=== PATIENT | male | born 1935 | race Caucasian/White ===

== ENCOUNTER → 2018-04-22 07:32 | Outpatient (REF) | payer SELFPAY ==
[2018-04-22 07:59] LABS: INR 2.6 (0.9-1.3); Prothrombin Time 27.7 SECONDS (10.1-12.7)
== END ==
LOC: LAB 07:32
PROVIDERS: PCP Internal Medicine; Visit Provider Internal Medicine
DX: I48.91 Unspecified atrial fibrillation (principal)
CPT/HCPCS: 36415; 85610

== ENCOUNTER 2018-05-15 05:40 | Emergency (ER) | payer MEDICARE, BC, SELFPAY ==
--- NOTE | 2018-05-15 05:44 | DI.CT.S_ITS ---
PROCEDURE: CT HEAD/BRAIN WO CON INDICATIONS: fall with head injury TECHNIQUE: Noncontrast 4.5 mm thick angled axial sections acquired from the foramen magnum to the vertex, with coronal and sagittal reformats. For radiation dose reduction, the following was used: automated exposure control, adjustment of mA and/or kV according to patient size. COMPARISON: [facility], CT, HEAD WITHOUT CONTRAST, 03/04/2017, 10:53. FINDINGS: Image quality: Excellent. CSF spaces: Basal cisterns are patent. No extra-axial fluid collections. The ventricles are symmetric in size and shape. Brain: There is hyperdensity identified within the superior falx measuring 41 mm AP by 15 mm transverse. Subarachnoid hemorrhage is also noted within the interhemispheric fissure. There is no midline shift. There is cerebral volume loss for age, with resultant ventricular and sulcal prominence. There are periventricular and deep white matter chronic small vessel ischemic changes. There is intracranial internal carotid artery atherosclerosis. 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 Skull and face: Calvarium and visualized facial bones appear intact, without suspicious lesions. Sinuses: Visualized sinuses and mastoids are clear. IMPRESSION: 1. Subdural hematoma within the superior falx as well as interhemispheric fissure subarachnoid hemorrhage as above. No midline shift. Dictated by: Merlyn Henderson M.D. on 05/15/2018 at 9:04 Approved by: Merlyn Henderson M.D. on 05/15/2018 at 9:08
--- NOTE | 2018-05-15 05:44 | DI.RAD.S_ITS ---
PROCEDURE: XR CHEST 1V INDICATIONS: trauma TECHNIQUE: One view of the chest was acquired. COMPARISON: [facility], , CHEST 1 VIEW, 03/26/2017, 13:46. FINDINGS: Surgical changes and devices: Pacemaker is general wires and hilar clips are unchanged. Bypass graft is also noted. Lungs and pleura: Chronic interstitial changes as well as mild appearance of increased pulmonary vascularity is present. Mediastinum: Mediastinal contours appear normal. Heart size is enlarged. Bones and chest wall: No suspicious bony lesions. Overlying soft tissues appear unremarkable. IMPRESSION: Cardiomegaly with mild increased vascularity suggestive of edema. Dictated by: Merlyn Henderson M.D. on 05/15/2018 at 9:24 Approved by: Merlyn Henderson M.D. on 05/15/2018 at 9:25
--- NOTE | 2018-05-15 05:44 | DI.RAD.S_ITS ---
PROCEDURE: XR PELVIS 1-2V INDICATIONS: trauma TECHNIQUE: One view(s) of the pelvis acquired. COMPARISON: None. FINDINGS: Bones: There is ill-defined lucency identified within the superior left pubic ramus, with a slight offset appearance. No suspicious bony lesions. Degenerative changes are present within the hip joints bilaterally. Soft tissues: Visualized bowel gas pattern is normal. No suspicious soft tissue calcifications. IMPRESSION: Ill-defined lucency with slight offset appearance of the superior left pubic ramus suspicious for fracture. Followup with CT is recommended for further characterization. The above findings were discussed with Dr. Og Hastings on 05/15/18 at 9:27 AM. Dictated by: Merlyn Henderson M.D. on 05/15/2018 at 9:26 Approved by: Merlyn Henderson M.D. on 05/15/2018 at 9:32
[2018-05-15 05:46] VITALS: BP 138/87; PULSE 102; RESP 24; TEMP 37.4; O2SAT 96
[2018-05-15 06:02] LABS: Add Manual Diff / Slide Review NO; Basophils Percent Auto 0.8 % (0-2); Eosinophils Percent Auto 0.5 % (2-4); Hematocrit 28.1 % (41-53); Hemoglobin 9.3 g/dL (13.5-17.5); Lymphocytes Percent Auto 15.5 % (25-40); Mean Corpuscular HGB Conc 33.3 % (30-36); Mean Corpuscular Hemoglobin 28.2 PG (26-34); Mean Corpuscular Volume 84.8 fL (80-100); Monocytes Percent Auto 7.8 % (3-14); Neutrophils Absolute Auto 9000 /uL (3000-5900); Neutrophils Percent Auto 75.4 % (50-75); Platelet Count 209 X10^3/uL (150-400); Red Blood Cell Count 3.32 X10^6/uL (4.5-5.9); Red Cell Distribution Width 17.1 % (11.6-14.8)
--- NOTE | 2018-05-15 06:25 | ED_ITS ---
HPI - Head Injury General Chief complaint: Trauma Stated complaint: Modified trauma Time Seen by Provider: 05/15/18 05:44 Source: patient and EMS Mode of arrival: EMS Limitations: no limitations History of Present Illness HPI Narrative: 83M by EMS for fall with possible head injury. He is on coumadin for afib. He only has complaint of right posterior arm pain. He is not dizzy nor weak or lightheaded. The fall was from walking with his walker and seen by his . He denies loss of consciousness but does not have full recall of the event. He denies any vomiting. He has no neck or back pain. Patient is a full code. Modified trauma activated given possible head injury while on Coumadin Related Data Home Medications Medication Instructions Recorded Confirmed ASPIRIN (Aspirin Low Dose) 81 mg PO Q DAY #0 04/04/10 allopurinol 100 mg PO DAILY 05/15/18 05/15/18 atorvastatin 80 mg PO DAILY 05/15/18 05/15/18 carvedilol 6.25 mg PO BID 05/15/18 05/15/18 furosemide 40 mg PO DAILY 05/15/18 05/15/18 sertraline 50 mg PO DAILY 05/15/18 05/15/18 tamsulosin 0.4 mg PO DAILY 05/15/18 05/15/18 warfarin 5 mg PO DAILY 05/15/18 05/15/18 Allergies Allergy/AdvReac Type Severity Reaction Status Date / Time Sulfa (Sulfonamide Allergy Unknown Unverified 02/02/18 11:59 Antibiotics) Review of Systems Review of Systems All systems reviewed & are unremarkable except as noted in HPI and below Constitutional Denies chills, Denies fever(s), Denies lethargy and Denies weakness Eyes Denies change in vision, Denies eye discharge, Denies irritation and Denies loss of vision ENT Ears, Nose, Mouth, and Throat: Denies change in voice, Denies neck pain and Denies sore throat Cardiovascular Denies chest pain, Denies irregular heart rhythm, Denies lightheadedness, Denies palpitations, Denies dyspnea, Denies dyspnea on exertion and Denies orthopnea Respiratory Denies cough, Denies dyspnea, Denies dyspnea on exertion and Denies wheezing Gastrointestinal Gastrointestinal: Denies abdominal pain, Denies change in bowel habits, Denies diarrhea, Denies nausea and Denies vomiting Genitourinary Denies hematuria, Denies flank pain, Denies urinary incontinence and Denies urinary urgency Musculoskeletal Denies neck pain Integumentary/Breasts Denies pruritus, Denies erythema, Denies rash and Denies wounds Neurologic Denies confusion, Denies loss of vision and Denies weakness Psychiatric Denies anxiety, Denies confusion, Denies depression, Denies homicidal ideation and Denies suicidal ideation Endocrine Denies palpitations Hematologic/Lymphatic Denies easy bruising Allergic/Immunologic Denies wheezing [facility] Medical History Blind (Acute) Cardiac pacemaker (Acute) Atrial fibrillation (Acute) CAD (coronary artery disease) (Acute) Diabetes (Acute) Exam Narrative Exam Narrative: GENERAL: Pleasant 83-year-old male, alert oriented x3, GCS is 15 HEAD: Atraumatic. Normocephalic. No temporal or scalp tenderness. EYES: Pupils equal round and reactive. Extraocular motions intact. No scleral icterus. No injection or drainage. ENT: Nose without bleeding, purulent drainage or septal hematoma. Throat without erythema, tonsillar hypertrophy or exudate. Uvula midline. Airway patent. NECK: Trachea midline. No JVD or lymphadenopathy. Supple, nontender, no meningeal signs. CARDIOVASCULAR: Regular rate and rhythm without murmurs, gallops, or rubs. RESPIRATORY: Clear to auscultation. Breath sounds equal bilaterally. No wheezes , rales, or rhonchi. GASTROINTESTINAL: Abdomen soft, non-tender, nondistended. No hepato-splenomegaly , or palpable masses. No guarding. EXTREMITIES: Small skin tear the posterior right arm BACK: Nontender without deformity or crepitance. No flank tenderness. NEURO: AOx3. SKIN: No rash or erythema. Initial Vital Signs Initial Vital Signs: Vital Signs Temperature 99.4 F 05/15/18 05:46 Pulse Rate 102 H 05/15/18 05:46 Respiratory Rate 24 05/15/18 05:46 Blood Pressure 138/87 H 05/15/18 05:46 Pulse Oximetry 96 05/15/18 05:46 Course Orders Ordered: ED Orders 05/15/18 EKG-12 Lead Routine 05/15/18 05:44 CT head/brain wo con Stat XR chest 1V Stat XR pelvis 1-2V Stat 05/15/18 05:45 Basic Metabolic Panel Stat 05/15/18 05:49 Basic Metabolic Panel Stat Complete Blood Count AUTO DIFF Stat Prothrombin Time INR Stat Prothrombin Complex Concent ( (Human) / Miscellaneous) 0 mls @ 0 mls/hr IV NOW ONE; Protocol Stop: 05/15/18 06:37 Reevaluation(s) Reevaluation #1: Patient continues to be alert and oriented x3. He gave me contact info for his , Mimi, Time: 06:50 Consultations Consultation #1: call to [facility] and [facility] immediately upon viewing of head CT. Images pushed Dr. Redmond is happy to accept patient, we thank [facility] for their ongoing support Time: 06:52 Vital Signs - 8 hr 05/15/18 05:46 05/15/18 06:35 Temperature 99.4 F 99.4 F Pulse Rate 102 H 102 H Respiratory Rate 24 24 Blood Pressure 138/87 H 138/87 H Pulse Oximetry 96 96 MDM - Head Injury Lab Data Result diagrams: 05/15/18 05:49 05/15/18 05:49 Lab Results 05/15/18 05/15/18 Range/Units 05:49 05:49 WBC 12.0 H (4.5-11.0) X10^3/uL RBC 3.32 L (4.5-5.9) X10^6/uL Hgb 9.3 L (13.5-17.5) g/dL Hct 28.1 L (41-53) % MCV 84.8 (80-100) fL MCH 28.2 (26-34) PG MCHC 33.3 (30-36) % RDW 17.1 H (11.6-14.8) % Plt Count 209 (150-400) X10^3/uL Neut % (Auto) 75.4 H (50-75) % Lymph % (Auto) 15.5 L (25-40) % [place] % (Auto) 7.8 (3-14) % Eos % (Auto) 0.5 L (2-4) % Baso % (Auto) 0.8 (0-2) % Neut # (Auto) 9000 H (8689-5374) /uL PT 29.6 H (10.1-12.7) SECONDS INR 2.7 H (0.9-1.3) Imaging Data CT scan - head: Radiologist's impression: Acute subdural hematoma layering along the falx , greatest transverse portion measuring 10 mm. Also subarachnoid hemorrhage along the interhemispheric fissure no midline shift ECG Data Attestation: I personally reviewed and interpreted this ECG as follows: Prior ECG tracings: not available for review Interpretation: AFib MDM Narrative Medical decision making narrative: 83-year-old fall with possible head injury on Coumadin. CT notes subdural and subarachnoid hemorrhage. [facility] dispatched for potential rapid decline of critically ill patient and extended transport distance. KCentra given: 2000 units ordered for INR of 2.7 in 82 kg man. Vitamin K 5mg SQ also. Discharge Plan Departure Patient Disposition: [facility] Clinical Impression: Subdural abscess, Subarachnoid bleed, Subdural hematoma Prescriptions: No Action ASPIRIN (Aspirin Low Dose) 81 mg PO Q DAY Qty: 0 RF: 0 atorvastatin 80 mg tablet 80 mg PO DAILY RF: 0 allopurinol 100 mg Tablet 100 mg PO DAILY RF: 0 tamsulosin 0.4 mg capsule,extended release 24hr 0.4 mg PO DAILY RF: 0 warfarin 5 mg Tablet 5 mg PO DAILY RF: 0 furosemide 20 mg tablet 40 mg PO DAILY RF: 0 sertraline 50 mg Tablet 50 mg PO DAILY RF: 0 carvedilol 6.25 mg PO BID RF: 0
[2018-05-15 06:31] LABS: INR 2.7 (0.9-1.3); Prothrombin Time 29.6 SECONDS (10.1-12.7)
[2018-05-15 06:35] VITALS: BP 138/87; PULSE 102; RESP 24; TEMP 37.4; O2SAT 96
[2018-05-15] MEDS: PHYTONADIONE (VIT K1) 10 MG/ML AMP 5 MG SUBCUT (06:49)
[2018-05-15 06:56] LABS: BUN Creatinine Ratio 13.3 (6-22); Blood Urea Nitrogen 40 mg/dL (9-20); Calcium 10.1 mg/dL (8.4-10.2); Carbon Dioxide 27 mmol/L (22-32); Chloride 102 mmol/L (98-107); Estimated Glomerular Filt Rate 20.1 mL/min (>60); Glucose 134 mg/dL (80-110); HEMOLYSIS < 15 (0-50); Potassium 4.2 mmol/L (3.4-5.1); Sodium 136 mmol/L (137-145)
[2018-05-15] MEDS: PROTHROMBIN CPLX(PCC)4FACT 2,000 UNIT in ISOOSMOTIC VEHICLE 0 ML 590 ML IV (07:17)
[2018-05-15 07:19] VITALS: BP 137/62; PULSE 97; RESP 34; O2SAT 96
--- NOTE | 2018-05-15 07:25 | PC.NURSE ---
Kcentra infusion initiated. Pt left with [facility] with infusion running.
--- NOTE | 2018-05-15 07:44 | PC.NURSE ---
Pt left medications here in ED. Pt label placed on bin. [facility] will call family to inform them.
--- NOTE | 2018-05-15 10:35 | PC.NURSE ---
Spoke with Scott patient's son to let him know that patients medications were left in ER and he will pick them up at some point
== END 2018-05-15 07:20 | disposition short-term general hospital (02) ==
PROVIDERS: Emergency Provider Emergency Medicine; PCP Internal Medicine
DX: G06.2 Extradural and subdural abscess, unspecified (principal); S06.6X0A Traumatic subarachnoid hemorrhage without loss of consciousness, initial encounter; S06.5X9A Traumatic subdural hemorrhage with loss of consciousness of unspecified duration, initial encounter; W19.XXXA Unspecified fall, initial encounter
CPT/HCPCS: 36415; 70450; 71045; 72170; 80048; 85025; 85610; 93005; 96372; 96374; 99283; 99285; 99291; C9132; G0390; J3430

== ENCOUNTER → 2018-06-09 10:58 | Outpatient (CLI) | payer MEDICARE, BC, SELFPAY ==
--- NOTE | 2018-06-15 08:09 | PM.PFT.1 ---
Pulmonary Function Test Referral & Results Date Patient Seen: 06/09/18 Requesting provider: Greg Bullard Indication: Aortic valve stenosis Results: The spirometry demonstrates an FVC of 2.76 L which is 88% of predicted. The FEV1 was measured at 2.00 L which is 92% of predicted. The FEV1/FVC ratio was 72 which is 102% of predicted. Following the administration of bronchodilator there was a 13% improvement in FEV1 and a 60% improvement in FEF 25-75%. Lung volumes show an SVC of 2.79 L which is 76 percent of predicted. The diffusing capacity was measured at 13.28 which is 51% of predicted. No hemoglobin value was provided, so no correction for potential anemia could be made, if appropriate. The maximum voluntary ventilation was reduced. Interpretation: This study demonstrates reduced lung volumes were otherwise normal spirometry however there was a notable improvement in FEV1 and small airway flow (FEF 25-75%) after bronchodilator administration The diffusing capacity was significantly reduced suggesting significant disease at the capillary alveolar level. Clinical correlation suggested
== END ==
PROVIDERS: PCP Internal Medicine; Visit Provider Internal Medicine Interventional Cardiology
DX: I35.0 Nonrheumatic aortic (valve) stenosis (principal)
CPT/HCPCS: 94010; 94060; 94726; 94729

== ENCOUNTER → 2018-06-09 11:01 | Outpatient (CLI) | payer OTHER, SELFPAY | PROVIDERS: Visit Provider Internal Medicine Interventional Cardiology | DX: I35.0 Nonrheumatic aortic (valve) stenosis (principal); I65.23 Occlusion and stenosis of bilateral carotid arteries | CPT/HCPCS: 93880 ==

== ENCOUNTER → 2018-06-09 11:01 | Outpatient (CLI) | payer SELFPAY ==
--- NOTE | 2018-06-09 | DI.US.S_ITS ---
PROCEDURE: US CAROTID DOPPLER BI INDICATIONS: AORTIC STENOSIS TECHNIQUE: Color and pulse Doppler interrogation was performed of both carotid systems, with image documentation and velocity measurements. COMPARISON: None. FINDINGS: Stenosis calculations are based on SRU (Society of Radiologists in Ultrasound) criteria. Right side: Brachial blood pressure: 149/82 mm Hg. Common carotid artery peak systolic velocity: 45 cm/sec. Internal carotid artery peak systolic velocity: 88 cm/sec. Internal carotid artery end diastolic velocity: 16 cm/sec. External carotid artery peak systolic velocity: 69 cm/sec. ICA/CCA peak systolic ratio: 2.0. Hernandez scale imaging description: Moderate to severe scattered plaque. Percent internal carotid artery stenosis: Less than 50% stenosis. Vertebral artery: Not visualized. Left side: Brachial blood pressure: 147/80 mm Hg. Common carotid artery peak systolic velocity: 66 cm/sec. Internal carotid artery peak systolic velocity: 85 cm/sec. Internal carotid artery end diastolic velocity: 12 cm/sec. External carotid artery peak systolic velocity: 75 cm/sec. ICA/CCA peak systolic ratio: 1.3. Hernandez scale imaging description: Moderate to severe scattered plaque. Percent internal carotid artery stenosis: Less than 50% stenosis. Vertebral artery: Flow direction is antegrade. IMPRESSION: Less than 50% bilateral internal carotid artery stenosis. Dictated by: Wild MCCURDY Interpreted: Merlyn Henderson MD on 06/09/2018 at 13:59 Approved by: Merlyn Henderson M.D. on 06/09/2018 at 16:22
== END ==
PROVIDERS: PCP Internal Medicine; Visit Provider Internal Medicine Interventional Cardiology
DX: I35.0 Nonrheumatic aortic (valve) stenosis (principal); I65.23 Occlusion and stenosis of bilateral carotid arteries
CPT/HCPCS: 93880

== ENCOUNTER 2018-09-19 03:59 | Inpatient (IN) | payer MEDICARE, BC, SELFPAY ==
[2018-09-19] VITALS (7 sets, daily range): BP systolic 98–129; BP diastolic 50–73; PULSE 87–105; RESP 17–38; TEMP 37.3–37.9; O2SAT 91–98; BMI 24.3; BMI 23.8
--- NOTE | 2018-09-19 04:01 | DI.RAD.S_ITS ---
PROCEDURE: XR CHEST 1V INDICATIONS: cough, SOB TECHNIQUE: One view of the chest was acquired. COMPARISON: [facility], CR, XR CHEST 1V, 05/15/2018, 5:44. FINDINGS: Surgical changes and devices: Cardiac defibrillator is unchanged. Patient is status post median sternotomy. There is a right endovascular stent in the region of the brachiocephalic artery. Lungs and pleura: No pleural effusions or pneumothorax. Lungs are clear. Mediastinum: Mediastinal contours appear normal. Heart size is normal. The aorta is tortuous and calcified, as before. Bones and chest wall: No suspicious bony lesions. Overlying soft tissues appear unremarkable. IMPRESSION: No acute cardiopulmonary findings. Dictated by: Cynthia Caldwell M.D. on 09/19/2018 at 8:23 Approved by: Cynthia Caldwell M.D. on 09/19/2018 at 8:24
--- NOTE | 2018-09-19 04:29 | ED.URI ---
HPI - URI/Sore Throat General Chief Complaint: Upper Respiratory Symptoms Stated Complaint: Cough x1 day Time Seen by Provider: 09/19/18 04:00 Source: patient and EMS Mode of arrival: EMS Limitations: no limitations History of Present Illness HPI Narrative: 83-year-old former smoker with cardiac and stroke history presents by EMS with chief complaint of fever, shaking chills and cough productive of yellow sputum over the course of the day. Any exertion makes the patient feel quite weak and short of breath. Denies any chest pain is not dizzy or lightheaded but has begun to feel quite weak. He denies nausea, vomiting or diarrhea. he is a poor historian but states he has not been in the hospital for some time MD Complaint: fever and cough Duration: constant Severity: moderate Relieving factors: rest Exacerbating factors: exertion Description of mucous: yellow Able to tolerate fluids by mouth: Yes Associated symptoms: fever and chills Treatments prior to arrival: none Related Data Home Medications Medication Instructions Recorded Confirmed allopurinol 100 mg PO DAILY 05/15/18 09/19/18 carvedilol 6.25 mg PO BID 05/15/18 09/19/18 furosemide 40 mg PO DAILY 05/15/18 09/19/18 sertraline 50 mg PO DAILY 05/15/18 09/19/18 tamsulosin 0.4 mg PO DAILY 05/15/18 09/19/18 atorvastatin 20 mg PO BEDTIME 09/19/18 09/19/18 cholecalciferol (vitamin D3) 1,000 unit PO DAILY 09/19/18 09/19/18 [Vitamin D3] glipizide 2.5 mg PO DAILY 09/19/18 09/19/18 Allergies Allergy/AdvReac Type Severity Reaction Status Date / Time Sulfa (Sulfonamide Allergy Unknown Verified 09/19/18 05:01 Antibiotics) Review of Systems Review of Systems All systems reviewed & are unremarkable except as noted in HPI and below Constitutional Reports chills, Reports fever(s), Denies lethargy and Reports weakness Eyes Denies change in vision, Denies eye discharge, Denies irritation and Denies loss of vision ENT Ears, Nose, Mouth, and Throat: Denies change in voice, Denies neck pain and Denies sore throat Cardiovascular Denies chest pain, Denies irregular heart rhythm, Denies lightheadedness, Denies palpitations, Reports dyspnea, Denies dyspnea on exertion and Denies orthopnea Respiratory Reports cough, Reports dyspnea, Denies dyspnea on exertion and Denies wheezing Gastrointestinal Gastrointestinal: Denies abdominal pain, Denies change in bowel habits, Denies diarrhea, Denies nausea and Denies vomiting Genitourinary Denies hematuria, Denies flank pain, Denies urinary incontinence and Denies urinary urgency Musculoskeletal Denies neck pain Integumentary/Breasts Denies pruritus, Denies erythema, Denies rash and Denies wounds Neurologic Denies confusion, Denies loss of vision and Reports weakness Psychiatric Denies anxiety, Denies confusion, Denies depression, Denies homicidal ideation and Denies suicidal ideation Endocrine Denies palpitations Hematologic/Lymphatic Denies easy bruising Allergic/Immunologic Denies wheezing [facility] Medical History Atrial fibrillation (Acute) Blind (Acute) CAD (coronary artery disease) (Acute) Cardiac pacemaker (Acute) Diabetes (Acute) Social History household members: spouse Smoking Status: Former smoker alcohol intake: never Exam Narrative Exam Narrative: Chronically ill 83-year-old male appears in acute distress, wet sounding harsh cough and patient dyspneic on conversation Initial Vital Signs Initial Vital Signs: Vital Signs Temperature 100.2 F H 09/19/18 04:10 Pulse Rate 93 H 09/19/18 04:10 Blood Pressure 118/72 09/19/18 04:10 Pulse Oximetry 93 09/19/18 04:10 Const General: cooperative, well developed and acute distress Nutritional Appearance: well nourished Orientation: alert, awake, oriented x3 and not confused [facility] Head: normocephalic and atraumatic Ears: external ears normal and TM's normal bilaterally Nose: external nose normal and No nasal discharge Face and sinus: sinuses nontender, face symmetric, no sinus tenderness and dry mucous membranes Teeth and gingiva: dentition normal Throat: tonsils normal and uvula midline Eyes General: appearance normal, both eyes and all related structures Eyelids: eyelids normal Conjunctivae: conjunctivae normal Sclera: sclerae normal Pupils: PERRL EOM: EOM intact bilaterally Chest Chest: normal inspection of the chest Resp Effort & Inspection: normal respiratory effort, able to speak in complete sentences, no respiratory distress and no use of accessory muscles Auscultation: clear to auscultation bilaterally, rales and no wheezes Cardio Rate: tachycardic Rhythm: abnormal rhythm GI Inspection: non-distended Palpation: soft, no hepatosplenomegaly, No guarding, No pulsatile mass and No tender Auscultation: normal bowel sounds Back/Spine/Pelvis Back: No CVA tenderness Cervical Spine: cervical ROM normal and No pain with cervical ROM Thoracic/Lumbar Spine: thoracic and lumbar spine normal to inspection Skin General: no rashes or lesions noted Neuro General: alert and awake Motor: muscle tone normal throughout Extrem General: full ROM, no clubbing, cyanosis or edema, no pedal edema and no calf tenderness Psych Appearance: well kempt Mental Status: mental status grossly normal Attitude: cooperative Thought Content: normal and suicidality Judgment: judgment good Course Orders Ordered: ED Orders 09/19/18 UA Complete [Urinalysis and Microscopic] Routine EKG-12 Lead Urgent 09/19/18 04:01 Consult to Respiratory Therapy Evaluate & Treat XR chest 1V Stat EKG-12 Lead Stat 09/19/18 04:27 B Type Natriuretic Peptide Stat Basic Metabolic Panel Stat Complete Blood Count AUTO DIFF Stat Influenza A and B by PCR Rapid Stat Lactate (Lactic Acid) Stat Magnesium Stat Procalcitonin Stat Troponin & CK Cardiac Panel Stat 09/19/18 04:55 Blood Culture Stat 09/19/18 07:00 Consult to Dietitian, Adult Routine 09/19/18 08:00 Troponin I Urgent 09/19/18 14:00 Troponin I Routine 09/20/18 Chest [XR chest 2V] Routine Albuterol/Ipratropium (Duoneb) 3 ml INH RTQ6HR PRN PRN Reason: Shortness Of Breath Furosemide (Lasix) 40 mg PO DAILY MY Sodium Chloride (Normal Saline 0.9%) 1,000 mls @ 50 mls/hr IV CONT MY Last Admin: 09/19/18 07:38 Dose: 50 mls/hr Insulin Aspart (Novolog Flexpen) 0 unit SUBCUT ACHS [facility]; Protocol Last Admin: 09/19/18 07:38 Dose: Not Given Oseltamivir Phosphate (Tamiflu) 30 mg PO NOW ONE Stop: 09/20/18 09:01 Sertraline HCl (Zoloft) 50 mg PO DAILY MY Tamsulosin HCl (Flomax) 0.4 mg PO DAILY MY Discontinued Medications Ceftriaxone Sodium/Dextrose (Rocephin) 1 gm in 50 mls @ 100 mls/hr IV NOW ONE Stop: 09/19/18 05:14 Last Infusion: 09/19/18 06:37 Dose: 0 mls/hr Admin: 09/19/18 05:11 Dose: 100 mls/hr Influenza Virus Vaccine (Flu Vaccine) 0.5 ml IM .ONCE ONE Stop: 09/19/18 07:01 Oseltamivir Phosphate (Tamiflu) 75 mg PO NOW ONE Stop: 09/19/18 05:01 Last Admin: 09/19/18 05:38 Dose: Oseltamivir Phosphate (Tamiflu) 30 mg PO NOW ONE Stop: 09/19/18 05:23 Last Admin: 09/19/18 05:40 Dose: 30 mg Consultations Consultation #1: hospitalist is happy to accept Vital Signs - 8 hr 09/19/18 04:10 09/19/18 04:32 09/19/18 06:38 Temperature 100.2 F H Pulse Rate 93 H 98 H 105 H Respiratory Rate 38 H 25 H Blood Pressure 118/72 Blood Pressure [Right Arm] 113/55 L 103/60 Pulse Oximetry 93 91 93 09/19/18 06:44 Temperature 99.8 F H Pulse Rate 94 H Respiratory Rate 28 H Blood Pressure 109/57 L Blood Pressure [Right Arm] Pulse Oximetry 98 MDM - URI/Sore Throat Medical Records Attestation: I reviewed the patient's medical records. Lab Data Result diagrams: 09/19/18 04:27 09/19/18 04:27 Lab Results 09/19/18 09/19/18 09/19/18 Range/Units 04:27 04:27 04:27 WBC 7.3 (4.5-11.0) X10^3/uL RBC 3.66 L (4.5-5.9) X10^6/uL Hgb 9.9 L (13.5-17.5) g/dL Hct 30.3 L (41-53) % MCV 82.7 (80-100) fL MCH 26.9 (26-34) PG MCHC 32.5 (30-36) % RDW 19.6 H (11.6-14.8) % Plt Count 191 (150-400) X10^3/uL Neut % (Auto) 73.3 (50-75) % Lymph % (Auto) 17.3 L (25-40) % [place] % (Auto) 5.6 (3-14) % Eos % (Auto) 2.3 (2-4) % Baso % (Auto) 1.5 (0-2) % Neut # (Auto) 5400 (6547-9993) /uL Sodium 141 (137-145) mmol/L Potassium 4.6 (3.4-5.1) mmol/L Chloride 109 H (98-107) mmol/L Carbon Dioxide 21 L (22-32) mmol/L BUN 35 H (9-20) mg/dL Creatinine 3.00 H (0.66-1.25) mg/dL Estimated GFR 20.1 L (>60) mL/min BUN/Creatinine Ratio 11.7 (6-22) Glucose 110 (80-110) mg/dL Lactate (0.7-2.1) mmol/L Calcium 10.3 H (8.4-10.2) mg/dL Magnesium 1.6 (1.6-2.3) mg/dL Total Creatine Kinase 20 L (55-170) U/L CK-MB (CK-2) TNP CK-MB (CK-2) Rel Index TNP Troponin I 0.047 H (0.01-0.034) ng/mL B-Natriuretic Peptide 442.0 H (<100) Procalcitonin (<0.5) ng/mL Influenza A & B (PCR) Positive, type a A (Negative) 09/19/18 09/19/18 Range/Units 04:27 04:27 WBC (4.5-11.0) X10^3/uL RBC (4.5-5.9) X10^6/uL Hgb (13.5-17.5) g/dL Hct (41-53) % MCV (80-100) fL MCH (26-34) PG MCHC (30-36) % RDW (11.6-14.8) % Plt Count (150-400) X10^3/uL Neut % (Auto) (50-75) % Lymph % (Auto) (25-40) % [place] % (Auto) (3-14) % Eos % (Auto) (2-4) % Baso % (Auto) (0-2) % Neut # (Auto) (6313-4021) /uL Sodium (137-145) mmol/L Potassium (3.4-5.1) mmol/L Chloride (98-107) mmol/L Carbon Dioxide (22-32) mmol/L BUN (9-20) mg/dL Creatinine (0.66-1.25) mg/dL Estimated GFR (>60) mL/min BUN/Creatinine Ratio (6-22) Glucose (80-110) mg/dL Lactate 1.1 (0.7-2.1) mmol/L Calcium (8.4-10.2) mg/dL Magnesium (1.6-2.3) mg/dL Total Creatine Kinase (55-170) U/L CK-MB (CK-2) CK-MB (CK-2) Rel Index Troponin I (0.01-0.034) ng/mL B-Natriuretic Peptide (<100) Procalcitonin 0.07 (<0.5) ng/mL Influenza A & B (PCR) (Negative) Imaging Data Chest x-ray: My impression: possible RLL PNA MDM Narrative Medical decision making narrative: Chronically ill patient presents with respiratory distress, fever and shaking chills, tachypnea. His chronically ill and frail and presents with influenza a. He will require admission to the hospital for stabilization of his condition Discharge Plan Departure Patient Disposition: Admitted As Inpatient Clinical Impression: Influenza A Discharge Date/Time: 09/19/18 06:40 Interventions: ED Discharge Assessment Last Done: 09/19/18 06:37 Admit Date/Time: 09/19/18 05:23 Admit Provider: Jose James
--- NOTE | 2018-09-19 04:37 | ED_ITS ---
HPI - URI/Sore Throat General Chief Complaint: Upper Respiratory Symptoms Stated Complaint: Cough x1 day Time Seen by Provider: 09/19/18 04:00 Source: patient and EMS Mode of arrival: EMS Limitations: no limitations History of Present Illness HPI Narrative: 83-year-old former smoker with cardiac and stroke history presents by EMS with chief complaint of fever, shaking chills and cough productive of yellow sputum over the course of the day. Any exertion makes the patient feel quite weak and short of breath. Denies any chest pain is not dizzy or lightheaded but has begun to feel quite weak. He denies nausea, vomiting or diarrhea. he is a poor historian but states he has not been in the hospital for some time MD Complaint: fever and cough Duration: constant Severity: moderate Relieving factors: rest Exacerbating factors: exertion Description of mucous: yellow Able to tolerate fluids by mouth: Yes Associated symptoms: fever and chills Treatments prior to arrival: none Related Data Home Medications Medication Instructions Recorded Confirmed allopurinol 100 mg PO DAILY 05/15/18 09/19/18 carvedilol 6.25 mg PO BID 05/15/18 09/19/18 furosemide 40 mg PO DAILY 05/15/18 09/19/18 sertraline 50 mg PO DAILY 05/15/18 09/19/18 tamsulosin 0.4 mg PO DAILY 05/15/18 09/19/18 atorvastatin 20 mg PO BEDTIME 09/19/18 09/19/18 cholecalciferol (vitamin D3) 1,000 unit PO DAILY 09/19/18 09/19/18 [Vitamin D3] glipizide 2.5 mg PO DAILY 09/19/18 09/19/18 Allergies Allergy/AdvReac Type Severity Reaction Status Date / Time Sulfa (Sulfonamide Allergy Unknown Verified 09/19/18 05:01 Antibiotics) Review of Systems Review of Systems All systems reviewed & are unremarkable except as noted in HPI and below Constitutional Reports chills, Reports fever(s), Denies lethargy and Reports weakness Eyes Denies change in vision, Denies eye discharge, Denies irritation and Denies loss of vision ENT Ears, Nose, Mouth, and Throat: Denies change in voice, Denies neck pain and Denies sore throat Cardiovascular Denies chest pain, Denies irregular heart rhythm, Denies lightheadedness, Denies palpitations, Reports dyspnea, Denies dyspnea on exertion and Denies orthopnea Respiratory Reports cough, Reports dyspnea, Denies dyspnea on exertion and Denies wheezing Gastrointestinal Gastrointestinal: Denies abdominal pain, Denies change in bowel habits, Denies diarrhea, Denies nausea and Denies vomiting Genitourinary Denies hematuria, Denies flank pain, Denies urinary incontinence and Denies urinary urgency Musculoskeletal Denies neck pain Integumentary/Breasts Denies pruritus, Denies erythema, Denies rash and Denies wounds Neurologic Denies confusion, Denies loss of vision and Reports weakness Psychiatric Denies anxiety, Denies confusion, Denies depression, Denies homicidal ideation and Denies suicidal ideation Endocrine Denies palpitations Hematologic/Lymphatic Denies easy bruising Allergic/Immunologic Denies wheezing [facility] Medical History Atrial fibrillation (Acute) Blind (Acute) CAD (coronary artery disease) (Acute) Cardiac pacemaker (Acute) Diabetes (Acute) Social History household members: spouse Smoking Status: Former smoker alcohol intake: never Exam Narrative Exam Narrative: Chronically ill 83-year-old male appears in acute distress, wet sounding harsh cough and patient dyspneic on conversation Initial Vital Signs Initial Vital Signs: Vital Signs Temperature 100.2 F H 09/19/18 04:10 Pulse Rate 93 H 09/19/18 04:10 Blood Pressure 118/72 09/19/18 04:10 Pulse Oximetry 93 09/19/18 04:10 Const General: cooperative, well developed and acute distress Nutritional Appearance: well nourished Orientation: alert, awake, oriented x3 and not confused [facility] Head: normocephalic and atraumatic Ears: external ears normal and TM's normal bilaterally Nose: external nose normal and No nasal discharge Face and sinus: sinuses nontender, face symmetric, no sinus tenderness and dry mucous membranes Teeth and gingiva: dentition normal Throat: tonsils normal and uvula midline Eyes General: appearance normal, both eyes and all related structures Eyelids: eyelids normal Conjunctivae: conjunctivae normal Sclera: sclerae normal Pupils: PERRL EOM: EOM intact bilaterally Chest Chest: normal inspection of the chest Resp Effort & Inspection: normal respiratory effort, able to speak in complete sentences, no respiratory distress and no use of accessory muscles Auscultation: clear to auscultation bilaterally, rales and no wheezes Cardio Rate: tachycardic Rhythm: abnormal rhythm GI Inspection: non-distended Palpation: soft, no hepatosplenomegaly, No guarding, No pulsatile mass and No tender Auscultation: normal bowel sounds Back/Spine/Pelvis Back: No CVA tenderness Cervical Spine: cervical ROM normal and No pain with cervical ROM Thoracic/Lumbar Spine: thoracic and lumbar spine normal to inspection Skin General: no rashes or lesions noted Neuro General: alert and awake Motor: muscle tone normal throughout Extrem General: full ROM, no clubbing, cyanosis or edema, no pedal edema and no calf tenderness Psych Appearance: well kempt Mental Status: mental status grossly normal Attitude: cooperative Thought Content: normal and suicidality Judgment: judgment good Course Orders Ordered: ED Orders 09/19/18 UA Complete [Urinalysis and Microscopic] Routine EKG-12 Lead Urgent 09/19/18 04:01 Consult to Respiratory Therapy Evaluate & Treat XR chest 1V Stat EKG-12 Lead Stat 09/19/18 04:27 B Type Natriuretic Peptide Stat Basic Metabolic Panel Stat Complete Blood Count AUTO DIFF Stat Influenza A and B by PCR Rapid Stat Lactate (Lactic Acid) Stat Magnesium Stat Procalcitonin Stat Troponin & CK Cardiac Panel Stat 09/19/18 04:55 Blood Culture Stat 09/19/18 07:00 Consult to Dietitian, Adult Routine 09/19/18 08:00 Troponin I Urgent 09/19/18 14:00 Troponin I Routine 09/20/18 Chest [XR chest 2V] Routine Albuterol/Ipratropium (Duoneb) 3 ml INH RTQ6HR PRN PRN Reason: Shortness Of Breath Furosemide (Lasix) 40 mg PO DAILY MY Sodium Chloride (Normal Saline 0.9%) 1,000 mls @ 50 mls/hr IV CONT MY Last Admin: 09/19/18 07:38 Dose: 50 mls/hr Insulin Aspart (Novolog Flexpen) 0 unit SUBCUT ACHS [facility]; Protocol Last Admin: 09/19/18 07:38 Dose: Not Given Oseltamivir Phosphate (Tamiflu) 30 mg PO NOW ONE Stop: 09/20/18 09:01 Sertraline HCl (Zoloft) 50 mg PO DAILY MY Tamsulosin HCl (Flomax) 0.4 mg PO DAILY MY Discontinued Medications Ceftriaxone Sodium/Dextrose (Rocephin) 1 gm in 50 mls @ 100 mls/hr IV NOW ONE Stop: 09/19/18 05:14 Last Infusion: 09/19/18 06:37 Dose: 0 mls/hr Admin: 09/19/18 05:11 Dose: 100 mls/hr Influenza Virus Vaccine (Flu Vaccine) 0.5 ml IM .ONCE ONE Stop: 09/19/18 07:01 Oseltamivir Phosphate (Tamiflu) 75 mg PO NOW ONE Stop: 09/19/18 05:01 Last Admin: 09/19/18 05:38 Dose: Oseltamivir Phosphate (Tamiflu) 30 mg PO NOW ONE Stop: 09/19/18 05:23 Last Admin: 09/19/18 05:40 Dose: 30 mg Consultations Consultation #1: hospitalist is happy to accept Vital Signs - 8 hr 09/19/18 04:10 09/19/18 04:32 09/19/18 06:38 Temperature 100.2 F H Pulse Rate 93 H 98 H 105 H Respiratory Rate 38 H 25 H Blood Pressure 118/72 Blood Pressure [Right Arm] 113/55 L 103/60 Pulse Oximetry 93 91 93 09/19/18 06:44 Temperature 99.8 F H Pulse Rate 94 H Respiratory Rate 28 H Blood Pressure 109/57 L Blood Pressure [Right Arm] Pulse Oximetry 98 MDM - URI/Sore Throat Medical Records Attestation: I reviewed the patient's medical records. Lab Data Result diagrams: 09/19/18 04:27 09/19/18 04:27 Lab Results 09/19/18 09/19/18 09/19/18 Range/Units 04:27 04:27 04:27 WBC 7.3 (4.5-11.0) X10^3/uL RBC 3.66 L (4.5-5.9) X10^6/uL Hgb 9.9 L (13.5-17.5) g/dL Hct 30.3 L (41-53) % MCV 82.7 (80-100) fL MCH 26.9 (26-34) PG MCHC 32.5 (30-36) % RDW 19.6 H (11.6-14.8) % Plt Count 191 (150-400) X10^3/uL Neut % (Auto) 73.3 (50-75) % Lymph % (Auto) 17.3 L (25-40) % [place] % (Auto) 5.6 (3-14) % Eos % (Auto) 2.3 (2-4) % Baso % (Auto) 1.5 (0-2) % Neut # (Auto) 5400 (3984-9120) /uL Sodium 141 (137-145) mmol/L Potassium 4.6 (3.4-5.1) mmol/L Chloride 109 H (98-107) mmol/L Carbon Dioxide 21 L (22-32) mmol/L BUN 35 H (9-20) mg/dL Creatinine 3.00 H (0.66-1.25) mg/dL Estimated GFR 20.1 L (>60) mL/min BUN/Creatinine Ratio 11.7 (6-22) Glucose 110 (80-110) mg/dL Lactate (0.7-2.1) mmol/L Calcium 10.3 H (8.4-10.2) mg/dL Magnesium 1.6 (1.6-2.3) mg/dL Total Creatine Kinase 20 L (55-170) U/L CK-MB (CK-2) TNP CK-MB (CK-2) Rel Index TNP Troponin I 0.047 H (0.01-0.034) ng/mL B-Natriuretic Peptide 442.0 H (<100) Procalcitonin (<0.5) ng/mL Influenza A & B (PCR) Positive, type a A (Negative) 09/19/18 09/19/18 Range/Units 04:27 04:27 WBC (4.5-11.0) X10^3/uL RBC (4.5-5.9) X10^6/uL Hgb (13.5-17.5) g/dL Hct (41-53) % MCV (80-100) fL MCH (26-34) PG MCHC (30-36) % RDW (11.6-14.8) % Plt Count (150-400) X10^3/uL Neut % (Auto) (50-75) % Lymph % (Auto) (25-40) % [place] % (Auto) (3-14) % Eos % (Auto) (2-4) % Baso % (Auto) (0-2) % Neut # (Auto) (0360-5735) /uL Sodium (137-145) mmol/L Potassium (3.4-5.1) mmol/L Chloride (98-107) mmol/L Carbon Dioxide (22-32) mmol/L BUN (9-20) mg/dL Creatinine (0.66-1.25) mg/dL Estimated GFR (>60) mL/min BUN/Creatinine Ratio (6-22) Glucose (80-110) mg/dL Lactate 1.1 (0.7-2.1) mmol/L Calcium (8.4-10.2) mg/dL Magnesium (1.6-2.3) mg/dL Total Creatine Kinase (55-170) U/L CK-MB (CK-2) CK-MB (CK-2) Rel Index Troponin I (0.01-0.034) ng/mL B-Natriuretic Peptide (<100) Procalcitonin 0.07 (<0.5) ng/mL Influenza A & B (PCR) (Negative) Imaging Data Chest x-ray: My impression: possible RLL PNA MDM Narrative Medical decision making narrative: Chronically ill patient presents with respiratory distress, fever and shaking chills, tachypnea. His chronically ill and frail and presents with influenza a. He will require admission to the hospital for stabilization of his condition Discharge Plan Departure Patient Disposition: Admitted As Inpatient Clinical Impression: Influenza A Discharge Date/Time: 09/19/18 06:40 Interventions: ED Discharge Assessment Last Done: 09/19/18 06:37 Admit Date/Time: 09/19/18 05:23 Admit Provider: Jose James
[2018-09-19 04:42] LABS: Add Manual Diff / Slide Review NO; Basophils Percent Auto 1.5 % (0-2); Eosinophils Percent Auto 2.3 % (2-4); Hematocrit 30.3 % (41-53); Hemoglobin 9.9 g/dL (13.5-17.5); Lymphocytes Percent Auto 17.3 % (25-40); Mean Corpuscular HGB Conc 32.5 % (30-36); Mean Corpuscular Hemoglobin 26.9 PG (26-34); Mean Corpuscular Volume 82.7 fL (80-100); Monocytes Percent Auto 5.6 % (3-14); Neutrophils Absolute Auto 5400 /uL (3000-5900); Neutrophils Percent Auto 73.3 % (50-75); Platelet Count 191 X10^3/uL (150-400); Red Blood Cell Count 3.66 X10^6/uL (4.5-5.9); Red Cell Distribution Width 19.6 % (11.6-14.8); White Blood Cell Count 7.3 X10^3/uL (4.5-11.0)
[2018-09-19 04:45] LABS: Lactate (Lactic Acid) 1.1 mmol/L (0.7-2.1)
[2018-09-19 04:48] LABS: BUN Creatinine Ratio 11.7 (6-22); Blood Urea Nitrogen 35 mg/dL (9-20); Calcium 10.3 mg/dL (8.4-10.2); Carbon Dioxide 21 mmol/L (22-32); Chloride 109 mmol/L (98-107); Creatine Kinase 20 U/L (55-170); Estimated Glomerular Filt Rate 20.1 mL/min (>60); Glucose 110 mg/dL (80-110); HEMOLYSIS < 15 (0-50); Magnesium 1.6 mg/dL (1.6-2.3); Potassium 4.6 mmol/L (3.4-5.1); Sodium 141 mmol/L (137-145)
[2018-09-19 05:00] LABS: Troponin I 0.047 ng/mL (0.01-0.034)
[2018-09-19 05:04] LABS: Procalcitonin 0.07 ng/mL (<0.5)
[2018-09-19] MEDS: CEFTRIAXONE 1 GM/50 ML FROZ.PIGGY IV (05:11)
[2018-09-19] MEDS: OSELTAMIVIR SUSP 6 MG/ML BOTTLE 30 MG PO (05:40)
--- NOTE | 2018-09-19 05:45 | PM.HP.1 ---
History of Present Illness Date Patient Seen: 09/19/18 Chief complaint: Cough x1 day Narrative: The patient is an 83-year-old male with PMH significant for CAD, AFIB, PPM, HF, AVS, carotid artery disease, CKD IV, subdural heamatoma, DM2T and BPH. Patient presents out of concern for shortness of breath. Symptom onset within 24 hr prior to ED presentation. Associated symptoms include fever, cough w/ yellow purulence, and generalized weakness. Symptom onset is acute, on a.m. of 09/18/2018. Denies chest pain, palpitations, dizziness, lightheadedness, syncopal events, abdominal pain, gastrointestinal distress, dysuria, or symptoms of blood loss per rectum. Patient is not oxygen dependent. No exacerbating or remitting factors noted. Patient is unable to tell me her make adequate clarification regarding his code status. Will make him full code. Patient unable to note is surrogate decision maker. Patient History Medical History Atrial fibrillation (Acute) Blind (Acute) CAD (coronary artery disease) (Acute) Cardiac pacemaker (Acute) Diabetes (Acute) Family & Social History Family History: Reviewed 09/19/18 by JUSTEN Reed Tobacco & Substance use: Patient is a former smoker. Denies alcohol or recreational drug use. Patient lives at home and attends to his known care needs. Uses walker and cane for ambulation. Patient's son lives in town. [facility] Home Medications Medication Instructions Recorded Confirmed Type allopurinol 100 mg PO DAILY 05/15/18 09/19/18 History carvedilol 6.25 mg PO BID 05/15/18 09/19/18 History furosemide 40 mg PO DAILY 05/15/18 09/19/18 History sertraline 50 mg PO DAILY 05/15/18 09/19/18 History tamsulosin 0.4 mg PO DAILY 05/15/18 09/19/18 History atorvastatin 20 mg PO BEDTIME 09/19/18 09/19/18 History cholecalciferol (vitamin D3) 1,000 unit PO DAILY 09/19/18 09/19/18 History [Vitamin D3] glipizide 2.5 mg PO DAILY 09/19/18 09/19/18 History Allergies Allergy/AdvReac Type Severity Reaction Status Date / Time Sulfa (Sulfonamide Allergy Unknown Verified 09/19/18 05:01 Antibiotics) Review of Systems Review of Systems All systems reviewed & are unremarkable except as noted in HPI and below Exam Vital Signs (past 8 hours): - 09/19/18 04:10 09/19/18 04:32 Temperature 100.2 F H Pulse Rate 93 H 98 H Respiratory Rate 38 H Blood Pressure 118/72 Blood Pressure [Right Arm] 113/55 L Pulse Oximetry 93 91 Oxygen Delivery Method Room Air Narrative Exam Narrative: Constitutional: NAD Neurologic: AOx3, tremor present Head: NC, AT Eyes: Gaze conjugate Ears: external ears normal, no otorrhea Nose: external nose normal, no rhinorrhea or epistaxis Throat: dry MM, oropharynx w/o exudate Neck: no masses, lymphadenopathy, or JVD Chest / Respiratory: rhonchi bilat, mild tachypnea, on O2 Heart / CV: S1S2, + murmur Abdomen / GI: round, NT, ND, + BS, no organomegaly : no suprapubic tenderness, no CVA Peripheral / Vascular: warm to touch, DP and PT pulses palpable, no edema Musc: full ROM of upper and lower extremities, adequate muscle tone and bulk Skin: no ecchymosis or suspicious lesions Objective Labs Result Diagrams: 09/19/18 04:27 09/19/18 04:27 Labs: Laboratory Results - last 24 hr 09/19/18 09/19/18 09/19/18 04:27 04:27 04:27 WBC 7.3 RBC 3.66 L Hgb 9.9 L Hct 30.3 L MCV 82.7 MCH 26.9 MCHC 32.5 RDW 19.6 H Plt Count 191 Neut % (Auto) 73.3 Lymph % (Auto) 17.3 L [place] % (Auto) 5.6 Eos % (Auto) 2.3 Baso % (Auto) 1.5 Neut # (Auto) 5400 Sodium 141 Potassium 4.6 Chloride 109 H Carbon Dioxide 21 L BUN 35 H Creatinine 3.00 H Estimated GFR 20.1 L BUN/Creatinine Ratio 11.7 Glucose 110 Lactate Calcium 10.3 H Magnesium 1.6 Total Creatine Kinase 20 L CK-MB (CK-2) TNP CK-MB (CK-2) Rel Index TNP Troponin I 0.047 H B-Natriuretic Peptide 442.0 H Procalcitonin Influenza A & B (PCR) Positive, type a A 09/19/18 09/19/18 04:27 04:27 WBC RBC Hgb Hct MCV MCH MCHC RDW Plt Count Neut % (Auto) Lymph % (Auto) [place] % (Auto) Eos % (Auto) Baso % (Auto) Neut # (Auto) Sodium Potassium Chloride Carbon Dioxide BUN Creatinine Estimated GFR BUN/Creatinine Ratio Glucose Lactate 1.1 Calcium Magnesium Total Creatine Kinase CK-MB (CK-2) CK-MB (CK-2) Rel Index Troponin I B-Natriuretic Peptide Procalcitonin 0.07 Influenza A & B (PCR) Assessment & Plan Plan: Assessment/Plan Narrative: Influenza A - Isolation precautions - Tamiflu 30 mg every other day, CrCl20 - Gently hydration NS at 50 ml/hr - Supportive care Troponin Elevated, 0.047 No s/s of chest pain. Likely in the setting of demand ischemia. - Trend trop - EKG Cough Flu vs Pneumonia vs bronchospasm. No s/s of sepsis. Lactate WNL. Procal 0.07. No s/s of sepsis - Potential early PNA on CXR, final XR read pending. Received 1 dose of rocephin in ED - repeat chest x-ray on 09/20 - blood cultures pending - UA with urine culture CKD Stage IV, sCr 3.0 / GFR 20 (renal fx at baseline) - avoid nephrotoxin agents, renally dose meds - trend renal fx Essential HTN, BP borderline - hold coreg and lasix today, to be re-evaluated H/O heart failure, no recent echo, does not appear in acute decompensation - resume [employer] B[employer] TANK lasix DM 2T w/ hyperglycemia [employer] T[employer] on glipizide - hold home oral anti glycemic agent - start SSI, AC/HS Hx of subdural hematoma, no anticoagulation AFIB (h/o PPM implant), paced rhythm, resume BB per home dose / regimen CAD (h/o CABG), stable, resume BB and atorvastatin, not on ASA (h/o cerebral bleed) BPH, controlled w/ tamsulosin, resume home dose / regimen
--- NOTE | 2018-09-19 07:32 | PC.ADMIT ---
[id number] Admission Note: The patient,Farhat López,83 y/o, was given written information regarding hospital policies, unit procedures and contact persons. Patient's smoking status: Former smoker. Vital Signs - 8 hr 09/19/18 04:10 09/19/18 04:32 09/19/18 06:38 Temperature 100.2 F H Pulse Rate 93 H 98 H 105 H Respiratory Rate 38 H 25 H Blood Pressure 118/72 Blood Pressure [Right Arm] 113/55 L 103/60 Pulse Oximetry 93 91 93 09/19/18 06:44 Temperature 99.8 F H Pulse Rate 94 H Respiratory Rate 28 H Blood Pressure 109/57 L Blood Pressure [Right Arm] Pulse Oximetry 98 Patient admitted at 0644 to room 226 from ER. Transferred into bed with 2 assist as is very unsteady on feet. Oriented except to day of month/day of week, did not know why he came to the ER stating I was told to come, and knows he is in the hospital but thought the town was [place]. Is [place] and normally wears hearing aids but he does not have them with. States he is able to read newsprint with glasses but glasses did not come with him. Wears dentures, again did not come with them. States he has lost 30 pounds in past 3 months and denies being on a diabetic diet; diet consult ordered. Incontinent of urine and is wearing a pull up. Temp improved but still slightly elevated at 99.8. Denies pain. Fall risk score is high and bed alarm is activated. On droplet precautions because he is positive for influenzae A. Came with meds which were turned over to day RNPatricia, who will attempt to send them home with family. Oriented to room, call light and bed controls.
[2018-09-19] MEDS: SODIUM CHLORIDE 0.9% 1,000 ML 50 ML IV (07:38)
[2018-09-19 09:15] LABS: Troponin I 0.045 ng/mL (0.01-0.034)
[2018-09-19] MEDS: FUROSEMIDE 40 MG TABLET PO (09:34)
[2018-09-19] MEDS: TAMSULOSIN 0.4 MG CAPSULE PO (09:34)
[2018-09-19] MEDS: INFLUENZA VACCINE 0.5 ML SYRINGE IM (09:34)
[2018-09-19] MEDS: SERTRALINE 50 MG TABLET PO (09:34)
--- NOTE | 2018-09-19 10:54 | PC.NURSE ---
Pt is calm and cooperative. Denies pain at this time. Poor appetite. Did not eat breakfast that was presented to him. IV fluids infusing. Pt is [place] and does not have hearing aids. 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 Pt has not voided yet, spouse states he is usually continent of bowel and bladder.
--- NOTE | 2018-09-19 10:58 | PT.IIE ---
Addendum entered and electronically signed by Verenice Up, PT 09/19/18 13:19: I certify I directly supervised and guided this session. R Ricarda Up DPT Original Note: Medical History (Last Reviewed 09/19/18 @ 05:54 by JUSTEN Reed) Atrial fibrillation (Acute) Blind (Acute) CAD (coronary artery disease) (Acute) Cardiac pacemaker (Acute) Diabetes (Acute) Physical Therapy Inpatient Evaluation/Re-Eval M1 PT/OT-IP Prior Functional Status Start: 09/19/18 11:44 Freq: NEEDED Status: Active Protocol: Document 09/19/18 10:58 (Rec: 09/19/18 12:05 [email or web address]) Medical Review Prior Functional Status Medical History Reviewed Yes Communication Pt [place]. No other deficits noted. Mobility and Gait Previously uses manual w/c for most mobility, he states being pushed by another person . Able to stand and take a few steps and transfer to w/c independently using no AD. Uses a 4ww for occasional modified independent ambulation, he states up to 30 mins. Social History Household Members spouse Living Arrangements House Number of Floors (Floors) One Floor Number of Stairs To Enter/Railing? no steps Home Environment High Toilet Walk in Shower Home Equipment Four Wheel Walker Manual Wheelchair Shower Seat with Backrest Hand Held Shower Bed Rails Grab Bars Near Toilet Grab Bars In Shower M2 PT-IP Current Condition Start: 09/19/18 11:44 Freq: NEEDED Status: Active Protocol: Document 09/19/18 10:58 (Rec: 09/19/18 12:05 [email or web address]) Physical Therapy Current Condition Current Condition Evaluation Date 09/19/18 Treatment Diagnosis Influenza; Generalized weakness Onset Date 09/19/2018 M3 PT-IP Subjective Start: 09/19/18 11:44 Freq: NEEDED Status: Active Protocol: Document 09/19/18 10:58 (Rec: 09/19/18 12:05 [email or web address]) Subjective Physical Therapy Visit Type Type Initial Evaluation Visit Start Time 10:58 Visit Stop Time 11:32 Total Visit Minutes 34 Number of MENTAL HEALTH DIRECTOR Visits 0 Physical Therapy Visit Comments Patient Comments Pt agreeable to mobilize with PT. Patient Goals Plans to go home with at d/c M4 PT-IP Mobility and Gait Start: 09/19/18 11:44 Freq: NEEDED Status: Active Protocol: Document 09/19/18 10:58 (Rec: 09/19/18 12:05 [email or web address]) PT-Bed Mobility Assessment Supine to Sit Supine to Sit Moderate Assistance 1 Person Assistance Scooting Scooting to Edge of Bed Standby Assistance PT-Transfer Assessment Sit to and From Stand Sit to and from Stand Contact Guard Assistance Equipment Transfer Assistive Device Gait Belt Front Wheeled Walker Orthotic/Prosthetic Devices or Brace: No Transfers Transfer Destination Chair Transfer Technique Ambulates between surfaces Comments Mobility Comments Supine > sit pt requiring mod A to pull himself upright and using bedrails. Sit <> stand with fww CGA. Gait Assessment Gait Gait Assistance Required: Minimum Assistance Distance (Feet) 15 Able to Maintain Weight Bearing Status Yes During Gait Assistive Devices Assistive Device Gait Belt Front Wheeled Walker Orthotic/Prosthetic Devices or Brace: No Gait Deviations General Gait Pattern Decreased Stride Length Decreased Feet Clearance Factors Limiting Gait Function Factors Limiting Gait Function Decreased Activity Tolerance Decreased Sensation Decreased Strength Poor Balance Poor Safety Awareness Comments Gait Comments 15 ft ambulation with fww CGA is notable for pt decreased foot clearance and short stride length. Pt requiring Juan to assist fww management. No LOB noted with ambulation . PT-Balance Assessment Sitting Balance and Reactions Static Sitting Balance Ability Good Dynamic Sitting Balance Ability Good Standing Balance and Reactions Static Standing Balance Ability Good Dynamic Standing Balance Ability Fair Device Used fww M5 PT-IP Objective Assessments Start: 09/19/18 11:44 Freq: NEEDED Status: Active Protocol: Document 09/19/18 10:58 (Rec: 09/19/18 12:05 [email or web address]) Orientation Orientation/Cognition Level of Alertness Alert Orientation Name Birthday Situation Language Function Ability Hard of Hearing Safety Awareness Decreased Safety Awareness Gross Range of Motion Lower Extremity ROM Assessment Within Functional Limits Strength Lower Extremity Strength Assessment Bilaterally Impaired Comments Strength Comments L LE grossly 4+/5. R LE 4/5. Sensation Assessment Comments Sensation Comments Peripheral neuropathy per RN. sensation not tested. M6 PT-IP Treatment Start: 09/19/18 11:44 Freq: NEEDED Status: Active Protocol: Document 09/19/18 10:58 (Rec: 09/19/18 12:05 [email or web address]) Physical Therapy Treatment Education Education Provided Safety M7 PT-IP Assessment and Plan Start: 11/26/18 11:44 Freq: NEEDED Status: Active Protocol: Document 09/19/18 10:58 (Rec: 09/19/18 12:05 [email or web address]) PT Summary Assessment and Plan Potential Rehabilitation Potential Good Status of Condition at Evaluation Stable Summary Impairments Strength Balance Bed Mobility Transfers Gait Activity Tolerance Assessment Summary Pt with generalized weakness and difficulty walking. He was able to ambulate 15 ft in room with fww and Juan to manage walker, however demonstrates no LOB. He requires modA for bed mobility . Due to pt functional status , and need for assist, recommend d/c to SNF vs. environment that can provide 24/7 assist as well as HH for pt to continue functional strengthening and improve pt mobilities. Goals Bed Mobility Goal Standby Assistance Transfer Goal Standby Assistance Front Wheeled Walker Four Wheeled Walker Gait Goal Standby Assistance Front Wheel Walker Four Wheel Walker Gait Distance 50 Other Goals Ambulation and transfers with least restrictive AD. So far pt has trialed fww, and this appears to be a good choice AD for him, but he already owns a 4ww and states he would prefer to use 4ww. Days to Meet Goals 3 Frequency of Treatment Frequency Of Treatment Once a Day Treatment Plan Physical Therapy Treatment Plan Bed Mobility Training Transfer Training Gait Training Therapeutic Exercise Balance Retraining Discharge Planning Hot or Cold Pack Neuromuscular Re-ed Coordination Retraining Manual Therapy Other Recommendations and Next Treatment Bed mobility, transfers and Focus gait training. Attempt 4ww ambulation if appropriate. Recommendations To Nursing Amount of Assist Needed 1 Person Assist Discharge Recommendations PT Discharge Recommendations Home with 24/7 Assist Home Health SNF Rehab Other Discharge Recommendations SNF vs 24/7 assist with HH Equipment Needed for Home Before possible need for fww pending Discharge pt status at d/c
--- NOTE | 2018-09-19 15:58 | CM.DANOTE ---
Discharge Planning/Care Management DCP: continued: case received, EMR reviewed and met early this morning/814 with pt. Introduced self and role briefly from door (Influenza A precautions). Pt is an 83 year old male who admitted to care of the hospitalist team early this mornin. Payer: Medicare and [facility] PCP: Dr. Luther Morgan. Spoke with DESIRE Gomez who confirmed that pt's Mimi would be in late morning. She also noted pt was very [place] and was apparently almost blind. Mimi was bringing in his glasses. Met then 1130 with Mimi and their foster son Tree Ulloa (who does not live with them but does try to help out with chores and advice. Mimi also notes their are other adult children, some in [place]. But we don't get along and they keep trying to get us to go to an assisted living. Did need to gently try to redirect Mimi during the length conversation as she tended to either talk about her own health issues, the family dynamic issues and many events that had occurred in the long past and that she was still quite angry about. Pt is a [place] . He's not 100% disabled so we don't get that much help. She says the [place] is providing caregivers in the home for her . 28 hours a week and total 30 days of respite. Pt has had recent snf experiences. He had a fall in April, apparently went to [facility], was sent to [facility], left AMA with his son and was then sent to [facility] where he spend 45 days. She said he did well and was sent home with [facility]. She said she would like to see him in a snf again but not that one, it's too far and I can't drive. Called [facility] to check on his current days and spoke with Sheila. Due to limitations of his Medicare and supplement he left there owing $3000. He is currently on their DO NO Admit list. Did clarify that pt left there> 60 days ago and would have a new Medicare stay available. Mimi also has been to many snfs to tour in past and has rejected most of them. Pt wants home and Mimi says I want to support this. At this point did agree to see them again tomorrow at 1100 but anticipate pt will likely go home under with the caregivers in place and [facility]. Encouraged Mimi to begin to think about what options they do have and to perhaps discuss this again with family members. Tree does say that he feels strongly that they both need more help for future. P: will see Mimi again tomorrow and hope to discuss with the hospitalist. CM Discharge Assessment Start: 09/19/18 15:47 Freq: Status: Active Protocol: Document 09/19/18 15:48 ITV (Rec: 09/19/18 15:58 ITV [email or web address]) Discharge Planning Assessment History Provided By Patient Family Member Medical Record Prior Living Arrangements House Household Members spouse Type of transporation used prior to Relies on Others admit Independent with ADL's No Is patient alert and oriented? unclear at time of meeting. Is very [place], poor vision DME Already Rented / Owned Wheelchair FWW / Walker Comment 4ww. primarily w/c bound unless working with Home health, per pt's Comment pt has had tx with various snfs...very limited options at this time due to non- complaince or non payment of final snf bill Mimi hopes for consideration of snf. Says they have resisted family efforts to help them relocate to an long-term setting. HH is current ([facility]) pt wants to go home Additional Comment confirmed with [facility] that pt is current with them/OT/PT. plan to add Rn and WINDER HELPER is pt does go home again with [facility] Pt and his need assistance with correction planning options. is using a 4ww. Whiteboard Updated in Patient Room with No name and ext. # of Log Stacker Operator Comment has contact info for DCplanners. Pt is on droplet precautions/Infuenza and now likely pneumonia so elected not to go into the room. Review Status In Process Next Review Type Continued Stay Review
--- NOTE | 2018-09-19 18:00 | PM.PN.1 ---
Subjective Date Patient Seen: 09/19/18 Time Patient Seen: 18:02 Exam Vital Signs (past 8 hours): - 09/19/18 14:00 09/19/18 15:54 Temperature 99.2 F 100.1 F H Pulse Rate 94 H 87 Respiratory Rate 18 17 Blood Pressure 129/73 107/60 Pulse Oximetry 96 96 Oxygen Delivery Method Room Air Objective Labs Result Diagrams: 09/19/18 04:27 09/19/18 04:27 Labs: Laboratory Results - last 24 hr 09/19/18 09/19/18 09/19/18 04:27 04:27 04:27 WBC 7.3 RBC 3.66 L Hgb 9.9 L Hct 30.3 L MCV 82.7 MCH 26.9 MCHC 32.5 RDW 19.6 H Plt Count 191 Neut % (Auto) 73.3 Lymph % (Auto) 17.3 L [place] % (Auto) 5.6 Eos % (Auto) 2.3 Baso % (Auto) 1.5 Neut # (Auto) 5400 Sodium 141 Potassium 4.6 Chloride 109 H Carbon Dioxide 21 L BUN 35 H Creatinine 3.00 H Estimated GFR 20.1 L BUN/Creatinine Ratio 11.7 Glucose 110 Lactate Calcium 10.3 H Magnesium 1.6 Total Creatine Kinase 20 L CK-MB (CK-2) TNP CK-MB (CK-2) Rel Index TNP Troponin I 0.047 H B-Natriuretic Peptide 442.0 H Procalcitonin Influenza A & B (PCR) Positive, type a A 09/19/18 09/19/18 09/19/18 04:27 04:27 08:23 WBC RBC Hgb Hct MCV MCH MCHC RDW Plt Count Neut % (Auto) Lymph % (Auto) [place] % (Auto) Eos % (Auto) Baso % (Auto) Neut # (Auto) Sodium Potassium Chloride Carbon Dioxide BUN Creatinine Estimated GFR BUN/Creatinine Ratio Glucose Lactate 1.1 Calcium Magnesium Total Creatine Kinase CK-MB (CK-2) CK-MB (CK-2) Rel Index Troponin I 0.045 H B-Natriuretic Peptide Procalcitonin 0.07 Influenza A & B (PCR) 09/19/18 14:20 WBC RBC Hgb Hct MCV MCH MCHC RDW Plt Count Neut % (Auto) Lymph % (Auto) [place] % (Auto) Eos % (Auto) Baso % (Auto) Neut # (Auto) Sodium Potassium Chloride Carbon Dioxide BUN Creatinine Estimated GFR BUN/Creatinine Ratio Glucose Lactate Calcium Magnesium Total Creatine Kinase CK-MB (CK-2) CK-MB (CK-2) Rel Index Troponin I 0.060 H B-Natriuretic Peptide Procalcitonin Influenza A & B (PCR) Quality VTE Deep Vein Thrombosis/Pulmonary Embolism Present on Admission: No
--- NOTE | 2018-09-20 | DI.RAD.S_ITS ---
PROCEDURE: XR CHEST 1V INDICATIONS: dyspnea, cough, congestive heart failure, pneumonia TECHNIQUE: One view of the chest was acquired. COMPARISON: [facility], CR, XR CHEST 1 VIEW, 06/02/2018, 13:27. [facility], CR, XR CHEST 1V, 09/19/2018, 4:39. FINDINGS: Surgical changes and devices: Sternotomy wires, cardiac AICD and surgical clips. Vascular stent again projects in the right medial apex. Lungs and pleura: No pleural effusions since yesterday. Elsewhere, scattered atelectasis and scarring without definite interval change or pneumothorax. Mildly increased retrocardiac patchy consolidation since 09/19. Mediastinum: Mediastinal contours appear normal. Heart size is normal. Bones and chest wall: No suspicious bony lesions. Overlying soft tissues appear unremarkable. IMPRESSION: Mildly increased retrocardiac patchy consolidation suggesting worsening pneumonia and/or aspiration. Please correlate clinically. Dictated by: Elan Doan M.D. on 09/20/2018 at 8:27 Approved by: Elan Doan M.D. on 09/20/2018 at 8:30
[2018-09-20 02:00] VITALS: BP 133/83; PULSE 73; RESP 16; TEMP 37.1; O2SAT 92
[2018-09-20] MEDS: SODIUM CHLORIDE 0.9% 1,000 ML 50 ML IV (03:47)
[2018-09-20 05:27] VITALS: BP 132/73; PULSE 90; RESP 16; TEMP 37; O2SAT 94
[2018-09-20 08:00] VITALS: BP 139/76; PULSE 81; RESP 17; TEMP 36.9; O2SAT 96
[2018-09-20] MEDS: TAMSULOSIN 0.4 MG CAPSULE PO (08:52)
[2018-09-20] MEDS: SERTRALINE 50 MG TABLET PO (08:52)
[2018-09-20] MEDS: FUROSEMIDE 40 MG TABLET PO (08:52)
[2018-09-20] MEDS: OSELTAMIVIR 30 MG CAPSULE PO (08:52)
--- NOTE | 2018-09-20 10:35 | OT.IP.EVAL ---
Current Diagnoses Type 2 diabetes mellitus without complications (09/19/18) Past Medical History (Last Reviewed 09/19/18 @ 05:54 by JUSTEN Reed) Atrial fibrillation (Acute) Blind (Acute) CAD (coronary artery disease) (Acute) Cardiac pacemaker (Acute) Diabetes (Acute) Occupational Therapy Inpatient Evaluation/Re-Eval M1 PT/OT-IP Prior Functional Status Start: 09/19/18 11:44 Freq: NEEDED Status: Active Protocol: Document 09/20/18 10:35 PJM (Rec: 09/20/18 17:27 PJM NR) Medical Review Prior Functional Status Medical History Reviewed Yes Communication Pt [place]. No other deficits noted. Mobility and Gait Previously uses manual w/c for most mobility, he states being pushed by another person. Able to stand and take a few steps from hallway into bathroom with 4WW and transfer to w/c independently using no AD. Activities of Daily Living and IADL's Pt states he was independent with dressing including socks and shoes after clothing laid out for him. He states he was independent with standing grooming,toileting and seated shower. No family here to confirm home situation. Prior Functional Level (Other details) Pt states he has caregiver 6 days/week for 1-2 hours to assist with belt operator and anything he needs. Social History Household Members spouse Living Arrangements House Number of Stairs To Enter/Railing? no stairs to enter Home Environment High Toilet Walk in Shower Home Equipment Four Wheel Walker Manual Wheelchair Shower Seat with Backrest Hand Held Shower Grab Bars Near Toilet Grab Bars In Shower Employment Status Retired M2 OT-IP Current Condition Start: 09/20/18 17:08 Freq: Status: Active Protocol: Document 09/20/18 10:35 PJM (Rec: 09/20/18 17:27 PJM NR) Occupational Therapy Current Condition Current Condition Evaluation Date 09/20/18 Treatment Diagnosis decreased self care,mobility, endurance due to Flu A+, aspiration pneumonitis Diagnosis Onset Date 09/19/18 Post Operative Precautions Other Precautions fall risk M3 OT- IP Subjective and Pain Start: 09/20/18 17:08 Freq: Status: Active Protocol: Document 09/20/18 10:35 PJM (Rec: 09/20/18 17:27 PJM NR) OT- Subjective Occupational Therapy Visit Type Type Initial Evaluation Visit Start Time 10:10 Visit Stop Time 10:35 Occupational Therapy Visit Comments Patient Comments Do I have to get up again? Patient/Caregiver Goals to go home OT Pain Assessment Pain When Pain Assessed After Treatment Pain Present Pain Present Denied Pain M4 OT- IP ADL's Start: 09/20/18 17:08 Freq: Status: Active Protocol: Document 09/20/18 10:35 PJM (Rec: 09/20/18 17:27 PJ [id number]) OT [id number] General Evaluation Self-Feeding Ability Independent Comments OT Self-Feeding Comments pt needs meal tray set up due to low vision OT ADL-Grooming General Evaluation Grooming Ability Standby Assistance Areas Needing Assistance Retrieving/Set-up of Grooming Items Face Washing Comments OT Grooming Comments seated in chair OT ADL-Oral Care Comments Oral Care Comments pt declined this session; states he soaks dentures at night OT ADL-Dressing General Eval Upper Body Dressing Ability Standby Assistance Lower Body Dressing Ability Standby Assistance Areas Needing Assistance Socks Comments OT Dressing Comments pt able to don and doff B socks seated edge of bed; performs slowly, SBA for dynamic sitting balance when reaching towards feet OT ADL-Toileting Comments OT Toileting Comments pt has been incontinent of stool this AM per RN OT ADL-Bathing Comments OT Bathing Comments to be assessed as activity tolerance improves M5 OT- IP IADL's Start: 09/20/18 17:08 Freq: Status: Active Protocol: Document 09/20/18 10:35 PJM (Rec: 09/20/18 17:27 PJ [id number]) OT-Instrumental Activities of Daily Living Deficits IADL Deficits Identified Deficits Home Safety Awareness Awareness of Need for Assistance at Home Good Awareness Medication Management Medication Management Caregiver Provides Supervision Medication Management Comments pt states he sets up his own pillbox; recommend supervise due to pt's low vision Money Management Money Management Caregiver Provides Assistance Money Management Comments has been managing bills due to pt's low vision Meal Preparation Meal Preparation Caregiver Provides Assist Test Engineer Nuclear Equipment Test Engineer Nuclear Equipment Caregiver Provides Assist Driving Driving Caregiver Provides Assist Driving Comments pt no longer drives due to low vision M6 OT- IP Functional Cognition Start: 09/20/18 17:08 Freq: Status: Active Protocol: Document 09/20/18 10:35 PJM (Rec: 09/20/18 17:27 PJ [id number]) Cognitive Factors Limiting Selfcare Function Cognitive Ability Level of Alertness Alert Patient Orientation Name Month Year Place Situation Attention Span Ability Capable of Focused Attention Capable of Sustained Attention Ability to Follow Commands Able to Follow One Step Commands Safety Awareness Underestimates Need for Assistance Problem Solving Ability Needs Assist to Identify Solutions Cognitive Comments Cognitive Assessment Comments [place] interferes with communication at times OT- Vision and Hearing OT- Hearing Assessment OT- Hearing Assessment Use of Hearing Aids OT- Vision Assessment Vision History Low Vision Visual Acuity Glasses All The Time Vision Assessment Comments pt has hx of low vision; denies any recent changes M7 OT- IP Mobility and Balance Start: 09/20/18 17:08 Freq: Status: Active Protocol: Document 09/20/18 10:35 PJMarcellus (Rec: 09/20/18 17:27 PJ NRTM) OT- Bed Mobility Assessment Rolling Type of Rolling Roll to Left Level of Assistance Standby Assistance Bed rails Supine to Sit Supine to Sit Assist Standby Assistance Sit to Supine Sit to Supine Assist Standby Assistance Scooting Scooting to Edge of Bed Standby Assistance OT-Transfer Assessment Comments Mobility Comments Pt able to complete bed mobility with flat bed and bed rail as per home set up. Performs slowly and with effort, but did not require any physical assist this session. OT- Gait Assessment Comments Gait Ability Comments Pt declined due to just back to bed. See P.T. notes. OT- Balance Assessment Sitting Balance and Reactions Static Sitting Balance Ability Good Dynamic Sitting Balance Ability Fair M8 OT- IP Objective Assessments Start: 09/20/18 17:08 Freq: Status: Active Protocol: Document 09/20/18 10:35 PJM (Rec: 09/20/18 17:27 PJ [id number]) OT Gross Range of Motion Upper Extremity Range of Motion Assessment Within Functional Limits OT Strength Upper Extremity Strength Assessment Within Functional Limits Hand Entrepreneurship Program Director Strength Hand Dominance Right OT- Coordination Assessment Comments Coordination Comments BUE WFL but affected by low vision. OT-Muscle Tone Assessment Muscle Tone WNL Yes OT Sensation Assessment Comments Summary Comments Pt denies deficits in BUE's Edema Edema Absent M9 OT- IP Assessment and Plan Start: 09/20/18 17:08 Freq: Status: Active Protocol: Document 09/20/18 10:35 PJM (Rec: 09/20/18 17:27 PJM [email or web address]) OT Summary Assessment and Plan Potential Rehabilitation Potential Good Analytic Complexity at Evaluation Low Summary OT Impairments Strength Balance Functional Mobility Grooming Dressing Toileting Bathing Toilet Transfers Shower Transfers Assessment Summary Low complexity OT assessment completed with emphasis on self care skills after recent Flu A+ diagnosis with possible aspiration pneumonitis. Pt's primary performance deficit is decreased endurance/activity tolerance which decreases independence in standing grooming, short distance ambulation to sink or bathroom , dressing, bathing and toileting. not here to confirm prior level of function, but per case management d/c plan is likely home with services. Pt will benefit from OT services here to address the goals below. Goals Grooming Goal Standby Assistance Dressing Goal Standby Assistance Toileting Goal Standby Assistance Bathing Goal Standby Assistance Toilet Transfer Goal Standby Assistance Shower Transfer Goal Standby Assistance Patient/Caregiver Education Goal Demonstrate Energy Conservation and Pacing Caregiver Independent Assisting Patient OT-Other Goals Grooming to be done standing at the sink. Days to Meet Goals 3 Frequency of Treatment Frequency Of Treatment Once a Day Treatment Plan OT Treatment Plan ADL Training Functional Mobility Patient/Family Education Discharge Planning Other Treatment Recommendations and Next walk to sink for grooming Treatment Focus Discharge Recommendations OT Discharge Recommendations Home with 17/05 Assist
[2018-09-20 11:48] VITALS: BP 124/64; PULSE 86; RESP 18; TEMP 36.7; O2SAT 96
--- NOTE | 2018-09-20 12:28 | CM.DPC ---
DCP: continued: case discussed in morning Team Rounds and hospitalist was alerted to family presence at 1100 today and request for an update from him. He did spend some time with them going over the POC that includes SHIPPING TECHNICIAN lakshmi to look at swallow concerns and likely need for treatment in hospital through the end of week. Met then with pt's Mimi, foster son Tree and long time family friend and caregiver Cherelle: cell [phone]. Cherelle appeared quit organized with questions and notes being kept to help them all stay on track. They confirm that Cherelle is the person who goes with pt to his doctor appts and have encouraged her to be present when HH again comes out. Mimi is updated re the situation at [facility]. Says she recently became aware of the outstanding bill and plans to get it paid. She further notes he is going to come home. Anything else would kill him. Discussed the plan for home with resumption of [facility] and addition of RN,AIRCRAFT ENGINE MECHANIC and SHIPPING TECHNICIAN. All agreed this will be very good. Mimi had many questions re moving furniture in the home and etc. Both Cherelle and this d/c train planner reminded her that these are good questions but more appropriate for the HH team that is already in plan. Cherelle says the HH PT has already assisted with several items to help pt maintain his functional abilities. They are aware that now that pt has been in the hospital HH will again reassess for any new needs. P: home with [facility] as noted. Will need resume HH orders with the addition of above disciplines. Will not need a new Face/Face.
[2018-09-20] MEDS: AZITHROMYCIN 250 MG in DEXTROSE 5% IN WATER 250 ML IV (12:30)
[2018-09-20] MEDS: INSULIN ASPART 100 UNIT/ML INSULN PEN SUBCUT (12:31)
--- NOTE | 2018-09-20 15:01 | ST.IPIE ---
Current Diagnoses Type 2 diabetes mellitus without complications (09/19/18) Past Medical History (Last Reviewed 09/19/18 @ 05:54 by JUSTEN Reed) Atrial fibrillation (Acute Medical) Blind (Acute Medical) CAD (coronary artery disease) (Acute Medical) Cardiac pacemaker (Acute Medical) Diabetes (Acute Medical) ST IP Initial Evaulation Report GARDENING SUPERVISOR Clinical Swallow Evaluation Start: 09/20/18 14:48 Freq: Status: Active Protocol: Document 09/20/18 14:48 TLC (Rec: 09/20/18 15:00 TLC [id number]) Clinical Swallow Evaluation Session Time Visit Start Time 14:20 Visit Stop Time 14:45 Total Visit Minutes 25 Visit Information Visit Number 1 Referral Reason for Referral Possible aspiration Setting Assessment Location Acute Care Visit Type Note Type Initial Evaluation Next Note Type Next Note Type Treatment Note Patient Information Identification Type Name History Patient in for flu and pneumonia. Chest x-ray suggests worsening pneumonia and/or aspiration. Subjective Observations Patient seen sitting up in chair in room. No family members present. Patient hard of hearing and without aids, but able to hear me and responded to questions appropriately. Patient oriented to self and place, but thought it was 10pm. Re- oriented patient to time. He denied any difficulty with swallowing stating he was confused about why he needed a swallow evaluation. He denied coughing or choking during meals, but per MD, his reports he has had increased coughing during meals over the last few months. Evaluation Liquids Trialed Ice Chips Thin Solids Trialed Puree Dysphagia Mechanical Dysphagia Advanced Regular Administration Type Controlled Cup Sip Cup Consecutive Sips Self-Feeding Oral Impairment WFL Oral Strategies Upright at 90 degrees Controlled Bite/Sip Size Alternate Liquids/Solids Oral Phase Comments Oral motor examination revealed functional lingual and labial strength, range of motion and coordination. Dentures present and appear to be well-fitting. Good bolus acceptance and lip seal with no anterior spillage. Adequate mastication. Reports he cuts meat into small pieces. Mild oral residue present with regular textures which cleared with liquid rinse and double swallow. Pharyngeal Phase Comments Patient tolerated all trials without overt coughing, throat clearing or change in vocal quality with the exception of a 2-3 minute delayed cough which occurred as patient was reclined back in the chair following evaluation. No overt s/sx of aspiration osberved at beside; however, cannot rule out silent aspiration without instrumental assessment. Findings Impressions No overt s/sx of aspiration observe during swallow eval. Unable to fully asses pharyngeal function at bedside , therefore, recommend Modified Barium Swallow Study. Continue current diet until MBSS to be scheduled tomorrow. Patient suspected to discharge home later in the week. Diet Recommendations Liquids Order Thin Diet Order Regular Medication Recommendations As Tolerated Aspiration Precautions Recommended Precautions Upright at 90 Degrees Small Bites/Sips Treatment Plan Placement Recommendations after Home Discharge Dysphagia Goals Farhat will participate in a Modifed Barium Swallow Study to further assess pharyngeal function and assist in plan of care development.
--- NOTE | 2018-09-20 15:03 | PC.NURSE ---
1415 Pt seen/evaluated by speech r/t swallow. States Pt did fine, will update the MD. 1430 Pt up in the room w/PT, using walker & gait belt for safety. Pt has a cough, not associated with PO intake. Pt swallows his sputum. Pt inc of stool & urine X 2 this shift. Unable to collect a UA. Family spoke w/MD and ncase mgmnt today. As of now, Plan dc to home w/home health care. Pt is cooperative, confusion noted off and on.
--- NOTE | 2018-09-20 15:08 | PM.PN.1 ---
Subjective Date Patient Seen: 09/20/18 Time Patient Seen: 15:09 Interval history: PATIENT WITH DEMENTIA HOWEVER, DENIED ANY CP/SOB SPOKE TO SPOUSE AND SENIOR NET WEB DEVELOPER AT BEDSIDE NO SIGNIFICANT ISSUES OVERNIGHT Exam Vital Signs (past 8 hours): - 09/20/18 08:00 09/20/18 11:48 Temperature 98.4 F 98.0 F Pulse Rate 81 86 Respiratory Rate 17 18 Blood Pressure 139/76 124/64 Pulse Oximetry 96 96 Oxygen Delivery Method Room Air Narrative Exam Narrative: NO ACUTE DISTRESS. PATIENT IS ALERT ORIENTED X2. VITAL SIGNS STABLE HEAD ATRAUMATIC NORMOCEPHALIC NECK : SUPPLE WITHOUT ADENOPATHY EYE: EOMI, PERRLA, NORMAL CONJUNCTIVA CHEST: REGULAR RATE.. NO RUBS. PMI IS NON DISPLACED. 1/6 SYSTOLIC MURMUR NOTED ON THE 2ND INTRACOSTAL IN THE RIGHT PULMONARY DECREASED BS OVER THE BASES. MILD BIBASILAR CRACKLES NOTED; NO INCREASED DULLNESS TO PERCUSSION EXTREMITIES: 1+ EDEMA. NONPITTING. NO CYANOSIS CLUBBING NOTED. NEURO: CRANIAL NERVES 2-12 GROSSLY INTACT. NO FOCAL NEUROLOGICAL DEFICIT NOTED. MSK: NORMAL RANGE OF MOTION FOR AGE. NO JOINT EFFUSION. SKIN: NORMAL FOR ETHNICITY; NO ECCHYMOSIS. NO LESION. FAIR TURGOR. : NORMAL EXTERNAL GENITALIA. PSYCH : APPROPRIATE MOOD AND AFFECT. ALERT AWAKE ORIENTED X2 Objective Labs Result Diagrams: 09/19/18 04:27 09/19/18 04:27 Assessment & Plan Plan: Assessment/Plan Narrative: IMPRESSION AND PLAN ACUTE FLU A INFECTION; CONT TAMIFLU PER GFR; KEEP ON ISOLATION; MONITOR CLOSELY POSS ASPIRATION PNEUMONITIS; SPOUSE REPORTED COUGHING WITH FEEDING LATELY; WILL ADD AZITHRO TO ABX REGIMEN; CONT ROCEPHIN; ASPIRATION PRECAUTIONS POSS ASPIRATION; SPEECH CONSULTED; CONSIDER VIDEO SPEECH IN AM; ASPIR PRECAUTIONS DEMENTIA; APPEARS AT BASELINE; NURSING TO RE-ORIENT INDUCATED; KEEP LIGHTS ON AT ALL TIMES IF NEEDED AFIB PER HX; RATE IS CONTROLLED; CONT HOMEMEDS CAD PER HX; HOME MEDS; TELE; EKG INDICATED POSS DM; ISS; HOME MEDS ELEVATED TROP; LIKELY DUE TO DEMAND ISCHEMIA; NO ACS SUSPECTED; TELE; EKG NEEDED; CKD 3-4; CR APPEARS AT BASELINE; AVOID NEPHROTOXINS; DOSE MEDS PER GFR; STRICT IO; RENAL DIET Quality VTE Deep Vein Thrombosis/Pulmonary Embolism Present on Admission: No
--- NOTE | 2018-09-20 15:24 | PT.IPTN ---
Current Diagnoses Type 2 diabetes mellitus without complications (09/19/18) Physical Therapy Treatment Note M2 PT-IP Current Condition Start: 09/19/18 11:44 Freq: NEEDED Status: Active Protocol: Document 09/19/18 10:58 (Rec: 09/19/18 12:05 [email or web address]) Physical Therapy Current Condition Current Condition Evaluation Date 09/19/18 Treatment Diagnosis Influenza; Generalized weakness Onset Date 09/19/2018 M3 PT-IP Subjective Start: 09/19/18 11:44 Freq: NEEDED Status: Active Protocol: Document 09/20/18 14:45 CLB (Rec: 09/20/18 15:24 CLB [email or web address]) Subjective Physical Therapy Visit Type Type Treatment Note Visit Start Time 14:45 Visit Stop Time 15:00 Total Visit Minutes 15 Number of INSIDE OUTSIDE SALES REPRESENTATIVE Visits 1 Physical Therapy Visit Comments Patient Comments Pt agreeable to ambulate. M4 PT-IP Mobility and Gait Start: 09/19/18 11:44 Freq: NEEDED Status: Active Protocol: Document 09/20/18 14:45 CLB (Rec: 09/20/18 15:24 CLB [email or web address]) PT-Transfer Assessment Sit to and From Stand Sit to and from Stand Contact Guard Assistance Equipment Transfer Assistive Device Gait Belt Front Wheeled Walker Orthotic/Prosthetic Devices or Brace: No Transfers Transfer Destination Chair Transfer Technique Ambulates between surfaces Gait Assessment Gait Gait Assistance Required: Minimum Assistance Distance (Feet) 30 Able to Maintain Weight Bearing Status Yes During Gait Assistive Devices Assistive Device Gait Belt Front Wheeled Walker Orthotic/Prosthetic Devices or Brace: No Gait Deviations General Gait Pattern Decreased Stride Length Decreased Feet Clearance Factors Limiting Gait Function Factors Limiting Gait Function Decreased Activity Tolerance Decreased Sensation Decreased Strength Poor Balance Poor Safety Awareness Comments Gait Comments Pt required Min A needing cues to stay inside walker and assist with IV pole. M5 PT-IP Objective Assessments Start: 09/19/18 11:44 Freq: NEEDED Status: Active Protocol: Document 09/19/18 10:58 (Rec: 09/19/18 12:05 [email or web address]) Orientation Orientation/Cognition Level of Alertness Alert Orientation Name Birthday Situation Language Function Ability Hard of Hearing Safety Awareness Decreased Safety Awareness Gross Range of Motion Lower Extremity ROM Assessment Within Functional Limits Strength Lower Extremity Strength Assessment Bilaterally Impaired Comments Strength Comments L LE grossly 4+/5. R LE 4/5. Sensation Assessment Comments Sensation Comments Peripheral neuropathy per RN. sensation not tested. M6 PT-IP Treatment Start: 09/19/18 11:44 Freq: NEEDED Status: Active Protocol: Document 09/20/18 14:45 CLB (Rec: 09/20/18 15:24 CLB [email or web address]) Physical Therapy Treatment Education Education Provided Safety Other Treatments Other Treatment Performed scapular protraction (pt needing demonstration and verbal cues for proper movement.) M7 PT-IP Assessment and Plan Start: 09/19/18 11:44 Freq: NEEDED Status: Active Protocol: Document 09/20/18 14:45 CLB (Rec: 09/20/18 15:24 CLB [email or web address]) PT Summary Assessment and Plan Potential Rehabilitation Potential Good Status of Condition at Evaluation Stable Summary Impairments Strength Balance Bed Mobility Transfers Gait Activity Tolerance Assessment Summary Pt increased ambulation to ~ 30ft before fatiguing. Pt requires Min A and cues for walker use for safety. Pt needs CGA for sit<> and cues for chair approach and reaching back with hands for safety before sitting. Goals Bed Mobility Goal Standby Assistance Transfer Goal Standby Assistance Front Wheeled Walker Four Wheeled Walker Gait Goal Standby Assistance Front Wheel Walker Four Wheel Walker Gait Distance 50 Other Goals Ambulation and transfers with least restrictive AD. So far pt has trialed fww, and this appears to be a good choice AD for him, but he already owns a 4ww and states he would prefer to use 4ww. Days to Meet Goals 3 Frequency of Treatment Frequency Of Treatment Once a Day Treatment Plan Physical Therapy Treatment Plan Bed Mobility Training Transfer Training Gait Training Therapeutic Exercise Balance Retraining Discharge Planning Hot or Cold Pack Neuromuscular Re-ed Coordination Retraining Manual Therapy Other Recommendations and Next Treatment Bed mobility, transfers and Focus gait training. Attempt 4ww ambulation if appropriate. Recommendations To Nursing Amount of Assist Needed 1 Person Assist Discharge Recommendations PT Discharge Recommendations Home with / Assist Home Health SNF Rehab Other Discharge Recommendations SNF vs 24/7 assist with HH Equipment Needed for Home Before possible need for fww pending Discharge pt status at d/c
--- NOTE | 2018-09-20 15:29 | SLP.IPNOTE ---
Modified Barium Swallow Study scheduled for 11:30 tomorrow 09/21/18 to rule out silent aspiration. Continue current diet in the meantime.
[2018-09-20 16:00] VITALS: BP 140/78; PULSE 79; RESP 19; TEMP 36.6; O2SAT 97
--- NOTE | 2018-09-20 17:01 | PC.NURSE ---
Student Nurse Kamille Note: Patient was transferred from the recliner back to the bed with a 2 person assist, FWW, and gait belt. Patient tolerated it well and denied any pain. Patient is incontinent and was changed in bed with a two person assist. Had no trouble with breathing with activity. Patient was coarse and auscultated expiratory wheezing posteriorly and diminished lung sounds anteriorly. Patient is comfortable and taking a nap. IV fluid running at 50 mL/hr. IV site in the left forearm is clean, dry, and intact. Bed is in low position, call light is within reach, patient calls appropriately.
[2018-09-20 20:00] VITALS: BP 135/75; PULSE 82; RESP 16; TEMP 36.6; O2SAT 96
--- NOTE | 2018-09-20 23:48 | PC.NURSE ---
rah note- assumed care of pt from outgoing shift at 1500- Pt awake and alert, sitting in chair. POARCH. Pt refused dinner. compliant with nursing staff, did not give dinner insulin as pt refused to eat. Pt back to bed around 5, and pt slept for a while. pt is incontinent. in and woke pt up frequently. turned TV on and pt watching with one eye open. Pt is very sleepy. coarse lung sounds, cough, wet and strong, minimal expectorant. Pt does not use call thomas. Pt compliant and redirectable. bed alarm on. side rails up x3. will continue to monitor.
[2018-09-21] VITALS (7 sets, daily range): BP systolic 123–163; BP diastolic 56–80; PULSE 76–104; RESP 15–136; TEMP 36.5–36.8; O2SAT 94–97
[2018-09-21 05:45] LABS: Add Manual Diff / Slide Review NO; Basophils Percent Auto 0.9 % (0-2); Eosinophils Percent Auto 3.1 % (2-4); Hematocrit 29.9 % (41-53); Hemoglobin 9.7 g/dL (13.5-17.5); Mean Corpuscular HGB Conc 32.4 % (30-36); Mean Corpuscular Hemoglobin 26.9 PG (26-34); Neutrophils Absolute Auto 3300 /uL (3000-5900); Platelet Count 168 X10^3/uL (150-400); Red Cell Distribution Width 19.3 % (11.6-14.8); White Blood Cell Count 6.4 X10^3/uL (4.5-11.0)
[2018-09-21 06:13] LABS: Alanine Aminotransferase 20 IU/L (21-72); Alkaline Phosphatase 74 U/L (38-126); Aspartate Aminotransferase 20 IU/L (17-59); Bilirubin Total 0.3 mg/dL (0.2-1.3); Blood Urea Nitrogen 35 mg/dL (9-20); Calcium 10.1 mg/dL (8.4-10.2); Carbon Dioxide 20 mmol/L (22-32); Chloride 108 mmol/L (98-107); Estimated Glomerular Filt Rate 22.7 mL/min (>60); Glucose 111 mg/dL (80-110); HEMOLYSIS < 15 (0-50); Phosphorous 3.8 mg/dL (2.3-3.7); Potassium 3.9 mmol/L (3.4-5.1); Sodium 139 mmol/L (137-145)
[2018-09-21] MEDS: OSELTAMIVIR 30 MG CAPSULE PO (08:39)
[2018-09-21] MEDS: SERTRALINE 50 MG TABLET PO (08:39)
[2018-09-21] MEDS: FUROSEMIDE 20 MG TABLET PO (08:39)
[2018-09-21] MEDS: TAMSULOSIN 0.4 MG CAPSULE PO (08:39)
--- NOTE | 2018-09-21 09:49 | OT.IP.TRT ---
Current Diagnoses Pneumonitis due to inhalation of food and vomit (09/19/18) Occupational Therapy Treatment Note M2 OT-IP Current Condition Start: 09/20/18 17:08 Freq: Status: Active Protocol: Document 09/20/18 10:35 PJM (Rec: 09/20/18 17:27 PJM [email or web address]) Occupational Therapy Current Condition Current Condition Evaluation Date 09/20/18 Treatment Diagnosis decreased self care,mobility, endurance due to Flu A+, aspiration pneumonitis Diagnosis Onset Date 09/19/18 Post Operative Precautions Other Precautions fall risk M3 OT- IP Subjective and Pain Start: 09/20/18 17:08 Freq: Status: Active Protocol: Document 09/21/18 09:49 PJM (Rec: 09/21/18 11:46 PJM [email or web address]) OT- Subjective Occupational Therapy Visit Type Type Treatment Note Visit Start Time 09:34 Visit Stop Time 09:49 Total Visit Minutes 15 Notes Pt awake in bed when therapist arrived. Occupational Therapy Visit Comments Patient Comments What do you want me to do? OT Pain Assessment Pain When Pain Assessed After Treatment Pain Present Pain Present Denied Pain M4 OT- IP ADL's Start: 09/20/18 17:08 Freq: Status: Active Protocol: Document 09/21/18 09:49 PJM (Rec: 09/21/18 11:46 PJM [email or web address]) OT ADL-Grooming Comments OT Grooming Comments pt declined this session OT ADL-Oral Care Comments Oral Care Comments pt declined this session, states he soaks dentures at night OT ADL-Dressing General Eval Lower Body Dressing Ability Standby Assistance Areas Needing Assistance Underpants/Brief Socks Comments OT Dressing Comments Pt able to don socks while sitting EOB with improved sitting balance compared to yesterday. Pt changed wet brief sitting on toilet with one cue to orient clean brief due to low vision. OT ADL-Toileting General Evaluation Toileting Ability Standby Assistance Areas Needing Assistance Manage Clothing Perform Perineal Hygiene Comments OT Toileting Comments Pt uses R wall grab bar at home. He does not like to use L bar here. Fair thoroughness noted with hygiene M7 OT- IP Mobility and Balance Start: 09/20/18 17:08 Freq: Status: Active Protocol: Document 09/21/18 09:49 PJM (Rec: 09/21/18 11:46 PJM [id number]) OT- Bed Mobility Assessment Rolling Type of Rolling Roll to Left Level of Assistance Standby Assistance Supine to Sit Supine to Sit Assist Standby Assistance Scooting Scooting to Edge of Bed Standby Assistance OT-Transfer Assessment Sit to and From Stand Sit to and from Stand Contact Guard Assistance Transfers Transfer Ability Standby Assistance Technique Transfer Destination Chair Toilet Transfer Technique Stand Step Pivot Devices Transfer Assistive Devices Gait Belt Front Wheeled Walker Comments Mobility Comments Pt needs verbal cues to roll onto L side and use L upper bed rail as per home set up, then can complete bed mobility with SBA using this technique. Pt tends to ask for help, wanting to pull up on therapist's hand, rather than try to complete task independently. OT- Gait Assessment Gait Gait Assistance Required: Contact Guard Assist Distance (Feet) 15 Assistive Devices Assistive Device Gait Belt Front Wheeled Walker Comments Gait Ability Comments Pt walked to bathroom and back with FWW with no loss of balance noted. OT- Balance Assessment Sitting Balance and Reactions Static Sitting Balance Ability Good Dynamic Sitting Balance Ability Good Standing Balance and Reactions Static Standing Balance Ability Good Dynamic Standing Balance Ability Good Comments Other Balance Tests/Deviations/Treatment No loss of balance noted : during lower body clothing M9 OT- IP Assessment and Plan Start: 09/20/18 17:08 Freq: Status: Active Protocol: Document 09/21/18 09:49 PJM (Rec: 09/21/18 11:46 PJM [id number]) OT Summary Assessment and Plan Potential Rehabilitation Potential Good Summary OT Impairments Strength Functional Mobility Dressing Bathing Shower Transfers Progress Towards Goals Progressing Toward Goals Assessment Summary Pt presents with increased activity tolerance and independence in lower body dressing and toileting today. Pt able to walk 15 ft into bathroom and back with close SBA to CGA with no loss of balance noted. Pt able to change wet brief with SBA. Pt appears to be approaching his self care baseline, but still need to assess showering as pt states he showers independently at home. Goals Grooming Goal Standby Assistance Dressing Goal Standby Assistance Toileting Goal Standby Assistance Bathing Goal Standby Assistance Toilet Transfer Goal Standby Assistance Shower Transfer Goal Standby Assistance Patient/Caregiver Education Goal Demonstrate Energy Conservation and Pacing Caregiver Independent Assisting Patient OT-Other Goals Grooming to be done standing at the sink. Days to Meet Goals 2 Frequency of Treatment Frequency Of Treatment Once a Day Treatment Plan OT Treatment Plan ADL Training Functional Mobility Patient/Family Education Discharge Planning Discharge Recommendations OT Discharge Recommendations Home with 24/7 Assist
--- NOTE | 2018-09-21 11:30 | DI.RAD.S_ITS ---
PROCEDURE: FL BARIUM SWALLOW W SPEECH INDICATIONS: POSS ASPIRATION TECHNIQUE: Examination was conducted in conjunction with speech pathology per standard protocol. In the lateral projection, filming was performed of the patient swallowing. AP projection filming may also be performed with patient swallowing. COMPARISON: None. FINDINGS: Function: The oral preparatory phase appears normal, with proper containment. The subsequent oral propulsive phase, pharyngeal phase, and esophageal phase of swallowing also appear normal with all proffered substances. Severe silent laryngeal penetration with thin liquid and nectar thick barium. No definite visualized aspiration. No pathologic vallecular pooling. Morphology: No cricopharyngeal bar is identified. No cervical esophageal webs. No Zenker's diverticulum. No strictures. IMPRESSION: Frequent silent laryngeal penetration Dictated by: Elan Doan M.D. on 09/21/2018 at 13:49 Approved by: Elan Doan M.D. on 09/21/2018 at 13:51
--- NOTE | 2018-09-21 12:04 | CM.DPC ---
DCP Cont: Went ahead and reached out to , Mimi. Stated that she thinks that she may have a slight case of the flu, so she is not coming to hospital today. Discussed care needs of patient. Stated that he had been at [facility] in [place] for approximately 45 days, and prior, was at [facility]. Stated that she is trying to get [facility] to pay for some of the bills. Has a caregiver named Estephania, who rents out their home behind them. Discussed social security, for patient had not been drawing for medical, and were going to reapply. She stated that she would get in touch with the social security office. This onsite case manager was not sure if there was an office in [place], but she would look it up, otherwise, would have to contact office in [facility]. Cherelle feels that patient has managed well at home using his walker. [facility]ham has been working with patient, as he is currently getting physical and occupational therapy. stated skilled is not an option at this time, should be able to return home with [facility]. Has the help of Cherelle as well. Gave her this onsite case manager's phone number if she has any additional questions. P: DCP to follow closely. Patient should be able to return home when stable, resumption of [facility] gonzalo. Jaylin Hendrickson RN/Petrographer
[2018-09-21] MEDS: AZITHROMYCIN 250 MG in DEXTROSE 5% IN WATER 250 ML IV (13:12)
--- NOTE | 2018-09-21 14:45 | PT.IPTN ---
Current Diagnoses Pneumonitis due to inhalation of food and vomit (09/19/18) Physical Therapy Treatment Note M2 PT-IP Current Condition Start: 09/19/18 11:44 Freq: NEEDED Status: Active Protocol: Document 09/19/18 10:58 (Rec: 09/19/18 12:05 [email or web address]) Physical Therapy Current Condition Current Condition Evaluation Date 09/19/18 Treatment Diagnosis Influenza; Generalized weakness Onset Date 09/19/2018 M3 PT-IP Subjective Start: 09/19/18 11:44 Freq: NEEDED Status: Active Protocol: Document 09/21/18 14:40 GGD (Rec: 09/21/18 15:45 GGD [email or web address]) Subjective Physical Therapy Visit Type Type Treatment Note Visit Start Time 14:20 Visit Stop Time 14:40 Total Visit Minutes 20 Number of JAVA J2EE APPLICATION DEVELOPER Visits 2 Physical Therapy Visit Comments Patient Comments Pt state he would like to get up to the chair. M4 PT-IP Mobility and Gait Start: 09/19/18 11:44 Freq: NEEDED Status: Active Protocol: Document 09/21/18 14:40 GGD (Rec: 09/21/18 15:45 GGD [email or web address]) PT-Bed Mobility Assessment Supine to Sit Supine to Sit Minimal Assistance Bedrails Scooting Scooting to Edge of Bed Standby Assistance PT-Transfer Assessment Sit to and From Stand Sit to and from Stand Contact Guard Assistance Equipment Transfer Assistive Device Gait Belt Front Wheeled Walker Orthotic/Prosthetic Devices or Brace: No Transfers Transfer Destination Chair Gait Assessment Gait Gait Assistance Required: Contact Guard Assist 1 Person Assist Distance (Feet) 25 Able to Maintain Weight Bearing Status Yes During Gait Assistive Devices Assistive Device Gait Belt Front Wheeled Walker Orthotic/Prosthetic Devices or Brace: No Gait Deviations General Gait Pattern Decreased Stride Length Decreased Feet Clearance Factors Limiting Gait Function Factors Limiting Gait Function Decreased Activity Tolerance Decreased Sensation Decreased Strength Poor Balance Poor Safety Awareness Comments Gait Comments Pt need cues for mobility and safety. M5 PT-IP Objective Assessments Start: 09/19/18 11:44 Freq: NEEDED Status: Active Protocol: Document 09/19/18 10:58 (Rec: 09/19/18 12:05 [email or web address]) Orientation Orientation/Cognition Level of Alertness Alert Orientation Name Birthday Situation Language Function Ability Hard of Hearing Safety Awareness Decreased Safety Awareness Gross Range of Motion Lower Extremity ROM Assessment Within Functional Limits Strength Lower Extremity Strength Assessment Bilaterally Impaired Comments Strength Comments L LE grossly 4+/5. R LE 4/5. Sensation Assessment Comments Sensation Comments Peripheral neuropathy per RN. sensation not tested. M6 PT-IP Treatment Start: 09/19/18 11:44 Freq: NEEDED Status: Active Protocol: Document 09/21/18 14:40 GGD (Rec: 09/21/18 15:45 GGD [email or web address]) Physical Therapy Treatment Education Education Provided Safety M7 PT-IP Assessment and Plan Start: 09/19/18 11:44 Freq: NEEDED Status: Active Protocol: Document 09/21/18 14:40 GGD (Rec: 09/21/18 15:45 GGD [email or web address]) PT Summary Assessment and Plan Summary Assessment Summary Pt need cues with bed mobillity using rails. He need cues for safety with fWW and gait. He is impulsive and has poor safety awareness. Frequency of Treatment Frequency Of Treatment Once a Day Treatment Plan Physical Therapy Treatment Plan Bed Mobility Training Transfer Training Gait Training Therapeutic Exercise Balance Retraining Discharge Planning Hot or Cold Pack Neuromuscular Re-ed Coordination Retraining Manual Therapy Other Recommendations and Next Treatment Bed mobility, transfers and Focus gait training. Attempt 4ww ambulation if appropriate. Recommendations To Nursing Amount of Assist Needed 1 Person Assist Discharge Recommendations PT Discharge Recommendations Home with 24/ Assist Home Health SNF Rehab Other Discharge Recommendations SNF vs 24/7 assist with HH Equipment Needed for Home Before possible need for fww pending Discharge pt status at d/c
--- NOTE | 2018-09-21 15:47 | PM.PN.1 ---
Subjective Date Patient Seen: 09/21/18 Interval history: Patient has no specific complaints. According to nursing he is at times confused. He underwent a swallow evaluation today. Patient was found to be silently aspirating. His diet has been modified. He will be on a regular diet with honey thick liquids. Exam Vital Signs (past 8 hours): - 09/21/18 08:00 09/21/18 12:00 Temperature 97.7 F 98 F Pulse Rate 86 90 Respiratory Rate 20 20 Blood Pressure 134/56 L 128/62 Pulse Oximetry 96 Oxygen Delivery Method Room Air Oxygen Flow Rate 96 Narrative Exam Narrative: Pleasant gentleman resting comfortably in no acute distress Lungs: Decreased breath sounds but clear to auscultation Cardiac exam: Irregularly irregular, normal S1-S2, 3/6 systolic ejection murmur Abdomen: Soft nontender Extremity: No edema Objective Labs Result Diagrams: 09/21/18 05:05 09/21/18 05:05 Labs: Laboratory Results - last 24 hr 09/21/18 09/21/18 05:05 05:05 WBC 6.4 RBC 3.60 L Hgb 9.7 L Hct 29.9 L MCV 83.0 MCH 26.9 MCHC 32.4 RDW 19.3 H Plt Count 168 Neut % (Auto) 52.0 Lymph % (Auto) 34.0 [place] % (Auto) 10.0 Eos % (Auto) 3.1 Baso % (Auto) 0.9 Neut # (Auto) 3300 Sodium 139 Potassium 3.9 Chloride 108 H Carbon Dioxide 20 L BUN 35 H Creatinine 2.70 H Estimated GFR 22.7 L BUN/Creatinine Ratio 13.0 Glucose 111 H Calcium 10.1 Phosphorus 3.8 H Total Bilirubin 0.3 AST 20 ALT 20 L Alkaline Phosphatase 74 Total Protein 6.0 L Albumin 3.0 L Globulin 3.0 Albumin/Globulin Ratio 1.0 Assessment & Plan (1) Influenza A: Problem details: Continue Tamiflu total course of 5 days Current visit: Yes Status: Acute (2) Anemia of chronic renal failure, stage 3 (moderate): Problem details: Continue to monitor Current visit: Yes Status: Acute (3) Chronic renal failure, stage 3 (moderate): Problem details: Will continue to follow closely. Will avoid nephrotoxin agents. Current visit: Yes Status: Acute (4) Aspiration pneumonia: Problem details: Continue IV antibiotics. Patient to continue speech therapy to improve swallow function. Diet modified according to study. Current visit: Yes Status: Acute Quality VTE Deep Vein Thrombosis/Pulmonary Embolism Present on Admission: No
--- NOTE | 2018-09-21 16:34 | ST.IPTN ---
Care Team Visit Care Team Role Provider Type Kelton Morgan MD Primary Care Provider Non-Staff Address: [address] [place] [address], [id number] Erick Catherine DO Emergency Provider Physician Address: [address] [place] [address], [id number] JUSTEN Reed Admit Provider Advanced Clinical Unit Coordinator Attending Provider Address: [address] [place] [address], [id number] SALES TRAINER Treatment Note SALES TRAINER Treatment Note Start: 09/21/18 13:26 Freq: Status: Active Protocol: Document 09/21/18 16:22 RATNA (Rec: 09/21/18 16:32 RATNA [email or web address]) Speech Pathology Treatment Note Session Time Visit Start Time 12:00 Visit Stop Time 12:30 Total Visit Minutes 30 Setting Treatment Setting Acute Care Visit Type Note Type Treatment Note Next Note Type Next Note Type Treatment Note General Information General Information he patient is an 83-year-old male with PMH significant for CAD, AFIB, PPM , HF, AVS, carotid artery disease, CKD IV, subdural heamatoma, DM2T and BPH. Patient presents out of concern for shortness of breath. Symptom onset within 24 hr prior to ED presentation . Associated symptoms include fever, cough w/ yellow purulence, and generalized weakness. Medical History (Reviewed @ 05:54 by JUSTEN Reed) Atrial fibrillation (Acute) Blind (Acute) CAD (coronary artery disease) (Acute) Cardiac pacemaker (Acute) Diabetes (Acute) Chest xray 09/20/18 noted mildly increased retrocardiac patchy consolidation suggesting worsening pneumonia and/or aspiration. Pt underwent MBSS prior to treatment session and was found to have mild oral and moderate pharyngeal dysphagia. Silent penetration of thin and nectar thick liquids was observed. Pt was placed on regular texture and HTL. Subjective Identification Type Name ID Card Other Identification Reconciled With Medical Record ID Bracelet Observations/Patient Presentation The pt was seen immediately following MBSS to review results. He was sitting up in chair, awake and alert. Chief Complaint(s) Swallowing Rehab Expectation/Goals: Patient Goals Improve swallow safety to return to PLOF diet Patient Knowledge/Awareness of SALES TRAINER Role Fair in Treatment Objective Treatment Activities Educated pt to results of MBSS and POC. Trained pt in the 4- step super-supraglottic swallow strategy, verbally and in writing. Strategy steps are: When swallowing food, liquid, or pills, (1) hold your breath, (2) swallow hard, (3) cough, and (4) swallow again. Given tsp trials of HTL x3 and verbal instructions, the pt performed swallow strategy adequately and with no overt s /sx of aspiration, clear voice throughout trials. The pt verbalized 3 of 4 steps to the strategy. He was oriented to written instructions and able to read and restate all four steps of the strategy. Requires reinforcement. Nsg was informed of changes in liquid viscosity order and to steps of the swallow strategy . They verbalized understanding. Assessment Patient Response to Treatment Good Rehab Potential Good Impairments Identified Dysphagia Assessment of Improvement The pt demonstrated understanding of MBSS results and ability to understand and perform super-supraglottic swallow strategy. Reinforcement is required. Nsg and other staff should provide cuing as needed to perform strategy with all oral intake. Instruction in swallow exercises and reinforcement in swallow safety to be provided 2x/day by SALES TRAINER. Reviewed with Patient Goals Progress Being Made Home Exercise Program Patient/Caregiver Understanding Good Plan Therapeutic Contents Client Education Home Exercise Program Swallowing/Feeding Provided Patient/Caregiver Instruction Home Exercise Program Plan of Care Questions/Concerns Therapy Recommendations Continue with Current Program
--- NOTE | 2018-09-21 16:44 | ST.SWALLOW ---
Care Team Visit Care Team Role Provider Type Kelton Morgan MD Primary Care Provider Non-Staff Specialty: Internal Medicine Address: [address] [place], [address] Email: Erick Catherine DO Emergency Provider Physician Specialty: Emergency Medicine Address: [address] [place] [address], [id number] Email: [email or web address] JUSTEN Reed Admit Provider Advanced Warp Knitter Attending Provider Specialty: Internal Medicine Address: [address] [place] [address], [id number] Email: Modified Barium Swallow Study HOT MILL SUPERVISOR Modified Barium Swallow Study Start: 09/21/18 13:26 Freq: Status: Active Protocol: Document 09/21/18 13:27 LNK (Rec: 09/21/18 14:58 LNK [email or web address]) Modified Barium Swallow Study Total Time Visit Start Time 11:30 Visit Stop Time 12:00 Total Visit Minutes [address] Mendoza Reason for Referral suspected silent aspiration Setting Setting Acute Care Patient Information Identification Type Name ID Card Patient History The patient is an 83-year-old male with PMH significant for CAD, AFIB, PPM , HF, AVS, carotid artery disease, CKD IV, subdural heamatoma, DM2T and BPH. Patient presents out of concern for shortness of breath. Symptom onset within 24 hr prior to ED presentation . Associated symptoms include fever, cough w/ yellow purulence, and generalized weakness. Medical History (Reviewed @ 05:54 by JUSTEN Reed) Atrial fibrillation (Acute) Blind (Acute) CAD (coronary artery disease) (Acute) Cardiac pacemaker (Acute) Diabetes (Acute) Chest xray 09/20/18 noted mildly increased retrocardiac patchy consolidation suggesting worsening pneumonia and/or aspiration. Subjective Observations Pt is [place]. Pt was seated in the radiology chair positioned for the MBS. Pt was wearing a mask as he has be diagnosed with influenza. Procedure of the MBS explained to the pt who indicated that he understood. Oral mechanism examination indicated upper and lower dentures that are well-fitted. All OM structures and function WFL Patient Positioning Position View Lateral Imaging Lateral View Textures Administered Trials Presented Thin Liquid via Spoon Thin Liquid via Cup Howard Liquid via Spoon Howard Liquid via Cup Honey Liquid via Spoon Pudding Thick Liquid via Spoon Regular Textures Oral Phase Source: MBSIMP (TM) (C) Bolus Specific Scoring Grid Lip Closure WFL Tongue Control During Bolus Hold WFL Bolus Prep/Mastication WFL Bolus Transport/Lingual Motion WFL A/P Lingual Propulsion Delay No Oral Residue WFL Residue Clearing WFL Nasal Regurgitation No Pharyngeal Phase Source: MBSIMP (TM) (C) Bolus Specific Scoring Grid Delayed Initiation of Pharyngeal Swallow Yes: Slight delay with tail of the bolus entering the valeculla prior to swallow Soft Palate Elevation WFL Tongue Base Strength/Range of Motion Moderate Impairment Residue Along the Tongue Base Yes Clearance of Residue Along Tongue Base WFL Laryngeal Elevation Moderate Impairment Anterior Hyoid Movement Moderate Impairment Epiglottic Range of Motion Mild Impairment Vallecular Residue Yes Clearance of Vallecular Residue Mild Impairment Laryngeal Vestibular Closure Moderate Impairment Pharyngeal Stripping Wave Mild Impairment Pharyngeal Contraction Mild Impairment Posterior Pharyngeal Wall Residue No Clearance of Posterior Pharyngeal Wall WFL Residue Upper Esophageal Sphincter Opening WFL Residue in the Pyriform Sinuses Yes: cleared with cue to cough and second swallow Clearance of Residue in the Pyriform Mild Impairment Sinuses Esophageal Clearance Upright Position WFL Pharyngoesophageal Backflow Observed No A/P View Clinical Impressions Dysphagia Type mild oral phase and moderate pharyngeal phase Findings The patient presented with a mild oral phase and moderate pharyngeal phase dysphagia. Orally, the pt was able to tolerate regular textures without difficulty. Mastication, bolus formation and control were WFL. The tail of the bolus did prematurely spill over into the vallecula prior to the swallow initiation, indicating a weak posterior aspect of the tongue base. Swallow response was mildly delayed. The pt had difficulty with control of the liquids swallowed. Epiglottic inversion was WFL; however, there was penetration into the laryngeal vestibule with residue visible on the posterior wall of the thyroid cartiledge for thin liquids as well as nectar thick liquids. Trial chin tuck was not effective in preventing penetration into the vestbule. During the MBS, there was no cough response observed, indicating a high risk of silent aspiration. The pt was cued to cough and swallow following the liquid trials, which cleared the pharyngeal pooling. Swallowing therapy to increase strength and ROM of tongue base for improved laryngeal excursion, linguapharyngeal pressure and epiglottic seal is recommended Rehabilitation Potential Excellent Patient Appropriate for Therapy Yes Recommendations Diet Liquids Order Honey Diet Order Regular Medication Recommendation Whole in Carrier Comments Safe swallow strategy noted on pt's bedside table for pt and staff reminder Additional Dietary Needs Reminders to Use Strategies Aspiration Precautions Recommended Precautions Upright at 90 Degrees Small Bites/Sips Effortful Swallow Supraglottic Swallow Supersupraglottic Swallow Liquids from Cup Additional Precautions No straws, remind pt to use strategy on bedside table for ALL swallows Treatment Plan Therapy Recommendations Inpatient Speech Therapy Outpatient Speech Therapy Lingual Exercises Base of Tongue Exercises Compensatory Strategy Education Compensatory Strategies Recommendations Sitting Upright (90 deg) Supersupraglottic Swallow No Straw Liquids from Cup Small Bites and Sips Short Term Goals The pt will be able to list the steps of suraglottic swallow as listed on bedside table. The pt will use safe swallow strategies to reduce risk of aspiration. The pt will safely tolerate the least restrictive diet to meet hydration and nutrition needs without s/sx of aspiration Placement Recommendation After Discharge Home with Home Health
[2018-09-21] MEDS: INSULIN ASPART 100 UNIT/ML INSULN PEN SUBCUT (17:15)
--- NOTE | 2018-09-21 19:23 | PC.NURSE ---
Student Nurse Kamille Note: Patient sat up in chair for dinner and consumed about 25% of the tray. Patient encouraged to hold breath, swallow hard, cough, and swallow again when eating or drinking. Patient was given 2 units of Novolog because blood sugar was 205. Patient is incontinent and was changed after dinner with a two person assist. Barrier cream was applied to patient's scrotum due to it becoming slightly red and tender. Patient back in bed resting. Patient is compliant with nursing staff. Bed alarm is on and in low position.
--- NOTE | 2018-09-21 21:15 | PC.NURSE ---
rah note- assumed care of pt from outgoing shift at 1500- Pt awake and alert, sitting in chair. [place]. Pt compliant with nursing assessments and licensed nursing assistant. Pt ate dinner Pt back to bed around 7 and changed. pt is incontinent. Pt reminded frequently about swallowing precautions. given coffee and thickened. Pt does not use call thomas. Pt compliant and redirectable. bed alarm on. side rails up x3. will continue to monitor.
[2018-09-22 01:40] VITALS: BP 125/68; PULSE 85; RESP 18; TEMP 36.6; O2SAT 95
[2018-09-22 06:30] VITALS: BP 129/66; PULSE 90; RESP 20; TEMP 36.7; O2SAT 94
[2018-09-22 08:00] VITALS: BP 136/73; PULSE 85; RESP 20; TEMP 36.8; O2SAT 97
--- NOTE | 2018-09-22 10:50 | ST.IPTN ---
Care Team Visit Care Team Role Provider Type Kelton Morgan MD Primary Care Provider Non-Staff Address: [address] [place] [address], [id number] Erick Catherine DO Emergency Provider Physician Address: [address] [place] [address], [id number] JUSTEN Reed Admit Provider Advanced Executive Business Coach Attending Provider Address: [address] [place] [address], [id number] RIBBER Treatment Note RIBBER Treatment Note Start: 09/21/18 13:26 Freq: Status: Active Protocol: Document 09/22/18 10:44 MRM (Rec: 09/22/18 10:49 MRM [email or web address]) Speech Pathology Treatment Note Session Time Visit Start Time 10:10 Visit Stop Time 10:40 Total Visit Minutes 30 Setting Treatment Setting Outpatient Care Visit Type Note Type Treatment Note Next Note Type Next Note Type Treatment Note General Information General Information he patient is an 83-year-old male with PMH significant for CAD, AFIB, PPM , HF, AVS, carotid artery disease, CKD IV, subdural heamatoma, DM2T and BPH. Patient presents out of concern for shortness of breath. Symptom onset within 24 hr prior to ED presentation . Associated symptoms include fever, cough w/ yellow purulence, and generalized weakness. Medical History (Reviewed @ 05:54 by JUSTEN Reed) Atrial fibrillation (Acute) Blind (Acute) CAD (coronary artery disease) (Acute) Cardiac pacemaker (Acute) Diabetes (Acute) Chest xray 09/20/18 noted mildly increased retrocardiac patchy consolidation suggesting worsening pneumonia and/or aspiration. Pt underwent MBSS prior to treatment session and was found to have mild oral and moderate pharyngeal dysphagia. Silent penetration of thin and nectar thick liquids was observed. Pt was placed on regular texture and HTL. Subjective Identification Type Name ID Wristband Other Others Present Nursing Observations/Patient Presentation Patient resting, but able to rouse with verbal cues. Ambulated with walker to bathroom. WEBSITE OPTIMIZATION STRATEGIST assisted with transferring to chair. Patient upright in chair for breakfast. Expressed that he does not like honey thick liquids, but agreed to tolerate them after RIBBER reminded him of the need at the moment. Verbalized that he knew that he needed to do some strategies for safe swallowing and that they were written on a paper on his tray . Unable to spontaneously recall what they were, but expressed understanding when RIBBER reminded him. Chief Complaint(s) Speech Rehab Expectation/Goals: Patient Goals Improve swallow safety to return to PLOF diet Patient Knowledge/Awareness of RIBBER Role Good in Treatment Objective Short Term Goals Plans to go home with at d/c Zookeeper Goals Improve swallowing ability Treatment Activities Independently tolerated regular textures and honey thick liquids. Expressed that he did not like the honey thick liquids, but did agree to drink them with RIBBER and implement super supraglottic swallow. No overt s/s of aspiration observed throughout meal. No difficulty tolerating regular textures. Observed mild lingual residue with trials of dry trinidadian toast, but resolved with liquid wash. Required ongoing cues from RIBBER for implementation of super supraglottic swallow with drinks. With these cues, he was successful in completing this. Continue current diet with plans for trials of nectar thick liquids when patient is more independently successful in implementing swallowing strategies on his own. Assessment Patient Response to Treatment Excellent Rehab Potential Good Impairments Identified Dysphagia Progress Towards Goals Good Progress Assessment of Overall Progress Improving Reviewed with Patient Goals Progress Being Made Home Exercise Program Patient/Caregiver Understanding Good Plan Comment x2 a day Length of Session 15 Minutes Therapeutic Contents Client Education Compensatory Swallowing Training Home Exercise Program Swallowing/Feeding Provided Patient/Caregiver Instruction Home Exercise Program Plan of Care Questions/Concerns Therapy Recommendations Continue with Current Program
--- NOTE | 2018-09-22 11:45 | PT.IPTN ---
Current Diagnoses Anemia in chronic kidney disease (09/19/18) Influenza due to other identified influenza virus with other respiratory manifestations (09/19/18) Pneumonitis due to inhalation of food and vomit (09/19/18) Chronic kidney disease, stage 3 (moderate) (09/19/18) Physical Therapy Treatment Note M2 PT-IP Current Condition Start: 09/19/18 11:44 Freq: NEEDED Status: Active Protocol: Document 09/19/18 10:58 (Rec: 09/19/18 12:05 [email or web address]) Physical Therapy Current Condition Current Condition Evaluation Date 09/19/18 Treatment Diagnosis Influenza; Generalized weakness Onset Date 09/19/2018 M3 PT-IP Subjective Start: 09/19/18 11:44 Freq: NEEDED Status: Active Protocol: Document 09/22/18 11:45 GGD (Rec: 09/22/18 12:22 GGD [id number]) Subjective Physical Therapy Visit Type Type Treatment Note Visit Start Time 11:30 Visit Stop Time 11:45 Total Visit Minutes 15 Number of MACHINE BENDER Visits 3 Physical Therapy Visit Comments Patient Comments Pt states he will walk. M4 PT-IP Mobility and Gait Start: 09/19/18 11:44 Freq: NEEDED Status: Active Protocol: Document 09/22/18 11:45 GGD (Rec: 09/22/18 12:22 GGD [id number]) PT-Transfer Assessment Sit to and From Stand Sit to and from Stand Contact Guard Assistance Equipment Transfer Assistive Device Gait Belt Front Wheeled Walker Orthotic/Prosthetic Devices or Brace: No Transfers Transfer Destination Chair Gait Assessment Gait Gait Assistance Required: Contact Guard Assist 1 Person Assist Distance (Feet) 35 Able to Maintain Weight Bearing Status Yes During Gait Assistive Devices Assistive Device Gait Belt Front Wheeled Walker Orthotic/Prosthetic Devices or Brace: No Gait Deviations General Gait Pattern Decreased Stride Length Decreased Feet Clearance Factors Limiting Gait Function Factors Limiting Gait Function Decreased Activity Tolerance Decreased Sensation Decreased Strength Poor Balance Poor Safety Awareness Comments Gait Comments Pt need cues for mobility and safety. M5 PT-IP Objective Assessments Start: 09/19/18 11:44 Freq: NEEDED Status: Active Protocol: Document 09/19/18 10:58 (Rec: 09/19/18 12:05 [email or web address]) Orientation Orientation/Cognition Level of Alertness Alert Orientation Name Birthday Situation Language Function Ability Hard of Hearing Safety Awareness Decreased Safety Awareness Gross Range of Motion Lower Extremity ROM Assessment Within Functional Limits Strength Lower Extremity Strength Assessment Bilaterally Impaired Comments Strength Comments L LE grossly 4+/5. R LE 4/5. Sensation Assessment Comments Sensation Comments Peripheral neuropathy per RN. sensation not tested. M6 PT-IP Treatment Start: 09/19/18 11:44 Freq: NEEDED Status: Active Protocol: Document 09/21/18 14:40 GGD (Rec: 09/21/18 15:45 GGD [email or web address]) Physical Therapy Treatment Education Education Provided Safety M7 PT-IP Assessment and Plan Start: 09/19/18 11:44 Freq: NEEDED Status: Active Protocol: Document 09/22/18 11:45 GGD (Rec: 09/22/18 12:22 GGD [id number]) PT Summary Assessment and Plan Summary Assessment Summary Pt need cues for safety. He was able to progress gait distance without fatigue. He improving with mobility and gait stability. Frequency of Treatment Frequency Of Treatment Once a Day Treatment Plan Other Recommendations and Next Treatment Bed mobility, transfers and Focus gait training. Attempt 4ww ambulation if appropriate. Discharge Recommendations PT Discharge Recommendations Home with 24/7 Assist Home Health Other Discharge Recommendations SNF vs 24/7 assist with HH Equipment Needed for Home Before possible need for fww pending Discharge pt status at d/c
--- NOTE | 2018-09-22 11:45 | PM.DS.1 ---
History of Present Illness Date Patient Seen: 09/22/18 Chief complaint: Cough x1 day Narrative: The patient is an 83-year-old male with PMH significant for CAD, AFIB, PPM, HF, AVS, carotid artery disease, CKD IV, subdural heamatoma, DM2T and BPH. Patient presents out of concern for shortness of breath. Symptom onset within 24 hr prior to ED presentation. Associated symptoms include fever, cough w/ yellow purulence, and generalized weakness. Symptom onset is acute, on a.m. of 09/18/2018. Denies chest pain, palpitations, dizziness, lightheadedness, syncopal events, abdominal pain, gastrointestinal distress, dysuria, or symptoms of blood loss per rectum. Patient is not oxygen dependent. No exacerbating or remitting factors noted. Patient is unable to tell me her make adequate clarification regarding his code status. Will make him full code. Patient unable to note is surrogate decision maker. Discharge Providers Date of admission: 09/19/18 05:23 Primary care physician: Kelton Morgan MD Consults: 09/19/18 04:01 Consult to Respiratory Therapy Evaluate & Treat Comment: Physician Instructions: Evaluate and treat 09/19/18 07:00 Consult to Dietitian, Adult Routine Comment: Reason For Exam: MNA = 10, diabetic not on diabetic diet, wt loss 09/19/18 10:36 Consult to Occupational Therapy Evaluate & Treat Comment: Physician Instructions: Evaluate and treat Consult to Physical Therapy Evaluate & Treat Comment: Physician Instructions: Evaluate and Treat 09/20/18 11:48 Consult to Speech Therapy Evaluate & Treat Comment: ASPIRATION PNEUMONITIS Physician Instructions: Evaluate and treat Discharge provider: Vanita Mendoza MD Discharge Date: 09/22/18 Summary Discharge Diagnosis: Influenza A Aspiration Pneumonia Atrial Fibrillation Dementia Hyperlipidemia Diabetes Mellitus Chronic Renal Failure-Stage 3 Anemia-of chronic disease Hospital Course: Patient was admitted to the hospital for evaluation of shortness of breath. The patient was found to have Influenza A on admission. He was also noted to be coughing with meals. Modified barium swallow demonstrated silent aspiration. The patient was placed on a honey thick liquid/regular meal diet. The patient had no further shortness of breath. He was evaluated by PT and deemed to be close to his baseline. The patient did not require additional oxygen, was sitting watching TV comfortably, and deemed appropriate for discharge home. Status at Discharge Functional status at discharge: independent ambulation Overall status at discharge: patient is back to baseline Time Spent with Patient Less than 30 minutes Exam Vital Signs (past 8 hours): - 09/22/18 06:30 09/22/18 08:00 Temperature 98.1 F 98.2 F Pulse Rate 90 85 Respiratory Rate 20 20 Blood Pressure 129/66 136/73 Pulse Oximetry 94 97 Oxygen Delivery Method Room Air Oxygen Flow Rate 0 Narrative Exam Narrative: Pleasant gentleman resting comfortably in no acute distress Lungs: Decreased breath sounds bilaterally Cardiac exam: Regular rate and rhythm normal S1 and S2 Abdomen: Soft and nontender Extremity: No edema Objective Labs Result Diagrams: 09/21/18 05:05 09/21/18 05:05 Discharge Plan Discharge Plan Discharge Problem: Influenza A Patient Disposition: Home Health Service Transfer to: [facility] Discharge Med Rec/Prescriptions Prescriptions: New oseltamivir [Tamiflu] 30 mg Capsule 30 mg PO DAILY Qty: 2 RF: 0 azithromycin 250 mg tablet 250 mg PO DAILY 4 Days RF: 0 Continue allopurinol 100 mg Tablet 100 mg PO DAILY RF: 0 tamsulosin 0.4 mg capsule,extended release 24hr 0.4 mg PO DAILY RF: 0 furosemide 20 mg tablet 40 mg PO DAILY RF: 0 sertraline 50 mg Tablet 50 mg PO DAILY RF: 0 carvedilol 6.25 mg PO BID RF: 0 atorvastatin 20 mg Tablet 20 mg PO BEDTIME RF: 0 glipizide 2.5 mg Tablet Extended Release 24hr 2.5 mg PO DAILY RF: 0 cholecalciferol (vitamin D3) [Vitamin D3] 1,000 unit Capsule 1,000 unit PO DAILY RF: 0 Provider Discharge Instructions Diet: Regular Diet comment: honey thick liquids, swallow instructions per speech pathology Activity: as tolerated Discharge Data Primary Care Provider: Kelton Morgan Attending Provider: Jose James Admit Date/Time: 09/19/18 05:23 Quality VTE Deep Vein Thrombosis/Pulmonary Embolism Present on Admission: No
--- NOTE | 2018-09-22 11:59 | PM.DS.1 ---
History of Present Illness Chief complaint: Cough x1 day Narrative: The patient is an 83-year-old male with PMH significant for CAD, AFIB, PPM, HF, AVS, carotid artery disease, CKD IV, subdural heamatoma, DM2T and BPH. Patient presents out of concern for shortness of breath. Symptom onset within 24 hr prior to ED presentation. Associated symptoms include fever, cough w/ yellow purulence, and generalized weakness. Symptom onset is acute, on a.m. of 09/18/2018. Denies chest pain, palpitations, dizziness, lightheadedness, syncopal events, abdominal pain, gastrointestinal distress, dysuria, or symptoms of blood loss per rectum. Patient is not oxygen dependent. No exacerbating or remitting factors noted. Patient is unable to tell me her make adequate clarification regarding his code status. Will make him full code. Patient unable to note is surrogate decision maker. Discharge Providers Date of admission: 09/19/18 05:23 Primary care physician: Kelton Morgan MD Consults: 09/19/18 04:01 Consult to Respiratory Therapy Evaluate & Treat Comment: Physician Instructions: Evaluate and treat 09/19/18 07:00 Consult to Dietitian, Adult Routine Comment: Reason For Exam: MNA = 10, diabetic not on diabetic diet, wt loss 09/19/18 10:36 Consult to Occupational Therapy Evaluate & Treat Comment: Physician Instructions: Evaluate and treat Consult to Physical Therapy Evaluate & Treat Comment: Physician Instructions: Evaluate and Treat 09/20/18 11:48 Consult to Speech Therapy Evaluate & Treat Comment: ASPIRATION PNEUMONITIS Physician Instructions: Evaluate and treat Discharge provider: Vanita Mendoza MD Discharge Date: 09/22/18 Exam Vital Signs (past 8 hours): - 09/22/18 06:30 09/22/18 08:00 Temperature 98.1 F 98.2 F Pulse Rate 90 85 Respiratory Rate 20 20 Blood Pressure 129/66 136/73 Pulse Oximetry 94 97 Oxygen Delivery Method Room Air Oxygen Flow Rate 0 Objective Labs Result Diagrams: 09/21/18 05:05 09/21/18 05:05 Discharge Plan Discharge Plan Patient Disposition: Home Health Service Transfer to: [facility] Discharge Med Rec/Prescriptions Prescriptions: New oseltamivir [Tamiflu] 30 mg Capsule 30 mg PO DAILY Qty: 2 RF: 0 azithromycin 250 mg tablet 250 mg PO DAILY 4 Days RF: 0 Continue allopurinol 100 mg Tablet 100 mg PO DAILY RF: 0 tamsulosin 0.4 mg capsule,extended release 24hr 0.4 mg PO DAILY RF: 0 furosemide 20 mg tablet 40 mg PO DAILY RF: 0 sertraline 50 mg Tablet 50 mg PO DAILY RF: 0 carvedilol 6.25 mg PO BID RF: 0 atorvastatin 20 mg Tablet 20 mg PO BEDTIME RF: 0 glipizide 2.5 mg Tablet Extended Release 24hr 2.5 mg PO DAILY RF: 0 cholecalciferol (vitamin D3) [Vitamin D3] 1,000 unit Capsule 1,000 unit PO DAILY RF: 0 Provider Discharge Instructions Diet: Regular Diet comment: honey thick liquids, swallow instructions per speech pathology Activity: as tolerated Discharge Data Primary Care Provider: Kelton Morgan Attending Provider: Jose James Admit Date/Time: 09/19/18 05:23 Quality VTE Deep Vein Thrombosis/Pulmonary Embolism Present on Admission: No
[2018-09-22] MEDS: TAMSULOSIN 0.4 MG CAPSULE PO (12:04)
[2018-09-22] MEDS: FUROSEMIDE 20 MG TABLET PO (12:04)
[2018-09-22] MEDS: SERTRALINE 50 MG TABLET PO (12:04)
[2018-09-22] MEDS: OSELTAMIVIR 30 MG CAPSULE PO (12:04)
--- NOTE | 2018-09-22 12:25 | CM.DPC ---
DCP Cont: Spoke to Dr. Mendoza, hospitalist, regarding patient. She feels that patient is medically stable to go home. When nurse, Nicolasa, originally called and updated , Mimi, she stated she didn't think he should come home now. Spoke to caregiver, Cherelle, who gave this home care manager rn her phone number. Number is: [phone]. She stated that she could come and pick patient up this afternoon. Patient will be resumed to [facility]. Called and spoke to Dorian at [place]. Let him know that patient is to be discharged home today. Checked in with our therapy team. Stated that he needs cueing at times, otherwise, does well. Let Cherelle know this as well. P: Patient is to be discharged home today, and will resume [facility] health. Caregiver is to order picker/assembler patient in her private vehicle. Jaylin Hendrickson RN/Asbestos Brake Lining Finisher Helper
--- NOTE | 2018-09-22 13:32 | PC.NURSE ---
discharge pt denied pain this shift. up to chair with assistance. PIV removed prior to d/c. Caregiver Cherelle arrived to help take pt home. D/c instructions provided to pt and caregiver. Aware to set up f/u apt with PCP and to contact MD with any questions or concerns. Pt states he took all belongings with him. Left in w/c with CLINICAL EDUCATOR escort and caregiver to private vehicle.
== END 2018-09-22 13:30 | disposition home health service (06) | DRG 178 ==
LOC: ED 05:16 → AC 05:24
PROVIDERS: Hospitalist; Admitting Provider Nurse Practitioner Gerontology; Emergency Provider Emergency Medicine; PCP Internal Medicine; Visit Provider Nurse Practitioner Gerontology
DX: J69.0 Pneumonitis due to inhalation of food and vomit (principal); I24.8 Other forms of acute ischemic heart disease; I13.0 Hypertensive heart and chronic kidney disease with heart failure and stage 1 through stage 4 chronic kidney disease, or unspecified chronic kidney disease; J10.1 Influenza due to other identified influenza virus with other respiratory manifestations; I50.9 Heart failure, unspecified; F03.90 Unspecified dementia, unspecified severity, without behavioral disturbance, psychotic disturbance, mood disturbance, and anxiety; E11.9 Type 2 diabetes mellitus without complications; Z87.891 Personal history of nicotine dependence; N40.0 Benign prostatic hyperplasia without lower urinary tract symptoms; Z79.4 Long term (current) use of insulin; D63.1 Anemia in chronic kidney disease; Z23 Encounter for immunization; I48.91 Unspecified atrial fibrillation; I25.10 Atherosclerotic heart disease of native coronary artery without angina pectoris; Z95.0 Presence of cardiac pacemaker; N18.3 Chronic kidney disease, stage 3 (moderate)
CPT/HCPCS: 36415; 36591; 71045; 74230; 80048; 80053; 82550; 82962; 83605; 83735; 83880; 84100; 84145; 84484; 85025; 87040; 87400; 90471; 90656; 92526; 92610; 92611; 93005; 96365; 96367; 97116; 97162; 97165; 97530; 97535; 99283; 99285; Q2038

== ENCOUNTER 2018-10-02 12:49 | Inpatient (IN) | payer MEDICARE, BC, SELFPAY ==
[2018-09-19 06:44] VITALS: BMI 23.8
[2018-10-02] VITALS (18 sets, daily range): BP systolic 112–137; BP diastolic 56–80; PULSE 69–81; RESP 14–20; TEMP 36.1–37; O2SAT 91–100; BMI 23.5
--- NOTE | 2018-10-02 | DI.RAD.S_ITS ---
PROCEDURE: XR HIP W PEL IF DONE RT 2V INDICATIONS: ORIF RT HIP TECHNIQUE: 2 views of the hip were acquired. COMPARISON: [facility], CR, XR HIP W PEL IF DONE RT 2V, 10/02/2018, 13:02. FINDINGS: 5 intraoperative fluoroscopic views demonstrate improved alignment status post open reduction and internal fixation of right intertrochanteric fracture seen on prior study. There is a lateral fixation plate with a telescoping screw through the femoral neck. IMPRESSION: 1. Improved alignment status post ORIF of proximal right femoral fracture. Dictated by: Genaro Redd M.D. on 10/02/2018 at 17:20 Approved by: Genaro Redd M.D. on 10/02/2018 at 17:21
--- NOTE | 2018-10-02 12:57 | DI.RAD.S_ITS ---
PROCEDURE: XR HIP W PEL IF DONE RT 2V INDICATIONS: glf, right hip pain TECHNIQUE: 2 views of the hip were acquired. COMPARISON: [facility], RF, FL BARIUM SWALLOW W SPEECH, 09/21/2018, 11:24. [facility], CR, XR PELVIS 1-2V, 05/15/2018, 5:49. FINDINGS: Bones: There is a mildly displaced intertrochanteric fracture of the proximal right femur. Associated mild varus angulation is noted. No suspicious bony lesions. The visualized pelvic ring appears grossly intact. Soft tissues: Multiple round densities are demonstrated in the pelvis likely representing residual barium within colonic diverticula from recent barium study. IMPRESSION: 1. Intertrochanteric right hip fracture. Dictated by: Genaro Redd M.D. on 10/02/2018 at 13:53 Approved by: Genaro Redd M.D. on 10/02/2018 at 13:54
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
[2018-10-02] MEDS: MORPHINE 2 MG/ML INJ IV (13:26)
[2018-10-02 13:40] LABS: Add Manual Diff / Slide Review NO; Basophils Percent Auto 0.6 % (0-2); Eosinophils Percent Auto 0.3 % (2-4); Hematocrit 33.2 % (41-53); Hemoglobin 10.7 g/dL (13.5-17.5); Lymphocytes Percent Auto 11.3 % (25-40); Mean Corpuscular HGB Conc 32.2 % (30-36); Mean Corpuscular Hemoglobin 26.6 PG (26-34); Mean Corpuscular Volume 82.7 fL (80-100); Monocytes Percent Auto 3.4 % (3-14); Neutrophils Absolute Auto 12000 /uL (3000-5900); Neutrophils Percent Auto 84.4 % (50-75); Platelet Count 223 X10^3/uL (150-400); Red Blood Cell Count 4.01 X10^6/uL (4.5-5.9); Red Cell Distribution Width 18.5 % (11.6-14.8); White Blood Cell Count 14.2 X10^3/uL (4.5-11.0)
[2018-10-02 13:46] LABS: Prothrombin Time 11.6 SECONDS (10.1-12.7)
[2018-10-02 13:49] LABS: PTT Partial Thromboplastin Tim 31 SECONDS (26.4-36.2)
[2018-10-02 13:51] LABS: Alanine Aminotransferase 20 IU/L (21-72); Albumin 3.8 g/dL (3.5-5.0); Albumin Globulin Ratio 1.2 (1.0-2.8); Alkaline Phosphatase 88 U/L (38-126); Aspartate Aminotransferase 13 IU/L (17-59); BUN Creatinine Ratio 12.9 (6-22); Bilirubin Total 0.4 mg/dL (0.2-1.3); Blood Urea Nitrogen 45 mg/dL (9-20); Calcium 10.5 mg/dL (8.4-10.2); Carbon Dioxide 24 mmol/L (22-32); Chloride 105 mmol/L (98-107); Estimated Glomerular Filt Rate 16.9 mL/min (>60); Globulin 3.3 g/dL (1.7-4.1); Glucose 212 mg/dL (80-110); HEMOLYSIS < 15 (0-50); Potassium 4.8 mmol/L (3.4-5.1); Sodium 142 mmol/L (137-145); Total Protein 7.1 g/dL (6.3-8.2)
[2018-10-02] MEDS: SODIUM CHLORIDE 0.9% 1,000 ML 125 ML IV (14:51)
[2018-10-02 15:00] LABS: Creatine Kinase 46 U/L (55-170)
[2018-10-02 15:14] LABS: Troponin I 0.033 ng/mL (0.01-0.034)
--- NOTE | 2018-10-02 15:18 | PM.CN ---
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 He was attempting to transfer from a chair in the bathroom when he fell sustaining an injury to his right hip. He was unable to walk and was taken to [facility] Emergency room where radiographs revealed an intertrochanteric hip fracture on the right. Orthopedic consultation was obtained. The patient was recently discharged after admission for influenza. [facility] Social History household members: spouse Smoking Status: Former smoker alcohol intake: never Meds Home Medications Medication Instructions Recorded Confirmed Type allopurinol 100 mg PO DAILY 05/15/18 09/19/18 History carvedilol 6.25 mg PO BID 05/15/18 09/19/18 History furosemide 40 mg PO DAILY 05/15/18 09/19/18 History sertraline 50 mg PO DAILY 05/15/18 09/19/18 History tamsulosin 0.4 mg PO DAILY 05/15/18 09/19/18 History atorvastatin 20 mg PO BEDTIME 09/19/18 09/19/18 History cholecalciferol (vitamin D3) 1,000 unit PO DAILY 09/19/18 09/19/18 History [Vitamin D3] glipizide 2.5 mg PO DAILY 09/19/18 09/19/18 History oseltamivir [Tamiflu] 30 mg PO DAILY #2 cap 09/22/18 Rx Allergies Allergy/AdvReac Type Severity Reaction Status Date / Time Sulfa (Sulfonamide Allergy Unknown Verified 10/02/18 12:51 Antibiotics) Review of Systems Constitutional Constitutional: Denies chills and Denies fever(s) Eyes Eyes: Reports as per HPI and Reports loss of vision Cardiovascular Cardiovascular: Reports irregular heart rhythm Respiratory Respiratory: Denies chest congestion and Denies cough Gastrointestinal Gastrointestinal: Denies abdominal pain Musculoskeletal Musculoskeletal: Reports abnormal gait and Reports other (Right hip pain) Integumentary/Breasts Skin/Breast: Reports system reviewed and no additional complaints, except as documented Neurologic Neurologic: Reports abnormal gait and Reports loss of vision Exam Vital Signs (past 8 hours): - 10/02/18 12:51 10/02/18 13:08 10/02/18 14:00 Temperature 97 F L Pulse Rate 72 71 Pulse Rate [Right Dorsalis Pedis] 77 Respiratory Rate 15 17 Blood Pressure 137/80 Blood Pressure [Left Arm] 130/75 Pulse Oximetry 98 93 Oxygen Delivery Method Room Air Narrative Exam Narrative: Right hip wound skin is intact. Leg is shortened and externally rotated. Calf is soft. Light touch and motion are intact in the right lower extremity. Cardiac exam is regular rhythm with a systolic murmur. Chest is clear to auscultation. Abdomen is soft nontender with normal abdominal bowel sounds and no palpable masses. Objective Labs Result Diagrams: 10/02/18 13:33 10/02/18 13:33 Labs: Laboratory Results - last 24 hr 10/02/18 10/02/18 10/02/18 13:33 13:33 13:33 WBC 14.2 H RBC 4.01 L Hgb 10.7 L Hct 33.2 L MCV 82.7 MCH 26.6 MCHC 32.2 RDW 18.5 H Plt Count 223 Neut % (Auto) 84.4 H Lymph % (Auto) 11.3 L Will % (Auto) 3.4 Eos % (Auto) 0.3 L Baso % (Auto) 0.6 Neut # (Auto) 16701 H PT 11.6 INR 1.0 APTT 31 Sodium 142 Potassium 4.8 Chloride 105 Carbon Dioxide 24 BUN 45 H Creatinine 3.50 H Estimated GFR 16.9 L BUN/Creatinine Ratio 12.9 Glucose 212 H Calcium 10.5 H Total Bilirubin 0.4 AST 13 L ALT 20 L Alkaline Phosphatase 88 Total Creatine Kinase CK-MB (CK-2) CK-MB (CK-2) Rel Index Troponin I Total Protein 7.1 Albumin 3.8 Globulin 3.3 Albumin/Globulin Ratio 1.2 10/02/18 13:33 WBC RBC Hgb Hct MCV MCH MCHC RDW Plt Count Neut % (Auto) Lymph % (Auto) Will % (Auto) Eos % (Auto) Baso % (Auto) Neut # (Auto) PT INR APTT Sodium Potassium Chloride Carbon Dioxide BUN Creatinine Estimated GFR BUN/Creatinine Ratio Glucose Calcium Total Bilirubin AST ALT Alkaline Phosphatase Total Creatine Kinase 46 L CK-MB (CK-2) TNP CK-MB (CK-2) Rel Index TNP Troponin I 0.033 Total Protein Albumin Globulin Albumin/Globulin Ratio Assessment & Plan Plan: Assessment/Plan Narrative: The patient has a displaced intertrochanteric hip fracture on the right. He has agreed to open reduction internal fixation with a dynamic hip screw after discussion the risks benefits and alternatives. Risks discussed included but were not limited to: Loss of fixation, incomplete quaker of function or pain relief, deep venous thrombosis, pulmonary embolism, stroke, heart attack, permanent paralysis and . We will taken to the operating room this afternoon as he is currently NPO.
--- NOTE | 2018-10-02 15:21 | P.CONS_ITS ---
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 He was attempting to transfer from a chair in the bathroom when he fell sustaining an injury to his right hip. He was unable to walk and was taken to [facility] Emergency room where radiographs revealed an intertrochanteric hip fracture on the right. Orthopedic consultation was obtained. The patient was recently discharged after admission for influenza. [facility] Social History household members: spouse Smoking Status: Former smoker alcohol intake: never Meds Home Medications Medication Instructions Recorded Confirmed Type allopurinol 100 mg PO DAILY 05/15/18 09/19/18 History carvedilol 6.25 mg PO BID 05/15/18 09/19/18 History furosemide 40 mg PO DAILY 05/15/18 09/19/18 History sertraline 50 mg PO DAILY 05/15/18 09/19/18 History tamsulosin 0.4 mg PO DAILY 05/15/18 09/19/18 History atorvastatin 20 mg PO BEDTIME 09/19/18 09/19/18 History cholecalciferol (vitamin D3) 1,000 unit PO DAILY 09/19/18 09/19/18 History [Vitamin D3] glipizide 2.5 mg PO DAILY 09/19/18 09/19/18 History oseltamivir [Tamiflu] 30 mg PO DAILY #2 cap 09/22/18 Rx Allergies Allergy/AdvReac Type Severity Reaction Status Date / Time Sulfa (Sulfonamide Allergy Unknown Verified 10/02/18 12:51 Antibiotics) Review of Systems Constitutional Constitutional: Denies chills and Denies fever(s) Eyes Eyes: Reports as per HPI and Reports loss of vision Cardiovascular Cardiovascular: Reports irregular heart rhythm Respiratory Respiratory: Denies chest congestion and Denies cough Gastrointestinal Gastrointestinal: Denies abdominal pain Musculoskeletal Musculoskeletal: Reports abnormal gait and Reports other (Right hip pain) Integumentary/Breasts Skin/Breast: Reports system reviewed and no additional complaints, except as documented Neurologic Neurologic: Reports abnormal gait and Reports loss of vision Exam Vital Signs (past 8 hours): - 10/02/18 12:51 10/02/18 13:08 10/02/18 14:00 Temperature 97 F L Pulse Rate 72 71 Pulse Rate [Right Dorsalis Pedis] 77 Respiratory Rate 15 17 Blood Pressure 137/80 Blood Pressure [Left Arm] 130/75 Pulse Oximetry 98 93 Oxygen Delivery Method Room Air Narrative Exam Narrative: Right hip wound skin is intact. Leg is shortened and externally rotated. Calf is soft. Light touch and motion are intact in the right lower extremity. Cardiac exam is regular rhythm with a systolic murmur. Chest is clear to auscultation. Abdomen is soft nontender with normal abdominal bowel sounds and no palpable masses. Objective Labs Result Diagrams: 10/02/18 13:33 10/02/18 13:33 Labs: Laboratory Results - last 24 hr 10/02/18 10/02/18 10/02/18 13:33 13:33 13:33 WBC 14.2 H RBC 4.01 L Hgb 10.7 L Hct 33.2 L MCV 82.7 MCH 26.6 MCHC 32.2 RDW 18.5 H Plt Count 223 Neut % (Auto) 84.4 H Lymph % (Auto) 11.3 L [place] % (Auto) 3.4 Eos % (Auto) 0.3 L Baso % (Auto) 0.6 Neut # (Auto) 98365 H PT 11.6 INR 1.0 APTT 31 Sodium 142 Potassium 4.8 Chloride 105 Carbon Dioxide 24 BUN 45 H Creatinine 3.50 H Estimated GFR 16.9 L BUN/Creatinine Ratio 12.9 Glucose 212 H Calcium 10.5 H Total Bilirubin 0.4 AST 13 L ALT 20 L Alkaline Phosphatase 88 Total Creatine Kinase CK-MB (CK-2) CK-MB (CK-2) Rel Index Troponin I Total Protein 7.1 Albumin 3.8 Globulin 3.3 Albumin/Globulin Ratio 1.2 10/02/18 13:33 WBC RBC Hgb Hct MCV MCH MCHC RDW Plt Count Neut % (Auto) Lymph % (Auto) Deuel % (Auto) Eos % (Auto) Baso % (Auto) Neut # (Auto) PT INR APTT Sodium Potassium Chloride Carbon Dioxide BUN Creatinine Estimated GFR BUN/Creatinine Ratio Glucose Calcium Total Bilirubin AST ALT Alkaline Phosphatase Total Creatine Kinase 46 L CK-MB (CK-2) TNP CK-MB (CK-2) Rel Index TNP Troponin I 0.033 Total Protein Albumin Globulin Albumin/Globulin Ratio Assessment & Plan Plan: Assessment/Plan Narrative: The patient has a displaced intertrochanteric hip fracture on the right. He has agreed to open reduction internal fixation with a dynamic hip screw after discussion the risks benefits and alternatives. Risks discussed included but were not limited to: Loss of fixation, incomplete latter-day of function or pain relief, deep venous thrombosis, pulmonary embolism, stroke, heart attack, permanent paralysis and . We will taken to the operating room this afternoon as he is currently NPO.
[2018-10-02] MEDS: INSULIN REGULAR 100 UNIT/ML 3 ML VIAL SUBCUT (15:45)
[2018-10-02] MEDS: CEFAZOLIN 2 GM/100 ML FROZ.PIGGY IV (15:52)
--- NOTE | 2018-10-02 16:23 | SUR.OPER ---
العراقي catheter placement attempted but patients urethral meatus is very small, catheter too large for opening. Per Dr. Mata abandon cathetization attempt.
--- NOTE | 2018-10-02 16:26 | SUR.OPER ---
Head on pillow. Supine on fracture table with operative leg secured in traction. Other leg secured in padded stirrup. Right arm across chest, secured with sheet. Left arm secured to padded arm board at < 90 degrees.
[2018-10-02] MEDS: BUPIVACAINE 0.5% W/ EPI (PF) VIAL 30 ML INJ (16:52)
--- NOTE | 2018-10-02 17:26 | P.OP_ITS ---
Operative Date/Time/Diagnoses Date of procedure: 10/02/18 Time of procedure: 17:10 Pre-op diagnosis: Right intertrochanteric hip fracture Post-op diagnosis: same Procedure & Clinicians Procedure: Open reduction and internal fixation of right intertrochanteric hip fracture with dynamic hip screw Same procedure as scheduled: Yes Indications: The patient is an 83-year-old gentleman who is a marginal ambulator at baseline. He was transferring from a chair in his bathroom when he fell sustaining the above-noted fracture. He has agreed to surgery after discussion of the risks benefits and alternatives as documented in my consultation note. Surgeon: Lobito Mata Click Yes if Unassisted: Yes Anesthesia Type: General and Local Operative Notes Findings: Satisfactory reduction of displaced intertrochanteric hip fracture. Closure Type: primary Specimen(s): none sent Implants & Drains: Implants used in this procedure were manufactured by the [employer] and included a 135 degree long barrel 4 hole sideplate DHS with a 100 mm lag screw and 4 cortical screws to hold the plate along the side of the femur. Applied: implant(s) Estimated Blood Loss (mL): 200 Blood products transfused: none Procedure in detail: The patient was seen in the preoperative area where he confirmed the right hip was the operative site and this was marked with my initials. He received preoperative antibiotics with an appropriate 1st generation cephalosporin and was taken to the operating room and placed on the operating room table in the supine position after undergoing the induction of a general anesthetic on his hospital bed. His right leg was placed in the traction leg beckwith and his left leg placed in the well leg beckwith. All pressure points were well padded. The right leg was internally rotated to reduce the fracture and to place the femoral neck parallel to the floor. The position of the fracture was verified as being satisfactorily reduced on the AP and lateral views of fluoroscopy. A liberal arts and humanities chair-out was performed. The lateral aspect of the right thigh was then prepared with ChloraPrep and draped with a vertical adherent drape. An approximately 10 cm incision was created overlying the proximal femur. This was carried to the fascia imer which was incised. The underlying fascia of the vastus lateralis was incised as well. The muscle was elevated using a Falcon elevator from the lateral aspect of the femur. A guide pin was placed in the center of the femoral head on the AP and lateral view using 135 degree guide. This was measured and over drilled with the triple Reamer. The lag screw was then placed. The guide pin was subsequently removed and the plate impacted into position over the lag screw. The cortical screws were then placed to affix the plate to the lateral side of the femur. The position of the fracture and all hardware was verified as being satisfactory throughout the case with AP and lateral fluoroscopy views. After placement of all hardware the wound was copiously irrigated with sterile saline solution. The fascia of the vastus lateralis was closed with a running 2 0 Vicryl. The fascia imer was reapproximated with running and interrupted 0 Vicryl. Subcutaneous layer was closed with 3 0 Vicryl and the skin with ngozi. 20 mL of 0.5% Marcaine with epinephrine was then injected into the skin and muscle layers to provide postoperative pain control. Dressings of Xeroform, sterile 4x4s and an adhesive dressing were applied. The patient's legs were then taken out of the leg holders, he was allowed to awaken from anesthesia, transferred to his hospital bed and taken to recovery in good condition having tolerated the procedure well. Complications: none Condition: stable Disposition: PACU Plan for aftercare: The patient will be allowed to weight bear as tolerated with physical therapy. He is a marginal ambulator at baseline and will likely need long term facility placement. He will be followed by the hospitalist service due to his diabetes, atrial fibrillation and recent pneumonia.
--- NOTE | 2018-10-02 17:48 | SUR.PHASEI ---
normal pacu stay, report called, transported up on nc /l 02.
--- NOTE | 2018-10-02 18:15 | SUR.PHASEI ---
pt left in stable condition, watch placed on pt's l wrist as it is a talking watch as pt is blind. dentures placed to bedside
[2018-10-02] MEDS: LACTATED RINGERS 1,000 ML 125 ML IV (19:13)
[2018-10-02] MEDS: ACETAMINOPHEN 325 MG TABLET 975 MG PO (19:13)
[2018-10-02] MEDS: OXYCODONE IR 5 MG TABLET PO ×2 (19:13→22:27)
[2018-10-02] MEDS: ATORVASTATIN 20 MG TABLET PO (19:14)
[2018-10-02] MEDS: CARVEDILOL 6.25 MG TABLET PO (19:15)
[2018-10-02] MEDS: DOCUSATE 100 MG CAPSULE PO (19:16)
--- NOTE | 2018-10-02 19:35 | PC.NURSE ---
Addendum entered by Britney David R.N. 10/02/18 22:44: Pt incontinent of urine in brief and pt reports this is baseline. Pillow between legs for turning in bed. Positioned onto operative side. Oxycodone for pain. Original Note: Addendum entered by Britney David R.N. 10/02/18 21:29: Pt mostly sleeping unless staff interrupt pt for care. Hospitalist in to see patient. R.T. has decreased pt's 02 to 1L and continuous monitor reads 98%. Pt rouses easy to voice. Denies urge to void. Bladder scanned for 270 cc's. Brief is dry. Will continue to monitor. Original Note: Pt to room 226 for close viewing by staff drowsy, but rousable. Hard of hearing and blind, but is able to respond appropriately when heard. Denies pain upon arrival to floor. 02 2l nc sats 99% per continuous monitor. Placed brief on pt in the event pt is incontinent. Pain 8/10 with turning with pillow between legs @ all times. Ice to right hip with clean and dry surgical dressing. Administered oxycodone and 2100 meds in applesauce with pt's head of bed elevated observing hip precautions. No swallowing deficit. Pt took slightly thickened water without difficulty and denies use of thickened water at home although per PACU report pt does take thickened water at home. BL calf scd's in place.
--- NOTE | 2018-10-02 19:49 | P.HP_ITS ---
History of Present Illness Date Patient Seen: 10/01/18 Time Patient Seen: 19:38 Chief complaint: GLF, R hip pain Narrative: The patient is an 83-year-old male with PMH significant for HTN, CAD (s/p 6v-CABG), chronic AFIB (s/p PPM, not AC), CHF, AVS, NEDA, carotid artery disease, h/o TIA, PVD w/ multiple stents, HLD, AAA, CKD IV, subdural heamatoma, DM 2T, BPH, dementia, and PRIOR tobacco dependence. Patient presented to the ED on 10/02/2018 in the 1300 hour to be evaluated for right hip pain. Prior to the ED presentation patient sustained a fall. At time of the event he was sitting in his wheelchair in trying to maneuver it, the wheelchair tipped over, causing the patient to fall to the ground onto his right hip. The patient is unable to provide any further details. No reported head injury or loss of consciousness. He was unable to get up on his own. Patient is known to have diminished baseline mobility status, however he is not wheelchair bound. Typically, he is able to ambulate independently with the use of a cane or a walker; however, he has been relying heavily on his wheelchair since hospital discharge on 09/22. Patient was recently hospitalized, 09/19 through 09/22, for influenza. Since hospital discharge he has not returned to his baseline mobility function. Radiography revealed displaced right intertrochanteric hip fracture. Consequently, patient was taken to the OR and underwent ORIF of the hip fracture with dynamic hip screw. EBL estimated at 200 mls. No intraoperative complications noted. Patient is being seen post-operatively. He reports no specific concerns. His pain is adequately controlled. Patient History Medical History S/P ORIF (open reduction internal fixation) fracture (Acute) Atrial fibrillation (Acute) Blind (Acute) CAD (coronary artery disease) (Acute) Cardiac pacemaker (Acute) Diabetes (Acute) Family & Social History Family History: Reviewed 10/02/18 by JUSTEN Reed Social History: household members spouse Prior Living Arrangements House Safety & Behavioral: Feels Safe in Current Yes Environment Been Physically Hurt or No Threatened By a Person Suicidal Ideation Description None Suicide Plan Description No Plan Tobacco & Substance use: Smoking Status Former smoker. alcohol intake Denies prior or current alcohol use. Substance Use Type Denies prior or current recreational drug use. Meds Home Medications Medication Instructions Recorded Confirmed Type allopurinol 100 mg PO DAILY 05/15/18 09/19/18 History carvedilol 6.25 mg PO BID 05/15/18 10/02/18 History furosemide 40 mg PO DAILY 05/15/18 09/19/18 History sertraline 50 mg PO DAILY 05/15/18 09/19/18 History tamsulosin 0.4 mg PO DAILY 05/15/18 09/19/18 History atorvastatin 20 mg PO BEDTIME 09/19/18 09/19/18 History cholecalciferol (vitamin D3) 1,000 unit PO DAILY 09/19/18 09/19/18 History [Vitamin D3] glipizide 2.5 mg PO DAILY 09/19/18 09/19/18 History oseltamivir [Tamiflu] 30 mg PO DAILY #2 cap 09/22/18 Rx aspirin 325 mg PO DAILY 10/02/18 10/02/18 History Allergies Allergy/AdvReac Type Severity Reaction Status Date / Time Sulfa (Sulfonamide Allergy Unknown Verified 10/02/18 12:51 Antibiotics) Review of Systems Review of Systems Positive for deconditioning, weakness, impaired ambulation Negative for headache, chest pain, dyspnea, palpitations, dizziness, lightheadedness, syncopal events, peripheral edema, abdominal pain, gastrointestinal distress, dysuria, blood loss in urine or stool, or myalgia. All systems reviewed & are unremarkable except as noted in HPI and below Exam Vital Signs (past 8 hours): - 10/02/18 12:51 10/02/18 13:08 10/02/18 14:00 Temperature 97 F L Pulse Rate 72 71 Pulse Rate [Right Dorsalis Pedis] 77 Respiratory Rate 15 17 Blood Pressure 137/80 Blood Pressure [Left Arm] 130/75 Pulse Oximetry 98 93 10/02/18 15:17 10/02/18 15:30 10/02/18 17:07 Temperature 97.9 F 97.3 F L Pulse Rate 77 81 69 Pulse Rate [Right Dorsalis Pedis] Respiratory Rate 14 20 18 Blood Pressure 133/62 131/76 121/65 Blood Pressure [Left Arm] Pulse Oximetry 96 93 100 10/02/18 17:14 10/02/18 17:18 10/02/18 17:23 Temperature Pulse Rate 74 74 74 Pulse Rate [Right Dorsalis Pedis] Respiratory Rate 18 18 16 Blood Pressure 115/56 L 112/62 122/60 Blood Pressure [Left Arm] Pulse Oximetry 95 96 95 10/02/18 17:42 10/02/18 18:27 10/02/18 18:55 Temperature 97.9 F 97.6 F 97.8 F Pulse Rate 76 72 73 Pulse Rate [Right Dorsalis Pedis] Respiratory Rate 18 20 18 Blood Pressure 123/64 127/67 113/68 Blood Pressure [Left Arm] Pulse Oximetry 94 98 100 10/02/18 19:15 Temperature Pulse Rate 73 Pulse Rate [Right Dorsalis Pedis] Respiratory Rate Blood Pressure 113/68 Blood Pressure [Left Arm] Pulse Oximetry Oxygen Delivery Method Nasal Cannula Oxygen Flow Rate 2 Narrative Exam Narrative: Constitutional: NAD Neurologic: AOx2-3, forgetful, no apparent unilateral or focal neurological deficits Head: NC, AT Eyes: Gaze conjugate, arca senilis noted, diminished visual acuity Ears: external ears normal, no otorrhea, diminished hearing acuity Nose: external nose normal, no rhinorrhea or epistaxis Throat: MMM, oropharynx w/o exudate Neck: no masses, lymphadenopathy, or JVD Chest / Respiratory: equal chest rise, diminished breath sounds anteriorly throughout, NC on patient, but O2 dial at zero No dyspnea or tachypnea Heart / CV: S1S2, + systolic murmur Abdomen / GI: round, NT, ND, + BS, no organomegaly : no suprapubic tenderness Peripheral / Vascular: BLE cool to touch and DP and PT pulses difficult to palpate, sensation intact DP and PT pulses palpable via Doppler, no cyanosis RLE + pitting 1-2+ edema, LLE no edema Musc: diminished ROM of RLE Skin: no ecchymosis or suspicious lesions / ulcers; overall appearance is pale Objective Labs Result Diagrams: 10/02/18 13:33 10/02/18 13:33 Labs: Laboratory Results - last 24 hr 10/02/18 10/02/18 10/02/18 13:33 13:33 13:33 WBC 14.2 H RBC 4.01 L Hgb 10.7 L Hct 33.2 L MCV 82.7 MCH 26.6 MCHC 32.2 RDW 18.5 H Plt Count 223 Neut % (Auto) 84.4 H Lymph % (Auto) 11.3 L [facility] % (Auto) 3.4 Eos % (Auto) 0.3 L Baso % (Auto) 0.6 Neut # (Auto) 77098 H PT 11.6 INR 1.0 APTT 31 Sodium 142 Potassium 4.8 Chloride 105 Carbon Dioxide 24 BUN 45 H Creatinine 3.50 H Estimated GFR 16.9 L BUN/Creatinine Ratio 12.9 Glucose 212 H Calcium 10.5 H Total Bilirubin 0.4 AST 13 L ALT 20 L Alkaline Phosphatase 88 Total Creatine Kinase CK-MB (CK-2) CK-MB (CK-2) Rel Index Troponin I Total Protein 7.1 Albumin 3.8 Globulin 3.3 Albumin/Globulin Ratio 1.2 10/02/18 13:33 WBC RBC Hgb Hct MCV MCH MCHC RDW Plt Count Neut % (Auto) Lymph % (Auto) [facility] % (Auto) Eos % (Auto) Baso % (Auto) Neut # (Auto) PT INR APTT Sodium Potassium Chloride Carbon Dioxide BUN Creatinine Estimated GFR BUN/Creatinine Ratio Glucose Calcium Total Bilirubin AST ALT Alkaline Phosphatase Total Creatine Kinase 46 L CK-MB (CK-2) TNP CK-MB (CK-2) Rel Index TNP Troponin I 0.033 Total Protein Albumin Globulin Albumin/Globulin Ratio Assessment & Plan Plan: Assessment/Plan Narrative: Right intertrochanteric hip fracture, s/p ORIF, POD 0 - orthopedic surgery managing - supportive care / pain control - on Lovenox - PT OT ordered - neurovascular checks QShift / Dopple peripheral pulses Debility / Deconditioning - Consult DC planning, will likely need acute rehab post hospital discharge - Consult PT/OT while inpatient - Consult nutrition service, re: diminished appetite, weight loss, s/p op EMILI on CKD stage 4, baseline sCr 2.3-2.7 range sCr 3.5 on 10/02. - Hold Lasix. Initiate gentle hydration. - Trend renal function with daily lab, avoid nephrotoxin agents, avoid hypotension / optimize renal perfusion - On LR at 125 ml/hr, will need to decrease to 75 h/o CHF and aortic valve stenosis, no echo available in chart Congestive heart failure, type unknown Does not appear to be in an acute decompensation - echo in a.m. - decrease IVF to 75 ml/hr - lasix on hold at this time, re-evaluate volume status in a.m. 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 Glucose level over 200, poorly controlled - D/C glipizide while inpatient - POC glucose checks AC / HS; initiate low-dose SSI (insulin naive) Chronic AFIB, controlled ventricular rate - s/p PPM, BB for rate control - will need to clarify w/ patient's caregiver if he is on ASA (as he wasn't per his most recent admission in Aug 2018 d/t hx of cerebral bleed) - Tele monitoring H/O subdural hematoma, no anticoagulation Chronic AFIB (h/o PPM implant), paced rhythm, resume BB per home dose/regimen CAD (h/o 6v-CABG), stable, no active angina or sx of ACS, - BB and atorvastatin, has been resumed - ASA at 325 mg QD also on chart, will need to clarify it with patient's caregiver in the morning (previously held d/t hx of cerebral bleed) BPH, controlled with tamsulosin, resume per home dose/regimen PVD, prior history of stenting - dopple peripheral pulses QShift Will make patient full code at this time. Patient unable to provide feedback in regard to his code status. Will need to discuss with family in a.m. Home medications reviewed and adjusted accordingly Quality VTE Deep Vein Thrombosis/Pulmonary Embolism Present on Admission: No
[2018-10-03] VITALS (9 sets, daily range): BP systolic 94–103; BP diastolic 47–58; PULSE 71–83; RESP 18–21; TEMP 36.4–36.7; O2SAT 93–98; BMI 21.4
--- NOTE | 2018-10-03 00:05 | DI.ECHO.S_ITS ---
[facility] +---------+ : : [address] : : : : [id number] : : : : Phone: [phone] Echocardiogram Report + + :Name: LESLY NUNEZ Study Date: 10/03/2018 Height: 67 in : :[facility] Exam Location: [place] Weight: 150 lb : : Gender: Male BSA: 1.8 m2 : :: 1935 Age: 83 yrs BP: 115/59 mmHg: :Reason For Study: Heart failure/ Murmur : :Ordering Physician: Peterson : :Hospitalist Performed By: Karon Page : :Referring: RHETT GUPTA : + + Interpretation Summary Mild concentric left ventricular hypertrophy with ejection fraction 45-50%. Mildly dilated right ventricle with mildly reduced right ventricular systolic function. There is a pacemaker lead in the right ventricle. Severely dilated left atrium. Mildly dilated right atrium. Severe aortic stenosis. The calculated aortic valve area is 0.76 cm2. Moderate aortic regurgitation, eccentric jet directed against the anterior mitral leaflet. Moderate mitral annular calcification. Mild to moderate mitral regurgitation. Mild tricuspid regurgitation. Mildly enlarged ascending aorta. Comparison is made with the echocardiogram of 11/18/2010, aortic stenosis and mitral annular calcification have progressed. Procedure: A two-dimensional transthoracic echocardiogram with color flow and Doppler was performed. The study quality was technically adequate. Comparison is made with the echocardiogram of 11/18/2010. The subcostal views were not obtained due to body habitus. The patient has a paced rhythm. Left Ventricle: The left ventricle is normal in size. There is mild concentric left ventricular hypertrophy. The ejection fraction is estimated to be 45-50%. There are no obvious focal wall motion abnormalities noted but poor endocardial definition reduces the sensitivity for the detection of such. Diastolic function could not be accurately assessed due to paced rhythm. Right Ventricle: The right ventricle is mildly dilated. There is a pacemaker lead in the right ventricle. Right ventricular systolic function is mildly reduced. Atria: The left atrium is severely dilated. The right atrium is mildly dilated. There is no Doppler evidence for an interatrial shunt. Mitral Valve: There is moderate mitral annular calcification. The mitral valve leaflets are moderately calcified. The mitral valve mean gradient is 2.8 mmHg. There is mild to moderate mitral regurgitation. Aortic Valve: The aortic valve is mildly calcified. Leaflet mobility is moderate to severely reduced. There is severe aortic stenosis. The peak aortic velocity is 2.9 m/sec. The peak aortic velocity on the previous exam was 2.1 m/sec. The aortic valve mean gradient is 20.9 mmHg. The calculated aortic valve area is 0.76 cm2. There is moderate aortic regurgitation. There is an eccentric jet of aortic insufficiency directed against the anterior mitral leaflet. Tricuspid Valve: The tricuspid valve is normal in structure and function. There is mild tricuspid regurgitation. Pulmonic Valve: The pulmonic valve is not well visualized. There is trace pulmonic regurgitation. Great Vessels: The aortic root is normal size. The ascending aorta is mildly enlarged. The pulmonary artery is not well visualized, but is probably normal size. The inferior vena cava was not visualized. Pericardium/ Pleura There is no pericardial effusion. There is no pleural effusion. MMode/2D Measurements & Calculations LVIDd: 5.5 cm LVOT diam: 2.1 cm LVIDs: 4.4 cm Ao root diam: 3.9 cm FS: 19.2 % asc Aorta Diam: 3.8 cm EPSS: 1.9 cm IVSd: 1.1 cm LVPWd: 0.84 cm LV justin. diameter/BSA (cm/m^2): 3.1 LV sys. diameter/BSA (cm/m^2): 2.5 LA A2 area: 26.6 cm2 RA long axis: 6.0 cm LA A4 area: 25.2 cm2 RA area: 22.1 cm2 LA length (vol): 5.2 cm RA vol: 69.8 ml LA vol: 109.2 ml RA : 39.0 ml/m2 LA vol index: 61.0 ml/m2 RVD1 (basal): 4.3 cm TAPSE: 0.97 cm Doppler Measurements & Calculations Ao V2 max: 293.1 cm/sec LVOT Max Stiven: 60.7 cm/sec Ao V2 mean: 220.4 cm/sec LV V1 max P.5 mmHg Ao max P.4 mmHg LV V1 VTI: 12.3 cm Ao mean P.9 mmHg ROCHELLE(I,D): 0.76 cm2 Ao V2 VTI: 58.7 cm ROCHELLE(V,D): 0.75 cm2 sev ratio: 0.21 ROCHELLE indexed to BSA (cm^2/m^2): 0.42 MV E max stiven: 143.0 cm/sec TR max stiven: 227.4 cm/sec MV P1/2t: 72.7 msec TR max P.7 mmHg MVA(VTI): 1.3 cm2 PA V2 max: 85.8 cm/sec PA V2 mean: 56.3 cm/sec PA mean P.4 mmHg PA Accel Time: 0.11 sec MV V2 mean: 71.0 cm/sec MV P1/2t max stiven: 149.2 cm/sec MV mean P.8 mmHg MVA(P1/2t): 3.0 cm2 MV V2 VTI: 34.1 cm Electronically signed by: Spenser Clemens on Reading Physician:10/03/2018 04:21 PM
[2018-10-03] MEDS: CEFAZOLIN 1 GM/50 ML FROZ.PIGGY IV ×2 (02:09→09:05)
[2018-10-03] MEDS: LACTATED RINGERS 1,000 ML 75 ML IV (02:17)
[2018-10-03] MEDS: SODIUM CHLORIDE 0.9% 1,000 ML 75 ML IV (03:27)
--- NOTE | 2018-10-03 05:16 | PC.NURSE ---
Pt is A and O x 4, forgetful. LS clear, and SR, irr,irr, with numerous PVCs. Pt R hip dressing is C/D/I. Pt was able to sleep and declined any pain medication for noc shift. Pt is incontinent, voiding in brief x 2. + BTs. Tolerating IV ABOs well. Pt med rec not complete as pt and pt's spouse do not have accurate list, waiting for caregiver to provide correct information.
[2018-10-03] MEDS: OXYCODONE IR 5 MG TABLET PO ×3 (06:12→16:45)
[2018-10-03 06:27] LABS: Add Manual Diff / Slide Review NO; Basophils Percent Auto 1.3 % (0-2); Eosinophils Percent Auto 1.4 % (2-4); Hematocrit 28.6 % (41-53); Hemoglobin 9.5 g/dL (13.5-17.5); Lymphocytes Percent Auto 22.2 % (25-40); Mean Corpuscular Hemoglobin 27.2 PG (26-34); Mean Corpuscular Volume 82.5 fL (80-100); Monocytes Percent Auto 7.3 % (3-14); Neutrophils Absolute Auto 6500 /uL (3000-5900); Neutrophils Percent Auto 67.8 % (50-75); Platelet Count 187 X10^3/uL (150-400); Red Blood Cell Count 3.47 X10^6/uL (4.5-5.9); Red Cell Distribution Width 18.7 % (11.6-14.8); White Blood Cell Count 9.6 X10^3/uL (4.5-11.0)
[2018-10-03 06:28] LABS: Alanine Aminotransferase 15 IU/L (21-72); Albumin 3.1 g/dL (3.5-5.0); Albumin Globulin Ratio 1.1 (1.0-2.8); Alkaline Phosphatase 70 U/L (38-126); Aspartate Aminotransferase 16 IU/L (17-59); BUN Creatinine Ratio 13.6 (6-22); Bilirubin Total 0.2 mg/dL (0.2-1.3); Blood Urea Nitrogen 45 mg/dL (9-20); Calcium 9.9 mg/dL (8.4-10.2); Carbon Dioxide 24 mmol/L (22-32); Chloride 107 mmol/L (98-107); Globulin 2.9 g/dL (1.7-4.1); Glucose 107 mg/dL (80-110); HEMOLYSIS < 15 (0-50); Magnesium 1.7 mg/dL (1.6-2.3); Potassium 4.1 mmol/L (3.4-5.1); Sodium 142 mmol/L (137-145)
--- NOTE | 2018-10-03 07:34 | PM.PNPO.1 ---
Subjective Date Patient Seen: 10/03/18 Time Patient Seen: 07:34 Interval history: POD #1 s/p ORIF of right intertrochanteric hip fracture with dynamic hip screw with Dr. Mata. Patient was complaining of pain last night to the nurse. He will start lovenox today. Patients blood sugar was 121 last night. Exam Vital Signs (past 8 hours): - 10/03/18 00:17 10/03/18 01:08 10/03/18 05:25 Temperature 97.5 F L 97.7 F Pulse Rate 71 77 Respiratory Rate 19 18 Blood Pressure 97/47 L 102/54 L Pulse Oximetry 93 96 98 Oxygen Delivery Method Room Air Oxygen Flow Rate 1 Narrative Exam Narrative: Patient lying in bed in NAD. Right hip dressing is CDI. Calves are soft, compressible, and nontender bilaterally. SILT throughout BLEs. He is able to actively dorsiflex and plantarflex. Objective Labs Result Diagrams: 10/03/18 05:16 10/03/18 05:16 Labs: Laboratory Results - last 24 hr 10/02/18 10/02/18 10/02/18 13:33 13:33 13:33 WBC 14.2 H RBC 4.01 L Hgb 10.7 L Hct 33.2 L MCV 82.7 MCH 26.6 MCHC 32.2 RDW 18.5 H Plt Count 223 Neut % (Auto) 84.4 H Lymph % (Auto) 11.3 L [place] % (Auto) 3.4 Eos % (Auto) 0.3 L Baso % (Auto) 0.6 Neut # (Auto) 29758 H PT 11.6 INR 1.0 APTT 31 Sodium 142 Potassium 4.8 Chloride 105 Carbon Dioxide 24 BUN 45 H Creatinine 3.50 H Estimated GFR 16.9 L BUN/Creatinine Ratio 12.9 Glucose 212 H Calcium 10.5 H Magnesium Total Bilirubin 0.4 AST 13 L ALT 20 L Alkaline Phosphatase 88 Total Creatine Kinase CK-MB (CK-2) CK-MB (CK-2) Rel Index Troponin I B-Natriuretic Peptide Total Protein 7.1 Albumin 3.8 Globulin 3.3 Albumin/Globulin Ratio 1.2 10/02/18 10/03/18 10/03/18 13:33 05:16 05:16 WBC 9.6 RBC 3.47 L Hgb 9.5 L Hct 28.6 L MCV 82.5 MCH 27.2 MCHC 33.0 RDW 18.7 H Plt Count 187 Neut % (Auto) 67.8 Lymph % (Auto) 22.2 L [place] % (Auto) 7.3 Eos % (Auto) 1.4 L Baso % (Auto) 1.3 Neut # (Auto) 6500 H PT INR APTT Sodium 142 Potassium 4.1 Chloride 107 Carbon Dioxide 24 BUN 45 H Creatinine 3.30 H Estimated GFR 18.0 L BUN/Creatinine Ratio 13.6 Glucose 107 D Calcium 9.9 Magnesium 1.7 Total Bilirubin 0.2 AST 16 L ALT 15 L Alkaline Phosphatase 70 Total Creatine Kinase 46 L CK-MB (CK-2) TNP CK-MB (CK-2) Rel Index TNP Troponin I 0.033 B-Natriuretic Peptide Total Protein 6.0 L Albumin 3.1 L Globulin 2.9 Albumin/Globulin Ratio 1.1 10/03/18 05:16 WBC RBC Hgb Hct MCV MCH MCHC RDW Plt Count Neut % (Auto) Lymph % (Auto) [place] % (Auto) Eos % (Auto) Baso % (Auto) Neut # (Auto) PT INR APTT Sodium Potassium Chloride Carbon Dioxide BUN Creatinine Estimated GFR BUN/Creatinine Ratio Glucose Calcium Magnesium Total Bilirubin AST ALT Alkaline Phosphatase Total Creatine Kinase CK-MB (CK-2) CK-MB (CK-2) Rel Index Troponin I B-Natriuretic Peptide 336.0 H Total Protein Albumin Globulin Albumin/Globulin Ratio Assessment & Plan Post-op (1) Closed fracture of right hip: Qualifiers: Encounter type: initial encounter Fracture healing: Qualified Code(s): S72.001A - Fracture of unspecified part of neck of right femur, initial encounter for closed fracture Current Visit: Yes Status: Acute Postoperative Procedures Operation Date: 10/02/18 15:30 Actual Procedures Side Surgeon p ORIF Hip DHS Lobito aMta MD Will start lovenox today. Weightbearing as tolerated. Patient was minimally ambulating at baseline prior to surgery and will need to get continued care at SNF. Quality VTE Deep Vein Thrombosis/Pulmonary Embolism Present on Admission: No
--- NOTE | 2018-10-03 07:39 | P.PN_ITS ---
Subjective Date Patient Seen: 10/03/18 Time Patient Seen: 07:34 Interval history: POD #1 s/p ORIF of right intertrochanteric hip fracture with dynamic hip screw with Dr. Mata. Patient was complaining of pain last night to the nurse. He will start lovenox today. Patients blood sugar was 121 last night. Exam Vital Signs (past 8 hours): - 10/03/18 00:17 10/03/18 01:08 10/03/18 05:25 Temperature 97.5 F L 97.7 F Pulse Rate 71 77 Respiratory Rate 19 18 Blood Pressure 97/47 L 102/54 L Pulse Oximetry 93 96 98 Oxygen Delivery Method Room Air Oxygen Flow Rate 1 Narrative Exam Narrative: Patient lying in bed in NAD. Right hip dressing is CDI. Calves are soft, compressible, and nontender bilaterally. SILT throughout BLEs. He is able to actively dorsiflex and plantarflex. Objective Labs Result Diagrams: 10/03/18 05:16 10/03/18 05:16 Labs: Laboratory Results - last 24 hr 10/02/18 10/02/18 10/02/18 13:33 13:33 13:33 WBC 14.2 H RBC 4.01 L Hgb 10.7 L Hct 33.2 L MCV 82.7 MCH 26.6 MCHC 32.2 RDW 18.5 H Plt Count 223 Neut % (Auto) 84.4 H Lymph % (Auto) 11.3 L [place] % (Auto) 3.4 Eos % (Auto) 0.3 L Baso % (Auto) 0.6 Neut # (Auto) 07608 H PT 11.6 INR 1.0 APTT 31 Sodium 142 Potassium 4.8 Chloride 105 Carbon Dioxide 24 BUN 45 H Creatinine 3.50 H Estimated GFR 16.9 L BUN/Creatinine Ratio 12.9 Glucose 212 H Calcium 10.5 H Magnesium Total Bilirubin 0.4 AST 13 L ALT 20 L Alkaline Phosphatase 88 Total Creatine Kinase CK-MB (CK-2) CK-MB (CK-2) Rel Index Troponin I B-Natriuretic Peptide Total Protein 7.1 Albumin 3.8 Globulin 3.3 Albumin/Globulin Ratio 1.2 10/02/18 10/03/18 10/03/18 13:33 05:16 05:16 WBC 9.6 RBC 3.47 L Hgb 9.5 L Hct 28.6 L MCV 82.5 MCH 27.2 MCHC 33.0 RDW 18.7 H Plt Count 187 Neut % (Auto) 67.8 Lymph % (Auto) 22.2 L [place] % (Auto) 7.3 Eos % (Auto) 1.4 L Baso % (Auto) 1.3 Neut # (Auto) 6500 H PT INR APTT Sodium 142 Potassium 4.1 Chloride 107 Carbon Dioxide 24 BUN 45 H Creatinine 3.30 H Estimated GFR 18.0 L BUN/Creatinine Ratio 13.6 Glucose 107 D Calcium 9.9 Magnesium 1.7 Total Bilirubin 0.2 AST 16 L ALT 15 L Alkaline Phosphatase 70 Total Creatine Kinase 46 L CK-MB (CK-2) TNP CK-MB (CK-2) Rel Index TNP Troponin I 0.033 B-Natriuretic Peptide Total Protein 6.0 L Albumin 3.1 L Globulin 2.9 Albumin/Globulin Ratio 1.1 10/03/18 05:16 WBC RBC Hgb Hct MCV MCH MCHC RDW Plt Count Neut % (Auto) Lymph % (Auto) [place] % (Auto) Eos % (Auto) Baso % (Auto) Neut # (Auto) PT INR APTT Sodium Potassium Chloride Carbon Dioxide BUN Creatinine Estimated GFR BUN/Creatinine Ratio Glucose Calcium Magnesium Total Bilirubin AST ALT Alkaline Phosphatase Total Creatine Kinase CK-MB (CK-2) CK-MB (CK-2) Rel Index Troponin I B-Natriuretic Peptide 336.0 H Total Protein Albumin Globulin Albumin/Globulin Ratio Assessment & Plan Post-op (1) Closed fracture of right hip: Qualifiers: Encounter type: initial encounter Fracture healing: Qualified Code(s) : S72.001A - Fracture of unspecified part of neck of right femur, initial encounter for closed fracture Current Visit: Yes Status: Acute Postoperative Procedures Operation Date: 10/02/18 15:30 Actual Procedures Side Surgeon p ORIF Hip DHS Lobito Mata MD Will start lovenox today. Weightbearing as tolerated. Patient was minimally ambulating at baseline prior to surgery and will need to get continued care at SNF. Quality VTE Deep Vein Thrombosis/Pulmonary Embolism Present on Admission: No
[2018-10-03] MEDS: OXYCODONE IR 10 MG TABLET PO (08:40)
[2018-10-03] MEDS: CHOLECALCIFEROL (VITAMIN D3) 1,000 UNIT TABLET 1000 UNIT PO (08:42)
[2018-10-03] MEDS: ACETAMINOPHEN 325 MG TABLET 975 MG PO ×3 (08:42→20:40)
[2018-10-03] MEDS: CARVEDILOL 6.25 MG TABLET PO (08:43)
[2018-10-03] MEDS: TAMSULOSIN 0.4 MG CAPSULE PO (08:43)
[2018-10-03] MEDS: ALLOPURINOL 100 MG TABLET PO (08:43)
[2018-10-03] MEDS: SERTRALINE 50 MG TABLET PO (08:43)
[2018-10-03] MEDS: ENOXAPARIN 30 MG/0.3 ML SYRINGE SUBCUT (08:43)
[2018-10-03] MEDS: DOCUSATE 100 MG CAPSULE PO ×2 (08:44→20:41)
--- NOTE | 2018-10-03 09:35 | PT.IIE ---
Current Diagnoses Fracture of unspecified part of neck of right femur, initial encounter for closed fracture (10/02/18) Displaced intertrochanteric fracture of right femur, initial encounter for closed fracture (10/02/18) Surgery Performed Operation Date: 10/02/18 15:30 Actual Procedures p ORIF Hip [facility] - Lobito Mata MD Medical History (Last Updated 10/02/18 @ 23:06 by JUSTEN Reed) S/P ORIF (open reduction internal fixation) fracture (Acute) Atrial fibrillation (Acute) Blind (Acute) CAD (coronary artery disease) (Acute) Cardiac pacemaker (Acute) Diabetes (Acute) Physical Therapy Inpatient Evaluation/Re-Eval M1 PT/OT-IP Prior Functional Status Start: 10/03/18 12:14 Freq: NEEDED Status: Active Protocol: Document 10/03/18 09:35 (Rec: 10/03/18 12:41 [email or web address]) Medical Review Prior Functional Status Medical History Reviewed Yes Communication Pt [place]. Hears more easily through his L ear. Requires increased time for processing/ responding. Mobility and Gait Previously limited ambulation distances using 4ww, pt states a few ft, otherwise uses manual w/c. Activities of Daily Living and IADL's Pt states independence with showering, toileting and dressing. He is unsure of the exact schedule, but has frequent caregiver visits that he states provide all his meals and assist with housekeeping and laundry. Prior Functional Level (Other details) Pt fell out of his w/c. He describes trying to maneuver a turn and getting caught up in his bathrobe. Social History Household Members spouse Living Arrangements House Number of Floors (Floors) One Floor Number of Stairs To Enter/Railing? no steps to enter Home Environment Standard Height Toilet Walk in Shower Home Equipment Front Wheel Walker Four Wheel Walker Quad Cane Straight Cane Manual Wheelchair Shower Seat without Backrest Hand Held Shower Grab Bars Near Toilet Grab Bars In Shower Employment Status Retired Additional Social History Comment Lives with his who has limited physical capacity. M2 PT-IP Current Condition Start: 10/03/18 12:14 Freq: NEEDED Status: Active Protocol: Document 10/03/18 09:35 (Rec: 10/03/18 12:41 [email or web address]) Physical Therapy Current Condition Current Condition Evaluation Date 10/03/18 Treatment Diagnosis GLF; R hip fx with ORIF; difficulty walking Onset Date 10/02/2018 Precautions Other Precautions fall risk Weight Bearing Status Weight Bearing Status Weight Bear as Tolerated M3 PT-IP Subjective Start: 10/03/18 12:14 Freq: NEEDED Status: Active Protocol: Document 10/03/18 09:35 (Rec: 10/03/18 12:41 [email or web address]) Subjective Physical Therapy Visit Type Type Initial Evaluation Visit Start Time 09:35 Visit Stop Time 10:26 Total Visit Minutes 51 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 Patient Goals Pt wants to return home. Therapy Pain Assessment Pain When Pain Assessed During Mobility Pain Present Pain Present Pain Reported Location Right Hip Scale Used 0/10 at rest. Pain is low with mobility. Pain Management Techniques Apply Cold Modification of Treatment Re-positioning Timing of Activity with Medications M4 PT-IP Mobility and Gait Start: 10/03/18 12:14 Freq: NEEDED Status: Active Protocol: Document 10/03/18 09:35 (Rec: 10/03/18 12:41 [email or web address]) PT-Bed Mobility Assessment Supine to Sit Supine to Sit Maximum Assistance 2 Person Assistance Bedrails Sit to Supine Sit to Supine Maximum Assistance 2 Person Assistance Bedrails PT-Transfer Assessment Transfers Transfer Destination Chair Transfer Technique Mechanical Lift Transfer Ability Level of Assist Maximum Assistance 2 Person Assistance Comments Mobility Comments Despite maxAx2, max cues, and BUE use of bed rails, pt unable to fully complete supine <> sit; 3 attempts with rest breaks and pt able only able to become partially upright. O2 range 80-88% with bed mobility on room air. Pt requiring max reminders for deep breathing. Mechanical lift (2p management) was used to transfer pt to chair. He tolerated the transfer well with pt O2 saturation improved in seated 90% or greater. Pt positioned in recliner with chair alarm on, call light in reach. BP and HR remained WNL before and after activity. Gait Assessment Comments Gait Comments Unable to ambulate. Pt lacks functional trunk strength and control at this time. PT-Balance Assessment Sitting Balance and Reactions Static Sitting Balance Ability Poor Dynamic Sitting Balance Ability Poor M5 PT-IP Objective Assessments Start: 10/03/18 12:14 Freq: NEEDED Status: Active Protocol: Document 10/03/18 09:35 (Rec: 10/03/18 12:41 [email or web address]) Orientation Orientation/Cognition Level of Alertness Alert Orientation Name Birthday Language Function Ability Hard of Hearing Safety Awareness Decreased Safety Awareness Comments Pt [place]. Hears best on L side and if he is able to see your face. Response time is increased, but pt responds appropriately. Gross Range of Motion Lower Extremity ROM Assessment Right Impaired Impairments Not able to formally assess RLE due to pt c/o pain with all RLE motions. Strength Lower Extremity Strength Assessment Bilaterally Impaired Comments Strength Comments LLE is 4-/5 grossly. R hip 2- /5; R knee 3/5; R ankle 4/5 M6 PT-IP Treatment Start: 10/03/18 12:14 Freq: NEEDED Status: Active Protocol: Document 10/03/18 09:35 (Rec: 10/03/18 12:41 [email or web address]) Physical Therapy Treatment Exercises Exercises Ankle Pumps Quad Sets Education Education Provided Precautions Weight Bearing Status Safety M7 PT-IP Assessment and Plan Start: 10/03/18 12:14 Freq: NEEDED Status: Active Protocol: Document 10/03/18 09:35 (Rec: 10/03/18 12:41 [email or web address]) PT Summary Assessment and Plan Potential Rehabilitation Potential Fair Status of Condition at Evaluation Evolving Summary Impairments Pain ROM Strength Balance Bed Mobility Transfers Gait Activity Tolerance Assessment Summary Pt s/p R hip ORIF after a GLF and R hip fracture; pt now presenting with decreased activity tolerances and difficulty walking. Despite multiple attempts and 2p assist, pt was unable to complete supine <> sit, and desaturated with bed mobility. [facility] Pt tolerates upright position with immediately improved 02 status. Patient's mobility status is severely decreased compared to an already low mobility status at baseline. At this time, recommend d/c to SNF. Goals Bed Mobility Goal Moderate Assistance Transfer Goal Moderate Assistance Front Wheeled Walker Gait Goal Moderate Assistance Front Wheel Walker Gait Distance 20 Days to Meet Goals 5 Frequency of Treatment Frequency Of Treatment Twice a Day Treatment Plan Physical Therapy Treatment Plan Bed Mobility Training Transfer Training Gait Training Therapeutic Exercise Balance Retraining Post Op Education Discharge Planning Hot or Cold Pack Neuromuscular Re-ed Coordination Retraining Manual Therapy Other Recommendations and Next Treatment Bed mobility and transfers. Focus Recommend 2p max assist. Recommendations To Nursing Amount of Assist Needed Mechanical Lift Discharge Recommendations PT Discharge Recommendations SNF Rehab
--- NOTE | 2018-10-03 11:41 | PC.NURSE ---
Pt very [place] without hearing aids. Reported pain in hip this am with improvement to almost no pain after given oxycodone 10mg. IV saline locked. Pt on room air but needs reminding to take deep breaths at times. Eating dyshagia diet. Dressing to right hip CDI.
[2018-10-03] MEDS: INSULIN ASPART 100 UNIT/ML INSULN PEN SUBCUT (12:00)
--- NOTE | 2018-10-03 13:57 | PM.PN.1 ---
Subjective Date Patient Seen: 10/03/18 Time Patient Seen: 07:45 Interval history: VERY HARD OF HEARING HAD A GOOD NIGHT PAIN IS WELL CONTROL WITH MEDS NO SIGNIFICANT ISSUES OVERNIGHT REPORTED BY NURSING Exam Vital Signs (past 8 hours): - 10/03/18 08:00 10/03/18 11:01 Temperature 97.9 F Pulse Rate 83 Respiratory Rate 18 Blood Pressure 101/58 L Pulse Oximetry 98 94 Oxygen Delivery Method Room Air Oxygen Flow Rate 0 Narrative Exam Narrative: NO ACUTE DISTRESS. PATIENT IS ALERT ORIENTED X3. VITAL SIGNS STABLE HEAD ATRAUMATIC NORMOCEPHALIC NECK : SUPPLE WITHOUT ADENOPATHY NO CAROTID BRUITS EYE: EOMI, PERRLA, NORMAL CONJUNCTIVA; NO JAUNDICE CHEST: REGULAR RATE. NO RUBS. PMI IS NON DISPLACED. NO MURMURS; NORMAL S1-S2 PULMONARY: DECREASED BS OVER THE BASES. MILD BIBASILAR CRACKLES NOTED; NO INCREASED DULLNESS TO PERCUSSION ABDOMEN: SOFT. NONTENDER. NONDISTENDED. BOWEL SOUNDS ARE PRESENT IN ALL 4 QUADRANTS. NO MASS. EXTREMITIES: 1+ EDEMA.. NO CYANOSIS CLUBBING NOTED. NEURO: CRANIAL NERVES 2-12 GROSSLY INTACT. NO FOCAL NEUROLOGICAL DEFICIT NOTED. MSK: DISCOMFORT WITH PROM AND AROM EXPECTED; CLOSED SURG INCISION NOTED TO RT HIP; SKIN: NORMAL FOR ETHNICITY; NO ECCHYMOSIS. NO LESION. GOOD TURGOR.; NO RASHES : NORMAL EXTERNAL GENITALIA. PSYCH : APPROPRIATE MOOD AND AFFECT. ALERT AWAKE ORIENTED X3 Objective Labs Result Diagrams: 10/03/18 05:16 10/03/18 05:16 Labs: Laboratory Results - last 24 hr 10/02/18 10/03/18 10/03/18 13:33 05:16 05:16 WBC 9.6 RBC 3.47 L Hgb 9.5 L Hct 28.6 L MCV 82.5 MCH 27.2 MCHC 33.0 RDW 18.7 H Plt Count 187 Neut % (Auto) 67.8 Lymph % (Auto) 22.2 L Frederick % (Auto) 7.3 Eos % (Auto) 1.4 L Baso % (Auto) 1.3 Neut # (Auto) 6500 H Sodium 142 Potassium 4.1 Chloride 107 Carbon Dioxide 24 BUN 45 H Creatinine 3.30 H Estimated GFR 18.0 L BUN/Creatinine Ratio 13.6 Glucose 107 D Calcium 9.9 Magnesium 1.7 Total Bilirubin 0.2 AST 16 L ALT 15 L Alkaline Phosphatase 70 Total Creatine Kinase 46 L CK-MB (CK-2) TNP CK-MB (CK-2) Rel Index TNP Troponin I 0.033 B-Natriuretic Peptide Total Protein 6.0 L Albumin 3.1 L Globulin 2.9 Albumin/Globulin Ratio 1.1 10/03/18 05:16 WBC RBC Hgb Hct MCV MCH MCHC RDW Plt Count Neut % (Auto) Lymph % (Auto) Frederick % (Auto) Eos % (Auto) Baso % (Auto) Neut # (Auto) Sodium Potassium Chloride Carbon Dioxide BUN Creatinine Estimated GFR BUN/Creatinine Ratio Glucose Calcium Magnesium Total Bilirubin AST ALT Alkaline Phosphatase Total Creatine Kinase CK-MB (CK-2) CK-MB (CK-2) Rel Index Troponin I B-Natriuretic Peptide 336.0 H Total Protein Albumin Globulin Albumin/Globulin Ratio Assessment & Plan Plan: Assessment/Plan Narrative: IMPRESSION AND PLAN S/P ORIF DUE TO RT HIP FX; DAY 1; NO S/S OF ACUTE COMPLICATION; PT/OT ORDERED; WT BEARING KAY PER SURG; FOLLOW CLOSELLY; 5 W'S DEMENTIA; AT BASELINE; CONT TO RE-ORIENT INDICATED; FALL AND ASPIRATION PRECAUTIONS; WATCH FOR PSYCH DUE TO HOSPITAL STAY AFIB PER HX; CONT HOME MEDS; TELE AT ALLL TIMES; PRN MEDS INDICATED CAD PER HX; HOME MEDS; TELE; EKG INDICATED POSS DM; ISS; 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
--- NOTE | 2018-10-03 14:47 | PT.IPTN ---
Current Diagnoses Fracture of unspecified part of neck of right femur, initial encounter for closed fracture (10/02/18) Displaced intertrochanteric fracture of right femur, initial encounter for closed fracture (10/02/18) Surgery Performed Operation Date: 10/02/18 15:30 Actual Procedures p ORIF Hip DHS - Lobito Mata MD Physical Therapy Treatment Note M2 PT-IP Current Condition Start: 10/03/18 12:14 Freq: NEEDED Status: Active Protocol: Document 10/03/18 09:35 (Rec: 10/03/18 12:41 [email or web address]) Physical Therapy Current Condition Current Condition Evaluation Date 10/03/18 Treatment Diagnosis GLF; R hip fx with ORIF; difficulty walking Onset Date 10/02/2018 Precautions Other Precautions fall risk Weight Bearing Status Weight Bearing Status Weight Bear as Tolerated M3 PT-IP Subjective Start: 10/03/18 12:14 Freq: NEEDED Status: Active Protocol: Document 10/03/18 14:47 (Rec: 10/04/18 07:37 [email or web address]) Subjective Physical Therapy Visit Type Notes PT rounded on pt in afternoon and found him deeply sleeping. RN agreed it would be best to let him rest. PT will check back this afternoon as schedule allows M4 PT-IP Mobility and Gait Start: 10/03/18 12:14 Freq: NEEDED Status: Active Protocol: Document 10/03/18 09:35 (Rec: 10/03/18 12:41 [email or web address]) PT-Bed Mobility Assessment Supine to Sit Supine to Sit Maximum Assistance 2 Person Assistance Bedrails Sit to Supine Sit to Supine Maximum Assistance 2 Person Assistance Bedrails PT-Transfer Assessment Transfers Transfer Destination Chair Transfer Technique Mechanical Lift Transfer Ability Level of Assist Maximum Assistance 2 Person Assistance Comments Mobility Comments Despite maxAx2, max cues, and BUE use of bed rails, pt unable to fully complete supine <> sit; 3 attempts with rest breaks and pt able only able to become partially upright. O2 range 80-88% with bed mobility on room air. Pt requiring max reminders for deep breathing. Mechanical lift (2p management) was used to transfer pt to chair. He tolerated the transfer well with pt O2 saturation improved in seated 90% or greater. Pt positioned in recliner with chair alarm on, call light in reach. BP and HR remained WNL before and after activity. Gait Assessment Comments Gait Comments Unable to ambulate. Pt lacks functional trunk strength and control at this time. PT-Balance Assessment Sitting Balance and Reactions Static Sitting Balance Ability Poor Dynamic Sitting Balance Ability Poor M5 PT-IP Objective Assessments Start: 10/03/18 12:14 Freq: NEEDED Status: Active Protocol: Document 10/03/18 09:35 (Rec: 10/03/18 12:41 [email or web address]) Orientation Orientation/Cognition Level of Alertness Alert Orientation Name Birthday Language Function Ability Hard of Hearing Safety Awareness Decreased Safety Awareness Comments Pt [place]. Hears best on L side and if he is able to see your face. Response time is increased, but pt responds appropriately. Gross Range of Motion Lower Extremity ROM Assessment Right Impaired Impairments Not able to formally assess RLE due to pt c/o pain with all RLE motions. Strength Lower Extremity Strength Assessment Bilaterally Impaired Comments Strength Comments LLE is 4-/5 grossly. R hip 2- /5; R knee 3/5; R ankle 4/5 M6 PT-IP Treatment Start: 10/03/18 12:14 Freq: NEEDED Status: Active Protocol: Document 10/03/18 09:35 (Rec: 10/03/18 12:41 [email or web address]) Physical Therapy Treatment Exercises Exercises Ankle Pumps Quad Sets Education Education Provided Precautions Weight Bearing Status Safety M7 PT-IP Assessment and Plan Start: 10/03/18 12:14 Freq: NEEDED Status: Active Protocol: Document 10/03/18 09:35 (Rec: 10/03/18 12:41 [email or web address]) PT Summary Assessment and Plan Potential Rehabilitation Potential Fair Status of Condition at Evaluation Evolving Summary Impairments Pain ROM Strength Balance Bed Mobility Transfers Gait Activity Tolerance Assessment Summary Pt s/p R hip ORIF after a GLF and R hip fracture; pt now presenting with decreased activity tolerances and difficulty walking. Despite multiple attempts and 2p assist, pt was unable to complete supine <> sit, and desaturated with bed mobility. Mechanical lift was used to transfer pt to recliner. Pt tolerates upright position with immediately improved 02 status. Patient's mobility status is severely decreased compared to an already low mobility status at baseline. At this time, recommend d/c to SNF. Goals Bed Mobility Goal Moderate Assistance Transfer Goal Moderate Assistance Front Wheeled Walker Gait Goal Moderate Assistance Front Wheel Walker Gait Distance 20 Days to Meet Goals 5 Frequency of Treatment Frequency Of Treatment Twice a Day Treatment Plan Physical Therapy Treatment Plan Bed Mobility Training Transfer Training Gait Training Therapeutic Exercise Balance Retraining Post Op Education Discharge Planning Hot or Cold Pack Neuromuscular Re-ed Coordination Retraining Manual Therapy Other Recommendations and Next Treatment Bed mobility and transfers. Focus Recommend 2p max assist. Recommendations To Nursing Amount of Assist Needed Mechanical Lift Discharge Recommendations PT Discharge Recommendations SNF Rehab
--- NOTE | 2018-10-03 15:50 | OT.IP.EVAL ---
Addendum entered and electronically signed by Jade Velasquez OT 10/04/18 08:49: This evaluation completed 10/03/18. [id number] Original Note: Current Diagnoses Fracture of unspecified part of neck of right femur, initial encounter for closed fracture (10/02/18) Displaced intertrochanteric fracture of right femur, initial encounter for closed fracture (10/02/18) Surgery Performed Operation Date: 10/02/18 15:30 Actual Procedures p ORIF Hip DHS - Lobito Mata MD Past Medical History (Last Updated 10/02/18 @ 23:06 by JUSTEN Reed) S/P ORIF (open reduction internal fixation) fracture (Acute) Atrial fibrillation (Acute) Blind (Acute) CAD (coronary artery disease) (Acute) Cardiac pacemaker (Acute) Diabetes (Acute) Occupational Therapy Inpatient Evaluation/Re-Eval M1 PT/OT-IP Prior Functional Status Start: 10/03/18 12:14 Freq: NEEDED Status: Active Protocol: Document 10/03/18 15:50 PJM (Rec: 10/04/18 07:37 PJM [id number]) Medical Review Prior Functional Status Medical History Reviewed Yes Communication Pt BISHOP PAIUTE. Hears more easily through his L ear. Requires increased time for processing/ responding. Mobility and Gait Previously limited ambulation distances using 4ww, pt states a few ft, otherwise uses manual w/c. Activities of Daily Living and IADL's Pt states independence with all self care including showering in walk in shower stall. No family here to confirm. He is unsure of the exact schedule, but has frequent caregiver visits that he states provide all his meals and assist with housekeeping and laundry. Prior Functional Level (Other details) Pt fell out of his w/c. He describes trying to maneuver a turn and getting caught up in his bathrobe. Pt states his cannot provide physical assist to him at home. Social History Household Members spouse Living Arrangements House Number of Floors (Floors) One Floor Number of Stairs To Enter/Railing? pt states there are no stairs to enter his home Home Environment Walk in Shower Home Equipment Front Wheel Walker Four Wheel Walker Manual Wheelchair Shower Seat without Backrest Hand Held Shower Grab Bars Near Toilet Grab Bars In Shower Employment Status Retired Additional Social History Comment No family here to confirm home situation. M2 OT-IP Current Condition Start: 10/04/18 07:19 Freq: Status: Active Protocol: Document 10/03/18 15:50 PJM (Rec: 10/04/18 07:37 PJM [id number]) Occupational Therapy Current Condition Current Condition Evaluation Date 09/20/18 Treatment Diagnosis decreased self care,mobility, endurance due to Flu A+, aspiration pneumonitis Post Operative Precautions Other Precautions fall risk Weight Bearing Status Weight Bearing Status Weight Bear as Tolerated Allowed Weight Bearing Amount (enter % RLE WBAT or #) (%) M3 OT- IP Subjective and Pain Start: 10/04/18 07:19 Freq: Status: Active Protocol: Document 10/03/18 15:50 PJM (Rec: 10/04/18 07:37 PJM [id number]) OT- Subjective Occupational Therapy Visit Type Type Initial Evaluation Visit Start Time 15:30 Visit Stop Time 15:50 Total Visit Minutes 20 Notes Pt seen at bedside due to fatigue from previous up time. Pt needing ceiling lift for transfer to chair. He was not able to maintain sitting balance on EOB with max assist of 2 with P.T. Occupational Therapy Visit Comments Patient Comments I feel okay as long as I don't move. Patient/Caregiver Goals to go home OT Pain Assessment Pain When Pain Assessed At Rest Pain Present Pain Present Denied Pain M4 OT- IP ADL's Start: 10/04/18 07:19 Freq: Status: Active Protocol: Document 10/03/18 15:50 PJM (Rec: 10/04/18 07:37 PJM [id number]) OT HDG-[id number]-Rxtjjeo General Evaluation Self-Feeding Ability Standby Assistance Comments OT Self-Feeding Comments Pt needs meal tray set up and near nectar thick liquids per S.T. swallow eval. OT ADL-Grooming General Evaluation Grooming Ability Standby Assistance Areas Needing Assistance Face Washing Comments OT Grooming Comments after set up in bed OT ADL-Oral Care Comments Oral Care Comments did not occur OT ADL-Dressing General Eval Upper Body Dressing Ability Moderate Assistance Lower Body Dressing Ability Total Assistance Comments OT Dressing Comments mod assist with gown management in bed or chair OT ADL-Toileting General Evaluation Toileting Ability Total Assistance OT ADL-Bathing Bathing Type Bathing Type Bed Bath General Evaluation Bathing Ability Maximal Assistance M5 OT- IP IADL's Start: 10/04/18 07:19 Freq: Status: Active Protocol: Document 10/03/18 15:50 PJM (Rec: 10/04/18 07:37 PJM [id number]) OT-Instrumental Activities of Daily Living Deficits IADL Deficits Identified Deficits Home Safety Awareness Awareness of Need for Assistance at Home Good Awareness Ability to Problem Solve Emergency Unable to Problem Solve Situations Medication Management Medication Management Caregiver Administers Medication Management Comments pt states his assists Money Management Money Management Caregiver Provides Assistance Money Management Comments pt states his assists Meal Preparation Meal Preparation Caregiver Provides Assist Meal Preparation Comments pt has paid caregiver who assists he and with some meal prep Drilling Foreman Drilling Foreman Caregiver Provides Assist Drilling Foreman Comments pt has paid caregiver who assists he and with cleaning, laundry Driving Driving Caregiver Provides Assist M6 OT- IP Functional Cognition Start: 10/04/18 07:19 Freq: Status: Active Protocol: Document 10/03/18 15:50 PJM (Rec: 10/04/18 07:37 PJM [id number]) Cognitive Factors Limiting Selfcare Function Cognitive Ability Level of Alertness Alert Patient Orientation Name Month Year Place Attention Span Ability Capable of Focused Attention Ability to Follow Commands Able to Follow One Step Commands Memory Description Short Term Impaired Safety Awareness Underestimates Need for Assistance Problem Solving Ability Needs Assist to Identify Solutions Cognitive Comments Cognitive Assessment Comments Slow speed of processing noted due to severe BISHOP PAIUTE. Decreased recall of home set up and prior level of function. 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 notes; pt unable to tolerate sitting EOB with 2 person max assist today OT- Gait Assessment Comments Gait Ability Comments pt unable to ambulate at present OT- Balance Assessment Sitting Balance and Reactions Static Sitting Balance Ability Poor M8 OT- IP Objective Assessments Start: 10/04/18 07:19 Freq: Status: Active Protocol: Document 10/03/18 15:50 PJM (Rec: 10/04/18 07:37 PJM [id number]) OT Gross Range of Motion Upper Extremity Range of Motion Assessment Within Functional Limits OT Strength Upper Extremity Strength Assessment Within Functional Limits Hand Architectural Examiner Strength Hand Dominance Right OT- Coordination Assessment Comments Coordination Comments fine dexterity impaired by low vision OT-Muscle Tone Assessment Muscle Tone WNL Yes OT Sensation Assessment Comments Summary Comments Pt denies deficits in BUE's M9 OT- IP Assessment and Plan Start: 10/04/18 07:19 Freq: Status: Active Protocol: Document 10/03/18 15:50 PJM (Rec: 10/04/18 07:37 PJM [id number]) OT Summary Assessment and Plan Potential Analytic Complexity at Evaluation Low Summary OT Impairments Pain Strength Balance Functional Cognition Functional Mobility Grooming Dressing Toileting Bathing Toilet Transfers Shower Transfers Assessment Summary Low complexity OT assessment completed. Pt unable to mobilize with P.T. and currently requires ceiling lift for transfers. Pt has performance deficits in all functional mobility, dressing, bathing and toileting. He is very BISHOP PAIUTE but alert and able to follow one step commands. Pt will need SNF at d/c for further subacute rehab services. Goals Self-Feeding Goal Independent Grooming Goal Standby Assistance Dressing Goal Minimal Assistance Bathing Goal Minimal Assistance Toilet Transfer Goal Moderate Assistance Bedside Commode OT-Other Goals Grooming to be done seated in chair after set up Dressing goal is for upper body dressing. Pt to use leather splitter and sock aid to don and doff socks with min assist seated. Toileting goal is for urinal use in bed or chair. Bathing goal is for seated upper body sponge bath. Days to Meet Goals 5 Frequency of Treatment Frequency Of Treatment Once a Day Treatment Plan OT Treatment Plan ADL Training Patient/Family Education Discharge Planning Discharge Recommendations OT Discharge Recommendations SNF Rehab Home Equipment Needs lower body dressing equipt
--- NOTE | 2018-10-03 16:25 | CM.DANOTE ---
Discharge Planning/Care Management DCP: assessment: case received, READMIT noted: pt was here 09/19 with a d/c home 09/22 to care of , caregiver assist/not 17/05 and [facility]. That stay and DCP/CM notes from stay are reviewed. PT is an 83 year old male who admitted yesterday afternoon to care of hospitalist team after a fall. Dr. Mata consulted for orthopedics and took pt to surgery last evening to repair fractured hip. (ORIF). Payer: Medicare and [facility] INPT admission status/confirmed by UR RN Genaro. Met with pt briefly this morning. He was unable to hear enough to say more than a few words. Assured him that a call would be make to his iMmi for further discusssion. SNF rehab need is highly likely but pt has multiple issues that may make this challenging. Will document these tomorrow and plan to call Mimi and caregiver Caprice: [phone] for a discussion of d/c issues and options. CM Discharge Assessment Start: 10/03/18 16:21 Freq: Status: Active Protocol: Document 10/03/18 16:22 ITV (Rec: 10/03/18 16:24 ITV [id number]) Discharge Planning Assessment Advance Directives? No History Provided By Patient Medical Record Has Patient been admitted in last 30 Yes days? Prior Living Arrangements House Household Members spouse Type of transporation used prior to Relies on Others admit Independent with ADL's No Is patient alert and oriented? unclear: very VIEJAS and poor vision Caregiver for Another No Additional Comment Pt is current with Elham ZHENG uses a 4ww Whiteboard Updated in Patient Room with Yes name and ext. # of Injection Molder Review Status In Process Next Review Type Continued Stay Review
[2018-10-03] MEDS: ATORVASTATIN 20 MG TABLET PO (20:41)
--- NOTE | 2018-10-03 23:24 | PC.NURSE ---
Pt following directions, cooperative although hard of hearing and vision impaired. Requiring repositioning assist. Pain reported with movement, otherwise none at rest. Ice pack placed to RT hip. CMS intact--denied numbness/tingling (hx of DM) extrem cool, faint palpable pedal pulses. Placed pulse ox on as pt hx of sleep apnea without CPAP this evening. +SCD, aydin. Incontinent and continent of urine this shift, requesting to use urinal. Bed alarm on.
[2018-10-04] VITALS (13 sets, daily range): BP systolic 79–110; BP diastolic 43–72; PULSE 77–94; RESP 15–20; TEMP 36.5–36.8; O2SAT 92–99
[2018-10-04] MEDS: OXYCODONE IR 5 MG TABLET PO ×2 (05:35→12:09)
[2018-10-04 05:57] LABS: Alanine Aminotransferase 14 IU/L (21-72); Albumin 2.9 g/dL (3.5-5.0); Alkaline Phosphatase 75 U/L (38-126); Aspartate Aminotransferase 16 IU/L (17-59); BUN Creatinine Ratio 13.2 (6-22); Bilirubin Total 0.3 mg/dL (0.2-1.3); Blood Urea Nitrogen 49 mg/dL (9-20); Calcium 9.8 mg/dL (8.4-10.2); Carbon Dioxide 23 mmol/L (22-32); Chloride 106 mmol/L (98-107); Estimated Glomerular Filt Rate 15.8 mL/min (>60); Globulin 2.8 g/dL (1.7-4.1); Glucose 108 mg/dL (80-110); HEMOLYSIS < 15 (0-50); Potassium 4.5 mmol/L (3.4-5.1); Sodium 140 mmol/L (137-145); Total Protein 5.7 g/dL (6.3-8.2)
[2018-10-04 05:58] LABS: Magnesium 1.8 mg/dL (1.6-2.3); Phosphorous 5.8 mg/dL (2.3-3.7)
[2018-10-04 06:07] LABS: Add Manual Diff / Slide Review NO; Basophils Percent Auto 0.5 % (0-2); Eosinophils Percent Auto 1.4 % (2-4); Hematocrit 27.2 % (41-53); Hemoglobin 8.9 g/dL (13.5-17.5); Lymphocytes Percent Auto 19.4 % (25-40); Mean Corpuscular HGB Conc 32.6 % (30-36); Mean Corpuscular Hemoglobin 27.3 PG (26-34); Mean Corpuscular Volume 83.6 fL (80-100); Monocytes Percent Auto 7.4 % (3-14); Neutrophils Absolute Auto 6600 /uL (3000-5900); Neutrophils Percent Auto 71.3 % (50-75); Platelet Count 167 X10^3/uL (150-400); Red Blood Cell Count 3.25 X10^6/uL (4.5-5.9); Red Cell Distribution Width 18.3 % (11.6-14.8); White Blood Cell Count 9.2 X10^3/uL (4.5-11.0)
--- NOTE | 2018-10-04 07:48 | PM.PNPO.1 ---
Subjective Date Patient Seen: 10/04/18 Time Patient Seen: 07:48 Interval history: The patient reports pain with his right leg when he moves it. Exam Vital Signs (past 8 hours): - 10/04/18 00:00 10/04/18 01:00 10/04/18 04:00 Temperature 97.8 F 97.9 F Pulse Rate 87 84 Respiratory Rate 20 20 Blood Pressure 105/50 L 110/72 Pulse Oximetry 95 95 99 Oxygen Delivery Method Room Air Oxygen Flow Rate 0 Narrative Exam Narrative: Right hip wound is dressed with no significant drainage on the bandage. Calf is soft. Light touch and motion are intact in the right lower extremity. Objective Labs Result Diagrams: 10/04/18 05:13 10/04/18 05:13 Labs: Laboratory Results - last 24 hr 10/04/18 10/04/18 10/04/18 05:13 05:13 05:13 WBC 9.2 RBC 3.25 L Hgb 8.9 L Hct 27.2 L MCV 83.6 MCH 27.3 MCHC 32.6 RDW 18.3 H Plt Count 167 Neut % (Auto) 71.3 Lymph % (Auto) 19.4 L [place] % (Auto) 7.4 Eos % (Auto) 1.4 L Baso % (Auto) 0.5 Neut # (Auto) 6600 H Sodium 140 Potassium 4.5 Chloride 106 Carbon Dioxide 23 BUN 49 H Creatinine 3.70 H Estimated GFR 15.8 L BUN/Creatinine Ratio 13.2 Glucose 108 Calcium 9.8 Phosphorus 5.8 H Magnesium 1.8 Total Bilirubin 0.3 AST 16 L ALT 14 L Alkaline Phosphatase 75 Total Protein 5.7 L Albumin 2.9 L Globulin 2.8 Albumin/Globulin Ratio 1.0 Assessment & Plan Post-op Postoperative Procedures Operation Date: 10/02/18 15:30 Actual Procedures Side Surgeon p ORIF Hip DHS Lobito Mata MD Postoperative day: 2 Postoperative status: doing well, marginal pain control and anemia Postoperative status narrative: The patient is postop day 2 status post open reduction internal fixation of a right hip intertrochanteric fracture with a dynamic hip screw. He has a post hemorrhagic anemia as expected. He has made minimal progress with physical therapy partly due to his blindness. Postoperative plan: routine post-op care and ambulate Postoperative plan narrative: Continue physical therapy. It is likely the patient will require senior care facility placement once he is medically stable. Time Spent With Patient less than 15 minutes Quality VTE Deep Vein Thrombosis/Pulmonary Embolism Present on Admission: No
[2018-10-04] MEDS: TAMSULOSIN 0.4 MG CAPSULE PO (09:32)
[2018-10-04] MEDS: ENOXAPARIN 30 MG/0.3 ML SYRINGE SUBCUT (09:32)
[2018-10-04] MEDS: SERTRALINE 50 MG TABLET PO (09:32)
[2018-10-04] MEDS: ALLOPURINOL 100 MG TABLET PO (09:32)
[2018-10-04] MEDS: DOCUSATE 100 MG CAPSULE PO ×2 (09:33→20:26)
[2018-10-04] MEDS: ACETAMINOPHEN 325 MG TABLET 975 MG PO ×3 (09:34→20:26)
--- NOTE | 2018-10-04 11:41 | P.PN_ITS ---
Subjective Date Patient Seen: 10/04/18 Time Patient Seen: 09:11 Interval history: DEMENTAI; ROS IS UNRELIABLE NO CP/SOB NO FEVER OR CHILLS NO OTHER SIGNIFICANT ISSUES OVERNIGHT Exam Vital Signs (past 8 hours): - 10/04/18 04:00 10/04/18 07:00 10/04/18 07:30 Temperature 97.9 F 97.9 F Pulse Rate 84 86 Respiratory Rate 20 17 Blood Pressure 110/72 105/57 L Pulse Oximetry 99 92 99 Oxygen Delivery Method Room Air Oxygen Flow Rate 1 Narrative Exam Narrative: NO ACUTE DISTRESS. PATIENT IS ALERT ORIENTED X3. VITAL SIGNS STABLE HEAD ATRAUMATIC NORMOCEPHALIC NECK : SUPPLE WITHOUT ADENOPATHY NO CAROTID BRUITS EYE: EOMI, PERRLA, NORMAL CONJUNCTIVA; NO JAUNDICE CHEST: REGULAR RATE. NO RUBS. PMI IS NON DISPLACED. NO MURMURS; NORMAL S1- S2 PULMONARY: DECREASED BS OVER THE BASES. MILD BIBASILAR CRACKLES NOTED; NO INCREASED DULLNESS TO PERCUSSION ABDOMEN: SOFT. NONTENDER. NONDISTENDED. BOWEL SOUNDS ARE PRESENT IN ALL 4 QUADRANTS. NO MASS. EXTREMITIES: 1+ EDEMA.. NO CYANOSIS CLUBBING NOTED. NEURO: CRANIAL NERVES 2-12 GROSSLY INTACT. NO FOCAL NEUROLOGICAL DEFICIT NOTED. MSK: DISCOMFORT WITH PROM AND AROM EXPECTED; CLOSED SURG INCISION NOTED TO RT HIP; SKIN: NORMAL FOR ETHNICITY; NO ECCHYMOSIS. NO LESION. GOOD TURGOR.; NO RASHES : NORMAL EXTERNAL GENITALIA. PSYCH : APPROPRIATE MOOD AND AFFECT. ALERT AWAKE ORIENTED X3 Objective Labs Result Diagrams: 10/04/18 05:13 10/04/18 05:13 Labs: Laboratory Results - last 24 hr 10/04/18 10/04/18 10/04/18 05:13 05:13 05:13 WBC 9.2 RBC 3.25 L Hgb 8.9 L Hct 27.2 L MCV 83.6 MCH 27.3 MCHC 32.6 RDW 18.3 H Plt Count 167 Neut % (Auto) 71.3 Lymph % (Auto) 19.4 L [place] % (Auto) 7.4 Eos % (Auto) 1.4 L Baso % (Auto) 0.5 Neut # (Auto) 6600 H Sodium 140 Potassium 4.5 Chloride 106 Carbon Dioxide 23 BUN 49 H Creatinine 3.70 H Estimated GFR 15.8 L BUN/Creatinine Ratio 13.2 Glucose 108 Calcium 9.8 Phosphorus 5.8 H Magnesium 1.8 Total Bilirubin 0.3 AST 16 L ALT 14 L Alkaline Phosphatase 75 Total Protein 5.7 L Albumin 2.9 L Globulin 2.8 Albumin/Globulin Ratio 1.0 Assessment & Plan Plan: Assessment/Plan Narrative: IMPRESSION AND PLAN S/P ORIF DUE TO RT HIP FX; DAY 2; NO S/S OF ACUTE COMPLICATION; PT/OT ORDERED; WT BEARING KAY PER SURG; FOLLOW CLOSELLY; 5 W'S; PATIENT IS MEDICALLY STABLE ; WILL START DC PLANNING TO SNF IF OK WITH SURGERY DEMENTIA; AT BASELINE; CONT TO RE-ORIENT INDICATED; FALL AND ASPIRATION PRECAUTIONS; WATCH FOR PSYCH DUE TO HOSPITAL STAY AFIB PER HX; CONT HOME MEDS; TELE AT ALLL TIMES; PRN MEDS INDICATED CAD PER HX; HOME MEDS; TELE; EKG INDICATED POSS DM; ISS; 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
[2018-10-04] MEDS: CHOLECALCIFEROL (VITAMIN D3) 1,000 UNIT TABLET 1000 UNIT PO (12:09)
--- NOTE | 2018-10-04 13:27 | PT.IPTN ---
Current Diagnoses Fracture of unspecified part of neck of right femur, initial encounter for closed fracture (10/02/18) Displaced intertrochanteric fracture of right femur, initial encounter for closed fracture (10/02/18) Surgery Performed Operation Date: 10/02/18 15:30 Actual Procedures p ORIF Hip DHS - Lobito Mata MD Physical Therapy Treatment Note M2 PT-IP Current Condition Start: 10/03/18 12:14 Freq: NEEDED Status: Active Protocol: Document 10/03/18 09:35 (Rec: 10/03/18 12:41 [id number]) Physical Therapy Current Condition Current Condition Evaluation Date 10/03/18 Treatment Diagnosis GLF; R hip fx with ORIF; difficulty walking Onset Date 10/02/2018 Precautions Other Precautions fall risk Weight Bearing Status Weight Bearing Status Weight Bear as Tolerated M3 PT-IP Subjective Start: 10/03/18 12:14 Freq: NEEDED Status: Active Protocol: Document 10/04/18 11:50 CLB (Rec: 10/04/18 13:26 CLB [id number]) Subjective Physical Therapy Visit Type Type Patient Unavailable Notes Pt BP 85/34. Will check back with pt in afternoon.
--- NOTE | 2018-10-04 13:33 | CM.DPC ---
SNF referral faxed to [facility] per Stefnai
--- NOTE | 2018-10-04 13:37 | PC.NURSE ---
Addendum entered by Zoë Regan R.N. 10/04/18 13:46: Oxycodone 10mg charted for 10/03/18 at 0840 Original Note: charted for gayle PHIPPS who called about this med being given but not scanned. This RN charted for her.
[2018-10-04] MEDS: SODIUM CHLORIDE 0.9% 500 ML IV (14:05)
--- NOTE | 2018-10-04 14:13 | PC.NURSE ---
1330 Pt remains on bedrest, Pt is confused, knows his name and can intermittently correctly answer other questions ie, date, place, is calm. Pt is incont urine, takes in po fluids/nutrition only if offered. glucose 239 at lunch time, pt refuses to eat, only took in sips of juice, insulin not given at this time. Family members at bedside, brought in candy bars for the Pt, inst briefly on diabetic diet. states she understands and is aware of needs. B/P has been running low, Dr Winslow informed of this. 1400 IV bolus 500 NS started. Case management, Stefani to speak w/family members regarding ongoing plans for Pt care.
--- NOTE | 2018-10-04 15:17 | DIET.PN ---
Pt reports 50# wt loss in couple months. Pt known to me from previous admit in Jul. At that time had lost approx 50#. Perusal of med records show wt loss and regain. Appetite poor; tired of full liquid diet. DX: SBO - resolving? HX: recurr SBO, lung ca, CAD, DM2 Diet: Full liq - advance to low fiber, ADA for dinner Ht: 70 Wt Hx: 02/18 218#/99kg 08/09 176#/79.8kg Usual wt 248#/113kg Current Wt: 199#/90.9kg BMI: 28.5 NFPE: Note slight loss in temporals, otherwise has rounded face; don't see wasting Assessment: Malnutrition r/t illness w/poor PO intake, wt loss. Has regained wt; currently overweight per BMI Pt wants to maintain wt now. Intervention: Encouraged pt to order meals per his preference. Advanced diet to low fiber, Consistent CHO. Plan: Offer ONS if eats <50% meals; or pt may request ONS
--- NOTE | 2018-10-04 15:25 | PT.IPTN ---
Current Diagnoses Fracture of unspecified part of neck of right femur, initial encounter for closed fracture (10/02/18) Displaced intertrochanteric fracture of right femur, initial encounter for closed fracture (10/02/18) Surgery Performed Operation Date: 10/02/18 15:30 Actual Procedures p ORIF Hip DHS - Lobito Mata MD Physical Therapy Treatment Note M2 PT-IP Current Condition Start: 10/03/18 12:14 Freq: NEEDED Status: Active Protocol: Document 10/03/18 09:35 (Rec: 10/03/18 12:41 [id number]) Physical Therapy Current Condition Current Condition Evaluation Date 10/03/18 Treatment Diagnosis GLF; R hip fx with ORIF; difficulty walking Onset Date 10/02/2018 Precautions Other Precautions fall risk Weight Bearing Status Weight Bearing Status Weight Bear as Tolerated M3 PT-IP Subjective Start: 10/03/18 12:14 Freq: NEEDED Status: Active Protocol: Document 10/04/18 15:22 CLB (Rec: 10/04/18 15:24 CLB [id number]) Subjective Physical Therapy Visit Type Type Patient Unavailable Notes Per RN pt confused today and is receiving bolus please hold for this afternoon. Will check back with pt in AM.
--- NOTE | 2018-10-04 16:02 | OT.IP.TRT ---
Current Diagnoses Fracture of unspecified part of neck of right femur, initial encounter for closed fracture (10/02/18) Displaced intertrochanteric fracture of right femur, initial encounter for closed fracture (10/02/18) Surgery Performed Operation Date: 10/02/18 15:30 Actual Procedures p ORIF Hip DHS - Lobito Mata MD Occupational Therapy Treatment Note M2 OT-IP Current Condition Start: 10/04/18 07:19 Freq: Status: Active Protocol: Document 10/03/18 15:50 PJM (Rec: 10/04/18 07:37 PJM [id number]) Occupational Therapy Current Condition Current Condition Evaluation Date 09/20/18 Treatment Diagnosis decreased self care,mobility, due to R hip fx s/p ORIF Post Operative Precautions Other Precautions fall risk Weight Bearing Status Weight Bearing Status Weight Bear as Tolerated Allowed Weight Bearing Amount (enter % RLE WBAT or #) (%) M3 OT- IP Subjective and Pain Start: 10/04/18 07:19 Freq: Status: Active Protocol: Document 10/04/18 16:02 PJM (Rec: 10/04/18 16:07 PJM [id number]) OT- Subjective Occupational Therapy Visit Type Type Administrative Note Notes Attempted x2 but pt hypotensive today, receiving a bolus of IV fluids, and more confused today per RN. RN requesting OT hold today. Will attempt again in AM. No charge.
--- NOTE | 2018-10-04 17:12 | CM.DPC ---
DCP: continued: met this afternoon with pt, his Mimi and their son Scott López/[place] area: [phone]. POA paperwork was completed by their cafeteria director this week and Mimi is POA 1 with Scott POA 2. All agree that Scott is currently the primary contact for the DCP team. Snf plan is discussed: choice list given: [facility] is 1 and [facility] is 2. Referrals are in to both and they are reviewing. Pt owes $3600 to [facility] with Mimi stating she is paying this off right away/Scott will followup. [facility] has experience with pt leaving AMA...Daysi will call Scott to discuss the protocols at [facility] as part of the referral consideration process. P: DCP team to follow up on all this. Will need PASRR at time of d/c.
--- NOTE | 2018-10-04 19:23 | PC.NURSE ---
Pt A&Ox2; person/place/month. Refused dinner, but completed thickened apple juice at bedside. Pt dozing intermittently throughout shift, RR equal/unlabored. Cont. pulse ox 93-95%. IVF bolus complete, BP improved but still low--asymptomatic. Pain only with repositioning. Tele on. Jose SCD on.
[2018-10-04] MEDS: ATORVASTATIN 20 MG TABLET PO (20:26)
[2018-10-04] MEDS: CARVEDILOL 6.25 MG TABLET PO (20:57)
[2018-10-05] VITALS (8 sets, daily range): BP systolic 97–120; BP diastolic 50–90; PULSE 80–86; RESP 15–24; TEMP 36.3–37; O2SAT 94–97
[2018-10-05 05:50] LABS: Add Manual Diff / Slide Review NO; Basophils Percent Auto 0.4 % (0-2); Eosinophils Percent Auto 0.8 % (2-4); Hematocrit 26.6 % (41-53); Hemoglobin 8.7 g/dL (13.5-17.5); Lymphocytes Percent Auto 19.1 % (25-40); Mean Corpuscular HGB Conc 32.8 % (30-36); Mean Corpuscular Hemoglobin 27.4 PG (26-34); Mean Corpuscular Volume 83.6 fL (80-100); Monocytes Percent Auto 7.2 % (3-14); Neutrophils Absolute Auto 6500 /uL (3000-5900); Neutrophils Percent Auto 72.5 % (50-75); Platelet Count 162 X10^3/uL (150-400); Red Blood Cell Count 3.18 X10^6/uL (4.5-5.9); Red Cell Distribution Width 18.8 % (11.6-14.8)
[2018-10-05 05:57] LABS: Magnesium 1.9 mg/dL (1.6-2.3)
[2018-10-05 06:02] LABS: Alanine Aminotransferase 8 IU/L (21-72); Alkaline Phosphatase 74 U/L (38-126); Aspartate Aminotransferase 14 IU/L (17-59); BUN Creatinine Ratio 13.1 (6-22); Bilirubin Total 0.2 mg/dL (0.2-1.3); Blood Urea Nitrogen 59 mg/dL (9-20); Calcium 9.7 mg/dL (8.4-10.2); Carbon Dioxide 24 mmol/L (22-32); Chloride 106 mmol/L (98-107); Estimated Glomerular Filt Rate 12.6 mL/min (>60); Globulin 2.9 g/dL (1.7-4.1); Glucose 130 mg/dL (80-110); HEMOLYSIS < 15 (0-50); Potassium 5.1 mmol/L (3.4-5.1); Sodium 141 mmol/L (137-145); Total Protein 5.9 g/dL (6.3-8.2)
[2018-10-05] MEDS: OXYCODONE IR 5 MG TABLET PO ×2 (06:26→12:03)
--- NOTE | 2018-10-05 07:48 | PM.PNPO.1 ---
Subjective Date Patient Seen: 10/05/18 Time Patient Seen: 07:48 Interval history: Patient has dementia. Appears comfortable in bed. Exam Vital Signs (past 8 hours): - 10/05/18 00:25 10/05/18 00:30 10/05/18 06:15 Temperature 97.4 F L 98.6 F Pulse Rate 80 80 Respiratory Rate 15 16 Blood Pressure 103/58 L 97/51 L Pulse Oximetry 96 96 97 10/05/18 07:45 Temperature 97.9 F Pulse Rate 84 Respiratory Rate 18 Blood Pressure 100/51 L Pulse Oximetry 94 Oxygen Delivery Method Room Air Oxygen Flow Rate 0 Narrative Exam Narrative: Right hip dressing is clean, dry and intact. Patient's calf is soft and nontender. Right lower extremity is warm and dry. Good capillary refill. Objective Labs Result Diagrams: 10/05/18 05:24 10/05/18 05:24 Labs: Laboratory Results - last 24 hr 10/05/18 10/05/18 10/05/18 05:24 05:24 05:24 WBC 9.0 RBC 3.18 L Hgb 8.7 L Hct 26.6 L MCV 83.6 MCH 27.4 MCHC 32.8 RDW 18.8 H Plt Count 162 Neut % (Auto) 72.5 Lymph % (Auto) 19.1 L [place] % (Auto) 7.2 Eos % (Auto) 0.8 L Baso % (Auto) 0.4 Neut # (Auto) 6500 H Sodium 141 Potassium 5.1 Chloride 106 Carbon Dioxide 24 BUN 59 H Creatinine 4.50 H Estimated GFR 12.6 L BUN/Creatinine Ratio 13.1 Glucose 130 H Calcium 9.7 Magnesium 1.9 Total Bilirubin 0.2 AST 14 L ALT 8 L Alkaline Phosphatase 74 Total Protein 5.9 L Albumin 3.0 L Globulin 2.9 Albumin/Globulin Ratio 1.0 Assessment & Plan Post-op Postoperative Procedures Operation Date: 10/02/18 15:30 Actual Procedures Side Surgeon p ORIF Hip DHS Lobito Mata MD Postop day 3. Patient will be allowed to weight bear as tolerated with physical therapy. Mobilize with physical therapy. [facility] per hospitalist. Quality VTE Deep Vein Thrombosis/Pulmonary Embolism Present on Admission: No
[2018-10-05] MEDS: DOCUSATE 100 MG CAPSULE PO ×2 (08:41→21:27)
[2018-10-05] MEDS: CHOLECALCIFEROL (VITAMIN D3) 1,000 UNIT TABLET 1000 UNIT PO (08:41)
[2018-10-05] MEDS: ENOXAPARIN 30 MG/0.3 ML SYRINGE SUBCUT (08:41)
[2018-10-05] MEDS: TAMSULOSIN 0.4 MG CAPSULE PO (08:41)
[2018-10-05] MEDS: SERTRALINE 50 MG TABLET PO (08:41)
--- NOTE | 2018-10-05 09:04 | P.DS_ITS ---
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 Patient presented to the ED on 10/02/2018 in the 1300 hour to be evaluated for right hip pain. Prior to the ED presentation patient sustained a fall. At time of the event he was sitting in his wheelchair in trying to maneuver it, the wheelchair tipped over, causing the patient to fall to the ground onto his right hip. The patient is unable to provide any further details. No reported head injury or loss of consciousness. He was unable to get up on his own. Patient is known to have diminished baseline mobility status, however he is not wheelchair bound. Typically, he is able to ambulate independently with the use of a cane or a walker; however, he has been relying heavily on his wheelchair since hospital discharge on 09/22. Patient was recently hospitalized, 09/19 through 09/22, for influenza. Since hospital discharge he has not returned to his baseline mobility function. Radiography revealed displaced right intertrochanteric hip fracture. Consequently, patient was taken to the OR and underwent ORIF of the hip fracture with dynamic hip screw. EBL estimated at 200 mls. No intraoperative complications noted. Patient is being seen post-operatively. He reports no specific concerns. His pain is adequately controlled. Discharge Providers Date of admission: 10/02/18 15:00 Primary care physician: Kelton Morgan MD Consults: 10/02/18 15:12 Consult to Occupational Therapy Evaluate & Treat Comment: Physician Instructions: Evaluate and treat 10/02/18 16:46 Consult to Orthopedic Surgery Routine Comment: Consulting Provider: Lobito Mata Reason for consultation: right hip fracture Has provider been notified: Yes 10/02/18 18:11 Consult to Discharge Planning Routine Comment: Consult to Physical Therapy Evaluate & Treat Comment: marginal ambulator at baseline Physician Instructions: weight bear as tolerated 10/03/18 00:08 Consult to Dietitian, Adult Routine Comment: Reason For Exam: Diminished appetite, weight loss, s/p op Discharge provider: Selin Humphrey DO Summary Discharge Diagnosis: S/P ORIF DUE TO RT HIP FX; DAY 3; STABLE; DC TO SNF DEMENTIA; AT BASELINE; CONT TO RE-ORIENT INDICATED; FALL AND ASPIRATION PRECAUTIONS; WATCH FOR PSYCHOSIS AFIB PER HX; RATE IS CONTROLLED; CONT HOME MEDS; TELE AT ALLL TIMES; PRN MEDS INDICATED CAD PER HX; HOME MEDS; TELE; EKG INDICATED POSS DM; ISS; 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; RESOLVING; HARD OF HEARING; RELATED TO AGING PROCESS; STAFF TO ASSIST WITH COMM MUCH POSSIBLE LEUKOCYTOSIS; ACUTE REACTANT; RESOLVED CHRONIC SYST HF; AT BASELINE; NO S/S OF ACUTE DECOMPENSATION; OSTEOPOROSIS; OUTPATIENT MANAGEMENT Hospital Course: - PATIENT RE-ADMITTED TO THE ED WITH A FRACTURE TO HIS RT HIP AFTER AFTER A FALL AT HOME - HE WAS TAKEN TO O.R ORIF; KAY PROCEDURE WELL W/O S/S OF ACUTE COMPLICATIONS - WILL BE DC TO SNF TODAY FOR PT/OT/ REHAB - ADDITIONAL MANAGEMENT PER OUTPATIENT PROVIDERS Status at Discharge Cognitive/behavioral status at discharge: AT BASELINE MENTALLY; STABLE Functional status at discharge: uses cane/walker Overall status at discharge: patient is not back to baseline Time Spent with Patient Greater than 30 minutes Exam Vital Signs (past 8 hours): - 10/05/18 06:15 10/05/18 07:45 Temperature 98.6 F 97.9 F Pulse Rate 80 84 Respiratory Rate 16 18 Blood Pressure 97/51 L 100/51 L Pulse Oximetry 97 94 Oxygen Delivery Method Room Air Oxygen Flow Rate 0 Narrative Exam Narrative: NO ACUTE DISTRESS. PATIENT IS ALERT ORIENTED X2. VITAL SIGNS STABLE HEAD ATRAUMATIC NORMOCEPHALIC NECK : SUPPLE WITHOUT ADENOPATHY NO CAROTID BRUITS EYE: EOMI, PERRLA, NORMAL CONJUNCTIVA; NO JAUNDICE CHEST: REGULAR RATE. NO RUBS. PMI IS NON DISPLACED. NO MURMURS; NORMAL S1- S2 PULMONARY: DECREASED BS OVER THE BASES. MILD BIBASILAR CRACKLES NOTED; NO INCREASED DULLNESS TO PERCUSSION ABDOMEN: SOFT. NONTENDER. NONDISTENDED. BOWEL SOUNDS ARE PRESENT IN ALL 4 QUADRANTS. NO MASS. EXTREMITIES: 1+ EDEMA.. NO CYANOSIS CLUBBING NOTED. NEURO: CRANIAL NERVES 2-12 GROSSLY INTACT. NO FOCAL NEUROLOGICAL DEFICIT NOTED. MSK: DISCOMFORT WITH PROM AND AROM EXPECTED; CLOSED SURG INCISION NOTED TO RT HIP; SKIN: NORMAL FOR ETHNICITY; NO ECCHYMOSIS. NO LESION. GOOD TURGOR.; NO RASHES : NORMAL EXTERNAL GENITALIA. PSYCH : APPROPRIATE MOOD AND AFFECT. ALERT AWAKE ORIENTED X2 Objective Labs Result Diagrams: 10/05/18 05:24 10/05/18 05:24 Labs: Laboratory Results - last 24 hr 10/05/18 10/05/18 10/05/18 05:24 05:24 05:24 WBC 9.0 RBC 3.18 L Hgb 8.7 L Hct 26.6 L MCV 83.6 MCH 27.4 MCHC 32.8 RDW 18.8 H Plt Count 162 Neut % (Auto) 72.5 Lymph % (Auto) 19.1 L [place] % (Auto) 7.2 Eos % (Auto) 0.8 L Baso % (Auto) 0.4 Neut # (Auto) 6500 H Sodium 141 Potassium 5.1 Chloride 106 Carbon Dioxide 24 BUN 59 H Creatinine 4.50 H Estimated GFR 12.6 L BUN/Creatinine Ratio 13.1 Glucose 130 H Calcium 9.7 Magnesium 1.9 Total Bilirubin 0.2 AST 14 L ALT 8 L Alkaline Phosphatase 74 Total Protein 5.9 L Albumin 3.0 L Globulin 2.9 Albumin/Globulin Ratio 1.0 Discharge Plan Discharge Plan Patient Disposition: SNF I certify the postop hospital correction care is medically necessary on a continuing basis for any conditions for which he/ she received care during this hospitalization.: Yes The receiving facility has agreed to accept transfer and provide medical treatment.: Yes Discharge Med Rec/Prescriptions Prescriptions: New oxycodone 5 mg Tablet 5 mg PO Q3HR PRN (Reason: Pain, Moderate (4-6)) Qty: 10 RF: 0 polyethylene glycol 3350 17 gram Powder In Packet 17 gm PO DAILY Qty: 10 RF: 0 Continue carvedilol 6.25 mg Tablet 6.25 mg PO BID Qty: 0 RF: 0 allopurinol 100 mg Tablet 100 mg PO DAILY RF: 0 tamsulosin 0.4 mg capsule,extended release 24hr 0.4 mg PO DAILY RF: 0 sertraline 50 mg Tablet 50 mg PO DAILY RF: 0 atorvastatin 20 mg Tablet 20 mg PO BEDTIME RF: 0 glipizide 2.5 mg Tablet Extended Release 24hr 2.5 mg PO DAILY RF: 0 cholecalciferol (vitamin D3) [Vitamin D3] 1,000 unit Capsule 1,000 unit PO DAILY RF: 0 aspirin 325 mg Tablet,Delayed Release (Dr/Ec) 325 mg PO DAILY RF: 0 furosemide 40 mg tablet 40 mg PO DAILY RF: 0 Follow up/Referrals: Kelton Morgan MD [Primary Care Provider] - Provider Discharge Instructions Diet: Carb-consistent/Diabetic, Low-fat and Low-cholesterol Skin/Wound/Dressing Care Report to your healthcare provider any signs of infection, such as:: chills, fever, night sweats, increased pain, unusual drainage and unusual redness Discharge Data Primary Care Provider: Kelton Morgan Attending Provider: Selin Humphrey Admit Date/Time: 10/02/18 15:00 Quality VTE Deep Vein Thrombosis/Pulmonary Embolism Present on Admission: No
[2018-10-05] MEDS: ALLOPURINOL 100 MG TABLET PO (09:25)
[2018-10-05] MEDS: ACETAMINOPHEN 325 MG TABLET 975 MG PO ×2 (09:25→21:27)
--- NOTE | 2018-10-05 11:40 | CM.DPC ---
Addendum entered by Jaylin Hendrickson R.N. 10/05/18 12:52: Was able to speak to hospitalist. Stated that he is cancelling discharge due to change in kidney function. Stated that he could be discharged tomorrow. He has declined calling at this time. Original Note: DCP Cont: Spent approximately 20 minutes on the phone with patient's , Mimi. Patient has discharge orders, but , does not want him to leave the hospital today, he is not stable. Let her know that the hospitalist had seen patient, but he still has to work with physical therapy. stated, that's not good enough, they can't make that medical decision. Let her know that this child welfare caseworker would have hospitalist call her. Called and spoke to patient's son, Scott, who is second POA. He also raised concerns about him discharging today. Son stated, he just had surgery Wednesday, and why should he be leaving the hospital so soon. Discussed FCC as well as plan. He stated that the hospitalist should talk to my mom, regarding him being discharged. Had spoken to Daysi at [facility] as well, who is looking into his Medicare benefits. She stated that they are not yet sure if they can accept patient, but may come by to see him this afternoon. Updated nurse on the floor, Kiana, regarding situation. Gave a note to hospitalist asking him to call regarding patient's current condition. At this time, patient is to remain here until plan is in place. P: Hospitalist will consult with , and [facility] will be here to evaluate patient as well. Jaylin Hendrickson RN/High Man
[2018-10-05] MEDS: POLYETHYLENE GLYCOL 3350 17 GM POWD.PACK PO (12:03)
[2018-10-05] MEDS: INSULIN ASPART 100 UNIT/ML INSULN PEN SUBCUT ×2 (12:04→17:15)
--- NOTE | 2018-10-05 13:00 | P.PN_ITS ---
Subjective Date Patient Seen: 10/05/18 Time Patient Seen: 12:59 Interval history: DEMENTIA; UNABLE TO OBTAIN A ROS WILL HOLD DC PLANNED FOR TODAY Exam Vital Signs (past 8 hours): - 10/05/18 06:15 10/05/18 07:00 10/05/18 07:45 Temperature 98.6 F 97.9 F Pulse Rate 80 84 Respiratory Rate 16 18 Blood Pressure 97/51 L 100/51 L Pulse Oximetry 97 97 94 10/05/18 11:40 Temperature 97.9 F Pulse Rate 86 Respiratory Rate 17 Blood Pressure 101/50 L Pulse Oximetry 96 Oxygen Delivery Method Room Air Oxygen Flow Rate 0 Narrative Exam Narrative: NO ACUTE DISTRESS. PATIENT IS ALERT ORIENTED X3. VITAL SIGNS STABLE HEAD ATRAUMATIC NORMOCEPHALIC NECK : SUPPLE WITHOUT ADENOPATHY NO CAROTID BRUITS EYE: EOMI, PERRLA, NORMAL CONJUNCTIVA; NO JAUNDICE CHEST: REGULAR RATE. NO RUBS. PMI IS NON DISPLACED. NO MURMURS; NORMAL S1- S2 PULMONARY: DECREASED BS OVER THE BASES. MILD BIBASILAR CRACKLES NOTED; NO INCREASED DULLNESS TO PERCUSSION ABDOMEN: SOFT. NONTENDER. NONDISTENDED. BOWEL SOUNDS ARE PRESENT IN ALL 4 QUADRANTS. NO MASS. EXTREMITIES: 1+ EDEMA.. NO CYANOSIS CLUBBING NOTED. NEURO: CRANIAL NERVES 2-12 GROSSLY INTACT. NO FOCAL NEUROLOGICAL DEFICIT NOTED. MSK: DISCOMFORT WITH PROM AND AROM EXPECTED; CLOSED SURG INCISION NOTED TO RT HIP; SKIN: NORMAL FOR ETHNICITY; NO ECCHYMOSIS. NO LESION. GOOD TURGOR.; NO RASHES : NORMAL EXTERNAL GENITALIA. PSYCH : APPROPRIATE MOOD AND AFFECT. ALERT AWAKE ORIENTED X3 Objective Labs Result Diagrams: 10/05/18 05:24 10/05/18 05:24 Labs: Laboratory Results - last 24 hr 10/05/18 10/05/18 10/05/18 05:24 05:24 05:24 WBC 9.0 RBC 3.18 L Hgb 8.7 L Hct 26.6 L MCV 83.6 MCH 27.4 MCHC 32.8 RDW 18.8 H Plt Count 162 Neut % (Auto) 72.5 Lymph % (Auto) 19.1 L [place] % (Auto) 7.2 Eos % (Auto) 0.8 L Baso % (Auto) 0.4 Neut # (Auto) 6500 H Sodium 141 Potassium 5.1 Chloride 106 Carbon Dioxide 24 BUN 59 H Creatinine 4.50 H Estimated GFR 12.6 L BUN/Creatinine Ratio 13.1 Glucose 130 H Calcium 9.7 Magnesium 1.9 Total Bilirubin 0.2 AST 14 L ALT 8 L Alkaline Phosphatase 74 Total Protein 5.9 L Albumin 3.0 L Globulin 2.9 Albumin/Globulin Ratio 1.0 Assessment & Plan Plan: Assessment/Plan Narrative: IMPRESSION AND PLAN S/P ORIF DUE TO RT HIP FX; DAY 3; NO S/S OF ACUTE COMPLICATION; PT/OT ORDERED; WT BEARING KAY PER SURG; FOLLOW CLOSELLY; 5 W'S; APPEARS STABLE SURGICALLY DEMENTIA; AT BASELINE; CONT TO RE-ORIENT INDICATED; FALL AND ASPIRATION PRECAUTIONS; WATCH FOR PSYCH DUE TO HOSPITAL STAY AFIB PER HX; CONT HOME MEDS; TELE AT ALLL TIMES; PRN MEDS INDICATED CAD PER HX; HOME MEDS; TELE; EKG INDICATED POSS DM; ISS; 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; CR INCREASED FOR LAST 48 HRS; WILL START ON NS; WILL ALSO PLACE A JUNG I SUSPECT POSS POST OBSTRUCTIVE UROPATHY; AVOID NEPHROTOXINS; DOSE MEDS PER GFR; STRICT IO; RENAL DIET; GENTLE IV HYDRATION; DAILY LABS TO FOLLOW HARD OF HEARING; RELATED TO AGING PRCESS; STAFF TO ASSIST WITH COMM MUCH POSSIBLE LEUKOCYTOSIS; ACUTE REACTANT; RESOLVED CHRONIC SYST HF; AT BASELINE; NO S/S OF ACUTE DECOMPENSATION; WATCH FLUID INTAKES CLOSELY; TELE AT ALL TIMES; DAILY WT WITH SAME SCALE SNF PLACEMENT ON DISPOSITION HOLD DC FOR NOW REPEAT LABS IN AM JUNG ORDERED UA TODAY DC IN NEXT 24-48 HRS Quality VTE Deep Vein Thrombosis/Pulmonary Embolism Present on Admission: No
--- NOTE | 2018-10-05 13:05 | OT.IP.TRT ---
Current Diagnoses Fracture of unspecified part of neck of right femur, initial encounter for closed fracture (10/02/18) Displaced intertrochanteric fracture of right femur, initial encounter for closed fracture (10/02/18) Surgery Performed Operation Date: 10/02/18 15:30 Actual Procedures p ORIF Hip DHS - Lobito Mata MD Occupational Therapy Treatment Note M2 OT-IP Current Condition Start: 10/04/18 07:19 Freq: Status: Active Protocol: Document 10/03/18 15:50 PJM (Rec: 10/04/18 07:37 PJM [id number]) Occupational Therapy Current Condition Current Condition Evaluation Date 09/20/18 Treatment Diagnosis decreased self care,mobility, endurance due to Flu A+, aspiration pneumonitis Post Operative Precautions Other Precautions fall risk Weight Bearing Status Weight Bearing Status Weight Bear as Tolerated Allowed Weight Bearing Amount (enter % RLE WBAT or #) (%) M3 OT- IP Subjective and Pain Start: 10/04/18 07:19 Freq: Status: Active Protocol: Document 10/05/18 13:05 PJM (Rec: 10/05/18 15:45 PJ [id number]) OT- Subjective Occupational Therapy Visit Type Type Treatment Note Visit Start Time 12:14 Visit Stop Time 13:05 Total Visit Minutes 51 Notes Pt up on edge of bed with P.T. when therapist arrived. Occupational Therapy Visit Comments Patient Comments Let me do it at on my own. Don't garcia me. Patient/Caregiver Goals none verbalized this session OT Pain Assessment FLACC Pain Scale Face No particular expression Legs Uneasy, restless, tense Activity Squirming,shifting Consolability Reassurable with touch Location Right Hip Scale Used pt does not rate on 10 pt scale, but mildly anxious about pain w/activity Pain Behaviors Guarding Management Techniques Distraction Re-positioning Timing of Activity with Medications M4 OT- IP ADL's Start: 10/04/18 07:19 Freq: Status: Active Protocol: Document 10/05/18 13:05 PJM (Rec: 10/05/18 15:45 PJ [id number]) OT [id number] General Evaluation Self-Feeding Ability Standby Assistance Comments OT Self-Feeding Comments needs set up and verbal orientation to food items on tray due to low vision; poor appetite and dislikes several food items presented; RN to call dietary OT ADL-Dressing General Eval Lower Body Dressing Ability Total Assistance Areas Needing Assistance Socks M5 OT- IP IADL's Start: 10/04/18 07:19 Freq: Status: Active Protocol: Document 10/03/18 15:50 PJM (Rec: 10/04/18 07:37 PJM [id number]) OT-Instrumental Activities of Daily Living Deficits IADL Deficits Identified Deficits Home Safety Awareness Awareness of Need for Assistance at Home Good Awareness Ability to Problem Solve Emergency Unable to Problem Solve Situations Medication Management Medication Management Caregiver Administers Medication Management Comments pt states his assists Money Management Money Management Caregiver Provides Assistance Money Management Comments pt states his assists Meal Preparation Meal Preparation Caregiver Provides Assist Meal Preparation Comments pt has paid caregiver who assists he and with some meal prep Ironworker Machine Operator Ironworker Machine Operator Caregiver Provides Assist Ironworker Machine Operator Comments pt has paid caregiver who assists he and with cleaning, laundry Driving Driving Caregiver Provides Assist M6 OT- IP Functional Cognition Start: 10/04/18 07:19 Freq: Status: Active Protocol: Document 10/05/18 13:05 PJM (Rec: 10/05/18 15:45 PJ [id number]) Cognitive Factors Limiting Selfcare Function Cognitive Ability Level of Alertness Alert Attention Span Ability Capable of Focused Attention Ability to Follow Commands Able to Follow One Step Commands Cognitive Comments Cognitive Assessment Comments Pt has significantly slowed speed of processing with [place] interfering with communication at times. Pt following one step commands with good effort and participation, but needs to work at his own pace. OT- Vision and Hearing OT- Hearing Assessment OT- Hearing Assessment Right Ear Impaired Left Ear Impaired OT- Vision Assessment Vision History Low Vision M7 OT- IP Mobility and Balance Start: 10/04/18 07:19 Freq: Status: Active Protocol: Document 10/05/18 13:05 PJM (Rec: 10/05/18 15:45 PJ [id number]) OT- Bed Mobility Assessment Sit to Supine Sit to Supine Assist Minimal Assistance 1 Person Assistance Head of Bed Elevated Scooting Scooting to Edge of Bed Minimal Assistance 1 Person Assistance Scooting Up and Down in Bed Maximum Assistance 2 Person Assistance OT-Transfer Assessment Sit to and From Stand Sit to and from Stand Moderate Assistance 2 Person Assistance Technique Transfer Destination Bed Devices Transfer Assistive Devices Gait Belt Front Wheeled Walker Comments Mobility Comments Pt needs assist to unweight R hip for scooting forward on EOB. Good effort for first attempt with sit to stand with FWW. OT- Gait Assessment Comments Gait Ability Comments did not occur OT- Balance Assessment Sitting Balance and Reactions Static Sitting Balance Ability Fair Dynamic Sitting Balance Ability Poor Standing Balance and Reactions Static Standing Balance Ability Fair M8 OT- IP Objective Assessments Start: 10/04/18 07:19 Freq: Status: Active Protocol: Document 10/03/18 15:50 PJM (Rec: 10/04/18 07:37 PJM [id number]) OT Gross Range of Motion Upper Extremity Range of Motion Assessment Within Functional Limits OT Strength Upper Extremity Strength Assessment Within Functional Limits Hand Pocket Builder Strength Hand Dominance Right OT- Coordination Assessment Comments Coordination Comments fine dexterity impaired by low vision OT-Muscle Tone Assessment Muscle Tone WNL Yes OT Sensation Assessment Comments Summary Comments Pt denies deficits in BUE's M9 OT- IP Assessment and Plan Start: 10/04/18 07:19 Freq: Status: Active Protocol: Document 10/05/18 13:05 PJM (Rec: 10/05/18 15:45 PJM [id number]) OT Summary Assessment and Plan Summary OT Impairments Pain Strength Balance Functional Cognition Functional Mobility Self-Feeding Grooming Dressing Toileting Bathing Toilet Transfers Shower Transfers Progress Towards Goals Progressing Toward Goals Assessment Summary Pt much improved today. He was able to tolerate sitting EOB with close SBA and assist of 1 person to get to EOB. He was able to stand x1 for ~45 sec with mod assist of 2 with FWW and bear some weight on RLE. Fatigue rather than pain seemed to be limiting factor this session. BP stable today with O2 sats in mid to high 90's on room air once getting good read on oximeter. Pt following one step command consistently when time allowed for slow speed of processing. Recommend SNF at d/c for further rehab services. Goals Self-Feeding Goal Independent Grooming Goal Standby Assistance Dressing Goal Minimal Assistance Bathing Goal Minimal Assistance Toilet Transfer Goal Moderate Assistance Bedside Commode OT-Other Goals Grooming to be done seated in chair after set up Dressing goal is for upper body dressing. Pt to use historical archeologist and sock aid to don and doff socks with min assist seated. Toileting goal is for urinal use in bed or chair. Bathing goal is for seated upper body sponge bath. Days to Meet Goals 5 Frequency of Treatment Frequency Of Treatment Once a Day Treatment Plan OT Treatment Plan ADL Training Patient/Family Education Discharge Planning Discharge Recommendations OT Discharge Recommendations SNF Rehab Home Equipment Needs lower body dressing equipt
--- NOTE | 2018-10-05 13:40 | PT.IPTN ---
Current Diagnoses Fracture of unspecified part of neck of right femur, initial encounter for closed fracture (10/02/18) Displaced intertrochanteric fracture of right femur, initial encounter for closed fracture (10/02/18) Surgery Performed Operation Date: 10/02/18 15:30 Actual Procedures p ORIF Hip DHS - Lobito Mata MD Physical Therapy Treatment Note M2 PT-IP Current Condition Start: 10/03/18 12:14 Freq: NEEDED Status: Active Protocol: Document 10/03/18 09:35 (Rec: 10/03/18 12:41 [email or web address]) Physical Therapy Current Condition Current Condition Evaluation Date 10/03/18 Treatment Diagnosis GLF; R hip fx with ORIF; difficulty walking Onset Date 10/02/2018 Precautions Other Precautions fall risk Weight Bearing Status Weight Bearing Status Weight Bear as Tolerated M3 PT-IP Subjective Start: 10/03/18 12:14 Freq: NEEDED Status: Active Protocol: Document 10/05/18 12:15 HH (Rec: 10/05/18 13:40 HH [email or web address]) Subjective Physical Therapy Visit Type Type Treatment Note Visit Start Time 12:15 Visit Stop Time 13:00 Total Visit Minutes 45 Notes Pt agreeable to mobilize with PT. Pt denies pain at bedrest. RN reports pt's BP has been stable this morning but he did not get OOB since sx. Physical Therapy Visit Comments Patient Comments Pt states I want to get up today but i need help. Therapy Pain Assessment Pain When Pain Assessed During Mobility Pain Present Pain Present Pain Reported Location Right Hip Intensity 5 Scale Used Numeric (1 - 10) Description Acute Pain Management Techniques Re-positioning Timing of Activity with Medications M4 PT-IP Mobility and Gait Start: 10/03/18 12:14 Freq: NEEDED Status: Active Protocol: Document 10/05/18 12:15 HH (Rec: 10/05/18 13:40 HH [email or web address]) PT-Bed Mobility Assessment Supine to Sit Supine to Sit Minimal Assistance Sit to Supine Sit to Supine Minimal Assistance Scooting Scooting to Edge of Bed Moderate Assistance Scooting Up and Down in Bed Maximum Assistance PT-Transfer Assessment Sit to and From Stand Sit to and from Stand Moderate Assistance 2 Person Assistance Use of Upper Extremities Equipment Transfer Assistive Device Gait Belt Front Wheeled Walker Transfers Transfer Destination Bed Transfer Ability Level of Assist Moderate Assistance 2 Person Assistance Comments Mobility Comments Supine BP: 102/72 HR 89 SpO2 = 97% sitting bp 95/64 HR 89 SpO2= 98% post bedside sit to stand BP 96/60 HR 90 Spo2 = 96 % Pt performs supine to sit from EOB 70 degrees with min A to unweight his R LE; mod A with 2 persons to unweight R LE during scooting towards EOB along with v.c. for lateral weight shift towards left side ; sit to stand with 2 persons mod A at bedside for 45 secs. Pt presents compensatory increased WB on L side in static standing. pt requires constant v.c. and tactile cues to facilitate WB at R side. Pt is then transferred back to supine due to c/o fatigue with min A to unweight his R LE. Gait Assessment Comments Gait Comments did not attempt due to fatigue . PT-Balance Assessment Sitting Balance and Reactions Static Sitting Balance Ability Normal Dynamic Sitting Balance Ability Good Standing Balance and Reactions Static Standing Balance Ability Fair Dynamic Standing Balance Ability Poor Device Used FWW M5 PT-IP Objective Assessments Start: 10/03/18 12:14 Freq: NEEDED Status: Active Protocol: Document 10/03/18 09:35 (Rec: 10/03/18 12:41 [email or web address]) Orientation Orientation/Cognition Level of Alertness Alert Orientation Name Birthday Language Function Ability Hard of Hearing Safety Awareness Decreased Safety Awareness Comments Pt [place]. Hears best on L side and if he is able to see your face. Response time is increased, but pt responds appropriately. Gross Range of Motion Lower Extremity ROM Assessment Right Impaired Impairments Not able to formally assess RLE due to pt c/o pain with all RLE motions. Strength Lower Extremity Strength Assessment Bilaterally Impaired Comments Strength Comments LLE is 4-/5 grossly. R hip 2- /5; R knee 3/5; R ankle 4/5 M6 PT-IP Treatment Start: 10/03/18 12:14 Freq: NEEDED Status: Active Protocol: Document 10/03/18 09:35 (Rec: 10/03/18 12:41 [email or web address]) Physical Therapy Treatment Exercises Exercises Ankle Pumps Quad Sets Education Education Provided Precautions Weight Bearing Status Safety M7 PT-IP Assessment and Plan Start: 10/03/18 12:14 Freq: NEEDED Status: Active Protocol: Document 10/05/18 12:15 HH (Rec: 10/05/18 13:40 HH [email or web address]) PT Summary Assessment and Plan Potential Rehabilitation Potential Good Status of Condition at Evaluation Evolving Summary Impairments Pain ROM Strength Balance Bed Mobility Transfers Gait Activity Tolerance Progress Towards Goals Slow Progress due to Pain Slow Progress due to Medical Issues Slow Progress due to Activity Tolerance Slow Progress - Other Assessment Summary Pt is motivated to participate PT today. Pt appears alert and oriented with stable BP ranged from 95-105/ 68-72 HR 88-90 during tx session. Upon assessment, pt cont to present insufficient motor control of R LE for push off but he does show MMT 12/04 R short arc extension in supine. Pt denies pain at rest but c/o pain during mobility 02/01. Pt requires constant v.c. and t.c for hand placements to push off for bed mobility and sit to stand due to poor vision. Pt does sit to stand for the first time since sx and require min A to mod A for bed mobility and mod A for sit to sit. Pt currently requires skilled therapy to increase functional mobility and post op pt education. Pt will be a good candidate to be d/c SNF to cont therapy to increase overal functional strength and mobility. Goals Bed Mobility Goal Standby Assistance Contact Guard Assistance Transfer Goal Standby Assistance Contact Guard Assistance Gait Goal Standby Assistance Contact Guard Assistance Gait Distance 10 Days to Meet Goals 5 Frequency of Treatment Frequency Of Treatment Twice a Day Treatment Plan Physical Therapy Treatment Plan Bed Mobility Training Transfer Training Gait Training Therapeutic Exercise Balance Retraining Post Op Education Neuromuscular Re-ed Other Recommendations and Next Treatment bed ex Focus log roll training; supine <> sit; sit to stand; stand pivot transfer Recommendations To Nursing Amount of Assist Needed 2 Person Assist Discharge Recommendations PT Discharge Recommendations SNF Rehab
[2018-10-05] MEDS: SODIUM CHLORIDE 0.9% 1,000 ML 80 ML IV (14:07)
--- NOTE | 2018-10-05 14:28 | PC.NURSE ---
[address] Winslow orders, Pt bladder scan done for 325. 1345 Unable to pass a cortez cath in the Pt, meatus opening closed except for a very sml opening, Had the MD assess paolo dianashanell. Plan is to re bladder scan the Pt at 1700 and notify MD of the results. Will most likely need urologist to f/u, open meatus. Pt is inc of urine, unable to collect a UA. Brief on. Pt remains on bedrest, PT was able to get Pt to stand at side of bed this afternoon. No family in to visit Pt this shift.
--- NOTE | 2018-10-05 15:00 | PT.IPTN ---
Current Diagnoses Fracture of unspecified part of neck of right femur, initial encounter for closed fracture (10/02/18) Displaced intertrochanteric fracture of right femur, initial encounter for closed fracture (10/02/18) Surgery Performed Operation Date: 10/02/18 15:30 Actual Procedures p ORIF Hip DHS - Lobito Mata MD Physical Therapy Treatment Note M2 PT-IP Current Condition Start: 10/03/18 12:14 Freq: NEEDED Status: Active Protocol: Document 10/03/18 09:35 (Rec: 10/03/18 12:41 [email or web address]) Physical Therapy Current Condition Current Condition Evaluation Date 10/03/18 Treatment Diagnosis GLF; R hip fx with ORIF; difficulty walking Onset Date 10/02/2018 Precautions Other Precautions fall risk Weight Bearing Status Weight Bearing Status Weight Bear as Tolerated M3 PT-IP Subjective Start: 10/03/18 12:14 Freq: NEEDED Status: Active Protocol: Document 10/05/18 15:00 GGD (Rec: 10/05/18 16:37 GGD [id number]) Subjective Physical Therapy Visit Type Type Treatment Note Visit Start Time 14:30 Visit Stop Time 15:00 Total Visit Minutes 30 Number of COVERED BUCKLE ASSEMBLER Visits 1 Physical Therapy Visit Comments Patient Comments Pt states he will try to stay. Therapy Pain Assessment Pain When Pain Assessed During Mobility Pain Present Pain Present Pain Reported M4 PT-IP Mobility and Gait Start: 10/03/18 12:14 Freq: NEEDED Status: Active Protocol: Document 10/05/18 15:00 GGD (Rec: 10/05/18 16:37 GGD [id number]) PT-Bed Mobility Assessment Supine to Sit Supine to Sit Moderate Assistance 2 Person Assistance Sit to Supine Sit to Supine Moderate Assistance 2 Person Assistance Scooting Scooting to Edge of Bed Moderate Assistance Scooting Up and Down in Bed Dependent PT-Transfer Assessment Sit to and From Stand Sit to and from Stand Moderate Assistance 2 Person Assistance Use of Upper Extremities Equipment Transfer Assistive Device Gait Belt Front Wheeled Walker Transfers Transfer Destination Bed Transfer Ability Level of Assist Moderate Assistance 2 Person Assistance Comments Mobility Comments sit to stand at EOB x 2. right knee buckling with weight shift. M5 PT-IP Objective Assessments Start: 10/03/18 12:14 Freq: NEEDED Status: Active Protocol: Document 10/03/18 09:35 (Rec: 10/03/18 12:41 [email or web address]) Orientation Orientation/Cognition Level of Alertness Alert Orientation Name Birthday Language Function Ability Hard of Hearing Safety Awareness Decreased Safety Awareness Comments Pt YOMBA SHOSHONE. Hears best on L side and if he is able to see your face. Response time is increased, but pt responds appropriately. Gross Range of Motion Lower Extremity ROM Assessment Right Impaired Impairments Not able to formally assess RLE due to pt c/o pain with all RLE motions. Strength Lower Extremity Strength Assessment Bilaterally Impaired Comments Strength Comments LLE is 4-/5 grossly. R hip 2- /5; R knee 3/5; R ankle 4/5 M6 PT-IP Treatment Start: 10/03/18 12:14 Freq: NEEDED Status: Active Protocol: Document 10/03/18 09:35 (Rec: 10/03/18 12:41 [email or web address]) Physical Therapy Treatment Exercises Exercises Ankle Pumps Quad Sets Education Education Provided Precautions Weight Bearing Status Safety M7 PT-IP Assessment and Plan Start: 10/03/18 12:14 Freq: NEEDED Status: Active Protocol: Document 10/05/18 15:00 GGD (Rec: 10/05/18 16:37 GGD [id number]) PT Summary Assessment and Plan Summary Assessment Summary Pt need mod A with mobility. He stood at EOB with weight shift to left. He had knee buckling when try to weight shift to the right. Pt will benefit from SNF rehab. Frequency of Treatment Frequency Of Treatment Twice a Day Treatment Plan Physical Therapy Treatment Plan Bed Mobility Training Transfer Training Gait Training Therapeutic Exercise Balance Retraining Post Op Education Neuromuscular Re-ed Recommendations To Nursing Amount of Assist Needed 2 Person Assist Discharge Recommendations PT Discharge Recommendations SNF Rehab
--- NOTE | 2018-10-05 15:33 | CM.DPC ---
DCP Cont: Had lengthy conversation over the phone with patient's , Mimi. Let her know that patient would not be discharging today, as kidney function has changed. has been concerned about patient's instability and readmissions. She has spoken about patient's medical needs. She has been in contact with [place] case coordinator in order to get more disability coverage for him. has also been in contact with social security office. She mentioned that patient has seen plate stacker from [place], as well as farm management adviser in [facility]. Updated her regarding physical therapy, for it was noted that they had worked with patient. is worried that he may be discharged too soon, and wants him medically cleared before going to detention. Had seen Daysi today from [facility], as they are still reviewing the case and his Medicare coverage. She inquired upon a plan when he is discharged from detention, and mentioned that patient has [facility], and may need a new order if this will be advisable for patient. stated he did well with his therapy before he got sick. P: DCP to follow closely and continue to update . Will discuss case at team rounds tomorrow. Jaylin Hendrickson RN/Loading And Unloading Supervisor
--- NOTE | 2018-10-05 18:07 | PC.NURSE ---
PATIENT BLADDER SCAN 220ML. MADE AWARE,NO NEW ORDERS
[2018-10-05] MEDS: ATORVASTATIN 20 MG TABLET PO (21:29)
[2018-10-05] MEDS: SENNOSIDES 8.6 MG TABLET PO (21:29)
[2018-10-06] VITALS (8 sets, daily range): BP systolic 104–141; BP diastolic 61–76; PULSE 72–98; RESP 16–27; TEMP 36.3–36.9; O2SAT 93–97
[2018-10-06] MEDS: TRAMADOL 50 MG TABLET PO (00:59)
--- NOTE | 2018-10-06 01:27 | PC.NURSE ---
Addendum entered by Mami Valdez R.N. 10/06/18 05:34: Slept most of shift. No complaints of pain except during movement. IVF infused earlier and is now saline locked. Original Note: Patient is oriented to self, place and situation. Has impaired vision but is able to see objects. Very OSAGE; does not wear hearing aids. Breath sounds with inspiratory crackles in right LL with RA sat of 95%. HR irregular and was afib CVR/BBB/frequent PVC's last telemetry check. Denies nausea. BT present but has not had a BM since 10/01. Incontinent of urine. Does not move self so needs to be repositioned q2h. Dressing to right hip is CDI. Allevyn dressing to right elbow is CDI. Unable to move/lift right leg but has slight movement in foot. CMS is intact. Wearing bilateral SCD's. Is in obvious discomfort with any movement so medicated with Tramadol for FLACC of 4. Chokes on water so is receiving nectar thick liquids. Fall risk score is high and bed alarm is activated.
[2018-10-06 06:36] LABS: Add Manual Diff / Slide Review NO; Basophils Percent Auto 0.6 % (0-2); Eosinophils Percent Auto 1.1 % (2-4); Hematocrit 25.1 % (41-53); Hemoglobin 8.3 g/dL (13.5-17.5); Lymphocytes Percent Auto 17.4 % (25-40); Mean Corpuscular HGB Conc 33.2 % (30-36); Mean Corpuscular Hemoglobin 27.5 PG (26-34); Mean Corpuscular Volume 82.9 fL (80-100); Monocytes Percent Auto 7.5 % (3-14); Neutrophils Absolute Auto 5300 /uL (3000-5900); Neutrophils Percent Auto 73.4 % (50-75); Platelet Count 160 X10^3/uL (150-400); Red Blood Cell Count 3.02 X10^6/uL (4.5-5.9); Red Cell Distribution Width 18.4 % (11.6-14.8); White Blood Cell Count 7.2 X10^3/uL (4.5-11.0)
[2018-10-06 06:47] LABS: Alanine Aminotransferase 14 IU/L (21-72); Albumin 2.9 g/dL (3.5-5.0); Alkaline Phosphatase 76 U/L (38-126); Aspartate Aminotransferase 13 IU/L (17-59); Bilirubin Total 0.3 mg/dL (0.2-1.3); Blood Urea Nitrogen 60 mg/dL (9-20); Calcium 9.8 mg/dL (8.4-10.2); Carbon Dioxide 20 mmol/L (22-32); Chloride 107 mmol/L (98-107); Estimated Glomerular Filt Rate 14.4 mL/min (>60); Globulin 2.9 g/dL (1.7-4.1); Glucose 138 mg/dL (80-110); HEMOLYSIS < 15 (0-50); Potassium 4.4 mmol/L (3.4-5.1); Sodium 138 mmol/L (137-145); Total Protein 5.8 g/dL (6.3-8.2)
--- NOTE | 2018-10-06 07:36 | PM.PNPO.1 ---
Subjective Date Patient Seen: 10/06/18 Interval history: Patient seen bedside s/p ORIF left hip POD #[address] Mata. Patient has baseline dementia so is a poor historian. Resting comfortably in bed. Labs appear to have stabilized, but has WBCs in his urine. Exam Vital Signs (past 8 hours): - 10/06/18 01:00 10/06/18 01:14 10/06/18 03:50 Temperature 97.8 F 98.1 F Pulse Rate 88 80 Respiratory Rate 16 16 Blood Pressure 104/61 110/61 Pulse Oximetry 97 95 94 Oxygen Delivery Method Room Air Oxygen Flow Rate 0 Narrative Exam Narrative: Resting comfortably in bed, oriented to self. Dressing is clean dry and intact, no erythema/edema noted. Calf is soft and compressible. Objective Labs Result Diagrams: 10/06/18 05:26 10/06/18 05:26 Labs: Laboratory Results - last 24 hr 10/06/18 10/06/18 05:26 05:26 WBC 7.2 RBC 3.02 L Hgb 8.3 L Hct 25.1 L MCV 82.9 MCH 27.5 MCHC 33.2 RDW 18.4 H Plt Count 160 Neut % (Auto) 73.4 Lymph % (Auto) 17.4 L [place] % (Auto) 7.5 Eos % (Auto) 1.1 L Baso % (Auto) 0.6 Neut # (Auto) 5300 Sodium 138 Potassium 4.4 Chloride 107 Carbon Dioxide 20 L BUN 60 H Creatinine 4.00 H Estimated GFR 14.4 L BUN/Creatinine Ratio 15.0 Glucose 138 H Calcium 9.8 Total Bilirubin 0.3 AST 13 L ALT 14 L Alkaline Phosphatase 76 Total Protein 5.8 L Albumin 2.9 L Globulin 2.9 Albumin/Globulin Ratio 1.0 Assessment & Plan Post-op Postoperative Procedures Operation Date: 10/02/18 15:30 Actual Procedures Side Surgeon p ORIF Hip DHS Lobito Mata MD 1. POD #4 s/p above procedure--ngozi out in 10 days, follow up in the office in 10-14 days. PT/OT and DVT prophylaxis x4 weeks. 2. Dispo-pending on medicine's recommendations. Quality VTE Deep Vein Thrombosis/Pulmonary Embolism Present on Admission: No
[2018-10-06] MEDS: ACETAMINOPHEN 325 MG TABLET 975 MG PO ×3 (10:15→20:31)
[2018-10-06] MEDS: ENOXAPARIN 30 MG/0.3 ML SYRINGE SUBCUT (10:16)
[2018-10-06] MEDS: POLYETHYLENE GLYCOL 3350 17 GM POWD.PACK PO (10:16)
[2018-10-06] MEDS: CHOLECALCIFEROL (VITAMIN D3) 1,000 UNIT TABLET 1000 UNIT PO (10:16)
[2018-10-06] MEDS: DOCUSATE 100 MG CAPSULE PO ×2 (10:16→20:31)
[2018-10-06] MEDS: SERTRALINE 50 MG TABLET PO (10:16)
[2018-10-06] MEDS: SODIUM CHLORIDE 0.9% FLUSH 10 ML IV ×2 (10:17→20:32)
[2018-10-06] MEDS: INSULIN ASPART 100 UNIT/ML INSULN PEN SUBCUT ×3 (10:17→16:50)
[2018-10-06] MEDS: TAMSULOSIN 0.4 MG CAPSULE PO (10:17)
--- NOTE | 2018-10-06 11:30 | PT.IPTN ---
Current Diagnoses Fracture of unspecified part of neck of right femur, initial encounter for closed fracture (10/02/18) Displaced intertrochanteric fracture of right femur, initial encounter for closed fracture (10/02/18) Surgery Performed Operation Date: 10/02/18 15:30 Actual Procedures p ORIF Hip DHS - Lobito Mata MD Physical Therapy Treatment Note M2 PT-IP Current Condition Start: 10/03/18 12:14 Freq: NEEDED Status: Active Protocol: Document 10/03/18 09:35 (Rec: 10/03/18 12:41 [email or web address]) Physical Therapy Current Condition Current Condition Evaluation Date 10/03/18 Treatment Diagnosis GLF; R hip fx with ORIF; difficulty walking Onset Date 10/02/2018 Precautions Other Precautions fall risk Weight Bearing Status Weight Bearing Status Weight Bear as Tolerated M3 PT-IP Subjective Start: 10/03/18 12:14 Freq: NEEDED Status: Active Protocol: Document 10/06/18 11:53 GGD (Rec: 10/06/18 12:01 GGD [id number]) Subjective Physical Therapy Visit Type Type Treatment Note Visit Start Time 11:00 Visit Stop Time 11:30 Total Visit Minutes 30 Number of PHYSICAL THERAPIST ASSISTANT Visits 2 Physical Therapy Visit Comments Patient Comments Pt states he willing to work with therapy. Therapy Pain Assessment Pain When Pain Assessed During Mobility Pain Present Pain Present Pain Reported M4 PT-IP Mobility and Gait Start: 10/03/18 12:14 Freq: NEEDED Status: Active Protocol: Document 10/06/18 11:53 GGD (Rec: 10/06/18 12:01 GGD [id number]) PT-Bed Mobility Assessment Rolling Type of Rolling Bilateral Level of Assist Moderate Assistance Supine to Sit Supine to Sit Moderate Assistance 2 Person Assistance Sit to Supine Sit to Supine Moderate Assistance 2 Person Assistance Scooting Scooting to Edge of Bed Minimal Assistance Scooting Up and Down in Bed Dependent PT-Transfer Assessment Sit to and From Stand Sit to and from Stand Moderate Assistance 2 Person Assistance Use of Upper Extremities Equipment Transfer Assistive Device Gait Belt Front Wheeled Walker Transfers Transfer Destination Bed Comments Mobility Comments Pt unable to come to full up right stand and had strong posterior lean. M5 PT-IP Objective Assessments Start: 10/03/18 12:14 Freq: NEEDED Status: Active Protocol: Document 10/03/18 09:35 (Rec: 10/03/18 12:41 [email or web address]) Orientation Orientation/Cognition Level of Alertness Alert Orientation Name Birthday Language Function Ability Hard of Hearing Safety Awareness Decreased Safety Awareness Comments Pt U[place]. Hears best on L side and if he is able to see your face. Response time is increased, but pt responds appropriately. Gross Range of Motion Lower Extremity ROM Assessment Right Impaired Impairments Not able to formally assess RLE due to pt c/o pain with all RLE motions. Strength Lower Extremity Strength Assessment Bilaterally Impaired Comments Strength Comments LLE is 4-/5 grossly. R hip 2- /5; R knee 3/5; R ankle 4/5 M6 PT-IP Treatment Start: 10/03/18 12:14 Freq: NEEDED Status: Active Protocol: Document 10/03/18 09:35 (Rec: 10/03/18 12:41 [email or web address]) Physical Therapy Treatment Exercises Exercises Ankle Pumps Quad Sets Education Education Provided Precautions Weight Bearing Status Safety M7 PT-IP Assessment and Plan Start: 10/03/18 12:14 Freq: NEEDED Status: Active Protocol: Document 10/06/18 11:53 GGD (Rec: 10/06/18 12:01 GGD [id number]) PT Summary Assessment and Plan Summary Assessment Summary Pt need mod A x 2 with all mobility. He was resistant to assistance. He unable to stand upright and has a strong posterior lean. He need SNF rehab to improve strength and mobility. Frequency of Treatment Frequency Of Treatment Twice a Day Treatment Plan Physical Therapy Treatment Plan Bed Mobility Training Transfer Training Gait Training Therapeutic Exercise Balance Retraining Post Op Education Neuromuscular Re-ed Other Recommendations and Next Treatment bed ex Focus log roll training; supine <> sit; sit to stand; stand pivot transfer Recommendations To Nursing Amount of Assist Needed Mechanical Lift Discharge Recommendations PT Discharge Recommendations SNF Rehab
--- NOTE | 2018-10-06 12:09 | P.PN_ITS ---
Subjective Date Patient Seen: 10/06/18 Time Patient Seen: 09:55 Interval history: UNABLE TO OBTAIN NO SIGNIFICANT ISSUES OVERNIGHT Exam Vital Signs (past 8 hours): - 10/06/18 07:45 Temperature 98.0 F Pulse Rate 98 H Respiratory Rate 16 Blood Pressure 141/76 H Pulse Oximetry 95 Oxygen Delivery Method Room Air Oxygen Flow Rate 0 Narrative Exam Narrative: ACUTE DISTRESS. PATIENT IS ALERT ORIENTED X1. VITAL SIGNS STABLE HEAD ATRAUMATIC NORMOCEPHALIC NECK : SUPPLE WITHOUT ADENOPATHY NO CAROTID BRUITS EYE: EOMI, PERRLA, NORMAL CONJUNCTIVA; NO JAUNDICE CHEST: REGULAR RATE. NO RUBS. PMI IS NON DISPLACED. NO MURMURS; NORMAL S1- S2 PULMONARY: DECREASED BS OVER THE BASES. MILD BIBASILAR CRACKLES NOTED; NO INCREASED DULLNESS TO PERCUSSION ABDOMEN: SOFT. NONTENDER. NONDISTENDED. BOWEL SOUNDS ARE PRESENT IN ALL 4 QUADRANTS. NO MASS. EXTREMITIES: 1+ EDEMA.. NO CYANOSIS CLUBBING NOTED. NEURO: CRANIAL NERVES 2-12 GROSSLY INTACT. NO FOCAL NEUROLOGICAL DEFICIT NOTED. MSK: DISCOMFORT WITH PROM AND AROM EXPECTED; CLOSED SURG INCISION NOTED TO RT HIP; SKIN: NORMAL FOR ETHNICITY; NO ECCHYMOSIS. NO LESION. GOOD TURGOR.; NO RASHES : NORMAL EXTERNAL GENITALIA. PSYCH : APPROPRIATE MOOD AND AFFECT. ALERT AWAKE ORIENTED X1 Objective Labs Result Diagrams: 10/06/18 05:26 10/06/18 05:26 Labs: Laboratory Results - last 24 hr 10/06/18 10/06/18 05:26 05:26 WBC 7.2 RBC 3.02 L Hgb 8.3 L Hct 25.1 L MCV 82.9 MCH 27.5 MCHC 33.2 RDW 18.4 H Plt Count 160 Neut % (Auto) 73.4 Lymph % (Auto) 17.4 L [place] % (Auto) 7.5 Eos % (Auto) 1.1 L Baso % (Auto) 0.6 Neut # (Auto) 5300 Sodium 138 Potassium 4.4 Chloride 107 Carbon Dioxide 20 L BUN 60 H Creatinine 4.00 H Estimated GFR 14.4 L BUN/Creatinine Ratio 15.0 Glucose 138 H Calcium 9.8 Total Bilirubin 0.3 AST 13 L ALT 14 L Alkaline Phosphatase 76 Total Protein 5.8 L Albumin 2.9 L Globulin 2.9 Albumin/Globulin Ratio 1.0 Assessment & Plan Plan: Assessment/Plan Narrative: IMPRESSION AND PLAN S/P ORIF DUE TO RT HIP FX; DAY 4; NO S/S OF ACUTE COMPLICATION; PT/OT ORDERED; WT BEARING KAY PER SURG; FOLLOW CLOSELY; 5 W'S; APPEARS STABLE SURGICALLY DEMENTIA; AT BASELINE; CONT TO RE-ORIENT INDICATED; FALL AND ASPIRATION PRECAUTIONS; WATCH FOR PSYCH DUE TO HOSPITAL STAY AFIB PER HX; CONT HOME MEDS; TELE AT ALLL TIMES; PRN MEDS INDICATED CAD PER HX; HOME MEDS; TELE; EKG INDICATED POSS DM; ISS; 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; CR DECREASED OVER THE LAST 24 HRS; CONT ON NS FOR NOW; UNABLE TO PLACE A JUNG DUE TO EXTREME PHIMOSIS; BLADDER SCAN X 2 AND WITH AROUND 2-300 CC ONLY IN BLADDER; NO BLADDER DISTENTION NOTED; AVOID NEPHROTOXINS; DOSE MEDS PER GFR; STRICT IO; RENAL DIET; GENTLE IV HYDRATION; DAILY LABS TO FOLLOW PHIMOSIS; OUTPATIENT MANAGEMENT HARD OF HEARING; RELATED TO AGING PROCESS; STAFF TO ASSIST WITH COMM MUCH POSSIBLE CHRONIC SYST HF; AT BASELINE; NO S/S OF ACUTE DECOMPENSATION; WATCH FLUID INTAKES CLOSELY; TELE AT ALL TIMES; DAILY WT WITH SAME SCALE CONT WITH DC PLANNING TO SNF ON DISPOSITION HOWEVER; WILL CONT TO HOLD DC FOR NOW DUE TO RENAL FCT REPEAT LABS IN AM AND SERIALLY TO FOLLOW ASPIR AND FALL PRECAUTIONS Quality VTE Deep Vein Thrombosis/Pulmonary Embolism Present on Admission: No
[2018-10-06] MEDS: BISACODYL 10 MG SUPP PR (15:02)
--- NOTE | 2018-10-06 16:25 | PT.IPTN ---
Current Diagnoses Fracture of unspecified part of neck of right femur, initial encounter for closed fracture (10/02/18) Displaced intertrochanteric fracture of right femur, initial encounter for closed fracture (10/02/18) Surgery Performed Operation Date: 10/02/18 15:30 Actual Procedures p ORIF Hip DHS - Lobito Mata MD Physical Therapy Treatment Note M2 PT-IP Current Condition Start: 10/03/18 12:14 Freq: NEEDED Status: Active Protocol: Document 10/03/18 09:35 (Rec: 10/03/18 12:41 [id number]) Physical Therapy Current Condition Current Condition Evaluation Date 10/03/18 Treatment Diagnosis GLF; R hip fx with ORIF; difficulty walking Onset Date 10/02/2018 Precautions Other Precautions fall risk Weight Bearing Status Weight Bearing Status Weight Bear as Tolerated M3 PT-IP Subjective Start: 10/03/18 12:14 Freq: NEEDED Status: Active Protocol: Document 10/06/18 16:25 GGD (Rec: 10/06/18 17:09 GGD [id number]) Subjective Physical Therapy Visit Type Type Treatment Note Visit Start Time 16:00 Visit Stop Time 16:25 Total Visit Minutes 25 Number of ENGINEERING WRITER Visits 3 Physical Therapy Visit Comments Patient Comments Pt willing to try and stand. Therapy Pain Assessment Pain When Pain Assessed During Mobility Pain Present Pain Present Pain Reported Location Right Hip Scale Used unable to rate pain. M4 PT-IP Mobility and Gait Start: 10/03/18 12:14 Freq: NEEDED Status: Active Protocol: Document 10/06/18 16:25 GGD (Rec: 10/06/18 17:09 GGD [id number]) PT-Bed Mobility Assessment Rolling Type of Rolling Bilateral Level of Assist Moderate Assistance Supine to Sit Supine to Sit Moderate Assistance 2 Person Assistance Sit to Supine Sit to Supine Moderate Assistance 2 Person Assistance Scooting Scooting to Edge of Bed Minimal Assistance Scooting Up and Down in Bed Moderate Assistance PT-Transfer Assessment Sit to and From Stand Sit to and from Stand Moderate Assistance 2 Person Assistance Use of Upper Extremities Equipment Transfer Assistive Device Gait Belt Front Wheeled Walker Transfers Transfer Destination Bed Transfer Ability Level of Assist Total Assistance Comments Mobility Comments sit to stand with FWW and then with sit to stand x 2 with knee blocking with therapist assisting from front without FWW. M5 PT-IP Objective Assessments Start: 10/03/18 12:14 Freq: NEEDED Status: Active Protocol: Document 10/03/18 09:35 (Rec: 10/03/18 12:41 [id number]) Orientation Orientation/Cognition Level of Alertness Alert Orientation Name Birthday Language Function Ability Hard of Hearing Safety Awareness Decreased Safety Awareness Comments Pt [place]. Hears best on L side and if he is able to see your face. Response time is increased, but pt responds appropriately. Gross Range of Motion Lower Extremity ROM Assessment Right Impaired Impairments Not able to formally assess RLE due to pt c/o pain with all RLE motions. Strength Lower Extremity Strength Assessment Bilaterally Impaired Comments Strength Comments LLE is 4-/5 grossly. R hip 2- /5; R knee 3/5; R ankle 4/5 M6 PT-IP Treatment Start: 10/03/18 12:14 Freq: NEEDED Status: Active Protocol: Document 10/03/18 09:35 (Rec: 10/03/18 12:41 [email or web address]) Physical Therapy Treatment Exercises Exercises Ankle Pumps Quad Sets Education Education Provided Precautions Weight Bearing Status Safety M7 PT-IP Assessment and Plan Start: 10/03/18 12:14 Freq: NEEDED Status: Active Protocol: Document 10/06/18 16:25 GGD (Rec: 10/06/18 17:09 GGD [id number]) PT Summary Assessment and Plan Summary Assessment Summary Pt need mod A x 2 for mobility . He was able to assist if move slowly and give cues and time for pt to move on his own . He had improved upright standing posture without assistive device. He would benefit from SNF rehab for improved strengthening and functional mobility. Frequency of Treatment Frequency Of Treatment Twice a Day Treatment Plan Physical Therapy Treatment Plan Bed Mobility Training Transfer Training Gait Training Therapeutic Exercise Balance Retraining Post Op Education Neuromuscular Re-ed Other Recommendations and Next Treatment supine <>sit; sit to stand; Focus stand pivot transfer, power stander. Recommendations To Nursing Amount of Assist Needed Mechanical Lift Discharge Recommendations PT Discharge Recommendations SNF Rehab
--- NOTE | 2018-10-06 17:02 | OT.IP.TRT ---
Current Diagnoses Fracture of unspecified part of neck of right femur, initial encounter for closed fracture (10/02/18) Displaced intertrochanteric fracture of right femur, initial encounter for closed fracture (10/02/18) Surgery Performed Operation Date: 10/02/18 15:30 Actual Procedures p ORIF Hip DHS - Lobito Mata MD Occupational Therapy Treatment Note M2 OT-IP Current Condition Start: 10/04/18 07:19 Freq: Status: Active Protocol: Document 10/03/18 15:50 PJM (Rec: 10/04/18 07:37 PJM [id number]) Occupational Therapy Current Condition Current Condition Evaluation Date 09/20/18 Treatment Diagnosis decreased self care,mobility, endurance due to Flu A+, aspiration pneumonitis Post Operative Precautions Other Precautions fall risk Weight Bearing Status Weight Bearing Status Weight Bear as Tolerated Allowed Weight Bearing Amount (enter % RLE WBAT or #) (%) M3 OT- IP Subjective and Pain Start: 10/04/18 07:19 Freq: Status: Active Protocol: Document 10/06/18 16:54 [facility] (Rec: 10/06/18 17:02 [facility] [id number]) OT- Subjective Occupational Therapy Visit Type Type Treatment Note Visit Start Time 15:55 Visit Stop Time 16:20 Total Visit Minutes 25 Occupational Therapy Visit Comments Patient Comments Pt ageeable to try to get up. OT Pain Assessment Pain When Pain Assessed At Rest Pain Present Pain Present Denied Pain M4 OT- IP ADL's Start: 10/04/18 07:19 Freq: Status: Active Protocol: Document 10/06/18 16:54 [facility] (Rec: 10/06/18 17:02 [facility] [id number]) OT ADL-Toileting General Evaluation Toileting Ability Total Assistance Areas Needing Assistance Manage Clothing Perform Perineal Hygiene Comments OT Toileting Comments Pt needing MAX A X 1-2 to roll in bed and assist for aid for hygiene an dbrief management needs. M5 OT- IP IADL's Start: 10/04/18 07:19 Freq: Status: Active Protocol: Document 10/03/18 15:50 PJM (Rec: 10/04/18 07:37 PJM [id number]) OT-Instrumental Activities of Daily Living Deficits IADL Deficits Identified Deficits Home Safety Awareness Awareness of Need for Assistance at Home Good Awareness Ability to Problem Solve Emergency Unable to Problem Solve Situations Medication Management Medication Management Caregiver Administers Medication Management Comments pt states his assists Money Management Money Management Caregiver Provides Assistance Money Management Comments pt states his assists Meal Preparation Meal Preparation Caregiver Provides Assist Meal Preparation Comments pt has paid caregiver who assists he and with some meal prep Leak Hunter Leak Hunter Caregiver Provides Assist Leak Hunter Comments pt has paid caregiver who assists he and with cleaning, laundry Driving Driving Caregiver Provides Assist M6 OT- IP Functional Cognition Start: 10/04/18 07:19 Freq: Status: Active Protocol: Document 10/06/18 16:54 [facility] (Rec: 10/06/18 17:[address] [id number] Cognitive Factors Limiting Selfcare Function Cognitive Ability Level of Alertness Alert Patient Orientation Name Attention Span Ability Capable of Focused Attention Unable to Sustain Attention Ability to Follow Commands Able to Follow One Step Commands with Increased Time Able to Follow One Step Commands with Repetition Memory Description Short Term Impaired Safety Awareness Underestimates Need for Assistance Problem Solving Ability Needs Assist to Identify Solutions Cognitive Comments Cognitive Assessment Comments Pt very forgetful and needs reminders and step by step vc as to what, why , and how things are happening. For example, educated importance of trying to stand and encourage pt to move as well. OT- Vision and Hearing OT- Hearing Assessment OT- Hearing Assessment Right Ear Impaired Left Ear Impaired OT- Vision Assessment Vision History Low Vision M7 OT- IP Mobility and Balance Start: 10/04/18 07:19 Freq: Status: Active Protocol: Document 10/06/18 16:54 [facility] (Rec: 10/06/18 17:[address] [facility] [id number] OT- Bed Mobility Assessment Rolling Type of Rolling Bilateral Level of Assistance Maximum Assistance 1 Person Assistance 2 Person Assistance Supine to Sit Supine to Sit Assist Moderate Assistance 2 Person Assistance Sit to Supine Sit to Supine Assist Maximum Assistance 2 Person Assistance Scooting Scooting Up and Down in Bed Maximum Assistance 2 Person Assistance OT-Transfer Assessment Sit to and From Stand Sit to and from Stand Maximum Assistance 2 Person Assistance Comments Mobility Comments Pt able to stand with MAX AX 2 and assist to scoot up in the bed with MAX AX 2. 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 Strength Hand Dominance Right OT- Coordination Assessment Comments Coordination Comments fine dexterity impaired by low vision OT-Muscle Tone Assessment Muscle Tone WNL Yes OT Sensation Assessment Comments Summary Comments Pt denies deficits in BUE's M9 OT- IP Assessment and Plan Start: 10/04/18 07:19 Freq: Status: Active Protocol: Document 10/06/18 16:54 [facility] (Rec: 10/06/18 17:02 [facility] [id number]) OT Summary Assessment and Plan Potential Rehabilitation Potential Fair Analytic Complexity at Evaluation Low Summary OT Impairments Pain Strength Balance Functional Cognition Functional Mobility Self-Feeding Grooming Dressing Toileting Bathing Toilet Transfers Shower Transfers Progress Towards Goals Slow Progress due to Pain Slow Progress due to Activity Tolerance Slow Progress due to Cognition Assessment Summary Today pt needing more assist to pt but agreeable to participate in therapy. Pt to benefit from skilled rehab. Goals Self-Feeding Goal Independent Grooming Goal Standby Assistance Dressing Goal Minimal Assistance Bathing Goal Minimal Assistance Toilet Transfer Goal Moderate Assistance Bedside Commode Days to Meet Goals 10 Frequency of Treatment Frequency Of Treatment Once a Day Treatment Plan OT Treatment Plan ADL Training Patient/Family Education Discharge Planning Discharge Recommendations OT Discharge Recommendations SNF Rehab Home Equipment Needs lower body dressing equipt
[2018-10-06] MEDS: SENNOSIDES 8.6 MG TABLET PO (20:31)
[2018-10-06] MEDS: ATORVASTATIN 20 MG TABLET PO (20:31)
[2018-10-07 00:50] VITALS: BP 130/72; PULSE 85; RESP 16; TEMP 36.9; O2SAT 95
[2018-10-07] MEDS: TRAMADOL 50 MG TABLET PO ×2 (01:09→09:52)
[2018-10-07 01:15] VITALS: O2SAT 97
--- NOTE | 2018-10-07 01:26 | PC.NURSE ---
Patient is oriented to self, birthdate, place and situation but not date/time. Breath sounds still with inspiratory crackles in right LL; RA sat 97%. HR irregular with telemetry reading of afib CVR/BBB. Denies nausea. BT present and abdomen is soft. Incontinent of urine. Evening RN reported coccyx was reddened, but no redness or breakdown noted at this time. Is being repositioned q2h as not able to turn himself. Complains of pain whenever right leg touched/moved; medicated with Tramadol for FLACC score of 5. Dressing to right hip and right elbow are CDI. CMS intact but patient is unable to lift leg off bed but is able to move foot/ankle. Wearing bilateral SCD's. Fall risk score is high and bed alarm is activated.
[2018-10-07 04:30] VITALS: BP 113/60; PULSE 82; RESP 16; TEMP 36.6; O2SAT 97
[2018-10-07 05:51] LABS: Add Manual Diff / Slide Review NO; Basophils Percent Auto 1.3 % (0-2); Eosinophils Percent Auto 1.8 % (2-4); Hematocrit 25.7 % (41-53); Hemoglobin 8.6 g/dL (13.5-17.5); Lymphocytes Percent Auto 23.5 % (25-40); Mean Corpuscular HGB Conc 33.6 % (30-36); Mean Corpuscular Volume 83.1 fL (80-100); Neutrophils Absolute Auto 4400 /uL (1500-7000); Neutrophils Percent Auto 65.4 % (50-75); Platelet Count 196 X10^3/uL (150-400); Red Blood Cell Count 3.09 X10^6/uL (4.5-5.9); Red Cell Distribution Width 18.2 % (11.6-14.8); White Blood Cell Count 6.8 X10^3/uL (4.5-11.0)
[2018-10-07 06:04] LABS: Alanine Aminotransferase 13 IU/L (21-72); Albumin 2.9 g/dL (3.5-5.0); Albumin Globulin Ratio 0.9 (1.0-2.8); Alkaline Phosphatase 82 U/L (38-126); Aspartate Aminotransferase 11 IU/L (17-59); BUN Creatinine Ratio 17.4 (6-22); Bilirubin Total 0.4 mg/dL (0.2-1.3); Blood Urea Nitrogen 61 mg/dL (9-20); Calcium 10.3 mg/dL (8.4-10.2); Carbon Dioxide 22 mmol/L (22-32); Chloride 108 mmol/L (98-107); Estimated Glomerular Filt Rate 16.9 mL/min (>60); Globulin 3.1 g/dL (1.7-4.1); Glucose 137 mg/dL (80-110); HEMOLYSIS < 15 (0-50); Potassium 4.5 mmol/L (3.4-5.1); Sodium 141 mmol/L (137-145)
[2018-10-07 06:05] LABS: Phosphorous 3.9 mg/dL (2.3-3.7)
--- NOTE | 2018-10-07 08:46 | CM.DANOTE ---
Addendum entered by Stefani Nash LPN 10/07/18 11:00: PT now with d/c. Spoke with Daysi after conferring with PT re transport recommendation. (w/c, 1 assist with PT). [facility] can accept pt today and can send [employer] transport w/c van to pick pt up at 1345. PASRR completed and faxed. Orders gathered and faxed. Spoke by phone with Scott to update him. He expresses that he is comfortable with the d/c today and gives his thanks for the assistance. He is working today and will see his father on the weekend. Called Mimi and left a message re the details of the d/c today. P: will follow prn until pt leaves. Original Note: DCP: continued: case received, EMR for last few days reviewed and called Daysi/GABY. Discussed the [facility]/ Federal snf benefit and the continued need to discuss POC with Scott. Ideally discussions with Mimi would include Chis as she does appear to get easily sidetracked with other issues and historical stories. Daysi will look at her beds when she arrives at [facility]. Expects to be able to take pt when he is stable. Documentation from yesterday indicates the hospitalist is continuing to look at pt's overall kidney fuction and that he has not yet been medically cleared for d/c.
[2018-10-07 09:05] VITALS: BP 118/64; PULSE 89; RESP 18; TEMP 36.6; O2SAT 97
[2018-10-07] MEDS: INSULIN ASPART 100 UNIT/ML INSULN PEN SUBCUT ×2 (09:50→12:15)
[2018-10-07] MEDS: ENOXAPARIN 30 MG/0.3 ML SYRINGE SUBCUT (09:51)
[2018-10-07] MEDS: SERTRALINE 50 MG TABLET PO (09:52)
[2018-10-07] MEDS: ACETAMINOPHEN 325 MG TABLET 975 MG PO (09:52)
[2018-10-07] MEDS: CHOLECALCIFEROL (VITAMIN D3) 1,000 UNIT TABLET 1000 UNIT PO (09:53)
[2018-10-07] MEDS: TAMSULOSIN 0.4 MG CAPSULE PO (09:53)
[2018-10-07] MEDS: POLYETHYLENE GLYCOL 3350 17 GM POWD.PACK PO (09:53)
[2018-10-07] MEDS: DOCUSATE 100 MG CAPSULE PO (09:53)
[2018-10-07] MEDS: CARVEDILOL 6.25 MG TABLET PO (09:53)
[2018-10-07] MEDS: SODIUM CHLORIDE 0.9% FLUSH 10 ML IV (09:54)
--- NOTE | 2018-10-07 10:55 | PT.IPTN ---
Current Diagnoses Fracture of unspecified part of neck of right femur, initial encounter for closed fracture (10/02/18) Displaced intertrochanteric fracture of right femur, initial encounter for closed fracture (10/02/18) Surgery Performed Operation Date: 10/02/18 15:30 Actual Procedures p ORIF Hip DHS - Lobito Mata MD Physical Therapy Treatment Note M2 PT-IP Current Condition Start: 10/03/18 12:14 Freq: NEEDED Status: Active Protocol: Document 10/03/18 09:35 (Rec: 10/03/18 12:41 [id number]) Physical Therapy Current Condition Current Condition Evaluation Date 10/03/18 Treatment Diagnosis GLF; R hip fx with ORIF; difficulty walking Onset Date 10/02/2018 Precautions Other Precautions fall risk Weight Bearing Status Weight Bearing Status Weight Bear as Tolerated M3 PT-IP Subjective Start: 10/03/18 12:14 Freq: NEEDED Status: Active Protocol: Document 10/07/18 10:55 GGD (Rec: 10/07/18 11:14 GGD [id number]) Subjective Physical Therapy Visit Type Type Treatment Note Visit Start Time 10:30 Visit Stop Time 10:55 Total Visit Minutes 25 Number of PAINT POURER Visits 4 Physical Therapy Visit Comments Patient Comments Pt willing to sit up. Therapy Pain Assessment Pain When Pain Assessed During Mobility Pain Present Pain Present Pain Reported M4 PT-IP Mobility and Gait Start: 10/03/18 12:14 Freq: NEEDED Status: Active Protocol: Document 10/07/18 10:55 GGD (Rec: 10/07/18 11:14 GGD [id number]) PT-Bed Mobility Assessment Supine to Sit Supine to Sit Moderate Assistance 1 Person Assistance Head of Bed Elevated Scooting Scooting to Edge of Bed Minimal Assistance PT-Transfer Assessment Sit to and From Stand Sit to and from Stand Moderate Assistance 1 Person Assistance Equipment Transfer Assistive Device Gait Belt Transfers Transfer Destination Chair Transfer Technique Squat Pivot Transfer Ability Level of Assist Maximum Assistance Comments Mobility Comments squat pivot with guarding of knees. M5 PT-IP Objective Assessments Start: 10/03/18 12:14 Freq: NEEDED Status: Active Protocol: Document 10/03/18 09:35 (Rec: 10/03/18 12:41 [id number]) Orientation Orientation/Cognition Level of Alertness Alert Orientation Name Birthday Language Function Ability Hard of Hearing Safety Awareness Decreased Safety Awareness Comments Pt [place]. Hears best on L side and if he is able to see your face. Response time is increased, but pt responds appropriately. Gross Range of Motion Lower Extremity ROM Assessment Right Impaired Impairments Not able to formally assess RLE due to pt c/o pain with all RLE motions. Strength Lower Extremity Strength Assessment Bilaterally Impaired Comments Strength Comments LLE is 4-/5 grossly. R hip 2- /5; R knee 3/5; R ankle 4/5 M6 PT-IP Treatment Start: 10/03/18 12:14 Freq: NEEDED Status: Active Protocol: Document 10/03/18 09:35 (Rec: 10/03/18 12:41 [id number]) Physical Therapy Treatment Exercises Exercises Ankle Pumps Quad Sets Education Education Provided Precautions Weight Bearing Status Safety M7 PT-IP Assessment and Plan Start: 10/03/18 12:14 Freq: NEEDED Status: Active Protocol: Document 10/07/18 10:55 GGD (Rec: 10/07/18 11:14 GGD [id number]) PT Summary Assessment and Plan Summary Assessment Summary Pt needed mod A for mobility. He did better with slow small movements and allowing him to control bed mobility. He had no posterior lean with squat pivot transfers, but unable to come to full stand. He would benefit from SNF to improve functional mobility. Frequency of Treatment Frequency Of Treatment Twice a Day Treatment Plan Physical Therapy Treatment Plan Bed Mobility Training Transfer Training Gait Training Therapeutic Exercise Balance Retraining Post Op Education Neuromuscular Re-ed Recommendations To Nursing Amount of Assist Needed Mechanical Lift Discharge Recommendations PT Discharge Recommendations SNF Rehab
[2018-10-07 11:29] VITALS: O2SAT 97
--- NOTE | 2018-10-07 11:47 | P.PN_ITS ---
Subjective Date Patient Seen: 10/07/18 Time Patient Seen: 11:45 Interval history: Hospital day 6, postop day 5 following right hip intratrochanteric fracture with dynamic hip screw placement. He has progressed slowly with activity and ambulation with physical therapy. Patient does have dementia. He is weight-bearing as tolerated to the right leg but has had limited activity. He is scheduled to go to [facility] for further rehab. Exam Vital Signs (past 8 hours): - 10/07/18 04:30 10/07/18 09:05 10/07/18 11:29 Temperature 97.9 F 97.8 F Pulse Rate 82 89 Respiratory Rate 16 18 Blood Pressure 113/60 118/64 Pulse Oximetry 97 97 97 Oxygen Delivery Method Room Air Oxygen Flow Rate 0 Narrative Exam Narrative: Patient is alert and responsive in no acute distress lying in bed. Right leg. Gauze dressing to right hip is dry with small area of shadowing. No signs of infection or inflammation. No calf pain or swelling. Pulses symmetrical. Objective Labs Result Diagrams: 10/07/18 05:25 10/07/18 05:25 Labs: Laboratory Results - last 24 hr 10/07/18 10/07/18 10/07/18 05:25 05:25 05:25 WBC 6.8 RBC 3.09 L Hgb 8.6 L Hct 25.7 L MCV 83.1 MCH 28.0 MCHC 33.6 RDW 18.2 H Plt Count 196 Neut % (Auto) 65.4 Lymph % (Auto) 23.5 L [place] % (Auto) 8.0 Eos % (Auto) 1.8 L Baso % (Auto) 1.3 Neut # (Auto) 4400 Sodium 141 Potassium 4.5 Chloride 108 H Carbon Dioxide 22 BUN 61 H Creatinine 3.50 H Estimated GFR 16.9 L BUN/Creatinine Ratio 17.4 Glucose 137 H Calcium 10.3 H Phosphorus 3.9 H D Magnesium 2.0 Total Bilirubin 0.4 AST 11 L ALT 13 L Alkaline Phosphatase 82 Total Protein 6.0 L Albumin 2.9 L Globulin 3.1 Albumin/Globulin Ratio 0.9 L Assessment & Plan Post-op Postoperative Procedures Operation Date: 10/02/18 15:30 Actual Procedures Side Surgeon p ORIF Hip DHS Lobito Mata MD Plan: Will change his dressing to a CovRsite dressing. Patient will need SNF for further rehab before going home. Discharged pending clearance by hospitalist. Quality VTE Deep Vein Thrombosis/Pulmonary Embolism Present on Admission: No
[2018-10-07 12:38] VITALS: BP 105/61; PULSE 83; RESP 16; TEMP 36.6; O2SAT 96
--- NOTE | 2018-10-07 12:58 | P.DS_ITS ---
History of Present Illness Date Patient Seen: 10/07/18 Time Patient Seen: 08:33 Chief complaint: GLF, R hip pain Narrative: Date Patient Seen: 10/01/18 Time Patient Seen: 19:38 Chief complaint: GLF, R hip pain Narrative: The patient is an 83-year-old male with PMH significant for HTN, CAD (s/p 6v-CABG), chronic AFIB (s/p PPM, not AC), CHF, AVS, NEDA, carotid artery disease, h/o TIA, PVD w/ multiple stents, HLD, AAA, CKD IV, subdural heamatoma, DM 2T, BPH, dementia, and PRIOR tobacco dependence. Patient presented to the ED on 10/02/2018 in the 1300 hour to be evaluated for right hip pain. Prior to the ED presentation patient sustained a fall. At time of the event he was sitting in his wheelchair in trying to maneuver it, the wheelchair tipped over, causing the patient to fall to the ground onto his right hip. The patient is unable to provide any further details. No reported head injury or loss of consciousness. He was unable to get up on his own. Patient is known to have diminished baseline mobility status, however he is not wheelchair bound. Typically, he is able to ambulate independently with the use of a cane or a walker; however, he has been relying heavily on his wheelchair since hospital discharge on 09/22. Patient was recently hospitalized, 09/19 through 09/22, for influenza. Since hospital discharge he has not returned to his baseline mobility function. Radiography revealed displaced right intertrochanteric hip fracture. Consequently, patient was taken to the OR and underwent ORIF of the hip fracture with dynamic hip screw. EBL estimated at 200 mls. No intraoperative complications noted. Patient is being seen post-operatively. He reports no specific concerns. His pain is adequately controlled. Discharge Providers Date of admission: 10/02/18 15:00 Primary care physician: Kelton Morgan MD Consults: 10/02/18 15:12 Consult to Occupational Therapy Evaluate & Treat Comment: Physician Instructions: Evaluate and treat 10/02/18 16:46 Consult to Orthopedic Surgery Routine Comment: Consulting Provider: Lobito Mata Reason for consultation: right hip fracture Has provider been notified: Yes 10/02/18 18:11 Consult to Discharge Planning Routine Comment: Consult to Physical Therapy Evaluate & Treat Comment: marginal ambulator at baseline Physician Instructions: weight bear as tolerated 10/03/18 00:08 Consult to Dietitian, Adult Routine Comment: Reason For Exam: Diminished appetite, weight loss, s/p op Discharge provider: Selin Humphrey DO Discharge Date: 10/07/18 Summary Discharge Diagnosis: IMPRESSION AND PLAN S/P ORIF DUE TO RT HIP FX; DAY 5; APPEARS STABLE SURGICALLY; CLEARED FOR DC BY ORTHO TEAM DEMENTIA; AT BASELINE; AFIB PER HX; CONT HOME MEDS CAD PER HX; HOME MEDS; POSS DM; ISS; 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; IMPROVING; PLEASE KEEP WELL HYDRATED PHIMOSIS; OUTPATIENT MANAGEMENT WITH UROLOGY REFERRAL HARD OF HEARING; RELATED TO AGING PROCESS; STAFF TO ASSIST WITH COMM MUCH POSSIBLE CHRONIC SYST HF; AT BASELINE; NO S/S OF ACUTE DECOMPENSATION; WATCH FLUID INTAKES CLOSELY; TELE AT ALL TIMES; DAILY WT WITH SAME SCALE Hospital Course: PATIENT WITH A FX OF THE RT HIP DUE TO THE FALL SEEN BY ORTHO AND HAD A ORIF; KAY PROCEDURE WELL HE HAS BEEN ON WT BEARING KAY HE HAS NO S/S OF ACUTE COMPLICATIONS AT THIS TIME HIS RENAL FCT WORSENED SLIGHTLY DURING THIS STAY NOW CR AND GFR ARE IMPROVING NICELY HE WILL NEED TO BE CONTINUED OF PROPER HYDRATION TO PREVENT WORSENING OF RENAL FCT PATIENT SHOULD ALSO BE OUT IN CHAIR WELL AMBULATING AT TID THIS WOULD HELP ADDITIONAL MANAGEMENT PER CLINICAL COURSE IN OUTPATIENT SETTING Status at Discharge Functional status at discharge: independent ambulation Overall status at discharge: patient is back to baseline Time Spent with Patient Greater than 30 minutes Exam Vital Signs (past 8 hours): - 10/07/18 09:05 10/07/18 11:29 Temperature 97.8 F Pulse Rate 89 Respiratory Rate 18 Blood Pressure 118/64 Pulse Oximetry 97 97 Oxygen Delivery Method Room Air Oxygen Flow Rate 0 Narrative Exam Narrative: NO ACUTE DISTRESS. PATIENT IS ALERT ORIENTED X1. VITAL SIGNS STABLE HEAD ATRAUMATIC NORMOCEPHALIC NECK : SUPPLE WITHOUT ADENOPATHY NO CAROTID BRUITS EYE: EOMI, PERRLA, NORMAL CONJUNCTIVA; NO JAUNDICE CHEST: REGULAR RATE. NO RUBS. PMI IS NON DISPLACED. NO MURMURS; NORMAL S1- S2 PULMONARY: DECREASED BS OVER THE BASES. MILD BIBASILAR CRACKLES NOTED; NO INCREASED DULLNESS TO PERCUSSION ABDOMEN: SOFT. NONTENDER. NONDISTENDED. BOWEL SOUNDS ARE PRESENT IN ALL 4 QUADRANTS. NO MASS. EXTREMITIES: 1+ EDEMA.. NO CYANOSIS CLUBBING NOTED. NEURO: CRANIAL NERVES 2-12 GROSSLY INTACT. NO FOCAL NEUROLOGICAL DEFICIT NOTED. MSK: DISCOMFORT WITH PROM AND AROM EXPECTED; CLOSED SURG INCISION NOTED TO RT HIP; SKIN: NORMAL FOR ETHNICITY; NO ECCHYMOSIS. NO LESION. GOOD TURGOR.; NO RASHES : NORMAL EXTERNAL GENITALIA. PSYCH : APPROPRIATE MOOD AND AFFECT. ALERT AWAKE ORIENTED X1 Objective Labs Result Diagrams: 10/07/18 05:25 10/07/18 05:25 Labs: Laboratory Results - last 24 hr 10/07/18 10/07/18 10/07/18 05:25 05:25 05:25 WBC 6.8 RBC 3.09 L Hgb 8.6 L Hct 25.7 L MCV 83.1 MCH 28.0 MCHC 33.6 RDW 18.2 H Plt Count 196 Neut % (Auto) 65.4 Lymph % (Auto) 23.5 L [place] % (Auto) 8.0 Eos % (Auto) 1.8 L Baso % (Auto) 1.3 Neut # (Auto) 4400 Sodium 141 Potassium 4.5 Chloride 108 H Carbon Dioxide 22 BUN 61 H Creatinine 3.50 H Estimated GFR 16.9 L BUN/Creatinine Ratio 17.4 Glucose 137 H Calcium 10.3 H Phosphorus 3.9 H D Magnesium 2.0 Total Bilirubin 0.4 AST 11 L ALT 13 L Alkaline Phosphatase 82 Total Protein 6.0 L Albumin 2.9 L Globulin 3.1 Albumin/Globulin Ratio 0.9 L Discharge Plan Discharge Plan Patient Disposition: SNF Transportation: Facility vehicle Discharge comment: ACT KAY RENAL/ CARDIAC DIET F/U WITH ORTHO AND PCP 3-10 DAYS PLEASE KEEP PATIENT WELL HYDRATED I certify the postop hospital custodial care is medically necessary on a continuing basis for any conditions for which he/ she received care during this hospitalization.: Yes The receiving facility has agreed to accept transfer and provide medical treatment.: Yes Discharge Med Rec/Prescriptions Prescriptions: New polyethylene glycol 3350 17 gram Powder In Packet 17 gm PO DAILY Qty: 10 RF: 0 oxycodone 5 mg Tablet 5 mg PO Q3HR PRN (Reason: Pain, Moderate (4-6)) Qty: 10 RF: 0 sennosides [senna] 8.6 mg Tablet 8.6 mg PO BEDTIME Qty: 30 RF: 0 tramadol 50 mg Tablet 50 mg PO QID PRN (Reason: Pain, Moderate (4-6)) Qty: 20 RF: 0 oxycodone 5 mg Tablet 5 mg PO Q6H PRN (Reason: Pain, Moderate (4-6)) Qty: 10 RF: 0 Continue carvedilol 6.25 mg Tablet 6.25 mg PO BID Qty: 0 RF: 0 allopurinol 100 mg Tablet 100 mg PO DAILY RF: 0 tamsulosin 0.4 mg capsule,extended release 24hr 0.4 mg PO DAILY RF: 0 sertraline 50 mg Tablet 50 mg PO DAILY RF: 0 atorvastatin 20 mg Tablet 20 mg PO BEDTIME RF: 0 glipizide 2.5 mg Tablet Extended Release 24hr 2.5 mg PO DAILY RF: 0 cholecalciferol (vitamin D3) [Vitamin D3] 1,000 unit Capsule 1,000 unit PO DAILY RF: 0 aspirin 325 mg Tablet,Delayed Release (Dr/Ec) 325 mg PO DAILY RF: 0 furosemide 40 mg tablet 40 mg PO DAILY RF: 0 Follow up/Referrals: Kelton Morgan MD [Primary Care Provider] - Provider Discharge Instructions Diet: Carb-consistent/Diabetic, Low-fat and Low-cholesterol Skin/Wound/Dressing Care Report to your healthcare provider any signs of infection, such as:: chills, fever, night sweats, increased pain, unusual drainage and unusual redness Discharge Data Primary Care Provider: Kelton Morgan Attending Provider: Selin Humphrey Admit Date/Time: 10/02/18 15:00 Quality VTE Deep Vein Thrombosis/Pulmonary Embolism Present on Admission: No
--- NOTE | 2018-10-07 14:00 | PT.IPTN ---
Current Diagnoses Fracture of unspecified part of neck of right femur, initial encounter for closed fracture (10/02/18) Displaced intertrochanteric fracture of right femur, initial encounter for closed fracture (10/02/18) Surgery Performed Operation Date: 10/02/18 15:30 Actual Procedures p ORIF Hip DHS - Lobito Mata MD Physical Therapy Treatment Note M2 PT-IP Current Condition Start: 10/03/18 12:14 Freq: NEEDED Status: Discharge Protocol: Document 10/03/18 09:35 (Rec: 10/03/18 12:41 [email or web address]) Physical Therapy Current Condition Current Condition Evaluation Date 10/03/18 Treatment Diagnosis GLF; R hip fx with ORIF; difficulty walking Onset Date 10/02/2018 Precautions Other Precautions fall risk Weight Bearing Status Weight Bearing Status Weight Bear as Tolerated M3 PT-IP Subjective Start: 10/03/18 12:14 Freq: NEEDED Status: Discharge Protocol: Document 10/07/18 14:00 GGD (Rec: 10/07/18 14:59 GGD [id number]) Subjective Physical Therapy Visit Type Type Treatment Note Visit Start Time 13:35 Visit Stop Time 14:00 Total Visit Minutes 25 Number of SALES ACCOUNT MANAGER Visits 5 Physical Therapy Visit Comments 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 Therapy Pain Assessment Pain When Pain Assessed During Mobility Pain Present Pain Present Pain Reported M4 PT-IP Mobility and Gait Start: 10/03/18 12:14 Freq: NEEDED Status: Discharge Protocol: Document 10/07/18 14:00 GGD (Rec: 10/07/18 14:59 GGD [id number]) PT-Transfer Assessment Sit to and From Stand Sit to and from Stand Maximum Assistance 1 Person Assistance Equipment Transfer Assistive Device Gait Belt Transfers Transfer Destination Wheelchair Transfer Technique Squat Pivot Transfer Ability Level of Assist Maximum Assistance Comments Mobility Comments Min A for scooting in chair. Stand from chair with max A for brief change. Squat pivot with guarding of knees. M5 PT-IP Objective Assessments Start: 10/03/18 12:14 Freq: NEEDED Status: Discharge Protocol: Document 10/03/18 09:35 (Rec: 10/03/18 12:41 [email or web address]) Orientation Orientation/Cognition Level of Alertness Alert Orientation Name Birthday Language Function Ability Hard of Hearing Safety Awareness Decreased Safety Awareness Comments Pt [place]. Hears best on L side and if he is able to see your face. Response time is increased, but pt responds appropriately. Gross Range of Motion Lower Extremity ROM Assessment Right Impaired Impairments Not able to formally assess RLE due to pt c/o pain with all RLE motions. Strength Lower Extremity Strength Assessment Bilaterally Impaired Comments Strength Comments LLE is 4-/5 grossly. R hip 2- /5; R knee 3/5; R ankle 4/5 M6 PT-IP Treatment Start: 10/03/18 12:14 Freq: NEEDED Status: Discharge Protocol: Document 10/03/18 09:35 (Rec: 10/03/18 12:41 [email or web address]) Physical Therapy Treatment Exercises Exercises Ankle Pumps Quad Sets Education Education Provided Precautions Weight Bearing Status Safety M7 PT-IP Assessment and Plan Start: 10/03/18 12:14 Freq: NEEDED Status: Discharge Protocol: Document 10/07/18 14:00 GGD (Rec: 10/07/18 14:59 GGD [id number]) PT Summary Assessment and Plan Summary Assessment Summary Pt max A for transfers. He was able to assist with scooting in bed. He had less fear with mobility. He will benefit from SNF for improvement in functional mobility. Frequency of Treatment Frequency Of Treatment Twice a Day Treatment Plan Physical Therapy Treatment Plan Bed Mobility Training Transfer Training Gait Training Therapeutic Exercise Balance Retraining Post Op Education Neuromuscular Re-ed Recommendations To Nursing Amount of Assist Needed Mechanical Lift Discharge Recommendations PT Discharge Recommendations SNF Rehab
--- NOTE | 2018-11-22 14:45 | PT.IIE ---
Current Diagnoses Acute posthemorrhagic anemia (10/02/18) Type 2 diabetes mellitus without complications (10/02/18) Hyperlipidemia, unspecified (10/02/18) Unspecified dementia without behavioral disturbance (10/02/18) Obstructive sleep apnea (adult) (pediatric) (10/02/18) Hypertensive heart and chronic kidney disease with heart failure and stage 1 through stage 4 chronic kidney disease, or unspecified chronic kidney disease (10/02/18) Atherosclerotic heart disease of [place] coronary artery without angina pectoris (10/02/18) Chronic atrial fibrillation (10/02/18) Chronic systolic (congestive) heart failure (10/02/18) Abdominal aortic aneurysm, without rupture (10/02/18) Acute kidney failure, unspecified (10/02/18) Chronic kidney disease, stage 4 (severe) (10/02/18) Displaced intertrochanteric fracture of right femur, initial encounter for closed fracture (10/02/18) Fall from non-moving wheelchair, initial encounter (10/02/18) 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 (10/02/18) Personal history of nicotine dependence (10/02/18) Surgery Performed Operation Date: 10/02/18 15:30 Actual Procedures p ORIF Hip DHS - Lobito Mata MD Surgical History (Last Reviewed 11/21/18 @ 21:25 by JUSTEN Crawford) History of coronary artery bypass graft x 6 (Acute) Medical History (Last Reviewed 11/21/18 @ 21:25 by JUSTEN Crawford) BPH (benign prostatic hyperplasia) (Acute) Hard of hearing (Acute) Hyperlipidemia (Acute) Atrial fibrillation (Acute) Blind (Acute) CAD (coronary artery disease) (Acute) Cardiac pacemaker (Acute) Closed right hip fracture (Acute) Diabetes (Acute) S/P ORIF (open reduction internal fixation) fracture (Acute) Physical Therapy Inpatient Evaluation/Re-Eval M1 PT/OT-IP Prior Functional Status Start: 10/03/18 12:14 Freq: NEEDED Status: Discharge Protocol: Document 10/03/18 15:50 PJM (Rec: 10/04/18 07:37 PJM [id number]) Medical Review Prior Functional Status Medical History Reviewed Yes Communication Pt [place]. Hears more easily through his L ear. Requires increased time for processing/ responding. Mobility and Gait Previously limited ambulation distances using 4ww, pt states a few ft, otherwise uses manual w/c. Activities of Daily Living and IADL's Pt states independence with all self care including showering in walk in shower stall. No family here to confirm. He is unsure of the exact schedule, but has frequent caregiver visits that he states provide all his meals and assist with housekeeping and laundry. Prior Functional Level (Other details) Pt fell out of his w/c. He describes trying to maneuver a turn and getting caught up in his bathrobe. Pt states his cannot provide physical assist to him at home. Social History Household Members spouse Living Arrangements House Number of Floors (Floors) One Floor Number of Stairs To Enter/Railing? pt states there are no stairs to enter his home Home Environment Walk in Shower Home Equipment Front Wheel Walker Four Wheel Walker Manual Wheelchair Shower Seat without Backrest Hand Held Shower Grab Bars Near Toilet Grab Bars In Shower Employment Status Retired Additional Social History Comment No family here to confirm home situation. M2 PT-IP Current Condition Start: 10/03/18 12:14 Freq: NEEDED Status: Discharge Protocol: Document 10/03/18 09:35 (Rec: 10/03/18 12:41 [email or web address]) Physical Therapy Current Condition Current Condition Evaluation Date 10/03/18 Treatment Diagnosis GLF; R hip fx with ORIF; difficulty walking Onset Date 10/02/2018 Precautions Other Precautions fall risk Weight Bearing Status Weight Bearing Status Weight Bear as Tolerated M3 PT-IP Subjective Start: 10/03/18 12:14 Freq: NEEDED Status: Discharge Protocol: Document 10/07/18 14:00 GGD (Rec: 10/07/18 14:59 GGD [id number]) Subjective Physical Therapy Visit Type Type Treatment Note Visit Start Time 13:35 Visit Stop Time 14:00 Total Visit Minutes 25 Number of OPTICAL SYSTEMS ENGINEER Visits 5 Physical Therapy Visit Comments Patient Comments SMALL 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 Therapy Pain Assessment Pain When Pain Assessed During Mobility Pain Present Pain Present Pain Reported M4 PT-IP Mobility and Gait Start: 10/03/18 12:14 Freq: NEEDED Status: Discharge Protocol: Document 10/07/18 14:00 GGD (Rec: 10/07/18 14:59 GGD [id number]) PT-Transfer Assessment Sit to and From Stand Sit to and from Stand Maximum Assistance 1 Person Assistance Equipment Transfer Assistive Device Gait Belt Transfers Transfer Destination Wheelchair Transfer Technique Squat Pivot Transfer Ability Level of Assist Maximum Assistance Comments Mobility Comments Min A for scooting in chair. Stand from chair with max A for brief change. Squat pivot with guarding of knees. M5 PT-IP Objective Assessments Start: 10/03/18 12:14 Freq: NEEDED Status: Discharge Protocol: Document 10/03/18 09:35 (Rec: 10/03/18 12:41 [email or web address]) Orientation Orientation/Cognition Level of Alertness Alert Orientation Name Birthday Language Function Ability Hard of Hearing Safety Awareness Decreased Safety Awareness Comments Pt [place]. Hears best on L side and if he is able to see your face. Response time is increased, but pt responds appropriately. Gross Range of Motion Lower Extremity ROM Assessment Right Impaired Impairments Not able to formally assess RLE due to pt c/o pain with all RLE motions. Strength Lower Extremity Strength Assessment Bilaterally Impaired Comments Strength Comments LLE is 4-/5 grossly. R hip 2- /5; R knee 3/5; R ankle 4/5 M6 PT-IP Treatment Start: 10/03/18 12:14 Freq: NEEDED Status: Discharge Protocol: Document 10/03/18 09:35 (Rec: 10/03/18 12:41 [id number]) Physical Therapy Treatment Exercises Exercises Ankle Pumps Quad Sets Education Education Provided Precautions Weight Bearing Status Safety M7 PT-IP Assessment and Plan Start: 10/03/18 12:14 Freq: NEEDED Status: Discharge Protocol: Document 10/07/18 14:00 GGD (Rec: 10/07/18 14:59 GGD [id number]) PT Summary Assessment and Plan Summary Assessment Summary Pt max A for transfers. He was able to assist with scooting in bed. He had less fear with mobility. He will benefit from SNF for improvement in functional mobility. Frequency of Treatment Frequency Of Treatment Twice a Day Treatment Plan Physical Therapy Treatment Plan Bed Mobility Training Transfer Training Gait Training Therapeutic Exercise Balance Retraining Post Op Education Neuromuscular Re-ed Recommendations To Nursing Amount of Assist Needed Mechanical Lift Discharge Recommendations PT Discharge Recommendations SNF Rehab
== END 2018-10-07 13:59 | DRG 481 ==
LOC: ED 14:59 → AC 15:02
PROVIDERS: Nurse Practitioner Gerontology; Orthopaedic Surgery; Admitting Provider Hospitalist; Emergency Provider Emergency Medicine; PCP Internal Medicine; Visit Provider Hospitalist
PROC: 0QS604Z Reposition Right Upper Femur with Internal Fixation Device, Open Approach (ICD-10-PCS; principal; 2018-10-02 15:30)
DX: S72.141A Displaced intertrochanteric fracture of right femur, initial encounter for closed fracture (principal); I13.0 Hypertensive heart and chronic kidney disease with heart failure and stage 1 through stage 4 chronic kidney disease, or unspecified chronic kidney disease; N18.4 Chronic kidney disease, stage 4 (severe); N17.9 Acute kidney failure, unspecified; I50.22 Chronic systolic (congestive) heart failure; D62 Acute posthemorrhagic anemia; I48.2 Chronic atrial fibrillation; I25.10 Atherosclerotic heart disease of native coronary artery without angina pectoris; G47.33 Obstructive sleep apnea (adult) (pediatric); E78.5 Hyperlipidemia, unspecified; F03.90 Unspecified dementia, unspecified severity, without behavioral disturbance, psychotic disturbance, mood disturbance, and anxiety; Z87.891 Personal history of nicotine dependence; E11.9 Type 2 diabetes mellitus without complications; W05.0XXA Fall from non-moving wheelchair, initial encounter; Z79.84 Long term (current) use of oral hypoglycemic drugs; I71.4 Abdominal aortic aneurysm, without rupture
CPT/HCPCS: 36415; 73502; 76000; 80053; 82550; 82962; 83735; 83880; 84100; 84484; 85025; 85610; 85730; 93005; 93010; 93306; 94760; 96374; 97163; 97165; 97530; 97535; 99282; 99284; J0690; J1650; J2270; J2405; J2704; J3010

== ENCOUNTER 2018-11-09 16:20 | Emergency (ER) | payer MEDICARE, BC, SELFPAY ==
[2018-10-02 18:36] VITALS: BMI 23.5
[2018-11-09 16:25] VITALS: BP 112/56; PULSE 75; RESP 16; TEMP 37; O2SAT 100
--- NOTE | 2018-11-09 16:38 | ED.MALEGU ---
HPI - Male Genitourinary <JUSTEN Duran - Last Filed: 11/09/18 22:03> General Chief complaint: Altered Mental Status Stated complaint: Increased Confusion Time Seen by Provider: 11/09/18 16:22 History of Present Illness HPI Narrative: 83 year old male with history of dementia, AFib and renal failure that is a former smoker sent over from care facility due to increased confusion over the last couple of days. He states that the last time he had symptoms like this he had a urinary tract infection. No fevers no chills. Positive p.o. intake. No nausea or vomiting. Patient does not complain of any discomfort. He is alert and awake the he is oriented to person and place not time. He does have some mild confusion. He denies any headache. No abdominal pain. No flank pain. He denies any chest pain or shortness of breath. Related Data Home Medications Medication Instructions Recorded Confirmed allopurinol 100 mg PO DAILY 05/15/18 11/09/18 sertraline 50 mg PO DAILY 05/15/18 11/09/18 tamsulosin 0.4 mg PO DAILY 05/15/18 11/09/18 atorvastatin 20 mg PO BEDTIME 09/19/18 11/09/18 cholecalciferol (vitamin D3) 1,000 unit PO DAILY 09/19/18 11/09/18 [Vitamin D3] aspirin 325 mg PO DAILY 10/02/18 11/09/18 Novolog U-100 Insulin aspart 1 dose SUBCUT ACHS 11/09/18 11/09/18 acetaminophen [Acetaminophen Extra 1,000 mg PO TID PRN 11/09/18 11/09/18 Strength] bisacodyl 5 - 10 mg PO PRN PRN 11/09/18 11/09/18 bisacodyl 10 mg CA PRN PRN 11/09/18 11/09/18 carvedilol 12.5 mg PO BID 11/09/18 11/09/18 docusate sodium 100 mg PO BID PRN 11/09/18 11/09/18 ferrous sulfate 325 mg PO DAILY 11/09/18 11/09/18 furosemide 20 mg PO DAILY 11/09/18 11/09/18 glipizide 5 mg PO DAILY 11/09/18 11/09/18 magnesium hydroxide [Milk of 30 ml PO PRN PRN 11/09/18 11/09/18 Magnesia] ondansetron 4 mg PO Q6H PRN 11/09/18 11/09/18 oxycodone 5 mg PO Q6H PRN 11/09/18 11/09/18 sodium phosphates [Fleet Enema] 1 supp CA PRN PRN 11/09/18 11/09/18 tramadol 50 mg PO Q6H PRN 11/09/18 11/09/18 Previous Rx's Medication Instructions Recorded polyethylene glycol 3350 17 gm PO DAILY #10 ea 10/05/18 sennosides [senna] 8.6 mg PO BEDTIME #30 tab 10/07/18 cephalexin 250 mg PO BID #10 tab 11/09/18 Allergies Allergy/AdvReac Type Severity Reaction Status Date / Time Sulfa (Sulfonamide Allergy Unknown Verified 10/02/18 12:51 Antibiotics) Review of Systems <JUSTEN Duran - Last Filed: 11/09/18 22:03> Constitutional Denies chills, Denies fatigue, Denies fever(s), Denies lethargy and Denies weakness Eyes Denies change in vision, Denies eye discharge, Denies irritation and Denies loss of vision ENT Ears, Nose, Mouth, and Throat: Denies change in voice, Denies neck pain, Denies sore throat and Denies throat swelling Respiratory Denies wheezing Musculoskeletal Denies neck pain Neurologic Reports confusion, Denies loss of vision and Denies weakness Psychiatric Reports confusion Endocrine Denies fatigue and Denies flushing Hematologic/Lymphatic Denies easy bruising Allergic/Immunologic Denies urticaria, Denies throat swelling and Denies wheezing Exam <JUSTEN Duran - Last Filed: 11/09/18 22:03> Initial Vital Signs Initial Vital Signs: Vital Signs Temperature 98.6 F 11/09/18 16:25 Pulse Rate 75 11/09/18 16:25 Respiratory Rate 16 11/09/18 16:25 Blood Pressure 112/56 L 11/09/18 16:25 Pulse Oximetry 100 11/09/18 16:25 Const General: healthy appearing, comfortable and No acute distress Orientation: alert, awake, not oriented x3, oriented to person, oriented to place and confused HENIA Mouth: oral mucosae normal and moist mucous membranes Eyes General: appearance normal, both eyes and all related structures Eyelids: eyelids normal Conjunctivae: conjunctivae normal Sclera: sclerae normal Pupils: fixed and pupil size (2mm) EOM: EOM intact bilaterally Resp Effort & Inspection: normal respiratory effort, able to speak in complete sentences, no respiratory distress and no use of accessory muscles Auscultation: clear to auscultation bilaterally, no rales, no rhonchi and no wheezes Cardio Rate: regular rate Rhythm: regular rhythm Heart Sounds: no click, no gallops, no murmurs and no rubs Pulses: normal peripheral pulses GI Inspection: non-distended Palpation: soft, no hepatosplenomegaly, No guarding, No pulsatile mass and No tender Auscultation: normal bowel sounds General: No CVA tenderness Skin General: no rashes or lesions noted, No jaundice and No petechiae Neuro General: alert, awake and no focal motor deficits Speech: speech normal Extrem General: full ROM, no clubbing, cyanosis or edema, no pedal edema and no calf tenderness <Cheryle Merlos DO - Last Filed: 11/10/18 01:43> Initial Vital Signs Initial Vital Signs: Vital Signs Temperature 98.6 F 11/09/18 16:25 Pulse Rate 75 11/09/18 16:25 Respiratory Rate 16 11/09/18 16:25 Blood Pressure 112/56 L 11/09/18 16:25 Pulse Oximetry 100 11/09/18 16:25 Course <JUSTEN Duran - Last Filed: 11/09/18 22:03> Orders Ordered: ED Orders 11/09/18 17:00 Urine Culture Stat Urine Microscopic Stat 11/09/18 17:40 Complete Blood Count AUTO DIFF Stat Comprehensive Metabolic Panel Stat Lactate (Lactic Acid) Stat Lipase Stat Procalcitonin Stat Troponin & CK Cardiac Panel Stat 11/09/18 17:58 Blood Culture Stat Discontinued Medications Ceftriaxone Sodium/Dextrose (Rocephin) 1 gm in 50 mls @ 100 mls/hr IV NOW ONE Stop: 11/09/18 18:57 Last Infusion: 11/09/18 20:50 Dose: 0 mls/hr Admin: 11/09/18 19:02 Dose: 100 mls/hr Sodium Polystyrene Sulfonate (Kayexalate) 15 gm PO NOW ONE Stop: 11/09/18 18:29 Last Admin: 11/09/18 19:32 Dose: 15 gm Vital Signs - 8 hr 11/09/18 19:00 11/09/18 20:12 Pulse Rate 86 85 Respiratory Rate 26 H 24 Blood Pressure [Left Arm] 124/74 118/72 Pulse Oximetry 100 99 <Cheryle Merlos DO - Last Filed: 11/10/18 01:43> Orders Ordered: ED Orders 11/09/18 17:00 Urine Culture Stat Urine Microscopic Stat 11/09/18 17:40 Complete Blood Count AUTO DIFF Stat Comprehensive Metabolic Panel Stat Lactate (Lactic Acid) Stat Lipase Stat Procalcitonin Stat Troponin & CK Cardiac Panel Stat 11/09/18 17:58 Blood Culture Stat Discontinued Medications Ceftriaxone Sodium/Dextrose (Rocephin) 1 gm in 50 mls @ 100 mls/hr IV NOW ONE Stop: 11/09/18 18:57 Last Infusion: 11/09/18 20:50 Dose: 0 mls/hr Admin: 11/09/18 19:02 Dose: 100 mls/hr Sodium Polystyrene Sulfonate (Kayexalate) 15 gm PO NOW ONE Stop: 11/09/18 18:29 Last Admin: 11/09/18 19:32 Dose: 15 gm Vital Signs - 8 hr 11/09/18 19:00 11/09/18 20:12 Pulse Rate 86 85 Respiratory Rate 26 H 24 Blood Pressure [Left Arm] 124/74 118/72 Pulse Oximetry 100 99 MDM - Male Genitourinary <JUSTEN Duran - Last Filed: 11/09/18 22:03> Lab Data Result diagrams: 11/09/18 17:40 11/09/18 17:40 Lab Results 11/09/18 11/09/18 11/09/18 Range/Units 17:00 17:40 17:40 WBC 6.8 (4.5-11.0) X10^3/uL RBC 3.27 L (4.5-5.9) X10^6/uL Hgb 9.0 L (13.5-17.5) g/dL Hct 28.1 L (41-53) % MCV 86.2 (80-100) fL MCH 27.7 (26-34) PG MCHC 32.2 (30-36) % RDW 18.8 H (11.6-14.8) % Plt Count 211 (150-400) X10^3/uL Neut % (Auto) 66.6 (50-75) % Lymph % (Auto) 24.6 L (25-40) % [place] % (Auto) 6.4 (3-14) % Eos % (Auto) 2.1 (2-4) % Baso % (Auto) 0.3 (0-2) % Neut # (Auto) 4500 (3118-1442) /uL Lymph # (Auto) 1700 (4346-5786) /uL [place] # (Auto) 400 (0-900) /uL Eos # (Auto) 100 (0-450) /uL Baso # (Auto) 0 (0-100) /uL Sodium 143 (137-145) mmol/L Potassium 5.7 H (3.4-5.1) mmol/L Chloride 110 H (98-107) mmol/L Carbon Dioxide 20 L (22-32) mmol/L BUN 49 H (9-20) mg/dL Creatinine 2.90 H (0.66-1.25) mg/dL Estimated GFR 20.9 L (>60) mL/min BUN/Creatinine Ratio 16.9 (6-22) Glucose 133 H (80-110) mg/dL Lactate (0.7-2.1) mmol/L Calcium 10.7 H (8.4-10.2) mg/dL Total Bilirubin 0.3 (0.2-1.3) mg/dL AST 17 (17-59) IU/L ALT 14 L (21-72) IU/L Alkaline Phosphatase 93 (38-126) U/L Total Creatine Kinase 34 L (55-170) U/L CK-MB (CK-2) TNP CK-MB (CK-2) Rel Index TNP Troponin I 0.038 H (0.01-0.034) ng/mL Total Protein 6.7 (6.3-8.2) g/dL Albumin 3.4 L (3.5-5.0) g/dL Globulin 3.3 (1.7-4.1) g/dL Albumin/Globulin Ratio 1.0 (1.0-2.8) Lipase 202 (23-300) U/L Procalcitonin (<0.5) ng/mL Urine RBC 1-5/hpf (0-5/HPF) Urine WBC >100/hpf H (0-5/HPF) Ur Squamous Epith Cells 0-1 /hpf Ur Renal Epithelial Cell 0-1/hpf Amorphous Sediment 1+ Urine Bacteria Many (>30) H (None) Ur Culture Indicated? Specimen cultured 11/09/18 11/09/18 Range/Units 17:40 17:40 WBC (4.5-11.0) X10^3/uL RBC (4.5-5.9) X10^6/uL Hgb (13.5-17.5) g/dL Hct (41-53) % MCV (80-100) fL MCH (26-34) PG MCHC (30-36) % RDW (11.6-14.8) % Plt Count (150-400) X10^3/uL Neut % (Auto) (50-75) % Lymph % (Auto) (25-40) % [place] % (Auto) (3-14) % Eos % (Auto) (2-4) % Baso % (Auto) (0-2) % Neut # (Auto) (2662-4319) /uL Lymph # (Auto) (6512-8496) /uL [place] # (Auto) (0-900) /uL Eos # (Auto) (0-450) /uL Baso # (Auto) (0-100) /uL Sodium (137-145) mmol/L Potassium (3.4-5.1) mmol/L Chloride (98-107) mmol/L Carbon Dioxide (22-32) mmol/L BUN (9-20) mg/dL Creatinine (0.66-1.25) mg/dL Estimated GFR (>60) mL/min BUN/Creatinine Ratio (6-22) Glucose (80-110) mg/dL Lactate 1.4 (0.7-2.1) mmol/L Calcium (8.4-10.2) mg/dL Total Bilirubin (0.2-1.3) mg/dL AST (17-59) IU/L ALT (21-72) IU/L Alkaline Phosphatase (38-126) U/L Total Creatine Kinase (55-170) U/L CK-MB (CK-2) CK-MB (CK-2) Rel Index Troponin I (0.01-0.034) ng/mL Total Protein (6.3-8.2) g/dL Albumin (3.5-5.0) g/dL Globulin (1.7-4.1) g/dL Albumin/Globulin Ratio (1.0-2.8) Lipase (23-300) U/L Procalcitonin 0.08 (<0.5) ng/mL Urine RBC (0-5/HPF) Urine WBC (0-5/HPF) Ur Squamous Epith Cells Ur Renal Epithelial Cell Amorphous Sediment Urine Bacteria (None) Ur Culture Indicated? Urine Dip Bedside Urine Glucose Negative Bedside Urine Bilirubin - Negative Bedside Urine Ketone - Negative Urine Specific [place] 1.025 Bedside Urine Occult Blood +/- Bedside Urine pH 6.0 Bedside Urine Protein + 30 Bedside Urine Urobilinogen - Negative Bedside Urine Nitrite - Negative Bedside Urine Leukocytes +++ [address] scan - head: Radiologist's impression: [address] [address] [address] Scan Report Signed Patient: Farhat López MR#: [id number] : 1935 Acct:[id number] Age/Sex: 83 / M Date of Service: 11/09/18 Loc: ED Accession Number: [id number] Procedure: CT head/brain wo con Ordering Provider: Desmond Oropeza PROCEDURE: CT HEAD/BRAIN WO CON INDICATIONS: Increased confusion TECHNIQUE: Noncontrast 4.5 mm thick angled axial sections acquired from the foramen magnum to the vertex, with coronal and sagittal reformats. For radiation dose reduction, the following was used: automated exposure control, adjustment of mA and/or kV according to patient size. COMPARISON: [facility], , STROKE PROTOCOL A, 04/04/2010, 15:54. [facility], CT, HEAD WITHOUT CONTRAST, 03/04/2017, 10:53. [facility], CT, HEAD WITHOUT CONTRAST, 04/04/2010, 10:38. [facility], CT, CT HEAD/BRAIN WO CON, 05/15/2018, 5:57. FINDINGS: Image quality: Excellent. CSF spaces: Basal cisterns are patent. No extra-axial fluid collections. The ventricles are symmetric in size and shape. Brain: No intracranial bleeds or masses. The previously seen parafalcine hemorrhage has resolved. There is cerebral volume loss for age, with resultant ventricular and sulcal prominence. 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 A remote left occipital lobe infarction is also seen. There are periventricular and deep white matter chronic small vessel ischemic changes. There is intracranial internal carotid artery atherosclerosis. Skull and face: Calvarium and visualized facial bones appear intact, without suspicious lesions. Sinuses: Mild mucosal thickening is seen within the paranasal sinuses. IMPRESSION: Negative for hemorrhage. The previously seen hemorrhage has resolved. Stable remote bilateral infarctions. No acute intracranial process is seen. Note is made of age-appropriate brain parenchymal volume loss and chronic small vessel ischemic changes. Dictated by: Shailesh Giron M.D. on 11/09/2018 at 16:17 Approved by: Shailesh Giron M.D. on 11/09/2018 at 16:21 Chest x-ray: Radiologist's impression: [address] [address] XRay Report Signed Patient: Farhat López MR#: [id number] : 1935 Acct:[id number] Age/Sex: 83 / M Date of Service: 11/09/18 Loc: ED Accession Number: [id number] Procedure: XR chest 1V Ordering Provider: Desmond Oropeza PROCEDURE: XR CHEST 1V INDICATIONS: Increased confusion TECHNIQUE: One view of the chest was acquired. COMPARISON: [facility], CR, XR CHEST 1V, 09/20/2018, 5:49. [facility], CT, CT HEAD/BRAIN WO CON, 11/09/2018, 16:53. [facility], CR, XR CHEST 1V, 09/19/2018, 4:39. [facility], CR, CHEST 1 VIEW, 03/26/2017, 13:46. [facility] CR, CHEST 1 VIEW, 03/04/2017, 12:34. FINDINGS: Surgical changes and devices: Post CABG changes are seen. An AICD is seen. Lungs and pleura: An incomplete inspiratory result is noted, causing a crowded appearance to the lung markings. No focal infiltrates are seen. No pneumothorax or significant pleural effusions are seen. Mediastinum: The cardiac contours are within normal limits. The aorta demonstrates calcification and tortuosity. Bones and chest wall: Age-appropriate bony degenerative changes are seen. No suspicious bony lesions. Overlying soft tissues appear unremarkable. IMPRESSION: Limited portable chest examination, without a significant cardiopulmonary abnormality identified. As clinically appropriate, a short-term followup chest series (with PA and lateral views) performed in deep inspiration is suggested for further evaluation. Postoperative and degenerative changes are seen. Dictated by: Shailesh Giron M.D. on 11/09/2018 at 16:21 Approved by: Shailesh Giron M.D. on 11/09/2018 at 16:22 ECG Data Interpretation: EKG shows AFib no ST elevation does show ST depression to leads V4 and V5 consistent with prior EKGs not new findings. No ectopy. Ventricular rate of 76. QTC of 515. QRS of 171 MDM Narrative Medical decision making narrative: CT the head was obtained and was negative for any acute findings. Chest x-ray was also obtained was also negative for any acute findings. CBC shows anemia however is consistent with his prior lab values. No elevated white count. CMP shows a potassium at 5.7. He was given Kayexalate in the emergency room p.o.. Will have have repeat potassium done in the morning and re-evaluation. Creatinine was at 2.9 and his GFR was 20.9. Consistent with prior lab values. Troponin was obtained and was 0.038 also consistent with his prior lab values. He is not complaining any chest pain or shortness of breath at this time. EKG shows AFib with ST depression seen to V4 and V5 this is not a new finding. EKG is consistent with prior EKGs. Urinalysis indicates urinary tract infection. He was given Rocephin IV in the emergency room. He is placed on cephalexin p.o. at dosing based on GFR for 20.9. Follow up with primary care provider tomorrow for re-evaluation. For any worsening symptoms return emergency room. <Cheryle Merlos, DO - Last Filed: 11/10/18 01:43> Lab Data Lab Results 11/09/18 11/09/18 11/09/18 Range/Units 17:00 17:40 17:40 WBC 6.8 (4.5-11.0) X10^3/uL RBC 3.27 L (4.5-5.9) X10^6/uL Hgb 9.0 L (13.5-17.5) g/dL Hct 28.1 L (41-53) % MCV 86.2 (80-100) fL MCH 27.7 (26-34) PG MCHC 32.2 (30-36) % RDW 18.8 H (11.6-14.8) % Plt Count 211 (150-400) X10^3/uL Neut % (Auto) 66.6 (50-75) % Lymph % (Auto) 24.6 L (25-40) % [place] % (Auto) 6.4 (3-14) % Eos % (Auto) 2.1 (2-4) % Baso % (Auto) 0.3 (0-2) % Neut # (Auto) 4500 (9620-7774) /uL Lymph # (Auto) 1700 (3421-6931) /uL [place] # (Auto) 400 (0-900) /uL Eos # (Auto) 100 (0-450) /uL Baso # (Auto) 0 (0-100) /uL Sodium 143 (137-145) mmol/L Potassium 5.7 H (3.4-5.1) mmol/L Chloride 110 H (98-107) mmol/L Carbon Dioxide 20 L (22-32) mmol/L BUN 49 H (9-20) mg/dL Creatinine 2.90 H (0.66-1.25) mg/dL Estimated GFR 20.9 L (>60) mL/min BUN/Creatinine Ratio 16.9 (6-22) Glucose 133 H (80-110) mg/dL Lactate (0.7-2.1) mmol/L Calcium 10.7 H (8.4-10.2) mg/dL Total Bilirubin 0.3 (0.2-1.3) mg/dL AST 17 (17-59) IU/L ALT 14 L (21-72) IU/L Alkaline Phosphatase 93 (38-126) U/L Total Creatine Kinase 34 L (55-170) U/L CK-MB (CK-2) TNP CK-MB (CK-2) Rel Index TNP Troponin I 0.038 H (0.01-0.034) ng/mL Total Protein 6.7 (6.3-8.2) g/dL Albumin 3.4 L (3.5-5.0) g/dL Globulin 3.3 (1.7-4.1) g/dL Albumin/Globulin Ratio 1.0 (1.0-2.8) Lipase 202 (23-300) U/L Procalcitonin (<0.5) ng/mL Urine RBC 1-5/hpf (0-5/HPF) Urine WBC >100/hpf H (0-5/HPF) Ur Squamous Epith Cells 0-1 /hpf Ur Renal Epithelial Cell 0-1/hpf Amorphous Sediment 1+ Urine Bacteria Many (>30) H (None) Ur Culture Indicated? Specimen cultured 11/09/18 11/09/18 Range/Units 17:40 17:40 WBC (4.5-11.0) X10^3/uL RBC (4.5-5.9) X10^6/uL Hgb (13.5-17.5) g/dL Hct (41-53) % MCV (80-100) fL MCH (26-34) PG MCHC (30-36) % RDW (11.6-14.8) % Plt Count (150-400) X10^3/uL Neut % (Auto) (50-75) % Lymph % (Auto) (25-40) % [place] % (Auto) (3-14) % Eos % (Auto) (2-4) % Baso % (Auto) (0-2) % Neut # (Auto) (1248-4050) /uL Lymph # (Auto) (5575-8613) /uL [place] # (Auto) (0-900) /uL Eos # (Auto) (0-450) /uL Baso # (Auto) (0-100) /uL Sodium (137-145) mmol/L Potassium (3.4-5.1) mmol/L Chloride (98-107) mmol/L Carbon Dioxide (22-32) mmol/L BUN (9-20) mg/dL Creatinine (0.66-1.25) mg/dL Estimated GFR (>60) mL/min BUN/Creatinine Ratio (6-22) Glucose (80-110) mg/dL Lactate 1.4 (0.7-2.1) mmol/L Calcium (8.4-10.2) mg/dL Total Bilirubin (0.2-1.3) mg/dL AST (17-59) IU/L ALT (21-72) IU/L Alkaline Phosphatase (38-126) U/L Total Creatine Kinase (55-170) U/L CK-MB (CK-2) CK-MB (CK-2) Rel Index Troponin I (0.01-0.034) ng/mL Total Protein (6.3-8.2) g/dL Albumin (3.5-5.0) g/dL Globulin (1.7-4.1) g/dL Albumin/Globulin Ratio (1.0-2.8) Lipase (23-300) U/L Procalcitonin 0.08 (<0.5) ng/mL Urine RBC (0-5/HPF) Urine WBC (0-5/HPF) Ur Squamous Epith Cells Ur Renal Epithelial Cell Amorphous Sediment Urine Bacteria (None) Ur Culture Indicated? Urine Dip Bedside Urine Glucose Negative Bedside Urine Bilirubin - Negative Bedside Urine Ketone - Negative Urine Specific [place] 1.025 Bedside Urine Occult Blood +/- Bedside Urine pH 6.0 Bedside Urine Protein + 30 Bedside Urine Urobilinogen - Negative Bedside Urine Nitrite - Negative Bedside Urine Leukocytes +++ 500 Esterase Discharge Plan Departure Patient Disposition: Home Clinical Impression: Urinary tract infection, Acute hyperkalemia Discharge Date/Time: 11/09/18 20:54 Interventions: ED Discharge Assessment Last Done: 11/09/18 20:52 Instructions: Urinary Tract Infection Activity Restrictions/Additional Instructions: Urinalysis indicates urinary tract infection. Laboratory results show elevated potassium. Kayexalate was given in the emergency room to help lower the potassium levels. Recheck a potassium level tomorrow. Follow up with primary care provider for re-evaluation. Antibiotics were prescribed for urinary tract infection use as directed. Use currently prescribed medications as needed for discomfort. For any worsening symptoms return to the emergency room. Prescriptions: New cephalexin 250 mg tablet 250 mg PO BID Qty: 10 RF: 0 No Action allopurinol 100 mg Tablet 100 mg PO DAILY RF: 0 tamsulosin 0.4 mg capsule,extended release 24hr 0.4 mg PO DAILY RF: 0 sertraline 50 mg Tablet 50 mg PO DAILY RF: 0 atorvastatin 20 mg Tablet 20 mg PO BEDTIME RF: 0 cholecalciferol (vitamin D3) [Vitamin D3] 1,000 unit Capsule 1,000 unit PO DAILY RF: 0 aspirin 325 mg Tablet,Delayed Release (Dr/Ec) 325 mg PO DAILY RF: 0 polyethylene glycol 3350 17 gram Powder In Packet 17 gm PO DAILY Qty: 10 RF: 0 sennosides [senna] 8.6 mg Tablet 8.6 mg PO BEDTIME Qty: 30 RF: 0 carvedilol 12.5 mg Tablet 12.5 mg PO BID RF: 0 acetaminophen [Acetaminophen Extra Strength] 500 mg Tablet 1,000 mg PO TID PRN (Reason: pain related to fracture) RF: 0 magnesium hydroxide [Milk of Magnesia] 400 mg/5 mL Suspension 30 ml PO PRN PRN (Reason: Constipation) RF: 0 bisacodyl 10 mg Suppository 10 mg CA PRN PRN (Reason: Constipation) RF: 0 ferrous sulfate 325 mg (65 mg iron) Tablet 325 mg PO DAILY RF: 0 sodium phosphates [Fleet Enema] 19-7 gram/118 mL Enema 1 supp CA PRN PRN (Reason: Constipation) RF: 0 docusate sodium 100 mg Capsule 100 mg PO BID PRN (Reason: Constipation) RF: 0 furosemide 20 mg tablet 20 mg PO DAILY RF: 0 ondansetron 4 mg Tablet,Disintegrating 4 mg PO Q6H PRN (Reason: Nausea) RF: 0 glipizide 5 mg Tablet 5 mg PO DAILY RF: 0 bisacodyl 5 mg Tablet 5 - 10 mg PO PRN PRN (Reason: mild to severe constipation) RF: 0 Novolog U-100 Insulin aspart 1 dose subcut ACHS RF: 0 tramadol 50 mg tablet 50 mg PO Q6H PRN (Reason: pain) RF: 0 oxycodone 5 mg tablet 5 mg PO Q6H PRN (Reason: pain) RF: 0 Referrals: Kelton Morgan MD [Primary Care Provider] - <Cheryle Merlos DO - Last Filed: 11/10/18 01:43> Cosign ED Attending Cosrobynature Attestation: I was immediately available in the department for consultation. Documentation has been reviewed. I agree with assessment and plan.
--- NOTE | 2018-11-09 16:41 | DI.CT.S_ITS ---
PROCEDURE: CT HEAD/BRAIN WO CON INDICATIONS: Increased confusion TECHNIQUE: Noncontrast 4.5 mm thick angled axial sections acquired from the foramen magnum to the vertex, with coronal and sagittal reformats. For radiation dose reduction, the following was used: automated exposure control, adjustment of mA and/or kV according to patient size. COMPARISON: [facility], MR, STROKE PROTOCOL A, 04/04/2010, 15:54. [facility], CT, HEAD WITHOUT CONTRAST, 03/04/2017, 10:53. [facility], CT, HEAD WITHOUT CONTRAST, 04/04/2010, 10:38. [facility], CT, CT HEAD/BRAIN WO CON, 05/15/2018, 5:57. FINDINGS: Image quality: Excellent. CSF spaces: Basal cisterns are patent. No extra-axial fluid collections. The ventricles are symmetric in size and shape. Brain: No intracranial bleeds or masses. The previously seen parafalcine hemorrhage has resolved. There is cerebral volume loss for age, with resultant ventricular and sulcal prominence. 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 A remote left occipital lobe infarction is also seen. There are periventricular and deep white matter chronic small vessel ischemic changes. There is intracranial internal carotid artery atherosclerosis. Skull and face: Calvarium and visualized facial bones appear intact, without suspicious lesions. Sinuses: Mild mucosal thickening is seen within the paranasal sinuses. IMPRESSION: Negative for hemorrhage. The previously seen hemorrhage has resolved. Stable remote bilateral infarctions. No acute intracranial process is seen. Note is made of age-appropriate brain parenchymal volume loss and chronic small vessel ischemic changes. Dictated by: Shailesh Giron M.D. on 11/09/2018 at 16:17 Approved by: Shailesh Giron M.D. on 11/09/2018 at 16:21
[2018-11-09 17:16] LABS: RBC Urine 1-5/HPF (0-5/HPF); Renal Epithelial Cells Urine 0-1/HPF; Squamous Epithelial Cell Urine 0-1 /HPF; WBC Urine >100/HPF (0-5/HPF)
[2018-11-09 17:17] LABS: Amorphous Sediment Urine 1+; Bacteria Urine Many (>30); Culture Indicated Urine Specimen Cultured
[2018-11-09 17:40] VITALS: BP 127/58; PULSE 74; RESP 24; O2SAT 100
[2018-11-09 17:47] LABS: Add Manual Diff / Slide Review NO; Basophils Absolute Auto 0 /uL (0-100); Basophils Percent Auto 0.3 % (0-2); Eosinophils Absolute Auto 100 /uL (0-450); Eosinophils Percent Auto 2.1 % (2-4); Hematocrit 28.1 % (41-53); Lymphocytes Absolute Auto 1700 /uL (1100-4500); Lymphocytes Percent Auto 24.6 % (25-40); Mean Corpuscular HGB Conc 32.2 % (30-36); Mean Corpuscular Hemoglobin 27.7 PG (26-34); Mean Corpuscular Volume 86.2 fL (80-100); Monocytes Absolute Auto 400 /uL (0-900); Monocytes Percent Auto 6.4 % (3-14); Neutrophils Absolute Auto 4500 /uL (1500-7000); Neutrophils Percent Auto 66.6 % (50-75); Platelet Count 211 X10^3/uL (150-400); Red Blood Cell Count 3.27 X10^6/uL (4.5-5.9); Red Cell Distribution Width 18.8 % (11.6-14.8); White Blood Cell Count 6.8 X10^3/uL (4.5-11.0)
[2018-11-09 18:08] LABS: Alanine Aminotransferase 14 IU/L (21-72); Albumin 3.4 g/dL (3.5-5.0); Alkaline Phosphatase 93 U/L (38-126); Aspartate Aminotransferase 17 IU/L (17-59); BUN Creatinine Ratio 16.9 (6-22); Bilirubin Total 0.3 mg/dL (0.2-1.3); Blood Urea Nitrogen 49 mg/dL (9-20); Calcium 10.7 mg/dL (8.4-10.2); Carbon Dioxide 20 mmol/L (22-32); Chloride 110 mmol/L (98-107); Creatine Kinase 34 U/L (55-170); Estimated Glomerular Filt Rate 20.9 mL/min (>60); Globulin 3.3 g/dL (1.7-4.1); Glucose 133 mg/dL (80-110); HEMOLYSIS < 15 (0-50); Lactate (Lactic Acid) 1.4 mmol/L (0.7-2.1); Lipase 202 U/L (23-300); Sodium 143 mmol/L (137-145); Total Protein 6.7 g/dL (6.3-8.2)
[2018-11-09 18:09] LABS: Potassium 5.7 mmol/L (3.4-5.1)
[2018-11-09 18:19] LABS: Troponin I 0.038 ng/mL (0.01-0.034)
[2018-11-09 18:23] LABS: Procalcitonin 0.08 ng/mL (<0.5)
[2018-11-09 19:00] VITALS: BP 124/74; PULSE 86; RESP 26; O2SAT 100
[2018-11-09] MEDS: CEFTRIAXONE 1 GM/50 ML FROZ.PIGGY IV (19:02)
--- NOTE | 2018-11-09 19:07 | ED_ITS ---
HPI - Male Genitourinary <JUSTEN Duran - Last Filed: 11/09/18 22:03> General Chief complaint: Altered Mental Status Stated complaint: Increased Confusion Time Seen by Provider: 11/09/18 16:22 History of Present Illness HPI Narrative: 83 year old male with history of dementia, AFib and renal failure that is a former smoker sent over from care facility due to increased confusion over the last couple of days. He states that the last time he had symptoms like this he had a urinary tract infection. No fevers no chills. Positive p.o. intake. No nausea or vomiting. Patient does not complain of any discomfort. He is alert and awake the he is oriented to person and place not time. He does have some mild confusion. He denies any headache. No abdominal pain. No flank pain. He denies any chest pain or shortness of breath. Related Data Home Medications Medication Instructions Recorded Confirmed allopurinol 100 mg PO DAILY 05/15/18 11/09/18 sertraline 50 mg PO DAILY 05/15/18 11/09/18 tamsulosin 0.4 mg PO DAILY 05/15/18 11/09/18 atorvastatin 20 mg PO BEDTIME 09/19/18 11/09/18 cholecalciferol (vitamin D3) 1,000 unit PO DAILY 09/19/18 11/09/18 [Vitamin D3] aspirin 325 mg PO DAILY 10/02/18 11/09/18 Novolog U-100 Insulin aspart 1 dose SUBCUT ACHS 11/09/18 11/09/18 acetaminophen [Acetaminophen Extra 1,000 mg PO TID PRN 11/09/18 11/09/18 Strength] bisacodyl 5 - 10 mg PO PRN PRN 11/09/18 11/09/18 bisacodyl 10 mg CO PRN PRN 11/09/18 11/09/18 carvedilol 12.5 mg PO BID 11/09/18 11/09/18 docusate sodium 100 mg PO BID PRN 11/09/18 11/09/18 ferrous sulfate 325 mg PO DAILY 11/09/18 11/09/18 furosemide 20 mg PO DAILY 11/09/18 11/09/18 glipizide 5 mg PO DAILY 11/09/18 11/09/18 magnesium hydroxide [Milk of 30 ml PO PRN PRN 11/09/18 11/09/18 Magnesia] ondansetron 4 mg PO Q6H PRN 11/09/18 11/09/18 oxycodone 5 mg PO Q6H PRN 11/09/18 11/09/18 sodium phosphates [Fleet Enema] 1 supp CO PRN PRN 11/09/18 11/09/18 tramadol 50 mg PO Q6H PRN 11/09/18 11/09/18 Previous Rx's Medication Instructions Recorded polyethylene glycol 3350 17 gm PO DAILY #10 ea 10/05/18 sennosides [senna] 8.6 mg PO BEDTIME #30 tab 10/07/18 cephalexin 250 mg PO BID #10 tab 11/09/18 Allergies Allergy/AdvReac Type Severity Reaction Status Date / Time Sulfa (Sulfonamide Allergy Unknown Verified 10/02/18 12:51 Antibiotics) Review of Systems <JUSTEN Duran - Last Filed: 11/09/18 22:03> Constitutional Denies chills, Denies fatigue, Denies fever(s), Denies lethargy and Denies weakness Eyes Denies change in vision, Denies eye discharge, Denies irritation and Denies loss of vision ENT Ears, Nose, Mouth, and Throat: Denies change in voice, Denies neck pain, Denies sore throat and Denies throat swelling Respiratory Denies wheezing Musculoskeletal Denies neck pain Neurologic Reports confusion, Denies loss of vision and Denies weakness Psychiatric Reports confusion Endocrine Denies fatigue and Denies flushing Hematologic/Lymphatic Denies easy bruising Allergic/Immunologic Denies urticaria, Denies throat swelling and Denies wheezing Exam <JUSTEN Duran - Last Filed: 11/09/18 22:03> Initial Vital Signs Initial Vital Signs: Vital Signs Temperature 98.6 F 11/09/18 16:25 Pulse Rate 75 11/09/18 16:25 Respiratory Rate 16 11/09/18 16:25 Blood Pressure 112/56 L 11/09/18 16:25 Pulse Oximetry 100 11/09/18 16:25 Const General: healthy appearing, comfortable and No acute distress Orientation: alert, awake, not oriented x3, oriented to person, oriented to place and confused HENHI Mouth: oral mucosae normal and moist mucous membranes Eyes General: appearance normal, both eyes and all related structures Eyelids: eyelids normal Conjunctivae: conjunctivae normal Sclera: sclerae normal Pupils: fixed and pupil size (2mm) EOM: EOM intact bilaterally Resp Effort & Inspection: normal respiratory effort, able to speak in complete sentences, no respiratory distress and no use of accessory muscles Auscultation: clear to auscultation bilaterally, no rales, no rhonchi and no wheezes Cardio Rate: regular rate Rhythm: regular rhythm Heart Sounds: no click, no gallops, no murmurs and no rubs Pulses: normal peripheral pulses GI Inspection: non-distended Palpation: soft, no hepatosplenomegaly, No guarding, No pulsatile mass and No tender Auscultation: normal bowel sounds General: No CVA tenderness Skin General: no rashes or lesions noted, No jaundice and No petechiae Neuro General: alert, awake and no focal motor deficits Speech: speech normal Extrem General: full ROM, no clubbing, cyanosis or edema, no pedal edema and no calf tenderness <Cheryle Merlos DO - Last Filed: 11/10/18 01:43> Initial Vital Signs Initial Vital Signs: Vital Signs Temperature 98.6 F 11/09/18 16:25 Pulse Rate 75 11/09/18 16:25 Respiratory Rate 16 11/09/18 16:25 Blood Pressure 112/56 L 11/09/18 16:25 Pulse Oximetry 100 11/09/18 16:25 Course <JUSTEN Duran - Last Filed: 11/09/18 22:03> Orders Ordered: ED Orders 11/09/18 17:00 Urine Culture Stat Urine Microscopic Stat 11/09/18 17:40 Complete Blood Count AUTO DIFF Stat Comprehensive Metabolic Panel Stat Lactate (Lactic Acid) Stat Lipase Stat Procalcitonin Stat Troponin & CK Cardiac Panel Stat 11/09/18 17:58 Blood Culture Stat Discontinued Medications Ceftriaxone Sodium/Dextrose (Rocephin) 1 gm in 50 mls @ 100 mls/hr IV NOW ONE Stop: 11/09/18 18:57 Last Infusion: 11/09/18 20:50 Dose: 0 mls/hr Admin: 11/09/18 19:02 Dose: 100 mls/hr Sodium Polystyrene Sulfonate (Kayexalate) 15 gm PO NOW ONE Stop: 11/09/18 18:29 Last Admin: 11/09/18 19:32 Dose: 15 gm Vital Signs - 8 hr 11/09/18 19:00 11/09/18 20:12 Pulse Rate 86 85 Respiratory Rate 26 H 24 Blood Pressure [Left Arm] 124/74 118/72 Pulse Oximetry 100 99 <Cheryle Merlos DO - Last Filed: 11/10/18 01:43> Orders Ordered: ED Orders 11/09/18 17:00 Urine Culture Stat Urine Microscopic Stat 11/09/18 17:40 Complete Blood Count AUTO DIFF Stat Comprehensive Metabolic Panel Stat Lactate (Lactic Acid) Stat Lipase Stat Procalcitonin Stat Troponin & CK Cardiac Panel Stat 11/09/18 17:58 Blood Culture Stat Discontinued Medications Ceftriaxone Sodium/Dextrose (Rocephin) 1 gm in 50 mls @ 100 mls/hr IV NOW ONE Stop: 11/09/18 18:57 Last Infusion: 11/09/18 20:50 Dose: 0 mls/hr Admin: 11/09/18 19:02 Dose: 100 mls/hr Sodium Polystyrene Sulfonate (Kayexalate) 15 gm PO NOW ONE Stop: 11/09/18 18:29 Last Admin: 11/09/18 19:32 Dose: 15 gm Vital Signs - 8 hr 11/09/18 19:00 11/09/18 20:12 Pulse Rate 86 85 Respiratory Rate 26 H 24 Blood Pressure [Left Arm] 124/74 118/72 Pulse Oximetry 100 99 MDM - Male Genitourinary <JUSTEN Duran - Last Filed: 11/09/18 22:03> Lab Data Result diagrams: 11/09/18 17:40 11/09/18 17:40 Lab Results 11/09/18 11/09/18 11/09/18 Range/Units 17:00 17:40 17:40 WBC 6.8 (4.5-11.0) X10^3/uL RBC 3.27 L (4.5-5.9) X10^6/uL Hgb 9.0 L (13.5-17.5) g/dL Hct 28.1 L (41-53) % MCV 86.2 (80-100) fL MCH 27.7 (26-34) PG MCHC 32.2 (30-36) % RDW 18.8 H (11.6-14.8) % Plt Count 211 (150-400) X10^3/uL Neut % (Auto) 66.6 (50-75) % Lymph % (Auto) 24.6 L (25-40) % Benzie % (Auto) 6.4 (3-14) % Eos % (Auto) 2.1 (2-4) % Baso % (Auto) 0.3 (0-2) % Neut # (Auto) 4500 (5899-9176) /uL Lymph # (Auto) 1700 (6213-9708) /uL Benzie # (Auto) 400 (0-900) /uL Eos # (Auto) 100 (0-450) /uL Baso # (Auto) 0 (0-100) /uL Sodium 143 (137-145) mmol/L Potassium 5.7 H (3.4-5.1) mmol/L Chloride 110 H (98-107) mmol/L Carbon Dioxide 20 L (22-32) mmol/L BUN 49 H (9-20) mg/dL Creatinine 2.90 H (0.66-1.25) mg/dL Estimated GFR 20.9 L (>60) mL/min BUN/Creatinine Ratio 16.9 (6-22) Glucose 133 H (80-110) mg/dL Lactate (0.7-2.1) mmol/L Calcium 10.7 H (8.4-10.2) mg/dL Total Bilirubin 0.3 (0.2-1.3) mg/dL AST 17 (17-59) IU/L ALT 14 L (21-72) IU/L Alkaline Phosphatase 93 (38-126) U/L Total Creatine Kinase 34 L (55-170) U/L CK-MB (CK-2) TNP CK-MB (CK-2) Rel Index TNP Troponin I 0.038 H (0.01-0.034) ng/mL Total Protein 6.7 (6.3-8.2) g/dL Albumin 3.4 L (3.5-5.0) g/dL Globulin 3.3 (1.7-4.1) g/dL Albumin/Globulin Ratio 1.0 (1.0-2.8) Lipase 202 (23-300) U/L Procalcitonin (<0.5) ng/mL Urine RBC 1-5/hpf (0-5/HPF) Urine WBC >100/hpf H (0-5/HPF) Ur Squamous Epith Cells 0-1 /hpf Ur Renal Epithelial Cell 0-1/hpf Amorphous Sediment 1+ Urine Bacteria Many (>30) H (None) Ur Culture Indicated? Specimen cultured 11/09/18 11/09/18 Range/Units 17:40 17:40 WBC (4.5-11.0) X10^3/uL RBC (4.5-5.9) X10^6/uL Hgb (13.5-17.5) g/dL Hct (41-53) % MCV (80-100) fL MCH (26-34) PG MCHC (30-36) % RDW (11.6-14.8) % Plt Count (150-400) X10^3/uL Neut % (Auto) (50-75) % Lymph % (Auto) (25-40) % Benzie % (Auto) (3-14) % Eos % (Auto) (2-4) % Baso % (Auto) (0-2) % Neut # (Auto) (9067-5609) /uL Lymph # (Auto) (0967-9896) /uL Benzie # (Auto) (0-900) /uL Eos # (Auto) (0-450) /uL Baso # (Auto) (0-100) /uL Sodium (137-145) mmol/L Potassium (3.4-5.1) mmol/L Chloride (98-107) mmol/L Carbon Dioxide (22-32) mmol/L BUN (9-20) mg/dL Creatinine (0.66-1.25) mg/dL Estimated GFR (>60) mL/min BUN/Creatinine Ratio (6-22) Glucose (80-110) mg/dL Lactate 1.4 (0.7-2.1) mmol/L Calcium (8.4-10.2) mg/dL Total Bilirubin (0.2-1.3) mg/dL AST (17-59) IU/L ALT (21-72) IU/L Alkaline Phosphatase (38-126) U/L Total Creatine Kinase (55-170) U/L CK-MB (CK-2) CK-MB (CK-2) Rel Index Troponin I (0.01-0.034) ng/mL Total Protein (6.3-8.2) g/dL Albumin (3.5-5.0) g/dL Globulin (1.7-4.1) g/dL Albumin/Globulin Ratio (1.0-2.8) Lipase (23-300) U/L Procalcitonin 0.08 (<0.5) ng/mL Urine RBC (0-5/HPF) Urine WBC (0-5/HPF) Ur Squamous Epith Cells Ur Renal Epithelial Cell Amorphous Sediment Urine Bacteria (None) Ur Culture Indicated? Urine Dip Bedside Urine Glucose Negative Bedside Urine Bilirubin - Negative Bedside Urine Ketone - Negative Urine Specific [place] 1.025 Bedside Urine Occult Blood +/- Bedside Urine pH 6.0 Bedside Urine Protein + 30 Bedside Urine Urobilinogen - Negative Bedside Urine Nitrite - Negative Bedside Urine Leukocytes +++ [address] scan - head: Radiologist's impression: [address] [address] [address] Scan Report Signed Patient: Farhat López MR#: [id number] : 1935 Acct:[id number] Age/Sex: 83 / M Date of Service: 11/09/18 Loc: ED Accession Number: [id number] Procedure: CT head/brain wo con Ordering Provider: Desmond Oropeza PROCEDURE: CT HEAD/BRAIN WO CON INDICATIONS: Increased confusion TECHNIQUE: Noncontrast 4.5 mm thick angled axial sections acquired from the foramen magnum to the vertex, with coronal and sagittal reformats. For radiation dose reduction, the following was used: automated exposure control, adjustment of mA and/or kV according to patient size. COMPARISON: [facility], , STROKE PROTOCOL A, 04/04/2010, 15:54. [facility], CT, HEAD WITHOUT CONTRAST, 03/04/2017, 10:53. [facility], CT, HEAD WITHOUT CONTRAST, 04/04/2010, 10:38. [facility], CT, CT HEAD/BRAIN WO CON, 05/15/2018, 5:57. FINDINGS: Image quality: Excellent. CSF spaces: Basal cisterns are patent. No extra-axial fluid collections. The ventricles are symmetric in size and shape. Brain: No intracranial bleeds or masses. The previously seen parafalcine hemorrhage has resolved. There is cerebral volume loss for age, with resultant ventricular and sulcal prominence. 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 A remote left occipital lobe infarction is also seen. There are periventricular and deep white matter chronic small vessel ischemic changes. There is intracranial internal carotid artery atherosclerosis. Skull and face: Calvarium and visualized facial bones appear intact, without suspicious lesions. Sinuses: Mild mucosal thickening is seen within the paranasal sinuses. IMPRESSION: Negative for hemorrhage. The previously seen hemorrhage has resolved. Stable remote bilateral infarctions. No acute intracranial process is seen. Note is made of age-appropriate brain parenchymal volume loss and chronic small vessel ischemic changes. Dictated by: Shailesh Giron M.D. on 11/09/2018 at 16:17 Approved by: Shailesh Giron M.D. on 11/09/2018 at 16:21 Chest x-ray: Radiologist's impression: [address] [address] XRay Report Signed Patient: Farhat López MR#: [id number] : 1935 Acct:[id number] Age/Sex: 83 / M Date of Service: 11/09/18 Loc: ED Accession Number: [id number] Procedure: XR chest 1V Ordering Provider: Desmond Oropeza PROCEDURE: XR CHEST 1V INDICATIONS: Increased confusion TECHNIQUE: One view of the chest was acquired. COMPARISON: [facility], CR, XR CHEST 1V, 09/20/2018, 5:49. [facility], CT, CT HEAD/BRAIN WO CON, 11/09/2018, 16:53. [facility], CR, XR CHEST 1V, 2017, 4:39. [facility], CR, CHEST 1 VIEW, 03/26/2017, 13:46. [facility] CR, CHEST 1 VIEW, 03/04/2017, 12:34. FINDINGS: Surgical changes and devices: Post CABG changes are seen. An AICD is seen. Lungs and pleura: An incomplete inspiratory result is noted, causing a crowded appearance to the lung markings. No focal infiltrates are seen. No pneumothorax or significant pleural effusions are seen. Mediastinum: The cardiac contours are within normal limits. The aorta demonstrates calcification and tortuosity. Bones and chest wall: Age-appropriate bony degenerative changes are seen. No suspicious bony lesions. Overlying soft tissues appear unremarkable. IMPRESSION: Limited portable chest examination, without a significant cardiopulmonary abnormality identified. As clinically appropriate, a short-term followup chest series (with PA and lateral views) performed in deep inspiration is suggested for further evaluation. Postoperative and degenerative changes are seen. Dictated by: Shailesh Giron M.D. on 11/09/2018 at 16:21 Approved by: Shailesh Giron M.D. on 11/09/2018 at 16:22 ECG Data Interpretation: EKG shows AFib no ST elevation does show ST depression to leads V4 and V5 consistent with prior EKGs not new findings. No ectopy. Ventricular rate of 76. QTC of 515. QRS of 171 MDM Narrative Medical decision making narrative: CT the head was obtained and was negative for any acute findings. Chest x-ray was also obtained was also negative for any acute findings. CBC shows anemia however is consistent with his prior lab values. No elevated white count. CMP shows a potassium at 5.7. He was given Kayexalate in the emergency room p.o.. Will have have repeat potassium done in the morning and re-evaluation. Creatinine was at 2.9 and his GFR was 20.9. Consistent with prior lab values. Troponin was obtained and was 0.038 also consistent with his prior lab values. He is not complaining any chest pain or shortness of breath at this time. EKG shows AFib with ST depression seen to V4 and V5 this is not a new finding. EKG is consistent with prior EKGs. Urinalysis indicates urinary tract infection. He was given Rocephin IV in the emergency room. He is placed on cephalexin p.o. at dosing based on GFR for 20.9. Follow up with primary care provider tomorrow for re-evaluation. For any worsening symptoms return emergency room. <Cheryle Merlos, DO - Last Filed: 11/10/18 01:43> Lab Data Lab Results 11/09/18 11/09/18 11/09/18 Range/Units 17:00 17:40 17:40 WBC 6.8 (4.5-11.0) X10^3/uL RBC 3.27 L (4.5-5.9) X10^6/uL Hgb 9.0 L (13.5-17.5) g/dL Hct 28.1 L (41-53) % MCV 86.2 (80-100) fL MCH 27.7 (26-34) PG MCHC 32.2 (30-36) % RDW 18.8 H (11.6-14.8) % Plt Count 211 (150-400) X10^3/uL Neut % (Auto) 66.6 (50-75) % Lymph % (Auto) 24.6 L (25-40) % Benzie % (Auto) 6.4 (3-14) % Eos % (Auto) 2.1 (2-4) % Baso % (Auto) 0.3 (0-2) % Neut # (Auto) 4500 (4121-1844) /uL Lymph # (Auto) 1700 (5368-0447) /uL Benzie # (Auto) 400 (0-900) /uL Eos # (Auto) 100 (0-450) /uL Baso # (Auto) 0 (0-100) /uL Sodium 143 (137-145) mmol/L Potassium 5.7 H (3.4-5.1) mmol/L Chloride 110 H (98-107) mmol/L Carbon Dioxide 20 L (22-32) mmol/L BUN 49 H (9-20) mg/dL Creatinine 2.90 H (0.66-1.25) mg/dL Estimated GFR 20.9 L (>60) mL/min BUN/Creatinine Ratio 16.9 (6-22) Glucose 133 H (80-110) mg/dL Lactate (0.7-2.1) mmol/L Calcium 10.7 H (8.4-10.2) mg/dL Total Bilirubin 0.3 (0.2-1.3) mg/dL AST 17 (17-59) IU/L ALT 14 L (21-72) IU/L Alkaline Phosphatase 93 (38-126) U/L Total Creatine Kinase 34 L (55-170) U/L CK-MB (CK-2) TNP CK-MB (CK-2) Rel Index TNP Troponin I 0.038 H (0.01-0.034) ng/mL Total Protein 6.7 (6.3-8.2) g/dL Albumin 3.4 L (3.5-5.0) g/dL Globulin 3.3 (1.7-4.1) g/dL Albumin/Globulin Ratio 1.0 (1.0-2.8) Lipase 202 (23-300) U/L Procalcitonin (<0.5) ng/mL Urine RBC 1-5/hpf (0-5/HPF) Urine WBC >100/hpf H (0-5/HPF) Ur Squamous Epith Cells 0-1 /hpf Ur Renal Epithelial Cell 0-1/hpf Amorphous Sediment 1+ Urine Bacteria Many (>30) H (None) Ur Culture Indicated? Specimen cultured 11/09/18 11/09/18 Range/Units 17:40 17:40 WBC (4.5-11.0) X10^3/uL RBC (4.5-5.9) X10^6/uL Hgb (13.5-17.5) g/dL Hct (41-53) % MCV (80-100) fL MCH (26-34) PG MCHC (30-36) % RDW (11.6-14.8) % Plt Count (150-400) X10^3/uL Neut % (Auto) (50-75) % Lymph % (Auto) (25-40) % Benzie % (Auto) (3-14) % Eos % (Auto) (2-4) % Baso % (Auto) (0-2) % Neut # (Auto) (0740-8288) /uL Lymph # (Auto) (8391-0290) /uL Benzie # (Auto) (0-900) /uL Eos # (Auto) (0-450) /uL Baso # (Auto) (0-100) /uL Sodium (137-145) mmol/L Potassium (3.4-5.1) mmol/L Chloride (98-107) mmol/L Carbon Dioxide (22-32) mmol/L BUN (9-20) mg/dL Creatinine (0.66-1.25) mg/dL Estimated GFR (>60) mL/min BUN/Creatinine Ratio (6-22) Glucose (80-110) mg/dL Lactate 1.4 (0.7-2.1) mmol/L Calcium (8.4-10.2) mg/dL Total Bilirubin (0.2-1.3) mg/dL AST (17-59) IU/L ALT (21-72) IU/L Alkaline Phosphatase (38-126) U/L Total Creatine Kinase (55-170) U/L CK-MB (CK-2) CK-MB (CK-2) Rel Index Troponin I (0.01-0.034) ng/mL Total Protein (6.3-8.2) g/dL Albumin (3.5-5.0) g/dL Globulin (1.7-4.1) g/dL Albumin/Globulin Ratio (1.0-2.8) Lipase (23-300) U/L Procalcitonin 0.08 (<0.5) ng/mL Urine RBC (0-5/HPF) Urine WBC (0-5/HPF) Ur Squamous Epith Cells Ur Renal Epithelial Cell Amorphous Sediment Urine Bacteria (None) Ur Culture Indicated? Urine Dip Bedside Urine Glucose Negative Bedside Urine Bilirubin - Negative Bedside Urine Ketone - Negative Urine Specific [place] 1.025 Bedside Urine Occult Blood +/- Bedside Urine pH 6.0 Bedside Urine Protein + 30 Bedside Urine Urobilinogen - Negative Bedside Urine Nitrite - Negative Bedside Urine Leukocytes +++ 500 Esterase Discharge Plan Departure Patient Disposition: Home Clinical Impression: Urinary tract infection, Acute hyperkalemia Discharge Date/Time: 11/09/18 20:54 Interventions: ED Discharge Assessment Last Done: 11/09/18 20:52 Instructions: Urinary Tract Infection Activity Restrictions/Additional Instructions: Urinalysis indicates urinary tract infection. Laboratory results show elevated potassium. Kayexalate was given in the emergency room to help lower the potassium levels. Recheck a potassium level tomorrow. Follow up with primary care provider for re-evaluation. Antibiotics were prescribed for urinary tract infection use as directed. Use currently prescribed medications as needed for discomfort. For any worsening symptoms return to the emergency room. Prescriptions: New cephalexin 250 mg tablet 250 mg PO BID Qty: 10 RF: 0 No Action allopurinol 100 mg Tablet 100 mg PO DAILY RF: 0 tamsulosin 0.4 mg capsule,extended release 24hr 0.4 mg PO DAILY RF: 0 sertraline 50 mg Tablet 50 mg PO DAILY RF: 0 atorvastatin 20 mg Tablet 20 mg PO BEDTIME RF: 0 cholecalciferol (vitamin D3) [Vitamin D3] 1,000 unit Capsule 1,000 unit PO DAILY RF: 0 aspirin 325 mg Tablet,Delayed Release (Dr/Ec) 325 mg PO DAILY RF: 0 polyethylene glycol 3350 17 gram Powder In Packet 17 gm PO DAILY Qty: 10 RF: 0 sennosides [senna] 8.6 mg Tablet 8.6 mg PO BEDTIME Qty: 30 RF: 0 carvedilol 12.5 mg Tablet 12.5 mg PO BID RF: 0 acetaminophen [Acetaminophen Extra Strength] 500 mg Tablet 1,000 mg PO TID PRN (Reason: pain related to fracture) RF: 0 magnesium hydroxide [Milk of Magnesia] 400 mg/5 mL Suspension 30 ml PO PRN PRN (Reason: Constipation) RF: 0 bisacodyl 10 mg Suppository 10 mg CO PRN PRN (Reason: Constipation) RF: 0 ferrous sulfate 325 mg (65 mg iron) Tablet 325 mg PO DAILY RF: 0 sodium phosphates [Fleet Enema] 19-7 gram/118 mL Enema 1 supp CO PRN PRN (Reason: Constipation) RF: 0 docusate sodium 100 mg Capsule 100 mg PO BID PRN (Reason: Constipation) RF: 0 furosemide 20 mg tablet 20 mg PO DAILY RF: 0 ondansetron 4 mg Tablet,Disintegrating 4 mg PO Q6H PRN (Reason: Nausea) RF: 0 glipizide 5 mg Tablet 5 mg PO DAILY RF: 0 bisacodyl 5 mg Tablet 5 - 10 mg PO PRN PRN (Reason: mild to severe constipation) RF: 0 Novolog U-100 Insulin aspart 1 dose subcut ACHS RF: 0 tramadol 50 mg tablet 50 mg PO Q6H PRN (Reason: pain) RF: 0 oxycodone 5 mg tablet 5 mg PO Q6H PRN (Reason: pain) RF: 0 Referrals: Kelton Morgan MD [Primary Care Provider] - <Cheryle Merlos DO - Last Filed: 11/10/18 01:43> Cosign ED Attending Cosrobynature Attestation: I was immediately available in the department for consultation. Documentation has been reviewed. I agree with assessment and plan.
[2018-11-09] MEDS: SODIUM POLYSTYRENE SULFON/SORB 15 GM/60 ML CUP PO (19:32)
[2018-11-09 20:12] VITALS: BP 118/72; PULSE 85; RESP 24; O2SAT 99
== END 2018-11-09 20:54 | disposition home or self-care (01) ==
PROVIDERS: Emergency Provider Nurse Practitioner Family; PCP Internal Medicine
DX: N39.0 Urinary tract infection, site not specified (principal); E87.5 Hyperkalemia
CPT/HCPCS: 36591; 70450; 71045; 80053; 81003; 81015; 82550; 83605; 83690; 84145; 84484; 85025; 87040; 87077; 87086; 87186; 93005; 93010; 96365; 96366; 99283; 99285

== ENCOUNTER 2018-11-19 21:05 | Emergency (ER) | payer MEDICARE, BC, SELFPAY ==
[2018-10-02 18:36] VITALS: BMI 23.5
[2018-11-19 21:05] VITALS: BP 146/69; PULSE 92; RESP 16; TEMP 36.6; O2SAT 100
--- NOTE | 2018-11-19 21:21 | ED_ITS ---
HPI - Neuro Symptoms/Deficit General Chief Complaint: Neuro Symptoms/Deficit Stated Complaint: Confused Time Seen by Provider: 11/19/18 21:20 Source: EMS Mode of arrival: EMS Limitations: altered mental status History of Present Illness HPI Narrative: The patient currently resides in a local care center. He has been here with a right hip fracture and surgery. He is in a recovery mode. A walker is available, but he cannot walk unassisted. His reports that he never walks. However he was up earlier this day and felt when a walker. This evening prior to arrival, he was in a wheelchair, fell from the wheelchair. The patient has a history of dementia, he currently has dementia after he arrives here. He is awake, and pleasant. He has complaints of only mild right knee pain. He is uncertain about the details the fall. He denies head, neck or back pain. He has no chest pain or dyspnea. He has no abdominal pain. He apparently fell, injuring his right elbow, there is an abrasion there. He does have mild right knee pain. He has right hip pain, but he is recently postop. There is no obvious shortness or rotational deformity in the right leg. He is comfortable, he tells me repeatedly he just wants to go to sleep. Related Data Home Medications Medication Instructions Recorded Confirmed allopurinol 100 mg PO DAILY 05/15/18 11/09/18 sertraline 50 mg PO DAILY 05/15/18 11/09/18 tamsulosin 0.4 mg PO DAILY 05/15/18 11/09/18 atorvastatin 20 mg PO BEDTIME 09/19/18 11/09/18 cholecalciferol (vitamin D3) 1,000 unit PO DAILY 09/19/18 11/09/18 [Vitamin D3] aspirin 325 mg PO DAILY 10/02/18 11/09/18 Novolog U-100 Insulin aspart 1 dose SUBCUT ACHS 11/09/18 11/09/18 acetaminophen [Acetaminophen Extra 1,000 mg PO TID PRN 11/09/18 11/09/18 Strength] bisacodyl 5 - 10 mg PO PRN PRN 11/09/18 11/09/18 bisacodyl 10 mg NV PRN PRN 11/09/18 11/09/18 carvedilol 12.5 mg PO BID 11/09/18 11/09/18 docusate sodium 100 mg PO BID PRN 11/09/18 11/09/18 ferrous sulfate 325 mg PO DAILY 11/09/18 11/09/18 furosemide 20 mg PO DAILY 11/09/18 11/09/18 glipizide 5 mg PO DAILY 11/09/18 11/09/18 magnesium hydroxide [Milk of 30 ml PO PRN PRN 11/09/18 11/09/18 Magnesia] ondansetron 4 mg PO Q6H PRN 11/09/18 11/09/18 oxycodone 5 mg PO Q6H PRN 11/09/18 11/09/18 sodium phosphates [Fleet Enema] 1 supp NV PRN PRN 11/09/18 11/09/18 tramadol 50 mg PO Q6H PRN 11/09/18 11/09/18 Previous Rx's Medication Instructions Recorded polyethylene glycol 3350 17 gm PO DAILY #10 ea 10/05/18 sennosides [senna] 8.6 mg PO BEDTIME #30 tab 10/07/18 cephalexin 250 mg PO BID #10 tab 11/09/18 Allergies Allergy/AdvReac Type Severity Reaction Status Date / Time Sulfa (Sulfonamide Allergy Unknown Verified 10/02/18 12:51 Antibiotics) Review of Systems Review of Systems ROS Unobtainable: Unobtainable due to mental condition Constitutional Reports frequent falls and Denies headache(s) ENT Ears, Nose, Mouth, and Throat: Denies headache(s), Denies neck pain and Reports other (No pain or trauma.) Cardiovascular Denies chest pain, Denies edema and Denies dyspnea Respiratory Denies dyspnea Gastrointestinal Gastrointestinal: Denies abdominal pain Musculoskeletal Denies back pain, Denies neck pain, Denies numbness and Reports other (Right arm pain, right knee pain.) Integumentary/Breasts Reports other (Right arm abrasion) Neurologic Reports frequent falls, Denies headache(s), Denies numbness and Reports other ( Poor historian) [facility] Medical History Atrial fibrillation (Acute) Blind (Acute) CAD (coronary artery disease) (Acute) Cardiac pacemaker (Acute) Closed right hip fracture (Acute) Diabetes (Acute) S/P ORIF (open reduction internal fixation) fracture (Acute) Family History Mother No known health problems Father No known health problems Social History household members: spouse Smoking Status: Former smoker alcohol intake: never Comment: He currently resides in a local nursing/Nursing Home. Exam Initial Vital Signs Initial Vital Signs: Vital Signs Temperature 97.9 F 11/19/18 21:05 Pulse Rate 92 H 11/19/18 21:05 Respiratory Rate 16 11/19/18 21:05 Blood Pressure 146/69 H 11/19/18 21:05 Pulse Oximetry 100 11/19/18 21:05 Const General: cooperative, well developed, No anxious and other (He is sleepy, but easily arousable. He has minimal complaints. See HPI. He is cooperative with evaluation and care.) Nutritional Appearance: well nourished Orientation: alert, awake, oriented x3 and not confused HENMT Head: normal to inspection, normocephalic and atraumatic Neck Neck: full ROM and No tender Chest Chest: No tenderness Resp Effort & Inspection: normal respiratory effort, able to speak in complete sentences, no respiratory distress and no use of accessory muscles Auscultation: clear to auscultation bilaterally, no rales, no rhonchi and no wheezes Cardio Rate: regular rate Rhythm: regular rhythm Heart Sounds: no click, no gallops, no murmurs and no rubs Pulses: normal peripheral pulses GI Inspection: non-distended Palpation: soft, no hepatosplenomegaly, No guarding and No tender Auscultation: normal bowel sounds Back/Spine/Pelvis Back: No back tenderness, No ecchymosis and No erythema Skin General: No jaundice and No petechiae Lesions: no lesions Rashes: other (Right elbow abrasion) Neuro General: alert, oriented (Place and person), gait normal and no focal motor deficits Speech: speech normal Extrem General: other Course Orders Ordered: ED Orders 11/19/18 21:28 XR hip w pel if done RT 2V Stat XR knee LT 1to2V Stat Vital Signs - 8 hr 11/20/18 00:23 Temperature 98.2 F Pulse Rate 90 Respiratory Rate 16 Blood Pressure 146/80 H Pulse Oximetry 97 MDM - Neuro Symptoms/Deficit Imaging Data Right hip x-ray:: My impression: Prior right hip surgery, no acute fractures. Right knee x-ray:: Radiologist's impression: No fracture or other abnormality. [facility] Narrative Medical decision making narrative: The patient has multiple falls, he fell twice today. He has dementia. He has had recent hip surgery. He is unstable to be up and ambulatory by himself. Detailed exam was conducted, he has discomfort in minor injuries on the right side. X-rays of the significant areas are normal. His called from her home prior to our discharge. She presented a prolonged are meant a reasons he should be admitted here. He has UTI, this is known and is under treatment. He has no current head or neuro complaints. There is no injury. He denies spine, torso, or other central concerns. He has minimal injuries to the right arm and right leg. Complying with her persistent request, I did discuss the patient with the on-call hospitalist. The hospitalist heard a thorough discussion of the patient's complaints, recent surgery in today's findings. The on-call hospitalist noted there are no criteria to admit the patient. It is agreed that he should go back to the nursing care facility. Discharge Plan Departure Patient Disposition: Home Clinical Impression: Abrasion of elbow, right, Acute pain of right knee, Acute pain of right hip Discharge Date/Time: 11/20/18 00:25 Interventions: ED Discharge Assessment Last Done: 11/20/18 00:23 Instructions: DI for Abrasion, DI for Leg Pain Activity Restrictions/Additional Instructions: Tylenol every 4 hr as needed. He should be on fall precautions, and have assistance with ambulation. Follow-up in the ER as needed. Prescriptions: No Action allopurinol 100 mg Tablet 100 mg PO DAILY RF: 0 tamsulosin 0.4 mg capsule,extended release 24hr 0.4 mg PO DAILY RF: 0 sertraline 50 mg Tablet 50 mg PO DAILY RF: 0 atorvastatin 20 mg Tablet 20 mg PO BEDTIME RF: 0 cholecalciferol (vitamin D3) [Vitamin D3] 1,000 unit Capsule 1,000 unit PO DAILY RF: 0 aspirin 325 mg Tablet,Delayed Release (Dr/Ec) 325 mg PO DAILY RF: 0 polyethylene glycol 3350 17 gram Powder In Packet 17 gm PO DAILY Qty: 10 RF: 0 sennosides [senna] 8.6 mg Tablet 8.6 mg PO BEDTIME Qty: 30 RF: 0 carvedilol 12.5 mg Tablet 12.5 mg PO BID RF: 0 acetaminophen [Acetaminophen Extra Strength] 500 mg Tablet 1,000 mg PO TID PRN (Reason: pain related to fracture) RF: 0 magnesium hydroxide [Milk of Magnesia] 400 mg/5 mL Suspension 30 ml PO PRN PRN (Reason: Constipation) RF: 0 bisacodyl 10 mg Suppository 10 mg NV PRN PRN (Reason: Constipation) RF: 0 ferrous sulfate 325 mg (65 mg iron) Tablet 325 mg PO DAILY RF: 0 sodium phosphates [Fleet Enema] 19-7 gram/118 mL Enema 1 supp NV PRN PRN (Reason: Constipation) RF: 0 docusate sodium 100 mg Capsule 100 mg PO BID PRN (Reason: Constipation) RF: 0 furosemide 20 mg tablet 20 mg PO DAILY RF: 0 ondansetron 4 mg Tablet,Disintegrating 4 mg PO Q6H PRN (Reason: Nausea) RF: 0 glipizide 5 mg Tablet 5 mg PO DAILY RF: 0 bisacodyl 5 mg Tablet 5 - 10 mg PO PRN PRN (Reason: mild to severe constipation) RF: 0 Novolog U-100 Insulin aspart 1 dose subcut ACHS RF: 0 tramadol 50 mg tablet 50 mg PO Q6H PRN (Reason: pain) RF: 0 oxycodone 5 mg tablet 5 mg PO Q6H PRN (Reason: pain) RF: 0 cephalexin 250 mg tablet 250 mg PO BID Qty: 10 RF: 0
--- NOTE | 2018-11-19 21:28 | DI.RAD.S_ITS ---
PROCEDURE: XR HIP W PEL IF DONE RT 2V INDICATIONS: Fall TECHNIQUE: 2 views of the hip were acquired. COMPARISON: 10/17/18 and 11/16/18. FINDINGS: Bones: Stable postsurgical changes and alignment of prior surgical fixation of right femoral neck fracture with dynamic compression screw fixation. No hardware complication. No acute fractures identified. Osseous structures remain diffusely osteopenic. Degenerative changes of the bilateral hip. Degenerative changes of the bilateral sacroiliac joints and lower lumbar spine. No fractures or dislocations. No suspicious bony lesions. The visualized pelvic ring appears intact. Soft tissues: No suspicious soft tissue calcifications or masses. Vascular calcifications are present in the proximal lower extremity bilaterally and pelvis. IMPRESSION: Stable postoperative changes from prior ORIF of the proximal right femur without acute hardware complication. No acute fractures visualized although osseous structures are diffusely osteopenic. If there is persistent high clinical suspicion for fracture, consider further evaluation with advanced imaging such as CT or MRI. Dictated by: Gerardo Dowd M.D. on 11/19/2018 at 22:40 Approved by: Gerardo Dowd M.D. on 11/19/2018 at 22:45
--- NOTE | 2018-11-19 21:28 | DI.RAD.S_ITS ---
PROCEDURE: XR KNEE LT 1TO2V INDICATIONS: Fall TECHNIQUE: 2 views of the knee were acquired. COMPARISON: None. FINDINGS: Bones: No acute fractures or dislocations. Mild degenerative changes of the left knee. No suspicious bony lesions. Soft tissues: No joint effusion. No suspicious soft tissue calcifications. Vascular calcifications are noted in the visualized portions of the left lower extremity. Surgical clips project over the medial aspect of the lower leg likely from previous bypass graft harvesting. IMPRESSION: Left knee without acute osseous abnormalities. Dictated by: Gerardo Dowd M.D. on 11/19/2018 at 22:45 Approved by: Gerardo Dowd M.D. on 11/19/2018 at 22:47
--- NOTE | 2018-11-19 22:36 | PC.NURSE ---
Attempted to call son to give update, no answer.
--- NOTE | 2018-11-19 23:00 | PC.NURSE ---
Dr Cobb spoke with and explained plan of care extensively.
[2018-11-20 00:23] VITALS: BP 146/80; PULSE 90; RESP 16; TEMP 36.8; O2SAT 97
== END 2018-11-20 00:25 | disposition home or self-care (01) ==
PROVIDERS: Emergency Provider Emergency Medicine; PCP Internal Medicine
DX: R41.82 Altered mental status, unspecified (principal)
CPT/HCPCS: 73502; 73560; 99282

== ENCOUNTER → 2018-11-21 04:21 | Outpatient (REF) | payer MEDICARE, BC, SELFPAY ==
[2018-10-02 18:36] VITALS: BMI 23.5
[2018-11-21 04:30] LABS: Appearance Urine UA CLEAR; Bilirubin Urine UA NEGATIVE (NEGATIVE); Color Urine UA YELLOW; Glucose Urine UA NEGATIVE (Negative); Ketones Urine UA NEGATIVE (NEGATIVE); Leukocyte Esterase Urine UA NEGATIVE (NEGATIVE); Nitrite Urine UA NEGATIVE (Negative); Occult Blood Urine UA NEGATIVE (Negative); Protein Urine UA 1+ (Negative); Urobilinogen Urine UA 0.2 E.U./dL (0.2); pH Urine UA 5.5 (4.5-8.0)
[2018-11-21 04:32] LABS: Bacteria Urine Few (2-10); Squamous Epithelial Cell Urine 1-5 /HPF; WBC Urine 5-10/HPF (0-5/HPF)
[2018-11-21 04:35] LABS: Culture Indicated Urine Specimen Cultured; RBC Urine 0-1/HPF (0-5/HPF)
[2018-11-21 14:13] LABS: Add Manual Diff / Slide Review NO; Basophils Absolute Auto 0 /uL (0-100); Basophils Percent Auto 0.8 % (0-2); Eosinophils Absolute Auto 200 /uL (0-450); Eosinophils Percent Auto 2.6 % (2-4); Lymphocytes Absolute Auto 1500 /uL (1100-4500); Lymphocytes Percent Auto 25.2 % (25-40); Mean Corpuscular HGB Conc 31.4 % (30-36); Mean Corpuscular Hemoglobin 27.9 PG (26-34); Mean Corpuscular Volume 88.6 fL (80-100); Monocytes Absolute Auto 300 /uL (0-900); Monocytes Percent Auto 5.7 % (3-14); Neutrophils Absolute Auto 4000 /uL (1500-7000); Neutrophils Percent Auto 65.7 % (50-75); Platelet Count 171 X10^3/uL (150-400); Red Blood Cell Count 2.33 X10^6/uL (4.5-5.9); Red Cell Distribution Width 19.6 % (11.6-14.8); White Blood Cell Count 6.1 X10^3/uL (4.5-11.0)
[2018-11-21 14:37] LABS: Hemoglobin 6.5 g/dL (13.5-17.5)
[2018-11-21 14:38] LABS: Hematocrit 20.7 % (41-53)
== END ==
LOC: LAB 04:21
PROVIDERS: PCP Internal Medicine; Visit Provider Hospitalist
DX: N39.0 Urinary tract infection, site not specified (principal); R10.0 Acute abdomen; E23.2 Diabetes insipidus; E11.9 Type 2 diabetes mellitus without complications; I25.10 Atherosclerotic heart disease of native coronary artery without angina pectoris; I48.91 Unspecified atrial fibrillation; I50.9 Heart failure, unspecified
CPT/HCPCS: 81001; 85025; 87086

== ENCOUNTER → 2018-11-21 15:19 | Outpatient (CLI) | payer MEDICARE, BC, SELFPAY ==
[2018-10-02 18:36] VITALS: BMI 23.5
--- NOTE | 2018-11-21 | DI.RAD.S_ITS ---
PROCEDURE: XR CHEST 2V INDICATIONS: abnormal lung sounds TECHNIQUE: 2 views of the chest were acquired. COMPARISON: [facility], CR, XR CHEST 1V, 11/09/2018, 16:59. [facility], CR, XR CHEST 1V, 09/20/2018, 5:49. FINDINGS: Surgical changes and devices: Stable over time with sternotomy wires and pacemaking device with dual chamber leads. Additional surgical clips over the medial right upper lung area can again be seen.. Lungs and pleura: Lungs are clear. No pleural effusions or pneumothorax. Mediastinum: Mediastinal contours are normal. Heart size is normal. Bones and chest wall: No suspicious bony abnormalities. Soft tissues appear unremarkable. IMPRESSION: Stable postsurgical changes, no definite pneumonia seen. Flattened diaphragms, possible prior smoking history and COPD. Dictated by: Gómez Gong M.D. on 11/21/2018 at 16:07 Approved by: Gómez Gong M.D. on 11/21/2018 at 16:09
== END ==
PROVIDERS: PCP Internal Medicine; Visit Provider Hospitalist
DX: R09.89 Other specified symptoms and signs involving the circulatory and respiratory systems (principal); Z95.0 Presence of cardiac pacemaker
CPT/HCPCS: 71046

== ENCOUNTER 2018-11-21 15:28 | Inpatient (IN) | payer MEDICARE, BC, SELFPAY ==
[2018-11-21] VITALS (12 sets, daily range): BP systolic 124–165; BP diastolic 68–98; PULSE 61–99; RESP 14–20; TEMP 35.9–36.7; O2SAT 96–100; BMI 24.7
--- NOTE | 2018-11-21 16:07 | ED.RECABL ---
HPI - Recheck/Abnormal Lab/Rx General Chief Complaint: Recheck/Abnormal Lab/Rx Stated Complaint: [facility] sent to be seen,did not say why Time Seen by Provider: 11/21/18 16:05 Source: patient, family ( Mimi) and old records reviewed Limitations: altered mental status History of Present Illness HPI narrative: this is an 83-year-old male comes to the emergency department for decreased blood count. Patient's hemoglobin was 6.5 earlier today. Patient was unclear as to why he was here. He is denying any chest pain or pressure. He states he does feel a little short of breath when he tries to walk around. Patient denies any abdominal pain. He denies any nausea, no vomiting. No other urinary symptoms. Patient states that he does not remember almost things at this time. I did speak with his Mimi who states he has had low blood counts in the past she states that he did have a fall yesterday and hit his head so a head CT was ordered. The she states that he had confusion since his hip replacement and a UTI which he is currently being treated for with her had IV. The his urine culture showed multi resistant changes. He was started on this on November 12. His mentation has been but has not cleared completely. Prior to these episodes according to his he was very sharp mentally. Related Data Home Medications Medication Instructions Recorded Confirmed allopurinol 100 mg PO DAILY 05/15/18 11/21/18 sertraline 50 mg PO DAILY 05/15/18 11/21/18 tamsulosin 0.4 mg PO DAILY 05/15/18 11/21/18 atorvastatin 20 mg PO BEDTIME 09/19/18 11/21/18 aspirin 325 mg PO DAILY 10/02/18 11/21/18 acetaminophen [Acetaminophen Extra 1,000 mg PO TID PRN 11/09/18 11/21/18 Strength] bisacodyl 5 - 10 mg PO PRN PRN 11/09/18 11/21/18 bisacodyl 10 mg ND PRN PRN 11/09/18 11/21/18 carvedilol 12.5 mg PO BID 11/09/18 11/21/18 docusate sodium 100 mg PO BID PRN 11/09/18 11/21/18 ferrous sulfate 325 mg PO BID 11/09/18 11/21/18 furosemide 20 mg PO DAILY 11/09/18 11/21/18 glipizide 5 mg PO DAILY 11/09/18 11/21/18 insulin aspart U-100 [Novolog 1 dose SUBCUT ACHS 11/09/18 11/21/18 Flexpen U-100 Insulin] magnesium hydroxide [Milk of 30 ml PO PRN PRN 11/09/18 11/21/18 Magnesia] ondansetron 4 mg PO Q6H PRN 11/09/18 11/21/18 oxycodone 5 mg PO Q6H PRN 11/09/18 11/21/18 sodium phosphates [Fleet Enema] 1 supp ND PRN PRN 11/09/18 11/21/18 heparin lock flush (porcine) 8 ml IV DAILY 11/21/18 11/21/18 Previous Rx's Medication Instructions Recorded polyethylene glycol 3350 17 gm PO DAILY #10 ea 10/05/18 sennosides [senna] 8.6 mg PO BEDTIME #30 tab 10/07/18 Allergies Allergy/AdvReac Type Severity Reaction Status Date / Time Sulfa (Sulfonamide Allergy Unknown Verified 10/02/18 12:51 Antibiotics) Review of Systems Review of Systems ROS Unobtainable: All systems reviewed & are unremarkable except as noted in HPI and below Constitutional Denies fatigue and Denies fever(s) Cardiovascular Denies chest pain, Denies diaphoresis, Denies syncope, Denies irregular heart rhythm, Denies lightheadedness, Denies palpitations, Reports dyspnea, Reports dyspnea on exertion and Denies orthopnea Respiratory Denies chest congestion, Denies cough, Denies pain on inspiration, Reports dyspnea, Reports dyspnea on exertion and Denies wheezing Gastrointestinal Gastrointestinal: Denies abdominal pain, Denies melena, Denies hematochezia, Denies change in bowel habits, Denies diarrhea, Denies nausea and Denies vomiting Musculoskeletal Reports arthralgias and Denies numbness Neurologic Reports confusion, Denies syncope and Denies numbness Psychiatric Reports confusion Endocrine Denies fatigue and Denies palpitations Allergic/Immunologic Denies wheezing ON LICENSE OF [facility] Medical History Atrial fibrillation (Acute) Blind (Acute) CAD (coronary artery disease) (Acute) Cardiac pacemaker (Acute) Closed right hip fracture (Acute) Diabetes (Acute) S/P ORIF (open reduction internal fixation) fracture (Acute) Family History Mother No known health problems Father No known health problems Social History household members: spouse Smoking Status: Former smoker alcohol intake: never Exam Narrative Exam Narrative: GENERAL: Alert and oriented x two, Well-nourished, well-appearing elderly male in mild distress. Patient does appear pale HEENT: Head normocephalic, atraumatic, EOMI, pupils reactive, face symmetric, moist mucous membranes NECK: Supple, full range of motion CARDIOVASCULAR: irregularly irregular rate and rhythm without murmurs, rubs or gallops. RESPIRATORY: Breath sounds equal bilaterally, no wheezes rales or rhonchi. no tachypnea or accessory muscle use ABDOMEN: Soft, nontender. Normoactive bowel sounds all 4 quadrants. No guarding or rebound, rigidity, no mass. Patient does have some skin breakdown of the rectum and sacral area with erythema no subcutaneous tissue is exposed. Hemoccult is positive although stool is brown in coloration : No CVA tenderness EXTREMITIES: Normal range of motion, no clubbing or edema. Neurovascularly intact NEUROLOGICAL: Cranial nerves II through XII grossly intact. Moving all extremities Without issue. Patient does need assistance to stand and transition to bed. SKIN: Warm, dry, no petechiae, no rashes or lesions. Initial Vital Signs Initial Vital Signs: Vital Signs Temperature 97.6 F 11/21/18 15:54 Pulse Rate 74 11/21/18 15:54 Respiratory Rate 14 11/21/18 15:54 Blood Pressure 137/69 11/21/18 15:54 Pulse Oximetry 100 11/21/18 15:54 Course Orders Ordered: ED Orders 11/21/18 16:15 Complete Blood Count AUTO DIFF Stat Comprehensive Metabolic Panel Stat Packed Cells Stat Partial Thromboplastin Time Stat Prothrombin Time INR Stat Troponin & CK Cardiac Panel Stat Type and Screen Stat 11/21/18 16:18 EKG-12 Lead Stat 11/21/18 16:22 CT head/brain wo con Stat 11/21/18 16:25 Urinalysis and Microscopic Stat Pantoprazole Sodium 80 mg/ (Sodium Chloride) 100 mls @ 10 mls/hr IV NOW ONE Stop: 11/22/18 03:39 Discontinued Medications Furosemide (Lasix) 20 mg IV NOW ONE Stop: 11/21/18 16:19 Vital Signs - 8 hr 11/21/18 15:54 11/21/18 17:06 Temperature 97.6 F Pulse Rate 74 76 Respiratory Rate 14 20 Blood Pressure 137/69 Blood Pressure [Left Arm] 165/78 H Pulse Oximetry 100 98 MDM - Recheck/Abnormal Lab/Rx Lab Data Attestation: I reviewed the patient's lab results. Result diagrams: 11/21/18 16:15 11/21/18 16:15 Lab Results 11/21/18 11/21/18 11/21/18 Range/Units 16:15 16:15 16:15 WBC 8.1 (4.5-11.0) X10^3/uL RBC 3.39 L (4.5-5.9) X10^6/uL Hgb 9.5 L (13.5-17.5) g/dL Hct 29.5 L (41-53) % MCV 87.2 (80-100) fL MCH 28.0 (26-34) PG MCHC 32.0 (30-36) % RDW 19.1 H (11.6-14.8) % Plt Count 247 (150-400) X10^3/uL Neut % (Auto) 68.0 (50-75) % Lymph % (Auto) 23.6 L (25-40) % Montague % (Auto) 5.7 (3-14) % Eos % (Auto) 2.5 (2-4) % Baso % (Auto) 0.2 (0-2) % Neut # (Auto) 5500 (6023-0623) /uL Lymph # (Auto) 1900 (2958-0074) /uL Montague # (Auto) 500 (0-900) /uL Eos # (Auto) 200 (0-450) /uL Baso # (Auto) 0 (0-100) /uL PT 11.4 (10.1-12.7) SECONDS INR 1.0 (0.9-1.3) APTT 34 D (26.4-36.2) SECONDS Sodium 141 (137-145) mmol/L Potassium 5.2 H (3.4-5.1) mmol/L Chloride 108 H (98-107) mmol/L Carbon Dioxide 20 L (22-32) mmol/L BUN 46 H (9-20) mg/dL Creatinine 2.50 H (0.66-1.25) mg/dL Estimated GFR 24.8 L (>60) mL/min BUN/Creatinine Ratio 18.4 (6-22) Glucose 186 H (80-110) mg/dL Calcium 10.4 H (8.4-10.2) mg/dL Total Bilirubin 0.2 (0.2-1.3) mg/dL AST 20 (17-59) IU/L ALT 22 (21-72) IU/L Alkaline Phosphatase 92 (38-126) U/L Total Creatine Kinase 41 L (55-170) U/L CK-MB (CK-2) TNP CK-MB (CK-2) Rel Index TNP Troponin I 0.066 H (0.01-0.034) ng/mL Total Protein 6.9 (6.3-8.2) g/dL Albumin 3.5 (3.5-5.0) g/dL Globulin 3.4 (1.7-4.1) g/dL Albumin/Globulin Ratio 1.0 (1.0-2.8) Blood Type Antibody Screen Crossmatch 11/21/18 Range/Units 16:15 WBC (4.5-11.0) X10^3/uL RBC (4.5-5.9) X10^6/uL Hgb (13.5-17.5) g/dL Hct (41-53) % MCV (80-100) fL MCH (26-34) PG MCHC (30-36) % RDW (11.6-14.8) % Plt Count (150-400) X10^3/uL Neut % (Auto) (50-75) % Lymph % (Auto) (25-40) % Montague % (Auto) (3-14) % Eos % (Auto) (2-4) % Baso % (Auto) (0-2) % Neut # (Auto) (7690-9254) /uL Lymph # (Auto) (9567-3146) /uL Montague # (Auto) (0-900) /uL Eos # (Auto) (0-450) /uL Baso # (Auto) (0-100) /uL PT (10.1-12.7) SECONDS INR (0.9-1.3) APTT (26.4-36.2) SECONDS Sodium (137-145) mmol/L Potassium (3.4-5.1) mmol/L Chloride (98-107) mmol/L Carbon Dioxide (22-32) mmol/L BUN (9-20) mg/dL Creatinine (0.66-1.25) mg/dL Estimated GFR (>60) mL/min BUN/Creatinine Ratio (6-22) Glucose (80-110) mg/dL Calcium (8.4-10.2) mg/dL Total Bilirubin (0.2-1.3) mg/dL AST (17-59) IU/L ALT (21-72) IU/L Alkaline Phosphatase (38-126) U/L Total Creatine Kinase (55-170) U/L CK-MB (CK-2) CK-MB (CK-2) Rel Index Troponin I (0.01-0.034) ng/mL Total Protein (6.3-8.2) g/dL Albumin (3.5-5.0) g/dL Globulin (1.7-4.1) g/dL Albumin/Globulin Ratio (1.0-2.8) Blood Type A Positive Antibody Screen Negative Crossmatch See Detail Imaging Data Chest x-ray: Radiologist's impression: [address] [address] XRay Report Signed Patient: Farhat López [facility]#: [id number] : 6Acct:[id number] Age/Sex: 83 / MDate of Service: 11/21/18 Loc: DI Accession Number: [id number] Procedure: XR chest 2V Ordering Provider: Renan Rhodes N.D. PROCEDURE: XR CHEST 2V INDICATIONS: abnormal lung sounds TECHNIQUE: 2 views of the chest were acquired. COMPARISON: [facility], XR CHEST 1V, 11/09/2018, 16:59. [facility], , XR CHEST 1V, 09/20/2018, 5:49. FINDINGS: Surgical changes and devices: Stable over time with sternotomy wires and pacemaking device with dual chamber leads. Additional surgical clips over the medial right upper lung area can again be seen.. Lungs and pleura: Lungs are clear. No pleural effusions or pneumothorax. Mediastinum: Mediastinal contours are normal. Heart size is normal. Bones and chest wall: No suspicious bony abnormalities. Soft tissues appear unremarkable. IMPRESSION: Stable postsurgical changes, no definite pneumonia seen. Flattened diaphragms, possible prior smoking history and COPD. Dictated by: Gómez Gong M.D. on 11/21/2018 at 16:07 Approved by: Gómez Gong M.D. on 11/21/2018 at 16:09 CT scan - head: Radiologist's impression: [place] [address] CT Scan Report Signed Patient: Farhat López [facility]#: [id number] : 6Acct:[id number] Age/Sex: 83 / MDate of Service: 11/21/18 Loc: ED Accession Number: [id number] Procedure: CT head/brain wo con Ordering Provider: Aye Seo D.O. PROCEDURE: CT HEAD/BRAIN WO CON INDICATIONS: fall, yesterday, hit head TECHNIQUE: Noncontrast 4.5 mm thick angled axial sections acquired from the foramen magnum to the vertex, with coronal and sagittal reformats. For radiation dose reduction, the following was used: automated exposure control, adjustment of mA and/or kV according to patient size. COMPARISON: [facility], CT, CT HEAD/BRAIN WO CON, 11/09/2018, 16:53. FINDINGS: Image quality: Suboptimal related to motion artifact. CSF spaces: Basal cisterns are patent. No extra-axial fluid collections. Ventricles are prominent with corresponding parenchymal volume loss, similar to the prior study. Brain: No midline shift. No intracranial masses or hemorrhage. Hernandez-white matter interface is normal. There is a large area of encephalomalacia involving the right frontal lobe. A smaller area of encephalomalacia involving the left occipital lobe is present. Additional areas of low-attenuation are seen within the periventricular and deep white matter of the supratentorial brain. Skull and face: Calvarium and visualized facial bones are intact, without suspicious lesions. Sinuses: Visualized sinuses and mastoids are clear. IMPRESSION: 1. No acute intracranial hemorrhage. 2. Right frontal encephalomalacia, left occipital encephalomalacia, chronic small vessel ischemic changes, and parenchymal volume loss are unchanged. Dictated by: Sid Yin M.D. on 11/21/2018 at 15:49 Approved by: Sid Yin M.D. on 11/21/2018 at 15:51 ECG Data Attestation: I personally reviewed and interpreted this ECG as follows: Interpretation: afib with rate of 71, qrs 153, qtc 462. Patient has ST depression in V3 through V6. No ST elevation. Patient has prior EKGs with Similar ST changes from November 09, 2018 and 10/02/2018. MDM Narrative Medical decision making narrative: 83-year-old male who comes in with decreased hemoglobin. He has been in the 8-9 range but this is lower than his normal baseline patient does have some shortness of breath with what he describes as exertion. He does have some confusion which sounds like has been his norm for the last month to 2 but is new in terms of his past medical history had a troponin is indeterminate but similar to prior from April [address] depression. patient's renal function is decreased but at its baseline his electrolytes are in the normal range except a chloride. patient does not have any clear source of infection at this time although he does have a UA from earlier today and culture is pending. Head CT was ordered based on description of fall according to his . Patient did not recall this. Spoke with Dr. Wilder the hospitalist service who accepts. Patient had Protonix started for potential GI bleed. Dr. Avitia was contacted at the request of the hospitalist. Patient is being transfused 2 units of packed red blood cells for potential for demand ischemia with his indeterminate troponin. He was also started on Protonix 80 mg for possible GI bleed. Discharge Plan Departure Patient Disposition: Admitted As Inpatient Clinical Impression: Anemia, GI bleed, UTI (urinary tract infection) Admit Date/Time: 11/21/18 18:01 Admit Provider: Hilary Wilder
--- NOTE | 2018-11-21 16:22 | DI.CT.S_ITS ---
PROCEDURE: CT HEAD/BRAIN WO CON INDICATIONS: fall, yesterday, hit head TECHNIQUE: Noncontrast 4.5 mm thick angled axial sections acquired from the foramen magnum to the vertex, with coronal and sagittal reformats. For radiation dose reduction, the following was used: automated exposure control, adjustment of mA and/or kV according to patient size. COMPARISON: [facility], CT, CT HEAD/BRAIN WO CON, 11/09/2018, 16:53. FINDINGS: Image quality: Suboptimal related to motion artifact. CSF spaces: Basal cisterns are patent. No extra-axial fluid collections. Ventricles are prominent with corresponding parenchymal volume loss, similar to the prior study. Brain: No midline shift. No intracranial masses or hemorrhage. Hernandez-white matter interface is normal. There is a large area of encephalomalacia involving the right frontal lobe. A smaller area of encephalomalacia involving the left occipital lobe is present. Additional areas of low-attenuation are seen within the periventricular and deep white matter of the supratentorial brain. Skull and face: Calvarium and visualized facial bones are intact, without suspicious lesions. Sinuses: Visualized sinuses and mastoids are clear. IMPRESSION: 1. No acute intracranial hemorrhage. 2. Right frontal encephalomalacia, left occipital encephalomalacia, chronic small vessel ischemic changes, and parenchymal volume loss are unchanged. Dictated by: Sid Yin M.D. on 11/21/2018 at 15:49 Approved by: Sid Yin M.D. on 11/21/2018 at 15:51
--- NOTE | 2018-11-21 16:23 | PC.NURSE ---
Has ? mid line/ r upper arm tried to flush and noted clots. md at bedside/ aware.
[2018-11-21 16:27] LABS: Add Manual Diff / Slide Review NO; Basophils Absolute Auto 0 /uL (0-100); Basophils Percent Auto 0.2 % (0-2); Eosinophils Absolute Auto 200 /uL (0-450); Eosinophils Percent Auto 2.5 % (2-4); Hematocrit 29.5 % (41-53); Hemoglobin 9.5 g/dL (13.5-17.5); Lymphocytes Absolute Auto 1900 /uL (1100-4500); Lymphocytes Percent Auto 23.6 % (25-40); Mean Corpuscular Volume 87.2 fL (80-100); Monocytes Absolute Auto 500 /uL (0-900); Monocytes Percent Auto 5.7 % (3-14); Neutrophils Absolute Auto 5500 /uL (1500-7000); Platelet Count 247 X10^3/uL (150-400); Red Blood Cell Count 3.39 X10^6/uL (4.5-5.9); Red Cell Distribution Width 19.1 % (11.6-14.8); White Blood Cell Count 8.1 X10^3/uL (4.5-11.0)
[2018-11-21 16:43] LABS: Alanine Aminotransferase 22 IU/L (21-72); Albumin 3.5 g/dL (3.5-5.0); Alkaline Phosphatase 92 U/L (38-126); Aspartate Aminotransferase 20 IU/L (17-59); BUN Creatinine Ratio 18.4 (6-22); Bilirubin Total 0.2 mg/dL (0.2-1.3); Blood Urea Nitrogen 46 mg/dL (9-20); Calcium 10.4 mg/dL (8.4-10.2); Carbon Dioxide 20 mmol/L (22-32); Chloride 108 mmol/L (98-107); Creatine Kinase 41 U/L (55-170); Estimated Glomerular Filt Rate 24.8 mL/min (>60); Globulin 3.4 g/dL (1.7-4.1); Glucose 186 mg/dL (80-110); HEMOLYSIS < 15 (0-50); Potassium 5.2 mmol/L (3.4-5.1); Sodium 141 mmol/L (137-145); Total Protein 6.9 g/dL (6.3-8.2)
[2018-11-21 16:50] LABS: Prothrombin Time 11.4 SECONDS (10.1-12.7)
[2018-11-21 16:53] LABS: PTT Partial Thromboplastin Tim 34 SECONDS (26.4-36.2); Troponin I 0.066 ng/mL (0.01-0.034)
--- NOTE | 2018-11-21 17:59 | PC.NURSE ---
standby for rectal exam. Provider reports stool positive for blood. Patient incontinent of urine and stool in brief.
--- NOTE | 2018-11-21 18:28 | PC.NURSE ---
Spoke with Mimi [phone] patients and updated on admission to the floor. Patient up to floor with [employer]. Admitting RN aware the blood is in house.
--- NOTE | 2018-11-21 19:40 | PC.NURSE ---
1900- pt arrived to room 224 from ED via bed. Pt with recent Fx to hip and resolving UTI. Pt currently residing at [facility]. Pt agitated and states leave me alone. Asured pt no more poking but needed to take his blood pressure. Pt refused. Provided warm blankets for comfort as to return in a short while to assess pt, and vital signs. Son in room. 1929- RLA SL. Orders to infuse 2 PRBC's. guiaic positive from rectal exam in ED. Pt inc B/B. VSS. Bed alarm on.
--- NOTE | 2018-11-21 20:23 | P.HP_ITS ---
History of Present Illness Date Patient Seen: 11/21/18 Time Patient Seen: 19:20 Chief complaint: [facility] sent to be seen,did not say why Narrative: Mr. López is an 83-year-old male with history of a recent fall and status post ORIF right intertrochanteric hip fracture, hypertension, atrial fibrillation previously on Coumadin, cardiovascular disease, status post CABG x6 , chronic atrial fibrillation, pacemaker diabetes who was sent to the hospital by his primary care provider related to shortness of breath. The patient's son is at bedside to help provide history as the patient is a poor historian and incapable of providing details leading to presentation for care.. The patient was seen emergency department yesterday following recurrent falls at his rehab facility over the last 2 days. The patient was evaluated with findings only abrasion and skin tear right elbow and right knee pain with a history urinary tract infection reportedly being treated with antibiotics. The patient's son states that the patient has become more confused over the last week with tremulousness and poor sleep. Patient per the medical record has dementia and per his son is more confused than his typical baseline. On evaluation in the ER the patient is found to be severely anemic with a hemoglobin of 6.5 and hematocrit of 20.7. He is also tested to be guaiac positive. The patient previously been on Coumadin for atrial fibrillation and transitioned to aspirin following a fall which he sustained a subdural hematoma and has been anticoagulated on aspirin 325 mg daily. INR has been checked is found to be 1.0. He does have an elevated troponin which been elevated on prior admissions at 0.66 but has a history of chronic renal failure stage 4 with a BUN of 46 and creatinine of 2.5 with a EGFR of 24.8. EKG is reviewed atrial fibrillation at a controlled rate in the 70s with ST depression of the 3 through 6 which is unchanged from prior examinations. At the time of examination the patient denies complaints pain. Reports no chest pain, palpitations or shortness of breath. He denies abdominal pain nausea vomiting. He reports normal bowel movements and has noted no blood. He denies pain at the right surgical site. The patient additionally has a history of diabetes for which he is taking glipizide and insulin, hyperlipidemia on atorvastatin 20 mg, BPH treated with tamsulosin, impaired vision and hard of hearing. Patient History Medical History BPH (benign prostatic hyperplasia) (Acute) Hard of hearing (Acute) Hyperlipidemia (Acute) Atrial fibrillation (Acute) Blind (Acute) CAD (coronary artery disease) (Acute) Cardiac pacemaker (Acute) Closed right hip fracture (Acute) Diabetes (Acute) S/P ORIF (open reduction internal fixation) fracture (Acute) Surgical History History of coronary artery bypass graft x 6 (Acute) Family & Social History Family History: Reviewed 11/21/18 by JUSTEN Crawford Social History: household members spouse Safety & Behavioral: Feels Safe in Current Yes Environment Been Physically Hurt or No Threatened By a Person Tobacco & Substance use: Smoking Status Former smoker alcohol intake never Substance Use Type does not use Comment: The patient is currently residing in a rehabilitation facility and was due to be discharged next week. Prior to his hospitalization and surgery he resided in a single family is single level home in [place] with his . The patient was set to be discharged back to his home setting. Family health history, mother and father are both with no known significant health issues. Advanced directive: The patient is unable to state his resuscitation desires and has no formal declaration of advanced directives. Spoke with the patient's son at bedside who indicated that the patient will be a full resuscitation. He also states that the patient's is not present to the hospital today because ? she chooses not to be?. He further states that she is preparing for her ?to leave?. Meds Home Medications Medication Instructions Recorded Confirmed Type allopurinol 100 mg PO DAILY 05/15/18 11/21/18 History sertraline 50 mg PO DAILY 05/15/18 11/21/18 History tamsulosin 0.4 mg PO DAILY 05/15/18 11/21/18 History atorvastatin 20 mg PO BEDTIME 09/19/18 11/21/18 History aspirin 325 mg PO DAILY 10/02/18 11/21/18 History polyethylene glycol 3350 17 gm PO DAILY #10 ea 10/05/18 11/21/18 Rx sennosides [senna] 8.6 mg PO BEDTIME #30 tab 10/07/18 11/21/18 Rx acetaminophen [Acetaminophen Extra 1,000 mg PO TID PRN 11/09/18 11/21/18 History Strength] bisacodyl 5 - 10 mg PO PRN PRN 11/09/18 11/21/18 History bisacodyl 10 mg NH PRN PRN 11/09/18 11/21/18 History carvedilol 12.5 mg PO BID 11/09/18 11/21/18 History docusate sodium 100 mg PO BID PRN 11/09/18 11/21/18 History ferrous sulfate 325 mg PO BID 11/09/18 11/21/18 History furosemide 20 mg PO DAILY 11/09/18 11/21/18 History glipizide 5 mg PO DAILY 11/09/18 11/21/18 History insulin aspart U-100 [Novolog 1 dose SUBCUT ACHS 11/09/18 11/21/18 History Flexpen U-100 Insulin] magnesium hydroxide [Milk of 30 ml PO PRN PRN 11/09/18 11/21/18 History Magnesia] ondansetron 4 mg PO Q6H PRN 11/09/18 11/21/18 History oxycodone 5 mg PO Q6H PRN 11/09/18 11/21/18 History sodium phosphates [Fleet Enema] 1 supp NH PRN PRN 11/09/18 11/21/18 History heparin lock flush (porcine) 8 ml IV DAILY 11/21/18 11/21/18 History Allergies Allergy/AdvReac Type Severity Reaction Status Date / Time Sulfa (Sulfonamide Allergy Unknown Verified 10/02/18 12:51 Antibiotics) Review of Systems Review of Systems Review of systems is limited from the patient with additional information obtained from the patient's son. Constitutional: Positive for poor appetite, increased confusion and restlessness, poor sleep, Denies fevers, chills, sweats Eyes: Positive for diminished vision, Denies diplopia ENT: Positive for difficulty hearing, upper and lower dentures, Denies headaches, hearing changes, ear pain, no nasal congestion, rhinorrhea, no dysphagia, sore throat, no neck stiffness or pain Respiratory: Positive for previous report of shortness of breath, Denies cough , wheezing Cardiovascular: Positive for cardiovascular disease, atrial fibrillation, permanent pacemaker, peripheral edema Denies chest pain, palpitations, orthostatic dizziness, syncope Gastrointestinal: Positive for history of constipation, laxative dependent, Denies abdominal pain, nausea or vomiting, denies blood in stool. Genitourinary: denies penile discharge, no complains of frequency, burning or urgency, hematuria on voiding Musculoskeletal: Positive for right hip surgery, weakness, denies hip pain, limited movement, cramps, myalgia or joint swelling. Integumentary: denies skin lesions, masses, rashes, hives, itching or hair loss Neurological: Positive for bilateral lower extremity neuropathy, denies dizziness, speech difficulties or seizures Psychiatric: Positive for dementia, denies disturbances in thought, attentions or mood Endocrine: Positive for diabetes, denies goiter, lethargy, abnormal sweating, and heat/cold intolerance. Heme/lymph: Positive for severe anemia denies abnormal bleeding, hematemesis hematochezia melena, abnormal bruisin, denies lymphadenopathy Exam Vital Signs (past 8 hours): - 11/21/18 15:54 11/21/18 17:06 11/21/18 18:22 Temperature 97.6 F Pulse Rate 74 76 61 Respiratory Rate 14 20 18 Blood Pressure 137/69 133/98 H Blood Pressure [Left Arm] 165/78 H Pulse Oximetry 100 98 96 11/21/18 19:23 Temperature 96.9 F L Pulse Rate 94 H Respiratory Rate 18 Blood Pressure 124/68 Blood Pressure [Left Arm] Pulse Oximetry 98 Oxygen Delivery Method Room Air Narrative Exam Narrative: General: Well developed, well nourished, lying right lateral in bed in no acute distress Skin: Warm, dry, pale, no rashes, no visible lesions HEENT: Normocephalic, pupils are equal at 2 mm bilaterally, EOMs intact without nystagmus, conjunctiva moist and pale, unable to read name badge at 6 in, no ear pain, diminished hearing, no hearing aids, no rhinorrhea, oropharynx is moist and pink without lesions or exudate, dentures in place, uvula midline, posterior pharynx without inflammation, no cervical lymphadenopathy Neck: Supple, atraumatic, no step-offs or masses, thyroid non tender without thyromegaly or nodules, trachea midline, no carotid bruits or JVD, no supraclavicular lymphadenopathy Cardiac: Irregularly irregular rhythm, S1-S2, 1/6 high-pitched murmur auscultated across precordium, no gallops or rubs, 2+ radial pulse, 1+ dorsalis pedis pulse, capillary refill is brisk, nail beds pale, 1+ bilateral pedal edema Chest: Symmetrical movement, breathing non labored, no pain on AP and lateral compression, permanent pacemaker palpated left anterior chest, no cough present , BS equal bilateral without coarseness, crackles or wheezes Abdomen: Soft, dull to percussion, no tenderness or guarding, no peritoneal signs, no masses or organomegaly, no flank or suprapubic pain, BS normal. Back: Normal curvature, no tenderness or step-offs to palpation, no CVA tenderness on percussion Extremities: Well-healed surgical scar right hip, preservedl ROM, no synovial effusions or deformities, strength 5/5 and symmetrical Neuro: Awake and oriented to person confused on location, stated month correctly, incorrect year, cranial nerves II-XII grossly intact, gross motor tremulousness bilateral upper extremities neuropathy bilateral lower extremities to the mid lower leg Psych: Confusion, mild agitation with stimulation, cooperative, no aggressive behavior Objective Labs Result Diagrams: 11/21/18 16:15 11/21/18 16:15 Labs: Laboratory Results - last 24 hr 11/21/18 11/21/18 11/21/18 16:15 16:15 16:15 WBC 8.1 RBC 3.39 L Hgb 9.5 L Hct 29.5 L MCV 87.2 MCH 28.0 MCHC 32.0 RDW 19.1 H Plt Count 247 Neut % (Auto) 68.0 Lymph % (Auto) 23.6 L [place] % (Auto) 5.7 Eos % (Auto) 2.5 Baso % (Auto) 0.2 Neut # (Auto) 5500 Lymph # (Auto) 1900 [place] # (Auto) 500 Eos # (Auto) 200 Baso # (Auto) 0 PT 11.4 INR 1.0 APTT 34 D Sodium 141 Potassium 5.2 H Chloride 108 H Carbon Dioxide 20 L BUN 46 H Creatinine 2.50 H Estimated GFR 24.8 L BUN/Creatinine Ratio 18.4 Glucose 186 H Calcium 10.4 H Total Bilirubin 0.2 AST 20 ALT 22 Alkaline Phosphatase 92 Total Creatine Kinase 41 L CK-MB (CK-2) TNP CK-MB (CK-2) Rel Index TNP Troponin I 0.066 H Total Protein 6.9 Albumin 3.5 Globulin 3.4 Albumin/Globulin Ratio 1.0 Blood Type Antibody Screen Crossmatch 11/21/18 16:15 WBC RBC Hgb Hct MCV MCH MCHC RDW Plt Count Neut % (Auto) Lymph % (Auto) [place] % (Auto) Eos % (Auto) Baso % (Auto) Neut # (Auto) Lymph # (Auto) [place] # (Auto) Eos # (Auto) Baso # (Auto) PT INR APTT Sodium Potassium Chloride Carbon Dioxide BUN Creatinine Estimated GFR BUN/Creatinine Ratio Glucose Calcium Total Bilirubin AST ALT Alkaline Phosphatase Total Creatine Kinase CK-MB (CK-2) CK-MB (CK-2) Rel Index Troponin I Total Protein Albumin Globulin Albumin/Globulin Ratio Blood Type A Positive Antibody Screen Negative Crossmatch See Detail Assessment & Plan Plan: Assessment/Plan Narrative: 1. Severe anemia, present on admission, acute -hemoglobin of 6.5, hematocrit of 20.7 platelets of 171 -guaiac in the ER reported as positive, no other identified sources of bleeding -patient receiving 2 units of packed red cells -will hold aspirin, chemical VTE contraindicated related to anemia and bleeding -Dr. Gonzales, surgery, consulted for evaluation for GI bleed -will follow serial hemoglobin and hematocrit 2. Atrial fibrillation, present on admission chronic, stable -irregularly irregular rhythm with controlled rate -permanent pacemaker left anterior chest -previously on Coumadin discontinued due to subdural hematoma following a fall -currently taking aspirin 325 mg daily, aspirin is held -patient is on no antiarrhythmic other than Coreg 12.5 mg which is continued -patient has been on iron supplementation, normal MCV will obtain iron panel 3. Diabetes type 2, present on admission, active -associated neuropathy, renal failure stage 4 in visual loss unknown if related to diabetes -admission blood sugars 186 mg/dL -will continue glipizide 5 mg daily -Accu-Cheks AC and HS with low scale sliding scale insulin 4. Atherosclerotic vascular disease, present on admission, stable -chronically elevated troponin, on admission is 0.066 possibly related to #1 and possible demand ischemia -EKG changes with ST depression in V3 to V6, stable compared to prior EKGs -echo cardiogram dated 10/03/2018 reveals an EF 45-50%, mild LVH, mild right ventricular dilation with decreased right ventricular function, mild-to- moderate MVR, mild TR -no complaints of chest pain, complained of exertional dyspnea likely related to #1, no carotid bruit appreciated -chest x-ray notes evidence of cardiovascular surgery and sternotomy without evidence of congestive failure or cardiomegaly. - 1+ bilateral pedal edema, will continue furosemide 20 mg daily - will track troponin 5. Chronic renal failure stage 4, present on admission, active -creatinine varies between 2.4 and 2.9, presently at 2.5 with a BUN of 46, mildly hyperkalemic with potassium of 5.2 -urinalysis 1+ protein urea -will follow chemistries closely -no evidence of gout, will continue allopurinol 100 mg daily 6. Urinary tract infection, present on admission, acute -urinalysis is positive for WBCs, few bacteria, yeast -no elevation of white cell count, no left shift, patient is afebrile -no complaints of urinary pain or problems, may be possible factor in patient's change in mentation over last week -prior urine culture dated 11/09/2018 reveals E coli, ESBL with sensitivity to independent and gentamicin treated with ertapenem -will start renally dosed ertapenem 0.5 g Q 24 hr -will await culture and may need ID consult 7. Hypertension, chronic, active -presently controlled with carvedilol 12.5 mg and Lasix 20 mg 8. Hyperlipidemia, chronic, presumed stable -will continue patient's atorvastatin 20 mg daily 9. Benign prostatic hypertrophy, chronic, stable -will continue tamsulosin 0.4 mg daily -patient is without urinary complaints of difficulty voiding 10. Multiple falls, prior to admission, acute -status post open reduction internal fixation right intertrochanteric fracture right hip on 10/02/2018 following a ground level fall -impaired gait ambulating with a walker and assistance -PT and OT evaluation requested -patient is currently not on calcium supplementation as an elevated calcium at 10.4 -patient is not currently on vitamin-D supplementation will obtain a vitamin-D 25 0H level -patient is not a candidate for oral bio phosphates, patient may be a candidate for Prolia
[2018-11-21 21:16] LABS: HEMOLYSIS < 15 (0-50); Iron 29 ug/dL (49-181)
[2018-11-21] MEDS: ATORVASTATIN 20 MG TABLET PO (21:21)
[2018-11-21] MEDS: SENNOSIDES 8.6 MG TABLET PO (21:22)
[2018-11-21] MEDS: CARVEDILOL 12.5 MG TABLET PO (21:22)
[2018-11-21 21:26] LABS: Percent Iron Saturation 12 % (20-50); Total Iron Binding Capacity 241 ug/dL (261-462); Transferrin 184 mg/dL (206-381)
[2018-11-22] VITALS (12 sets, daily range): BP systolic 100–161; BP diastolic 61–86; PULSE 67–88; RESP 18–22; TEMP 36.3–36.8; O2SAT 94–99
[2018-11-22] MEDS: PANTOPRAZOLE 80 MG in SODIUM CHLORIDE 0.9% 100 ML 10 ML IV (02:21)
[2018-11-22] MEDS: FUROSEMIDE 20 MG/2 ML VIAL IV (02:21)
[2018-11-22] MEDS: ERTAPENEM 0.5 GM in SODIUM CHLORIDE 0.9% 100 ML 200 ML IV (02:41)
--- NOTE | 2018-11-22 03:54 | PC.NURSE ---
Shift Note: Received pt from evening shift. Pt at time of assessment was pleasantly confused. Oriented to self, , and that he's in [place]. Pt self reported fracture in right ankle, which has 3+ pitting edema and a coversite dressing, pt has a hx of a right hip fracture with a well healed scar. During blood administration pt had a visual hallucination of shoes in his bed that belongs to the woman over there, gesturing to the IV pole. 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 Pt compliant with multiple blood pressures and temperature readings during blood administration but could become agitated at times when startled or attempts to redirect away from IV or telemetry lines. Pt makes attempts to get out of bed and can be redirected but became very agitated when requested to allow [employer] and this RN to change his brief. Pt adamant that he wanted to get out of bed. During brief change, pt was not cooperative with care and would raise his voice asking for us to stop it. Best attempts were made to get a brief on pt and peripad under him, covered him with warm blankets and allowed him to rest.
[2018-11-22 05:22] LABS: Add Manual Diff / Slide Review NO; Basophils Absolute Auto 100 /uL (0-100); Basophils Percent Auto 0.8 % (0-2); Eosinophils Absolute Auto 200 /uL (0-450); Eosinophils Percent Auto 2.1 % (2-4); Hematocrit 31.2 % (41-53); Hemoglobin 10.1 g/dL (13.5-17.5); Lymphocytes Absolute Auto 2200 /uL (1100-4500); Lymphocytes Percent Auto 24.6 % (25-40); Mean Corpuscular HGB Conc 32.4 % (30-36); Mean Corpuscular Hemoglobin 28.3 PG (26-34); Mean Corpuscular Volume 87.2 fL (80-100); Monocytes Absolute Auto 600 /uL (0-900); Monocytes Percent Auto 6.5 % (3-14); Neutrophils Absolute Auto 5800 /uL (1500-7000); Platelet Count 231 X10^3/uL (150-400); Red Blood Cell Count 3.58 X10^6/uL (4.5-5.9); Red Cell Distribution Width 18.8 % (11.6-14.8); White Blood Cell Count 8.8 X10^3/uL (4.5-11.0)
[2018-11-22 05:28] LABS: BUN Creatinine Ratio 17.9 (6-22); Blood Urea Nitrogen 43 mg/dL (9-20); Calcium 10.1 mg/dL (8.4-10.2); Carbon Dioxide 20 mmol/L (22-32); Chloride 110 mmol/L (98-107); Glucose 100 mg/dL (80-110); HEMOLYSIS < 15 (0-50); Potassium 5.1 mmol/L (3.4-5.1); Sodium 140 mmol/L (137-145)
[2018-11-22 06:09] LABS: Vitamin D 25 Hydroxy (D3) 43.7 ng/mL (30.0-100.0)
--- NOTE | 2018-11-22 08:19 | PM.PN.1 ---
Subjective Interval history: Farhat López is an 83-year-old male with history of a recent ground level fall with subsequent right intertrochanteric hip fracture status post ORIF, CAD status post CABG x6, chronic atrial fibrillation previously on warfarin, diabetes mellitus type 2, insulin using, and recent UTI on ertapenem who was sent to the hospital by [facility] for shortness of breath. The patient is resting in bed comfortably and in no acute distress. He is alert and oriented to person only. He appears to have dementia with behavioral disturbance. He denies headache, chest pain, shortness of breath, abdominal pain, nausea, vomiting, fever, chills, dysuria, diarrhea constipation. He is non-ambulatory. He is incontinent of urine and stool in brief. Exam Vital Signs (past 8 hours): - 11/22/18 02:06 11/22/18 05:00 11/22/18 07:30 Temperature 98.2 F 98.1 F 98.3 F Pulse Rate 80 87 74 Respiratory Rate 18 18 20 Blood Pressure 161/71 H 134/78 130/70 Pulse Oximetry 95 99 11/22/18 08:06 Temperature Pulse Rate Respiratory Rate Blood Pressure Pulse Oximetry 94 Oxygen Delivery Method Room Air Oxygen Flow Rate 0 Narrative Exam Narrative: General: Elderly male lying in bed and in no acute distress, well-developed, well-nourished, intermittently confused and somnolent, likely has dementia. HEENT: Normocephalic, atraumatic. External ears without defect. Pupils pinpoint, equal, round, and reactive to light. Anicteric sclerae, moist conjunctivae, and no lid lag. Mucus membranes dry. Neck: Supple with full range of motion. No jugular venous distension. No bruits. No lymphadenopathy or thyromegaly. Cardiovascular: Irregularly irregular without murmurs, rubs, or gallops appreciated. Pulmonary: Clear to auscultation bilaterally without crackles, wheezes, or rhonchi. Normal respiratory effort with no use of accessory muscles. Abdomen: Soft, bowel sounds present, nontender, nondistended. No hepatosplenomegaly or masses appreciated. Extremities: No clubbing or cyanosis. Right lower extremity swelling likely due to previous fall. Skin: Normal temperature, turgor, and texture; chronic pressure ulcerations on right arm posterior cubital fossa and right lateral malleoli with bandages in place c/d/i. Neurological: Patient is alert and oriented to person only. Seems to have dementia with behavioral disturbance unclear as to specific type. Objective Labs Result Diagrams: 11/24/18 05:04 11/24/18 05:04 Labs: Laboratory Results - last 24 hr 11/21/18 11/21/18 11/21/18 16:15 16:15 16:15 WBC 8.1 RBC 3.39 L Hgb 9.5 L Hct 29.5 L MCV 87.2 MCH 28.0 MCHC 32.0 RDW 19.1 H Plt Count 247 Neut % (Auto) 68.0 Lymph % (Auto) 23.6 L Trinity % (Auto) 5.7 Eos % (Auto) 2.5 Baso % (Auto) 0.2 Neut # (Auto) 5500 Lymph # (Auto) 1900 Trinity # (Auto) 500 Eos # (Auto) 200 Baso # (Auto) 0 PT 11.4 INR 1.0 APTT 34 D Sodium 141 Potassium 5.2 H Chloride 108 H Carbon Dioxide 20 L BUN 46 H Creatinine 2.50 H Estimated GFR 24.8 L BUN/Creatinine Ratio 18.4 Glucose 186 H Calcium 10.4 H Magnesium Iron TIBC % Saturation Transferrin Total Bilirubin 0.2 AST 20 ALT 22 Alkaline Phosphatase 92 Total Creatine Kinase 41 L CK-MB (CK-2) TNP CK-MB (CK-2) Rel Index TNP Troponin I 0.066 H Troponin T Total Protein 6.9 Albumin 3.5 Globulin 3.4 Albumin/Globulin Ratio 1.0 25-OH Vitamin D Total 25-Hydroxy Vitamin D2 25-Hydroxy Vitamin D3 Blood Type Antibody Screen Crossmatch 11/21/18 11/21/18 11/21/18 16:15 16:15 16:15 WBC RBC Hgb Hct MCV MCH MCHC RDW Plt Count Neut % (Auto) Lymph % (Auto) Trinity % (Auto) Eos % (Auto) Baso % (Auto) Neut # (Auto) Lymph # (Auto) Trinity # (Auto) Eos # (Auto) Baso # (Auto) PT INR APTT Sodium Potassium Chloride Carbon Dioxide BUN Creatinine Estimated GFR BUN/Creatinine Ratio Glucose Calcium Magnesium 2.0 Iron 29 L TIBC 241 L % Saturation 12 L Transferrin 184 L Total Bilirubin AST ALT Alkaline Phosphatase Total Creatine Kinase CK-MB (CK-2) CK-MB (CK-2) Rel Index Troponin I Troponin T Total Protein Albumin Globulin Albumin/Globulin Ratio 25-OH Vitamin D Total 25-Hydroxy Vitamin D2 25-Hydroxy Vitamin D3 Blood Type A Positive Antibody Screen Negative Crossmatch See Detail 11/22/18 11/22/18 11/22/18 04:52 04:52 04:52 WBC 8.8 RBC 3.58 L Hgb 10.1 L Hct 31.2 L MCV 87.2 MCH 28.3 MCHC 32.4 RDW 18.8 H Plt Count 231 Neut % (Auto) 66.0 Lymph % (Auto) 24.6 L Trinity % (Auto) 6.5 Eos % (Auto) 2.1 Baso % (Auto) 0.8 Neut # (Auto) 5800 Lymph # (Auto) 2200 Trinity # (Auto) 600 Eos # (Auto) 200 Baso # (Auto) 100 PT INR APTT Sodium Potassium Chloride Carbon Dioxide BUN Creatinine Estimated GFR BUN/Creatinine Ratio Glucose Calcium Magnesium Iron TIBC % Saturation Transferrin Total Bilirubin AST ALT Alkaline Phosphatase Total Creatine Kinase CK-MB (CK-2) CK-MB (CK-2) Rel Index Troponin I Troponin T Cancelled Total Protein Albumin Globulin Albumin/Globulin Ratio 25-OH Vitamin D Total Cancelled 25-Hydroxy Vitamin D2 Cancelled 25-Hydroxy Vitamin D3 Cancelled Blood Type Antibody Screen Crossmatch 11/22/18 11/22/18 04:52 04:52 WBC RBC Hgb Hct MCV MCH MCHC RDW Plt Count Neut % (Auto) Lymph % (Auto) Trinity % (Auto) Eos % (Auto) Baso % (Auto) Neut # (Auto) Lymph # (Auto) Trinity # (Auto) Eos # (Auto) Baso # (Auto) PT INR APTT Sodium 140 Potassium 5.1 Chloride 110 H Carbon Dioxide 20 L BUN 43 H Creatinine 2.40 H Estimated GFR 26.0 L BUN/Creatinine Ratio 17.9 Glucose 100 Calcium 10.1 Magnesium Iron TIBC % Saturation Transferrin Total Bilirubin AST ALT Alkaline Phosphatase Total Creatine Kinase CK-MB (CK-2) CK-MB (CK-2) Rel Index Troponin I 0.070 H Troponin T Total Protein Albumin Globulin Albumin/Globulin Ratio 25-OH Vitamin D Total 43.7 25-Hydroxy Vitamin D2 25-Hydroxy Vitamin D3 Blood Type Antibody Screen Crossmatch Assessment & Plan Plan: Assessment/Plan Narrative: Farhat López is an 83-year-old male with history of a recent ground level fall with subsequent right intertrochanteric hip fracture status post ORIF, CAD status post CABG x6, chronic atrial fibrillation previously on warfarin, diabetes mellitus type 2, insulin using, and recent UTI on ertapenem who was sent to the hospital by [facility] for shortness of breath. 1. Iron deficiency anemia and anemia of chronic kidney disease, present on admission. Stable. Acute blood loss anemia ruled out. -Initially thought to have severe anemia but entire sample was delutional per clinical laboratory medical director. The sample was drawn at an outside facility and was not timed therefore, when entered into our system showed up after CBC drawn here on same day and appears as though he went from 9.5 to 6.5 (which was actually the other way around). The patient, however, received 2 units PRBC as this was not realized initially. -No report from [facility] of melena or hematochezia in which patient is bed-bound, therefore, if it was a GI bleed it would have been apparent with perineal care. -Patient does have iron deficiency anemia with iron panel coinciding. Continue iron supplementation. -Hemoglobin and hematocrit stable. 2. Candiduria, present on admission. Active. -Patient's urinalysis grew Christy tropicalis. -Continue Diflucan 150 mg every 3 days x3 doses. Will try to discuss with Infectious Disease to see if this is appropriate antifungal treatment. 3. 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 Active. 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 -Patient at times is intermittently able to answer questions appropriately but most of the time he is demented with hallucinations. -Unable to obtain MRI due to pacemaker and CTA due to CKD stage 4. 4. Atrial fibrillation, chronic, present on admission. Stable. -Irregularly irregular rhythm with controlled rate. 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 -Previously on Coumadin discontinued due to subdural hematoma following a fall. -Currently taking aspirin 325 mg daily which causes increased risk of bleeding with no added benefit of smaller dose of 81 mg. Aspirin has been held and will consider restarting. -Continue Coreg 12.5 mg twice daily. 5. Diabetes mellitus type 2, chronic, present on admission. Stable. -Patient has complications of neuropathy, chronic kidney disease stage 4, and visual loss unknown if related to diabetes. -Held glipizide 5 mg daily as patient has had low blood glucose due to decreased p.o. intake. -Continue Accu-Cheks ACHS with low scale sliding scale insulin. 6. Atherosclerotic vascular disease, chronic, present on admission. Presumed stable. 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 -Chronically elevated troponin in light of chronic kidney disease stage 4. -EKG changes with ST depression in V3 to V6, stable compared to prior EKGs. -Echocardiogram dated 10/03/2018 reveals an EF 45-50%, mild LVH, mild right ventricular dilation with decreased right ventricular function, [id number] MVR, mild TR. -No complaints of chest pain, complained of exertional dyspnea likely related to #1, no carotid bruit appreciated. -Chest x-ray notes evidence of cardiovascular surgery and sternotomy without evidence of congestive failure or cardiomegaly. -Continue furosemide 20 mg daily. 7. Chronic kidney disease stage 4, present on admission. Stable. -Baseline creatinine varies between 2.4 and 2.9, presently at 2.5 with a BUN of 46, mildly hyperkalemic with potassium of 5.2. -Urinalysis 1+ protein urea. -Avoid nephrotoxic agents. -Continue monitor renal function daily. 8. Gout, chronic, present on admission. Stable. -No evidence of acute gout flare. Continue allopurinol 100 mg daily. 9. Recent urinary tract infection. -Prior urine culture dated 11/09/2018 reveals E coli, ESBL sensitive to ertapenem which he received at least a 10 day course. Urine culture grew Christy tropicalis only. 10. Hypertension, chronic, present on admission. Stable. -Continue carvedilol 12.5 mg and Lasix 20 mg. 11. Hyperlipidemia, chronic, present on admission. Presumed stable. -will continue patient's atorvastatin 20 mg daily 12. Benign prostatic hypertrophy, chronic, present on admission. Stable. -Continue tamsulosin 0.4 mg daily. -Patient is without urinary complaints or difficulty voiding. Incontinent in diaper. 13. Multiple falls prior to admission with recent right intertrochanteric fracture with failure to thrive/recover. -Status post open reduction internal fixation right intertrochanteric fracture right hip on 10/02/2018 following a ground level fall. -Patient has been bed-bound at [facility] and nonambulatory. Continue PT and OT. Patient is developing a right leg contracture due to lack of movement. -Patient is currently not on calcium supplementation as an elevated calcium at 10.4. Disposition: Patient likely to discharge home to hospice in the next several days as patient has been failing to recover/thrive from recent right hip fracture repair. Quality VTE Deep Vein Thrombosis/Pulmonary Embolism Present on Admission: No
--- NOTE | 2018-11-22 09:07 | PC.NURSE ---
Day sift: Per Dr Wilder ok for Pt to take PO meds this AM. Pt will be NPO after meds. Waiting for surgery consult.
[2018-11-22] MEDS: TAMSULOSIN 0.4 MG CAPSULE PO (09:13)
[2018-11-22] MEDS: SERTRALINE 50 MG TABLET PO (09:13)
[2018-11-22] MEDS: FUROSEMIDE 20 MG TABLET PO (09:15)
[2018-11-22] MEDS: ALLOPURINOL 100 MG TABLET PO (09:15)
[2018-11-22] MEDS: glipiZIDE 5 MG TABLET PO (09:15)
[2018-11-22] MEDS: CARVEDILOL 12.5 MG TABLET PO ×2 (09:16→22:05)
--- NOTE | 2018-11-22 11:20 | OT.IP.EVAL ---
Current Diagnoses Anemia, unspecified (11/21/18) Past Medical History (Last Reviewed 11/21/18 @ 21:25 by JUSTEN Crawford) BPH (benign prostatic hyperplasia) (Acute) Hard of hearing (Acute) Hyperlipidemia (Acute) Atrial fibrillation (Acute) Blind (Acute) CAD (coronary artery disease) (Acute) Cardiac pacemaker (Acute) Closed right hip fracture (Acute) Diabetes (Acute) S/P ORIF (open reduction internal fixation) fracture (Acute) Surgical History (Last Reviewed 11/21/18 @ 21:25 by JUSTEN Crawford) History of coronary artery bypass graft x 6 (Acute) Occupational Therapy Inpatient Evaluation/Re-Eval M1 PT/OT-IP Prior Functional Status Start: 11/22/18 15:18 Freq: NEEDED Status: Active Protocol: Document 11/22/18 11:20 TIFFANIE (Rec: 11/22/18 15:52 PJM [id number]) Medical Review Prior Functional Status Medical History Reviewed Yes Diet/Fluid Consistency Regular Communication [place] interferes; pt hears out of L ear only, pt verbalizes intelligibly but with confusion noted at times Mobility and Gait Pt was non ambulatory at [facility] per pt's ; 2 person assist to manual W/C; unsure whether lift equipt used at times at [facility] Activities of Daily Living and IADL's Pt needs supervision and intermittent assist with self feeding due to low vision, pt needs assist with all self care skills including grooming , dressing, bathing. Pt incontinent of bowel and bladder and wears adult diapers per . Social History Household Members spouse other Living Arrangements House Number of Floors (Floors) One Floor Number of Stairs To Enter/Railing? no stairs to enter w/c accessible home per Home Environment High Toilet Walk in Shower Home Equipment Front Wheel Walker Four Wheel Walker Manual Wheelchair Bedside Commode Shower Seat with Backrest Hand Held Shower Grab Bars Near Toilet Grab Bars In Shower Employment Status Retired Additional Social History Comment Pt s/p fall out of w/c at home on 10/02/18 with R intertrochanteric hip fx, pt d/c'd to [facility] on 11/05/18 and has been there since. Pt has had persistent UTI and has hx of old subdural from fall and intermittent confusion. Pt had low H&H on admit 6.5/20.7 with 2 units given and H&H 10. 1/31.2 today. Pt has chronically elevated troponin and hx of old R ankle fx. Note pt has dry ulcer on R lateral malleolus and scabs on dorsum of 3 toes on L foot. RN aware and place bandage over R malleolus to avoid shearing on sheets. Pt lays with R leg flexed and externally rotated in bed. M2 OT-IP Current Condition Start: 11/22/18 15:18 Freq: Status: Active Protocol: Document 11/22/18 11:20 PJM (Rec: 11/22/18 15:52 PJM [id number]) Occupational Therapy Current Condition Current Condition Evaluation Date 11/22/18 Treatment Diagnosis decreased self care/mobility s /p recurrent falls at [facility], persistent UTI Diagnosis Onset Date 11/21/18 Post Operative Precautions Other Precautions High fall risk Weight Bearing Status Weight Bearing Status Weight Bear as Tolerated Allowed Weight Bearing Amount (enter % RLE or #) (%) M3 OT- IP Subjective and Pain Start: 11/22/18 15:18 Freq: Status: Active Protocol: Document 11/22/18 11:20 PJM (Rec: 11/22/18 15:52 PJM [id number]) OT- Subjective Occupational Therapy Visit Type Type Initial Evaluation Visit Start Time 10:40 Visit Stop Time 11:20 Notes Pt's here for portion of session to provide information about prior level of function. Occupational Therapy Visit Comments Patient Comments I am at my son's house. Patient/Caregiver Goals none verbalized this session due to confusion OT Pain Assessment Pain Present Pain Present Unable to Respond FLACC Pain Scale Face Occasional grimace/frown Legs Uneasy, restless, tense Activity Squirming,shifting Cry No cry (awake or asleep) Consolability Reassurable with touch FLACC Total 4 Location Right Foot Scale Used FLACC scale above Description Aching Pain Behaviors Guarding Restlessness Management Techniques Distraction Re-positioning M4 OT- IP ADL's Start: 11/22/18 15:18 Freq: Status: Active Protocol: Document 11/22/18 11:20 PJM (Rec: 11/22/18 15:52 PJM [id number]) OT [id number] General Evaluation Diet Level for Self-Feeding pt NPO at present Comments OT Self-Feeding Comments Pt will need assist due to low vision and confusion OT ADL-Grooming General Evaluation Grooming Ability Moderate Assistance Areas Needing Assistance Face Washing Comments OT Grooming Comments for thoroughness OT ADL-Oral Care Comments Oral Care Comments pt declined this session OT ADL-Dressing General Eval Upper Body Dressing Ability Maximum Assistance Lower Body Dressing Ability Total Assistance OT ADL-Toileting General Evaluation Toileting Ability Total Assistance Areas Needing Assistance Perform Perineal Hygiene Comments OT Toileting Comments pt incontinent of bowel and bladder OT ADL-Bathing Bathing Type Bathing Type Bed Bath General Evaluation Bathing Ability Total Assistance M5 OT- IP IADL's Start: 11/22/18 15:18 Freq: Status: Active Protocol: Document 11/22/18 11:20 PJM (Rec: 11/22/18 15:52 PJM [id number]) OT-Instrumental Activities of Daily Living Deficits IADL Deficits Identified Deficits Home Safety Awareness Awareness of Need for Assistance at Home Decreased Awareness Ability to Problem Solve Emergency Unable to Problem Solve Situations Medication Management Medication Management Caregiver Administers Money Management Money Management Caregiver Provides Assistance Meal Preparation Meal Preparation Caregiver Provides Assist Customer Counter Representative Customer Counter Representative Caregiver Provides Assist Driving Driving Caregiver Provides Assist M6 OT- IP Functional Cognition Start: 11/22/18 15:18 Freq: Status: Active Protocol: Document 11/22/18 11:20 PJM (Rec: 11/22/18 15:52 PJM [id number]) Cognitive Factors Limiting Selfcare Function Cognitive Ability Level of Alertness Confusional State Patient Orientation Name Attention Span Ability Unable to Sustain Attention Ability to Follow Commands Able to Follow One Step Commands Memory Description Short Term Impaired Safety Awareness Decreased Recall of Precautions Underestimates Need for Assistance Problem Solving Ability Unable to Identify Errors Needs Assist to Identify Solutions Executive Function Ability Unable to Filter Distractions Unable to Organize Plans Unable to Remember Details Cognitive Comments Cognitive Assessment Comments Pt insists he is at his son's house. Follows one step commands with increased time and cues to redirect attention. Pt attempting to eat food out of his lap when no food present. Conversation intermittently confused. Pt has low frustration tolerance this session. OT- Vision and Hearing OT- Hearing Assessment OT- Hearing Assessment Hearing Impaired Right Ear Impaired Left Ear Impaired OT- Vision Assessment Vision History Blindness Vision Assessment Comments Pt is blind due to severe diabetic retinopathy per . Pt hears best out of L ear per . M7 OT- IP Mobility and Balance Start: 11/22/18 15:18 Freq: Status: Active Protocol: Document 11/22/18 11:20 PJM (Rec: 11/22/18 15:52 PJM [id number]) OT-Transfer Assessment Comments Mobility Comments to be assessed OT- Gait Assessment Comments Gait Ability Comments pt has been w/c bound at [facility] per OT- Balance Assessment Comments Other Balance Tests/Deviations/Treatment to be assessed : M8 OT- IP Objective Assessments Start: 11/22/18 15:18 Freq: Status: Active Protocol: Document 11/22/18 11:20 PJM (Rec: 11/22/18 15:52 PJM [id number]) OT Gross Range of Motion Upper Extremity Range of Motion Assessment Bilaterally Impaired ROM Impairments B shoulder flexion limited to ~ 80 degrees by stiffness; distal AROM WFL OT Strength Upper Extremity Strength Assessment Left Impaired Hand Executive Business Coach Strength Hand Dominance Right Comments Strength Comments strength generally 3+ to 4-/5 throughout BUE with no focal weakness noted. OT- Coordination Assessment Comments Coordination Comments Coordination limited by decreased vision OT-Muscle Tone Assessment Muscle Tone WNL Yes OT Sensation Assessment Comments Summary Comments Pt detects lt touch in BUE's Edema Edema Present Edema Comments dorsum of R foot M9 OT- IP Assessment and Plan Start: 11/22/18 15:18 Freq: Status: Active Protocol: Document 11/22/18 11:20 PJM (Rec: 11/22/18 15:52 PJM [id number]) OT Summary Assessment and Plan Potential Analytic Complexity at Evaluation Low Summary OT Impairments Pain Strength Balance Coordination Functional Cognition Functional Mobility Self-Feeding Grooming Dressing Toileting Bathing Toilet Transfers Shower Transfers Assessment Summary Low complexity OT assessment completed. Pt has significant performance deficits in cognition, all functional mobility/transfers and has been w/c bound recently since R hip fx 09/2018. He also has performance deficits in all self care skills as noted above. Pt currently requires 24 hr assist due to high care needs. expresses interest in taking pt home with hospice services if possible. She states they have [facility] paid caregivers 28 hrs/week and she plans to hire private caregivers as well. They also have boarder who is RN and can assist with pt's care at home. Discussed with [employer]BER. If sufficient caregiver assist cannot be arranged for home, pt will need SNF at d/c. Goals Self-Feeding Goal Minimal Assistance Grooming Goal Minimal Assistance Dressing Goal Moderate Assistance Patient/Caregiver Education Goal Caregiver Independent Assisting Patient OT-Other Goals Dressing goal is for upper body only. Days to Meet Goals 5 Frequency of Treatment Frequency Of Treatment Once a Day Treatment Plan OT Treatment Plan ADL Training Functional Cognition Training Patient/Family Education Discharge Planning Discharge Recommendations OT Discharge Recommendations Home with 17/05 Assist SNF Rehab Home Equipment Needs hospital bed, bipin lift
--- NOTE | 2018-11-22 13:10 | OT.IP.TRT ---
Current Diagnoses Anemia, unspecified (11/21/18) Occupational Therapy Treatment Note M2 OT-IP Current Condition Start: 11/22/18 15:18 Freq: Status: Active Protocol: Document 11/22/18 11:20 PJM (Rec: 11/22/18 15:52 PJM [id number]) Occupational Therapy Current Condition Current Condition Evaluation Date 11/22/18 Treatment Diagnosis decreased self care/mobility s /p recurent falls at [facility], persistent UTI Diagnosis Onset Date 11/21/18 Post Operative Precautions Other Precautions High fall risk Weight Bearing Status Weight Bearing Status Weight Bear as Tolerated Allowed Weight Bearing Amount (enter % RLE or #) (%) M3 OT- IP Subjective and Pain Start: 11/22/18 15:18 Freq: Status: Active Protocol: Document 11/22/18 15:10 PJM (Rec: 11/22/18 16:16 PJM [id number]) OT- Subjective Occupational Therapy Visit Type Type Treatment Note Visit Start Time 14:45 Visit Stop Time 15:10 Total Visit Minutes 25 Notes Co-tx with P.T. for first attempt at mobility as 2 skilled assist required for safety. Occupational Therapy Visit Comments Patient Comments Tell me what you want me to do. OT Pain Assessment Pain When Pain Assessed After Treatment Pain Present Pain Present Denied Pain M6 OT- IP Functional Cognition Start: 11/22/18 15:18 Freq: Status: Active Protocol: Document 11/22/18 15:10 PJM (Rec: 11/22/18 16:16 PJM [id number]) Cognitive Factors Limiting Selfcare Function Cognitive Ability Level of Alertness Alert Attention Span Ability Capable of Focused Attention Ability to Follow Commands Able to Follow One Step Commands Cognitive Comments Cognitive Assessment Comments Pt more alert this session with improved speed of processing. Pt pleasant and cooperative with good effort and participation this session . M7 OT- IP Mobility and Balance Start: 11/22/18 15:18 Freq: Status: Active Protocol: Document 11/22/18 15:10 PJM (Rec: 11/22/18 16:16 PJM [id number]) OT- Bed Mobility Assessment Rolling Type of Rolling Roll to Left Level of Assistance 1 Person Assistance Supine to Sit Supine to Sit Assist Maximum Assistance 1 Person Assistance Scooting Scooting to Edge of Bed Moderate Assistance 1 Person Assistance OT-Transfer Assessment Sit to and From Stand Sit to and from Stand Maximum Assistance 2 Person Assistance Transfers Transfer Ability Maximum Assistance 2 Person Assistance Technique Transfer Destination Chair Transfer Technique Stand Pivot Devices Transfer Assistive Devices Gait Belt Front Wheeled Walker Comments Mobility Comments Pt has difficulty straightening R knee completely for weight bearing in standing.See P.T. note for further details. OT- Gait Assessment Comments Gait Ability Comments did not occur OT- Balance Assessment Sitting Balance and Reactions Static Sitting Balance Ability Fair Dynamic Sitting Balance Ability Poor Standing Balance and Reactions Static Standing Balance Ability Poor Dynamic Standing Balance Ability Poor M9 OT- IP Assessment and Plan Start: 11/22/18 15:18 Freq: Status: Active Protocol: Document 11/22/18 15:10 PJM (Rec: 11/22/18 16:16 PJM [id number]) OT Summary Assessment and Plan Summary OT Impairments Strength Balance Functional Cognition Functional Mobility Self-Feeding Grooming Dressing Toileting Bathing Toilet Transfers Shower Transfers Assessment Summary Pt requiring max assist of 2 for transfer to chair despite good effort and participation. He will require use of lift equipment, such as bipin lift, if he discharges home with 24 hr caregiver assist. Will continue OT services here to increase independence/ endurance/safety in basic self care. Goals Days to Meet Goals 5 Frequency of Treatment Frequency Of Treatment Once a Day Treatment Plan OT Treatment Plan ADL Training Functional Cognition Training Patient/Family Education Discharge Planning Discharge Recommendations OT Discharge Recommendations Home with 24/7 Assist vs SNF Rehab Home Equipment Needs hospital bed, bipin lift
[2018-11-22] MEDS: OXYCODONE IR 5 MG TABLET PO (14:08)
--- NOTE | 2018-11-22 14:45 | PT.IIE ---
Current Diagnoses Anemia, unspecified (11/21/18) Surgical History (Last Reviewed 11/21/18 @ 21:25 by JUSTEN Crawford) History of coronary artery bypass graft x 6 (Acute) Medical History (Last Reviewed 11/21/18 @ 21:25 by JUSTEN Crawford) BPH (benign prostatic hyperplasia) (Acute) Hard of hearing (Acute) Hyperlipidemia (Acute) Atrial fibrillation (Acute) Blind (Acute) CAD (coronary artery disease) (Acute) Cardiac pacemaker (Acute) Closed right hip fracture (Acute) Diabetes (Acute) S/P ORIF (open reduction internal fixation) fracture (Acute) Physical Therapy Inpatient Evaluation/Re-Eval M1 PT/OT-IP Prior Functional Status Start: 11/22/18 15:18 Freq: NEEDED Status: Active Protocol: Document 11/22/18 11:20 TIFFANIE (Rec: 11/22/18 15:52 PJM [id number]) Medical Review Prior Functional Status Medical History Reviewed Yes Diet/Fluid Consistency Regular Communication [place] interferes; pt hears out of L ear only, pt verbalizes intelligibly but with confusion noted at times Mobility and Gait Pt was non ambulatory at [facility] per pt's ; 2 person assist to manual W/C; unsure whether lift equipt used at times Activities of Daily Living and IADL's Pt needs supervision and intermittent assist with self feeding due to low vision, pt needs assist with all self care skills including grooming , dressing, bathing. Pt incontinent of bowel and bladder and wears adult diapers per . Social History Household Members spouse other Living Arrangements House Number of Floors (Floors) One Floor Number of Stairs To Enter/Railing? no stairs to enter w/c accessible home per Home Environment High Toilet Walk in Shower Home Equipment Front Wheel Walker Four Wheel Walker Manual Wheelchair Bedside Commode Shower Seat with Backrest Hand Held Shower Grab Bars Near Toilet Grab Bars In Shower Employment Status Retired Additional Social History Comment Pt s/p fall out of w/c at home on 10/02/18 with R intertrochanteric hip fx, d/c' d to [facility] on 11/05/18 and has been there since. Pt has had persistent UTI and has hx of subdural from fall and intermittent confusion. Pt had low H&H on admit 6.5/20.7 with 2 units given and H&H 10. 1/31.2 today. Pt has chronically elevated troponin and hx of old R ankle fx. Note pt has dry ulcer on R lateral malleolus and scabs on dorsum of 3 toes on L foot. RN aware and place bandage over R malleolus to avoid shearing on sheets. Pt lays with R leg flexed and externally rotated in bed. M1 PT/OT-IP Prior Functional Status Start: 11/22/18 16:07 Freq: NEEDED Status: Active Protocol: Document 11/22/18 14:45 AB (Rec: 11/22/18 16:30 AB [id number]) Medical Review Prior Functional Status Medical History Reviewed Yes Diet/Fluid Consistency Regular Communication pt able to make needs known but with confusion; [place] but able to hear better on L side Mobility and Gait pt with h/o R hip fx oct 02, 2018 s/p ORIF and is WBAT. pt d/c'd to [facility] afterwards. per spouse: pt is mostly w/c bound. pt has a personal manual w/c at home. Activities of Daily Living and IADL's Per OT notes: Pt needs supervision and intermittent assist with self feeding due to low vision, pt needs assist with all self care skills including grooming, dressing, bathing. Pt incontinent of bowel and bladder and wears adult diapers per . Social History Household Members spouse other Living Arrangements House Number of Floors (Floors) One Floor Number of Stairs To Enter/Railing? no stairs to enter w/c accessible home per Home Environment High Toilet Walk in Shower Home Equipment Front Wheel Walker Four Wheel Walker Manual Wheelchair Bedside Commode Shower Seat with Backrest Hand Held Shower Grab Bars Near Toilet Grab Bars In Shower Employment Status Retired Additional Social History Comment pt h/o R hip fx s/p ORIF 10/02. pt went to [facility] after hospitalization. Per previous notes: prior to fall, pt is mostly w/c bound but was able to ambulate short distances using 4WW. per spouse: pt is non ambulatory at [facility]. Per OT: Spouse wants to take pt home and plans to have hospice care if pt is eligible and will hire caregivers and also has a person at home that can also assist them. M2 PT-IP Current Condition Start: 11/22/18 16:07 Freq: NEEDED Status: Active Protocol: Document 11/22/18 14:45 AB (Rec: 11/22/18 16:30 AB [email or web address]) Physical Therapy Current Condition Current Condition Evaluation Date 11/22/18 Treatment Diagnosis anemia; GI bleed; UTI: generalized weakness Onset Date 11/21/18 M3 PT-IP Subjective Start: 11/22/18 16:07 Freq: NEEDED Status: Active Protocol: Document 11/22/18 14:45 AB (Rec: 11/22/18 16:30 AB [email or web address]) Subjective Physical Therapy Visit Type Type Initial Evaluation Visit Start Time 14:45 Visit Stop Time 15:10 Total Visit Minutes 25 Number of CHANGEOVER OPERATOR Visits 0 Physical Therapy Visit Comments Patient Comments pt agreeable to get out of bed Therapy Pain Assessment Pain When Pain Assessed During Mobility Pain Present Pain Present Pain Reported Location Right Hip Scale Used pain scale not stated Description With Movement Pain Behaviors Guarding Pain Management Techniques Re-positioning M4 PT-IP Mobility and Gait Start: 11/22/18 16:07 Freq: NEEDED Status: Active Protocol: Document 11/22/18 14:45 AB (Rec: 11/22/18 16:30 AB [email or web address]) PT-Bed Mobility Assessment Supine to Sit Supine to Sit Maximum Assistance 1 Person Assistance 2 Person Assistance PT-Transfer Assessment Sit to and From Stand Sit to and from Stand Maximum Assistance 2 Person Assistance Use of Upper Extremities Equipment Transfer Assistive Device Bed Rail Front Wheeled Walker Orthotic/Prosthetic Devices or Brace: No Transfers Transfer Destination Chair Transfer Technique Stand Step Pivot Transfer Ability Level of Assist Maximum Assistance 2 Person Assistance Use of Upper Extremities Comments Mobility Comments Pt with confusion and requires constant cues for directions and safety. pt requires max A x 1-2 for bed mobility supine to sit and max cues. pt was able to sit on EOB CGA. pt completed sit to stand max A x 2 and max cues and completed pivot transfer using FWW max A x 2 and max cues. pt with flexed posture, increase R knee flexion with heel off floor and R knee slight buckling during transfer and knee flexion tightness/ contracture as contributing factor. positioned pt on chair. call light and table placed within reach. Left pt with spouse in room. Gait Assessment Comments Gait Comments unable at this time PT-Balance Assessment Sitting Balance and Reactions Static Sitting Balance Ability Fair Dynamic Sitting Balance Ability Fair Standing Balance and Reactions Static Standing Balance Ability Poor Dynamic Standing Balance Ability Poor Device Used FWW M5 PT-IP Objective Assessments Start: 11/22/18 16:07 Freq: NEEDED Status: Active Protocol: Document 11/22/18 14:45 AB (Rec: 11/22/18 16:30 AB [email or web address]) Orientation Orientation/Cognition Level of Alertness Confusional State Orientation Name Safety Awareness Decreased Safety Awareness Memory Description Short Term Impaired Alf Impaired Comments pt able to answer questions but occasionally will pause and reach out in the air for unknown reasons. Gross Range of Motion Lower Extremity ROM Assessment Right Impaired Impairments R hip/knee flexor tightness/ slight contracture but able to extend with stretching Strength Lower Extremity Strength Assessment Bilaterally Impaired Comments Strength Comments RLE 3+/5 LLE 4-/5 Other Assessments Other Other Assessments (+) R lower leg edema; lateral malleolus with dressing; pt tends to have RLE in flexion and ER when supine in bed. M6 PT-IP Treatment Start: 11/22/18 16:07 Freq: NEEDED Status: Active Protocol: Document 11/22/18 14:45 AB (Rec: 11/22/18 16:30 AB [email or web address]) Physical Therapy Treatment Education Education Provided Safety Other Treatments Other Treatment Performed PROM with end range stretching : R knee towards extension in supine M7 PT-IP Assessment and Plan Start: 11/22/18 16:07 Freq: NEEDED Status: Active Protocol: Document 11/22/18 14:45 AB (Rec: 11/22/18 16:30 AB [email or web address]) PT Summary Assessment and Plan Potential Rehabilitation Potential Fair Status of Condition at Evaluation Evolving Summary Impairments Pain ROM Strength Balance Coordination Sensation Tone Cognition Bed Mobility Transfers Gait Activity Tolerance Assessment Summary pt requiring 2 person assist with mobility and requires 24/ 7 assist at this time. pt will need SNF rehab to improve mobility. spouse wants pt to go home under hospice care. doctor aware. Goals Bed Mobility Goal Moderate Assistance Transfer Goal Moderate Assistance Front Wheeled Walker Gait Goal Maximal Assistance Front Wheel Walker Gait Distance 20 Days to Meet Goals 5 Frequency of Treatment Frequency Of Treatment Once a Day Treatment Plan Physical Therapy Treatment Plan Bed Mobility Training Transfer Training Gait Training Therapeutic Exercise Balance Retraining Discharge Planning Hot or Cold Pack Neuromuscular Re-ed Coordination Retraining Manual Therapy Other Recommendations and Next Treatment transfers Focus Recommendations To Nursing Amount of Assist Needed Mechanical Lift Discharge Recommendations PT Discharge Recommendations SNF Rehab
[2018-11-22] MEDS: DEXTROSE 5%-0.9% NS 1,000 ML 50 ML IV (14:49)
--- NOTE | 2018-11-22 14:54 | PC.NURSE ---
Day shift: Per Dr Wilder the UA can be cancelled because UA performed in ED. UA cancelled.
[2018-11-22] MEDS: FLUCONAZOLE 150 MG TABLET PO (19:13)
[2018-11-22] MEDS: ATORVASTATIN 20 MG TABLET PO (22:05)
[2018-11-22] MEDS: SENNOSIDES 8.6 MG TABLET PO (22:08)
[2018-11-23] VITALS (10 sets, daily range): BP systolic 121–140; BP diastolic 58–79; PULSE 68–86; RESP 16–20; TEMP 36.4–37.1; O2SAT 94–98
[2018-11-23 05:36] LABS: Add Manual Diff / Slide Review NO; Basophils Absolute Auto 100 /uL (0-100); Basophils Percent Auto 1.2 % (0-2); Eosinophils Absolute Auto 200 /uL (0-450); Eosinophils Percent Auto 1.9 % (2-4); Hematocrit 30.9 % (41-53); Hemoglobin 10.1 g/dL (13.5-17.5); Lymphocytes Absolute Auto 2100 /uL (1100-4500); Lymphocytes Percent Auto 22.3 % (25-40); Mean Corpuscular HGB Conc 32.7 % (30-36); Mean Corpuscular Hemoglobin 28.6 PG (26-34); Mean Corpuscular Volume 87.4 fL (80-100); Monocytes Absolute Auto 600 /uL (0-900); Monocytes Percent Auto 6.2 % (3-14); Neutrophils Absolute Auto 6400 /uL (1500-7000); Neutrophils Percent Auto 68.4 % (50-75); Platelet Count 207 X10^3/uL (150-400); Red Blood Cell Count 3.54 X10^6/uL (4.5-5.9); Red Cell Distribution Width 18.7 % (11.6-14.8); White Blood Cell Count 9.4 X10^3/uL (4.5-11.0)
[2018-11-23 05:43] LABS: BUN Creatinine Ratio 16.4 (6-22); Blood Urea Nitrogen 41 mg/dL (9-20); Calcium 9.8 mg/dL (8.4-10.2); Carbon Dioxide 21 mmol/L (22-32); Chloride 111 mmol/L (98-107); Estimated Glomerular Filt Rate 24.8 mL/min (>60); Glucose 74 mg/dL (80-110); HEMOLYSIS < 15 (0-50); Potassium 4.5 mmol/L (3.4-5.1); Sodium 140 mmol/L (137-145)
--- NOTE | 2018-11-23 05:59 | PC.NURSE ---
Notified that pt's blood glucose was 74 from his AM blood draw. POC glucose had not been checked overnight d/t pt not requiring coverage at bedtime. JUSTEN Magaña requested that we give pt juice to address the low blood sugar and to hold off on giving him insulin at 0730 even if POC glucose was elevated. JUSTEN Magaña stated that he would put the hold into the MAR as well. Will pass on to day shift.
[2018-11-23] MEDS: TAMSULOSIN 0.4 MG CAPSULE PO (09:08)
[2018-11-23] MEDS: ALLOPURINOL 100 MG TABLET PO (09:08)
[2018-11-23] MEDS: FUROSEMIDE 20 MG TABLET PO (09:08)
[2018-11-23] MEDS: SERTRALINE 50 MG TABLET PO (09:08)
[2018-11-23] MEDS: POLYETHYLENE GLYCOL 3350 17 GM POWD.PACK PO (09:08)
[2018-11-23] MEDS: PANTOPRAZOLE 40 MG VIAL IV (09:12)
[2018-11-23] MEDS: CARVEDILOL 12.5 MG TABLET PO ×2 (09:13→22:26)
[2018-11-23] MEDS: DEXTROSE 5%-0.9% NS 1,000 ML 50 ML IV (11:17)
--- NOTE | 2018-11-23 13:43 | PC.NURSE ---
LOC/Foot: Asked why he was here. SI'm here so they can put some PE tubes into my head. Pt unsure where he is, reoriented. Thought he had driven his car here and was worried about it being in the parking lot. Factual information given. Pt is also experiencing some visual hallucinations, was looking up at the ceiling saying SI see you. There is no one there. MD Wilder is aware of pt's loc and he is having some hallucinations. Additionally pt didn't receive his glipizide, said he was tired of clear liquids and wasn't going to eat any of that. And he didn't. did increase diet later in the day. Several attempts made to try to get pt to eat but he would not do so even with being helped. Pt reports he is tired of being in the hospital and would like to go home. SS is aware of that. Pt also has a rt swollen painful ankle. is aware and she will be ordering some x-rays. Pt denies any pain when questioned other then when rt ankle moved. Cont w/poc.
--- NOTE | 2018-11-23 14:25 | OT.IP.TRT ---
Current Diagnoses Anemia, unspecified (11/21/18) Occupational Therapy Treatment Note M2 OT-IP Current Condition Start: 11/22/18 15:18 Freq: Status: Active Protocol: Document 11/22/18 11:20 PJM (Rec: 11/22/18 15:52 PJM [id number]) Occupational Therapy Current Condition Current Condition Evaluation Date 11/22/18 Treatment Diagnosis decreased self care/mobility s /p recurent falls at [facility], persistent UTI Diagnosis Onset Date 11/21/18 Post Operative Precautions Other Precautions High fall risk Weight Bearing Status Weight Bearing Status Weight Bear as Tolerated Allowed Weight Bearing Amount (enter % RLE or #) (%) M3 OT- IP Subjective and Pain Start: 11/22/18 15:18 Freq: Status: Active Protocol: Document 11/23/18 14:25 PJM (Rec: 11/23/18 14:32 PJM [id number]) OT- Subjective Occupational Therapy Visit Type Type Administrative Note Visit Start Time 14:25 Notes Per discussion with MD, d/c plan is now home with hospice. not available for education today. Will attempt again tomorrow. Per discussion with yesterday, she plans to hire private caregivers plus has 28 hr/week caregivers from [place]. She plans to obtain hospital bed and bipin lift. She states pt is incontinent of bowel and bladder and uses adult diapers. He does not use bedside commode. She plans to have caregivers do sponge baths at home. No charge today.
--- NOTE | 2018-11-23 18:35 | PM.PN.1 ---
Subjective Date Patient Seen: 11/23/18 Interval history: Farhat López is an 83-year-old male with history of a recent ground level fall with subsequent right intertrochanteric hip fracture status post ORIF, CAD status post CABG x6, chronic atrial fibrillation previously on warfarin, diabetes mellitus type 2, insulin using, and recent UTI on ertapenem who was sent to the hospital by [facility] for shortness of breath. The patient is resting in bed comfortably and in no acute distress. He is actively hallucinating and his mentation seems to wax and wane. He at times is able to answer questions with relatively appropriate responses. He denies any symptoms including headache, chest pain, shortness of breath, abdominal pain, nausea, vomiting, fever, chills, dysuria, diarrhea constipation. He is non-ambulatory. He is incontinent of urine and stool. Exam Vital Signs (past 8 hours): - 11/23/18 11:34 11/23/18 15:30 Temperature 98.7 F 97.5 F L Pulse Rate 68 83 Respiratory Rate 16 20 Blood Pressure 126/58 L 123/67 Pulse Oximetry 95 98 Oxygen Delivery Method Room Air Oxygen Flow Rate 0 Narrative Exam Narrative: General: Elderly male lying in bed and in no acute distress, well-developed, well-nourished, more confused and intermittenly somnolent. HEENT: Normocephalic, atraumatic. External ears without defect. Pupils pinpoint, equal, round, and reactive to light. Anicteric sclerae, moist conjunctivae, and no lid lag. Mucus membranes dry. Neck: Supple with full range of motion. No jugular venous distension. No bruits. No lymphadenopathy or thyromegaly. Cardiovascular: Irregularly irregular without murmurs, rubs, or gallops appreciated. Pulmonary: Clear to auscultation bilaterally without crackles, wheezes, or rhonchi. Normal respiratory effort with no use of accessory muscles. Abdomen: Soft, bowel sounds present, nontender, nondistended. No hepatosplenomegaly or masses appreciated. Extremities: No clubbing or cyanosis. Right lower extremity swelling likely due to previous fall. Skin: Normal temperature, turgor, and texture; chronic pressure ulcerations on right arm posterior cubital fossa and right lateral malleoli with bandages in place c/d/i. Neurological: Patient is alert and oriented to person only. Continues to exhibit dementia with behavioral disturbance unclear as to specific type. More confused overall. Objective Labs Result Diagrams: 11/24/18 05:04 11/24/18 05:04 Labs: Laboratory Results - last 24 hr 11/23/18 11/23/18 05:16 05:16 WBC 9.4 RBC 3.54 L Hgb 10.1 L Hct 30.9 L MCV 87.4 MCH 28.6 MCHC 32.7 RDW 18.7 H Plt Count 207 Neut % (Auto) 68.4 Lymph % (Auto) 22.3 L Floyd % (Auto) 6.2 Eos % (Auto) 1.9 L Baso % (Auto) 1.2 Neut # (Auto) 6400 Lymph # (Auto) 2100 Floyd # (Auto) 600 Eos # (Auto) 200 Baso # (Auto) 100 Sodium 140 Potassium 4.5 Chloride 111 H Carbon Dioxide 21 L BUN 41 H Creatinine 2.50 H Estimated GFR 24.8 L BUN/Creatinine Ratio 16.4 Glucose 74 L Calcium 9.8 Assessment & Plan Plan: Assessment/Plan Narrative: Farhat López is an 83-year-old male with history of a recent ground level fall with subsequent right intertrochanteric hip fracture status post ORIF, CAD status post CABG x6, chronic atrial fibrillation previously on warfarin, diabetes mellitus type 2, insulin using, and recent UTI on ertapenem who was sent to the hospital by [facility] for shortness of breath. 1. Iron deficiency anemia and anemia of chronic kidney disease, present on admission. Stable. Acute blood loss anemia ruled out. -Initially thought to have severe anemia but entire sample was delutional per engineering lab technician. The sample was drawn at an outside facility and was not timed therefore, when entered into our system showed up after CBC drawn here on same day and appears as though he went from 9.5 to 6.5 (which was actually the other way around). The patient, however, received 2 units PRBC as this was not realized initially. -No report from [facility] of melena or hematochezia in which patient is bed-bound, therefore, if it was a GI bleed it would have been apparent with perineal care. -Patient does have iron deficiency anemia with iron panel coinciding. Continue iron supplementation. -Hemoglobin and hematocrit stable. 2. Candiduria, present on admission. Active. -Patient's urinalysis grew Christy tropicalis. -Discontinued Diflucan. I discussed this with Dr. Carolina of Infectious Disease, who recommends discontinuation as the patient has no infectious symptoms or signs, Christy tropicalis is a very common yeast skin jaspreet and the patient is not severely immunocompromised. 3. 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 Active. 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 -Patient at times is intermittently able to answer questions appropriately but most of the time he is demented with hallucinations. -Unable to obtain MRI due to pacemaker and CTA due to CKD stage 4. 4. Atrial fibrillation, chronic, present on admission. Stable. -Irregularly irregular rhythm with controlled rate. 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 -Previously on Coumadin discontinued due to subdural hematoma following a fall. -Currently taking aspirin 325 mg daily which causes increased risk of bleeding with no added benefit of smaller dose of 81 mg. Aspirin has been held and will consider restarting. -Continue Coreg 12.5 mg twice daily. 5. Diabetes mellitus type 2, chronic, present on admission. Stable. -Patient has complications of neuropathy, chronic kidney disease stage 4, and visual loss unknown if related to diabetes. -Held glipizide 5 mg daily as patient has had low blood glucose due to decreased p.o. intake. -Continue Accu-Cheks ACHS with low scale sliding scale insulin. 6. Atherosclerotic vascular disease, chronic, present on admission. Presumed stable. 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 -Chronically elevated troponin in light of chronic kidney disease stage 4. -EKG changes with ST depression in V3 to V6, stable compared to prior EKGs. -Echocardiogram dated 10/03/2018 reveals an EF 45-50%, mild LVH, mild right ventricular dilation with decreased right ventricular function, [id number] MVR, mild TR. -No complaints of chest pain, complained of exertional dyspnea likely related to #1, no carotid bruit appreciated. -Chest x-ray notes evidence of cardiovascular surgery and sternotomy without evidence of congestive failure or cardiomegaly. -Continue furosemide 20 mg daily. 7. Chronic kidney disease stage 4, present on admission. Stable. -Baseline creatinine varies between 2.4 and 2.9, presently at 2.5 with a BUN of 46, mildly hyperkalemic with potassium of 5.2. -Urinalysis 1+ protein urea. -Avoid nephrotoxic agents. -Continue monitor renal function daily. 8. Gout, chronic, present on admission. Stable. -No evidence of acute gout flare. Continue allopurinol 100 mg daily. 9. Recent urinary tract infection. -Prior urine culture dated 11/09/2018 reveals E coli, ESBL sensitive to ertapenem which he received at least a 10 day course. Urine culture grew Christy tropicalis only. 10. Hypertension, chronic, present on admission. Stable. -Continue carvedilol 12.5 mg and Lasix 20 mg. 11. Hyperlipidemia, chronic, present on admission. Presumed stable. -Continue patient's atorvastatin 20 mg daily 12. Benign prostatic hypertrophy, chronic, present on admission. Stable. -Continue tamsulosin 0.4 mg daily. -Patient is without urinary complaints or difficulty voiding. Incontinent in diaper. 13. Multiple falls prior to admission with recent right intertrochanteric fracture with failure to thrive/recover. -Status post open reduction internal fixation right intertrochanteric fracture right hip on 10/02/2018 following a ground level fall. -Patient has been bed-bound at [facility] and nonambulatory. Continue PT and OT. Patient is developing a right leg contracture due to lack of movement. -Patient is currently not on calcium supplementation as an elevated calcium at 10.4. Disposition: Patient likely to discharge home to hospice in the next several days as patient has been failing to recover/thrive from recent right hip fracture repair. Quality VTE Deep Vein Thrombosis/Pulmonary Embolism Present on Admission: No
--- NOTE | 2018-11-23 21:09 | PC.ADMIT ---
[facility] Admission Note: The patient,Farhat López,83 y/o, was given written information regarding hospital policies, unit procedures and contact persons. Patient's smoking status: Former smoker. Vital Signs - 8 hr 11/23/18 15:30 11/23/18 19:30 Temperature 97.5 F L 97.5 F L Pulse Rate 83 80 Respiratory Rate 20 20 Blood Pressure 123/67 140/79 Pulse Oximetry 98 98
[2018-11-23] MEDS: SODIUM CHLORIDE 0.9% FLUSH 10 ML IV (22:26)
[2018-11-23] MEDS: SENNOSIDES 8.6 MG TABLET PO (22:26)
[2018-11-23] MEDS: ATORVASTATIN 20 MG TABLET PO (22:26)
[2018-11-24] VITALS (8 sets, daily range): BP systolic 123–143; BP diastolic 65–80; PULSE 81–100; RESP 16–24; TEMP 36.4–37.2; O2SAT 94–98
[2018-11-24 05:24] LABS: Add Manual Diff / Slide Review NO; Basophils Absolute Auto 100 /uL (0-100); Basophils Percent Auto 1.3 % (0-2); Eosinophils Absolute Auto 200 /uL (0-450); Hematocrit 30.8 % (41-53); Lymphocytes Absolute Auto 1900 /uL (1100-4500); Lymphocytes Percent Auto 23.9 % (25-40); Mean Corpuscular HGB Conc 32.5 % (30-36); Mean Corpuscular Hemoglobin 28.7 PG (26-34); Mean Corpuscular Volume 88.4 fL (80-100); Monocytes Absolute Auto 500 /uL (0-900); Monocytes Percent Auto 6.3 % (3-14); Neutrophils Absolute Auto 5300 /uL (1500-7000); Neutrophils Percent Auto 66.5 % (50-75); Platelet Count 200 X10^3/uL (150-400); Red Blood Cell Count 3.48 X10^6/uL (4.5-5.9); Red Cell Distribution Width 18.8 % (11.6-14.8)
[2018-11-24 05:29] LABS: BUN Creatinine Ratio 14.6 (6-22); Blood Urea Nitrogen 38 mg/dL (9-20); Calcium 9.9 mg/dL (8.4-10.2); Carbon Dioxide 21 mmol/L (22-32); Chloride 112 mmol/L (98-107); Estimated Glomerular Filt Rate 23.7 mL/min (>60); Glucose 94 mg/dL (80-110); HEMOLYSIS < 15 (0-50); Potassium 4.6 mmol/L (3.4-5.1); Sodium 141 mmol/L (137-145)
--- NOTE | 2018-11-24 06:02 | PC.NURSE ---
Addendum entered by Ashlee Madison R.N. 11/24/18 06:33: Pt shifting in bed with feet dangling over railing, refuses to be repositioned. Pt kicked bedside table with left food causing a skin tear of 2nd toe. JUSTEN made aware of pt's agitation, refusal to be repositioned and injury to toe resulting in skin tear. Dressed toe with bandaid and d/c'd tele per Gómez's order. Pt agreed to be repositioned but twisted himself back to the side laying position. Original Note: Shift Note: Received pt from evening shift. At time of assessment pt alert only to himself. Over course of shift pt carried on a conversation with an auditory and visual hallucination. During 5am check, yellow colored emesis was found on the floor on the patients left side and also on the pillow under him. Unsure of time of emesis as pt never made any indication of emesis or coughing to suspect aspiration. JUSTEN Magaña was made aware of findings and listened to the pt's lungs. Pt unable to report when the episode of emesis had occurred. Pt was 95% on RA with no indications of aspiration. JUSTEN Magaña advised to continue to monitor pt for changes and to elevate the bed as tolerated.
--- NOTE | 2018-11-24 06:31 | PM.EVENT ---
Date Patient Seen: 11/24/18 Time Patient Seen: 06:22 Patient earlier been found to have had emesis over the side of the bed on the floor which dried no evidence of aspiration fever hypoxia or altered breath sounds. No cough present the head of the bed was elevated the patient began sliding down there for of bed placed in benjamin-knife position. Patient became more agitated as a result and kicked the bedside table creating a small approximately 0.5 cm superficial skin tear of left 3rd toe. No active bleeding, Band-Aid applied. Bed return to supine.
--- NOTE | 2018-11-24 06:34 | P.EN_ITS ---
Date Patient Seen: 11/24/18 Time Patient Seen: 06:22 Patient earlier been found to have had emesis over the side of the bed on the floor which dried no evidence of aspiration fever hypoxia or altered breath sounds. No cough present the head of the bed was elevated the patient began sliding down there for of bed placed in benjamin-knife position. Patient became more agitated as a result and kicked the bedside table creating a small approximately 0.5 cm superficial skin tear of left 3rd toe. No active bleeding , Band-Aid applied. Bed return to supine.
--- NOTE | 2018-11-24 09:17 | PM.PN.1 ---
Subjective Date Patient Seen: 11/24/18 Interval history: Farhat López is an 83-year-old male with history of a recent ground level fall with subsequent right intertrochanteric hip fracture status post ORIF, CAD status post CABG x6, chronic atrial fibrillation previously on warfarin, diabetes mellitus type 2, insulin using, and recent UTI on ertapenem who was sent to the hospital by [facility] for shortness of breath. Overnight the patient had an episode of emesis. Implemented that the head of bed should be at 30? or greater at all times. The patient is resting in bed comfortably. He is refusing all meds and food. His overall status is declining rapidly. He is more somnolent today and cognitively impaired. He continues to actively hallucinate. His and caregiver are present at bedside. I had a long discussion regarding the patient's condition and suspicion of a significant BOTTOM SPRAYER event and his rapid decline. Discussed POLST formed and changed the patient to comfort measures only. He is scheduled to go home with hospice tomorrow. Exam Vital Signs (past 8 hours): - 11/24/18 03:00 11/24/18 07:25 Temperature 98.7 F 98.2 F Pulse Rate 81 85 Respiratory Rate 20 16 Blood Pressure 131/72 130/65 Pulse Oximetry 96 94 Oxygen Delivery Method Room Air Oxygen Flow Rate 0 Narrative Exam Narrative: General: Elderly male lying in bed and in no acute distress, well-developed, well-nourished, persistent confusion with hallucinations, increasingly somnolent. HEENT: Normocephalic, atraumatic. External ears without defect. Pupils pinpoint, equal, round, and reactive to light. Anicteric sclerae, moist conjunctivae, and no lid lag. Mucus membranes dry. Neck: Supple with full range of motion. No jugular venous distension. No bruits. No lymphadenopathy or thyromegaly. Cardiovascular: Irregularly irregular without murmurs, rubs, or gallops appreciated. Pulmonary: Clear to auscultation bilaterally without crackles, wheezes, or rhonchi. Normal respiratory effort with no use of accessory muscles. Abdomen: Soft, bowel sounds present, nontender, nondistended. No hepatosplenomegaly or masses appreciated. Extremities: No clubbing or cyanosis. Right lower extremity swelling likely due to previous fall. Skin: Normal temperature, turgor, and texture; chronic pressure ulcerations on right arm posterior cubital fossa and right lateral malleoli with bandages in place c/d/i. Band-Aid on right 2nd toe. Neurological: Patient is alert and oriented to person only. Seems to have dementia with behavioral disturbance unclear as to specific type. Objective Labs Result Diagrams: 11/24/18 05:04 11/24/18 05:04 Labs: Laboratory Results - last 24 hr 11/24/18 11/24/18 05:04 05:04 WBC 8.0 RBC 3.48 L Hgb 10.0 L Hct 30.8 L MCV 88.4 MCH 28.7 MCHC 32.5 RDW 18.8 H Plt Count 200 Neut % (Auto) 66.5 Lymph % (Auto) 23.9 L [place] % (Auto) 6.3 Eos % (Auto) 2.0 Baso % (Auto) 1.3 Neut # (Auto) 5300 Lymph # (Auto) 1900 [place] # (Auto) 500 Eos # (Auto) 200 Baso # (Auto) 100 Sodium 141 Potassium 4.6 Chloride 112 H Carbon Dioxide 21 L BUN 38 H Creatinine 2.60 H Estimated GFR 23.7 L BUN/Creatinine Ratio 14.6 Glucose 94 Calcium 9.9 Assessment & Plan Plan: Assessment/Plan Narrative: Farhat López is an 83-year-old male with history of a recent ground level fall with subsequent right intertrochanteric hip fracture status post ORIF, CAD status post CABG x6, chronic atrial fibrillation previously on warfarin, diabetes mellitus type 2, insulin using, and recent UTI on ertapenem who was sent to the hospital by [facility] for shortness of breath. 1. End of life comfort care. -Patient is rapidly declined over the course of the last several days. -High suspicion that patient has had a BOTTOM SPRAYER event at some point in time over the last several weeks. -Discussed with patient's Mimi López and caregiver code status and goals of care. Filled out POLST form for comfort measures only. -Patient refusing medications and food. May continue to try to feed patient if he endorses hunger. -Does not appear to be in pain or hunger for air, therefore pain and anti-anxiety medications have not been started. Will implement if needed. 2. Iron deficiency anemia and anemia of chronic kidney disease, present on admission. Stable. Acute blood loss anemia ruled out. -Initially thought to have severe anemia but entire sample was delutional per slab off mill tender. The sample was drawn at an outside facility and was not timed therefore, when entered into our system showed up after CBC drawn here on same day and appears as though he went from 9.5 to 6.5 (which was actually the other way around). The patient, however, received 2 units PRBC as this was not realized initially. -No report from [facility] of melena or hematochezia in which patient is bed-bound, therefore, if it was a GI bleed it would have been apparent with perineal care. -Patient does have iron deficiency anemia with iron panel coinciding. Continue iron supplementation. -Hemoglobin and hematocrit stable. 2. Candiduria, present on admission. No need to treat. -Patient's urinalysis grew Christy tropicalis. -Discontinued Diflucan. I discussed this with Dr. Carolina of Infectious Disease, who recommends discontinuation as the patient has no infectious symptoms or signs, Christy tropicalis is a very common yeast skin jaspreet and the patient is not severely immunocompromised. 3. 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 Active. 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 -Unable to obtain MRI due to pacemaker and CTA due to CKD stage 4. -Patient is comfort care only as above. 4. Atrial fibrillation, chronic, present on admission. Stable. -Irregularly irregular rhythm with controlled rate. 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 -Previously on Coumadin discontinued due to subdural hematoma following a fall. -Discontinued aspirin and Coreg as patient is comfort care only. 5. Diabetes mellitus type 2, chronic, present on admission. Stable. -Patient has complications of neuropathy, chronic kidney disease stage 4, and visual loss unknown if related to diabetes. -Held glipizide 5 mg daily as patient has had low blood glucose due to decreased p.o. intake. -Discontinued Accu-Cheks ACHS and correctional scale insulin. 6. Atherosclerotic vascular disease, chronic, present on admission. Presumed stable. 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 -Chronically elevated troponin in light of chronic kidney disease stage 4. -EKG changes with ST depression in V3 to V6, stable compared to prior EKGs. -Echocardiogram dated 10/03/2018 reveals an EF 45-50%, mild LVH, mild right ventricular dilation with decreased right ventricular function, [id number] MVR, mild TR. -No complaints of chest pain, complained of exertional dyspnea likely related to #1, no carotid bruit appreciated. -Chest x-ray notes evidence of cardiovascular surgery and sternotomy without evidence of congestive failure or cardiomegaly. -Discontinued furosemide 20 mg daily as patient is comfort care only. 7. Chronic kidney disease stage 4, present on admission. Stable. -Baseline creatinine varies between 2.4 and 2.9, presently at 2.5 with a BUN of 46, mildly hyperkalemic with potassium of 5.2. -Urinalysis 1+ protein urea. -Avoided nephrotoxic agents. 8. Gout, chronic, present on admission. Stable. -No evidence of acute gout flare. Discontinued allopurinol 100 mg daily S patient is comfort care only. 9. Recent urinary tract infection. -Prior urine culture dated 11/09/2018 reveals E coli, ESBL sensitive to ertapenem which he received at least a 10 day course. Urine culture grew Christy tropicalis only. 10. Hypertension, chronic, present on admission. Stable. -Discontinued carvedilol 12.5 mg and Lasix 20 mg as patient is comfort care only. 11. Hyperlipidemia, chronic, present on admission. Presumed stable. -Discontinued patient's atorvastatin 20 mg daily as patient is comfort care only. 12. Benign prostatic hypertrophy, chronic, present on admission. Stable. -Discontinued tamsulosin 0.4 mg daily as patient is comfort care only. -Patient is without urinary complaints or difficulty voiding. Incontinent in diaper. 13. Multiple falls prior to admission with recent right intertrochanteric fracture with failure to thrive/recover. -Status post open reduction internal fixation right intertrochanteric fracture right hip on 10/02/2018 following a ground level fall. -Patient has been bed-bound at [facility] and nonambulatory. Disposition: Patient to discharge home to hospice tomorrow for end of life care. Comfort care only in meantime. Quality VTE Deep Vein Thrombosis/Pulmonary Embolism Present on Admission: No
[2018-11-24] MEDS: FUROSEMIDE 20 MG TABLET PO (10:19)
[2018-11-24] MEDS: SERTRALINE 50 MG TABLET PO (10:19)
[2018-11-24] MEDS: glipiZIDE 5 MG TABLET PO (10:19)
[2018-11-24] MEDS: CARVEDILOL 12.5 MG TABLET PO (10:19)
[2018-11-24] MEDS: ALLOPURINOL 100 MG TABLET PO (10:20)
[2018-11-24] MEDS: TAMSULOSIN 0.4 MG CAPSULE PO (10:20)
[2018-11-24] MEDS: POLYETHYLENE GLYCOL 3350 17 GM POWD.PACK PO (10:21)
[2018-11-24] MEDS: PANTOPRAZOLE 40 MG VIAL IV (10:21)
[2018-11-24] MEDS: SODIUM CHLORIDE 0.9% FLUSH 10 ML IV ×3 (10:21→22:32)
[2018-11-24] MEDS: PROMETHAZINE 12.5 MG TABLET PO (10:22)
--- NOTE | 2018-11-24 10:25 | PT.IPTN ---
Current Diagnoses Anemia, unspecified (11/21/18) Physical Therapy Treatment Note M2 PT-IP Current Condition Start: 11/22/18 16:07 Freq: NEEDED Status: Active Protocol: Document 11/22/18 14:45 AB (Rec: 11/22/18 16:30 AB [id number]) Physical Therapy Current Condition Current Condition Evaluation Date 11/22/18 Treatment Diagnosis anemia; GI bleed; UTI: generalized weakness Onset Date 11/21/18 M3 PT-IP Subjective Start: 11/22/18 16:07 Freq: NEEDED Status: Active Protocol: Document 11/24/18 09:45 HH (Rec: 11/24/18 10:25 [id number]) Subjective Physical Therapy Visit Type Type Treatment Note Visit Start Time 09:45 Visit Stop Time 10:00 Total Visit Minutes 15 Notes RN reports has shown increased confusion and hallucination since last night. Pt did not sleep and was constantly moving around in bed and intended to get OOB. Pt also positioned himself in position to the right with legs hanging on bedrails. Number of TINNER HELPER Visits 0 Physical Therapy Visit Comments Patient Comments let me get to the chair. I need to get out. Im not sure. Pt appears increased confusion and unable to follow command. M4 PT-IP Mobility and Gait Start: 11/22/18 16:07 Freq: NEEDED Status: Active Protocol: Document 11/24/18 09:45 HH (Rec: 11/24/18 10:25 [id number]) PT-Bed Mobility Assessment Supine to Sit Supine to Sit Maximum Assistance 2 Person Assistance Head of Bed Elevated Bedrails PT-Transfer Assessment Comments Mobility Comments Pt showed increased confusion and unable to follow command. Pt positioned in position and kept trying to get OOB without safety awareness upon assessment. Pt required max A x 2 for supine to sit but he was unable to sit upright more than 2 seconds even though with assistance. Pt showed significant retropulsion and R trunk lean. He was also unable to reach for support due to poor vision and confused cognitive stage. He cont states let me get up and get to that chair. Repositioned pt back to supine due to very high fall risk and poor body and safety awareness. Pt was able to fully extend B LE passively but he tends to position himself in position. All bed rails up and call light within reach. Gait Assessment Comments Gait Comments unable at this time PT-Balance Assessment Sitting Balance and Reactions Static Sitting Balance Ability Poor Dynamic Sitting Balance Ability Poor M5 PT-IP Objective Assessments Start: 11/22/18 16:07 Freq: NEEDED Status: Active Protocol: Document 11/22/18 14:45 AB (Rec: 11/22/18 16:30 AB [id number]) Orientation Orientation/Cognition Level of Alertness Confusional State Orientation Name Safety Awareness Decreased Safety Awareness Memory Description Short Term Impaired Mcc Impaired Comments pt able to answer questions but occasionally will pause and reach out in the air for unknown reasons. Gross Range of Motion Lower Extremity ROM Assessment Right Impaired Impairments R hip/knee flexor tightness/ slight contracture but able to extend with stretching Strength Lower Extremity Strength Assessment Bilaterally Impaired Comments Strength Comments RLE 3+/5 LLE 4-/5 Other Assessments Other Other Assessments (+) R lower leg edema; lateral malleolus with dressing; pt tends to have RLE in flexion and ER when supine in bed. M6 PT-IP Treatment Start: 11/22/18 16:07 Freq: NEEDED Status: Active Protocol: Document 11/22/18 14:45 AB (Rec: 11/22/18 16:30 AB [id number]) Physical Therapy Treatment Education Education Provided Safety Other Treatments Other Treatment Performed PROM with end range stretching : R knee towards extension in supine M7 PT-IP Assessment and Plan Start: 11/22/18 16:07 Freq: NEEDED Status: Active Protocol: Document 11/24/18 09:45 HH (Rec: 11/24/18 10:25 HH [id number]) PT Summary Assessment and Plan Potential Status of Condition at Evaluation Unstable Summary Assessment Summary Pt showed significant decreased mobility and increased confusion today. Pt was hallucinating and unable to follow commands during session. He also presented increased retropulsion and R trunk lean who was also unable to reach/maintain UE support on surface while sitting EOB. Pt immediately fell back to bed without assistance. Pt is currently medically unstable and require SNF rehab to improve mobility. However, per OT and spouse reports, spouse wants pt to go home under hospice care. She plans to hire private CG plus [facility] She plans to obtain hospital bed and bipin lift. Frequency of Treatment Frequency Of Treatment Once a Day Treatment Plan Other Recommendations and Next Treatment bed mobility, transfers Focus Recommendations To Nursing Amount of Assist Needed Mechanical Lift Discharge Recommendations PT Discharge Recommendations SNF Rehab
--- NOTE | 2018-11-24 11:06 | PC.NURSE ---
Pt resting in bed, SR up, alarms on. Pt is confused, hallucinating, talks out loud and reaches out into the air. Pt is calm and then episodes of agitation. Pt refuses any po intake nutrition, except for popsicles. Pt total care, PT attempted to get Pt oob, Pt unable to stand. Pt swallowed am meds w/applesauce. Pt has 2 skin tears from fall prior to adm, allevmi ddrsg on/intact/clean.
--- NOTE | 2018-11-24 12:37 | OT.IP.TRT ---
Current Diagnoses Anemia, unspecified (11/21/18) Occupational Therapy Treatment Note M2 OT-IP Current Condition Start: 11/22/18 15:18 Freq: Status: Active Protocol: Document 11/22/18 11:20 PJM (Rec: 11/22/18 15:52 PJM [id number]) Occupational Therapy Current Condition Current Condition Evaluation Date 11/22/18 Treatment Diagnosis decreased self care/mobility s /p recurent falls at [facility], persistent UTI Diagnosis Onset Date 11/21/18 Post Operative Precautions Other Precautions High fall risk Weight Bearing Status Weight Bearing Status Weight Bear as Tolerated Allowed Weight Bearing Amount (enter % RLE or #) (%) M3 OT- IP Subjective and Pain Start: 11/22/18 15:18 Freq: Status: Active Protocol: Document 11/24/18 12:32 [facility] (Rec: 11/24/18 12:37 [facility] [id number]) OT- Subjective Occupational Therapy Visit Type Type Administrative Note Notes Approached pt for OT treatment . 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 Placed wash cloth in his hand and did not respond. Therefore pt not appropriate for OT today.
--- NOTE | 2018-11-24 13:27 | CM.DPNOTE ---
Addendum entered by Kenna Bourgeois, GLASS LOADING EQUIPMENT TENDER 11/24/18 15:54: Met w/pt's spouse Mimi and their friend/cg Cherelle at bedside w/ Dr Wilder. Dr Wilder discussed, in no uncertain terms, pt's poor prognosis; to include worsening mental state, lack of appetite and overall decline. Mimi tended to veer off topic but is redirected easily w/ assist from Dr Wilder and Cherelle. Plan remains Home w/Hospice Wednesday, via BLS, POLST updated by Dr Wilder and Mimi to reflect DNR/DNI wishes. Faxed updated POLST to [facility]. Son Scott also included in this conversation via speaker phone. All aware and agreeable to plan. JW Original Note: Pt discussed in multi-disciplinary rounds this morning. Dr Wilder would like to review DCP w/spouse and update POLST if she visits pt today. TC placed to Adriana w/ [facility]; DME being delivered to pt's home today. A computer numerical control programmer will be available at 1000 Wednesday but can plan to be at pt's home between [phone]. Pt will need to be picked up [id number] from by 1000; BLS. Dr Wilder signed BLS/medical necessity form today. Adriana explained computer numerical control programmer will review medication list w/pt and spouse once pt home. This GLASS LOADING EQUIPMENT TENDER placed call to spouse Mimi; reviewed DCP. Mimi has a cg helping her today and will have a cg helping tomorrow. Mimi aware that computer numerical control programmer can meet them at their house tomorrow approx [phone]. Explained that BLS transport will take pt home, goal is leave [facility] at 1000. Encouraged Mimi to be here at 0900 and follow (w/her cg) behind BLS home, she agreed. Then explained that pt's POLST would need to be reviewed and updated; Mimi then explained she and her spouse wanted Attempt CPR 3 years ago. This GLASS LOADING EQUIPMENT TENDER took the opportunity to briefly explain pt's mind and body have deteriorated since that time and attempt at CPR is not approp. when transitioning to Hospice care, and at this time it would cause more pain than benefit for pt. Mimi requested to review POLST w/physician Wednesday morning. Dr Leach is scheduled. P: DC scheduled for [place], home w/hospice ([facility]), private paid cg and family to assist. BLS transport needs to be scheduled. POLST needs to be updated. KEELY Carranza
[2018-11-24] MEDS: DEXTROSE 50 % IN WATER 25 GM/50 ML SYRINGE IV ×2 (17:35→22:32)
--- NOTE | 2018-11-24 18:03 | PC.NURSE ---
Addendum entered by Phyllis Powell R.N. 11/24/18 22:37: BG check at 2215 75 mg/dl, per protocol Dextrose 50% IV administered. Patient arouses to voice, able to squeeze hand when asked, verbalizes one to two words. Not always able to comprehend. Will continue to monitor. Mimi updated via phone. Original Note: Addendum entered by Phyllis Powell R.N. 11/24/18 20:50: 2235 BG 91 mg/dl, provider made aware. Patient is refusing to eat, sleeping. Able to arouse with touch, not long enough to offer PO intake. THis RN concerned with aspiration. PRN Dextrose IV as needed. Original Note: Addendum entered by Phyllis Powell R.N. 11/24/18 19:03: Sleeping between care, arouses to touch. BG at 1658 133 mg/dl. Dr. Wilder made of aware of hypoglycemic event. Original Note: Kamille shift note: Notified by Rabia MCCORMICK regarding patients BG 50 mg/dl at 1732, administered at 1735 25 GM of Dextrose IV as ordered PRN for hypoglycemia. Patient is awake, however, non verbalizing. BG repeat at 1752 is 178 mg/dl. Patient sleeping between care, arouses to touch. Patient currently not staying awake enough to attempt PO intake, aspiration precautions in place. Dr. Wilder to be notified regarding event. Family at bedside providing supportive care.
--- NOTE | 2018-11-25 01:46 | PC.NURSE ---
0010 Checked pt. sleeping soundly, will monitor.
[2018-11-25 02:00] VITALS: BP 138/75; PULSE 80; RESP 20; TEMP 37.2; O2SAT 94
[2018-11-25 05:30] VITALS: BP 135/92; PULSE 83; RESP 20; TEMP 37.1; O2SAT 97
[2018-11-25 06:11] LABS: Add Manual Diff / Slide Review NO; Basophils Absolute Auto 100 /uL (0-100); Basophils Percent Auto 0.8 % (0-2); Eosinophils Absolute Auto 100 /uL (0-450); Eosinophils Percent Auto 1.3 % (2-4); Hematocrit 31.5 % (41-53); Hemoglobin 10.5 g/dL (13.5-17.5); Lymphocytes Absolute Auto 1900 /uL (1100-4500); Lymphocytes Percent Auto 27.8 % (25-40); Mean Corpuscular HGB Conc 33.3 % (30-36); Mean Corpuscular Hemoglobin 29.2 PG (26-34); Mean Corpuscular Volume 87.7 fL (80-100); Monocytes Absolute Auto 500 /uL (0-900); Monocytes Percent Auto 6.7 % (3-14); Neutrophils Absolute Auto 4400 /uL (1500-7000); Neutrophils Percent Auto 63.4 % (50-75); Platelet Count 223 X10^3/uL (150-400); Red Cell Distribution Width 18.9 % (11.6-14.8)
[2018-11-25 06:25] LABS: BUN Creatinine Ratio 14.3 (6-22); Blood Urea Nitrogen 40 mg/dL (9-20); Calcium 10.4 mg/dL (8.4-10.2); Carbon Dioxide 23 mmol/L (22-32); Chloride 113 mmol/L (98-107); Estimated Glomerular Filt Rate 21.8 mL/min (>60); Glucose 103 mg/dL (80-110); HEMOLYSIS < 15 (0-50); Potassium 4.6 mmol/L (3.4-5.1); Sodium 143 mmol/L (137-145)
[2018-11-25 08:00] VITALS: O2SAT 95
--- NOTE | 2018-11-25 08:06 | PM.DS.1 ---
History of Present Illness Date Patient Seen: 11/25/18 Time Patient Seen: 08:07 Chief complaint: [facility] sent to be seen,did not say why Narrative: Mr. López is an 83-year-old male with history of a recent fall and status post ORIF right intertrochanteric hip fracture, hypertension, atrial fibrillation previously on Coumadin, cardiovascular disease, status post CABG x6, chronic atrial fibrillation, pacemaker diabetes who was sent to the hospital by his primary care provider related to shortness of breath. The patient's son is at bedside to help provide history as the patient is a poor historian and incapable of providing details leading to presentation for care.. The patient was seen emergency department yesterday following recurrent falls at his rehab facility over the last 2 days. The patient was evaluated with findings only abrasion and skin tear right elbow and right knee pain with a history urinary tract infection reportedly being treated with antibiotics. The patient's son states that the patient has become more confused over the last week with tremulousness and poor sleep. Patient per the medical record has dementia and per his son is more confused than his typical baseline. On evaluation in the ER the patient is found to be severely anemic with a hemoglobin of 6.5 and hematocrit of 20.7. He is also tested to be guaiac positive. The patient previously been on Coumadin for atrial fibrillation and transitioned to aspirin following a fall which he sustained a subdural hematoma and has been anticoagulated on aspirin 325 mg daily. INR has been checked is found to be 1.0. He does have an elevated troponin which been elevated on prior admissions at 0.66 but has a history of chronic renal failure stage 4 with a BUN of 46 and creatinine of 2.5 with a EGFR of 24.8. EKG is reviewed atrial fibrillation at a controlled rate in the 70s with ST depression of the 3 through 6 which is unchanged from prior examinations. At the time of examination the patient denies complaints pain. Reports no chest pain, palpitations or shortness of breath. He denies abdominal pain nausea vomiting. He reports normal bowel movements and has noted no blood. He denies pain at the right surgical site. The patient additionally has a history of diabetes for which he is taking glipizide and insulin, hyperlipidemia on atorvastatin 20 mg, BPH treated with tamsulosin, impaired vision and hard of hearing. Discharge Providers Date of admission: 11/21/18 18:01 Primary care physician: Kelton Ross MD Consults: 11/21/18 20:35 Consult to Occupational Therapy Evaluate & Treat Comment: S/P ORIF R hip, weakness, falls Physician Instructions: Evaluate and treat Consult to Physical Therapy Evaluate & Treat Comment: Physician Instructions: Evaluate and Treat 11/21/18 20:[address] Painter Routine Comment: Dementia, no Adv Dir, safety for d/c to home. 11/21/18 20:38 Consult to Discharge Planning Routine Comment: safety for d/c to home. 11/21/18 20:41 Consult to Physician Routine Comment: Consulting Provider: Estefania Gonzales Reason for consultation: Evaluatiom for GIB Has provider been notified: Yes Discharge provider: Adair Leach MD Discharge Date: 11/25/18 Summary Hospital Course: 1. End of life comfort care. -Patient has rapidly declined over the course of the last several days. -High suspicion that patient has had a SCHOOL AIDE event at some point in time over the last several weeks. -Discussed with patient's Mimi López and caregiver code status and goals of care. Filled out POLST form for comfort measures only. -Patient refusing medications and food. May continue to try to feed patient if he endorses hunger. -Does not appear to be in pain or hunger for air, therefore pain and anti-anxiety medications have not been started. Will implement if needed. 2. Iron deficiency anemia and anemia of chronic kidney disease, present on admission. Stable. Acute blood loss anemia ruled out. -Initially thought to have severe anemia but entire sample was dilutional per clinical laboratory technologist. The sample was drawn at an outside facility and was not timed therefore, when entered into our system showed up after CBC drawn here on same day and appears as though he went from 9.5 to 6.5 (which was actually the other way around). The patient, however, received 2 units PRBC as this was not realized initially. -No report from [facility] of melena or hematochezia in which patient is bed-bound, therefore, if it was a GI bleed it would have been apparent with perineal care. -Patient does have iron deficiency anemia with iron panel coinciding. -Hemoglobin and hematocrit stable. 2. Candiduria, present on admission. No need to treat. -Patient's urinalysis grew Christy tropicalis. -Discontinued Diflucan. Discussed this with Dr. Carolina of Infectious Disease, who recommends discontinuation as the patient has no infectious symptoms or signs, Christy tropicalis is a very common yeast skin jaspreet and the patient is not severely immunocompromised. 3. 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 Active. 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 -Unable to obtain MRI due to pacemaker and CTA due to CKD stage 4. -Patient is comfort care only as above. 4. Atrial fibrillation, chronic, present on admission. Stable. -Irregularly irregular rhythm with controlled rate. 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 -Previously on Coumadin discontinued due to subdural hematoma following a fall. -Discontinued aspirin and Coreg as patient is comfort care only. 5. Diabetes mellitus type 2, chronic, present on admission. Stable. -Patient has complications of neuropathy, chronic kidney disease stage 4, and visual loss unknown if related to diabetes. -Held glipizide 5 mg daily as patient has had low blood glucose due to decreased p.o. intake. -Discontinued Accu-Cheks ACHS and correctional scale insulin. 6. Atherosclerotic vascular disease, chronic, present on admission. Presumed stable. 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 -Chronically elevated troponin in light of chronic kidney disease stage 4. -EKG changes with ST depression in V3 to V6, stable compared to prior EKGs. -Echocardiogram dated 10/03/2018 reveals an EF 45-50%, mild LVH, mild right ventricular dilation with decreased right ventricular function, [id number] MVR, mild TR. -No complaints of chest pain, complained of exertional dyspnea likely related to #1, no carotid bruit appreciated. -Chest x-ray notes evidence of cardiovascular surgery and sternotomy without evidence of congestive failure or cardiomegaly. -Discontinued furosemide 20 mg daily as patient is comfort care only. 7. Chronic kidney disease stage 4, present on admission. Stable. -Baseline creatinine varies between 2.4 and 2.9, presently at 2.5 with a BUN of 46, mildly hyperkalemic with potassium of 5.2. -Urinalysis 1+ protein urea. -Avoided nephrotoxic agents. 8. Gout, chronic, present on admission. Stable. -No evidence of acute gout flare. Discontinued allopurinol 100 mg daily S patient is comfort care only. 9. Recent urinary tract infection. -Prior urine culture dated 11/09/2018 reveals E coli, ESBL sensitive to ertapenem which he received at least a 10 day course. Urine culture grew Christy tropicalis only. 10. Hypertension, chronic, present on admission. Stable. -Discontinued carvedilol 12.5 mg and Lasix 20 mg as patient is comfort care only. 11. Hyperlipidemia, chronic, present on admission. Presumed stable. -Discontinued patient's atorvastatin 20 mg daily as patient is comfort care only. 12. Benign prostatic hypertrophy, chronic, present on admission. Stable. -Discontinued tamsulosin 0.4 mg daily as patient is comfort care only. -Patient is without urinary complaints or difficulty voiding. Incontinent in diaper. 13. Multiple falls prior to admission with recent right intertrochanteric fracture with failure to thrive/recover. -Status post open reduction internal fixation right intertrochanteric fracture right hip on 10/02/2018 following a ground level fall. -Patient has been bed-bound at [facility] and nonambulatory. He is going home today to be met by hospice and to continue on end of life care there at home. 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 Heart has a regular rate and rhythm with a 2/6 harsh systolic murmur. Lungs are clear to auscultation. There is no ankle edema. The creatinine is 2.8 with a GFR of 21.8. His primary care is Dr. Kelton Ross Objective Labs Result Diagrams: 11/25/18 05:33 11/25/18 05:33 Labs: Laboratory Results - last 24 hr 11/25/18 11/25/18 05:33 05:33 WBC 7.0 RBC 3.60 L Hgb 10.5 L Hct 31.5 L MCV 87.7 MCH 29.2 MCHC 33.3 RDW 18.9 H Plt Count 223 Neut % (Auto) 63.4 Lymph % (Auto) 27.8 Mclean % (Auto) 6.7 Eos % (Auto) 1.3 L Baso % (Auto) 0.8 Neut # (Auto) 4400 Lymph # (Auto) 1900 Mclean # (Auto) 500 Eos # (Auto) 100 Baso # (Auto) 100 Sodium 143 Potassium 4.6 Chloride 113 H Carbon Dioxide 23 BUN 40 H Creatinine 2.80 H Estimated GFR 21.8 L BUN/Creatinine Ratio 14.3 Glucose 103 Calcium 10.4 H Discharge Plan Discharge Plan Patient Disposition: Hospice - Home Discharge comment: Home at 10 am today with Hospice [facility] to start services on arrival at home. Discharge Med Rec/Prescriptions Prescriptions: New oxycodone 5 mg Tablet 5 mg PO Q6HR PRN (Reason: Pain, Moderate (4-6)) Qty: 30 RF: 0 Continue allopurinol 100 mg Tablet 100 mg PO DAILY RF: 0 tamsulosin 0.4 mg capsule,extended release 24hr 0.4 mg PO DAILY RF: 0 sertraline 50 mg Tablet 50 mg PO DAILY RF: 0 polyethylene glycol 3350 17 gram Powder In Packet 17 gm PO DAILY Qty: 10 RF: 0 sennosides [senna] 8.6 mg Tablet 8.6 mg PO BEDTIME Qty: 30 RF: 0 carvedilol 12.5 mg Tablet 12.5 mg PO BID RF: 0 acetaminophen [Acetaminophen Extra Strength] 500 mg Tablet 1,000 mg PO TID PRN (Reason: pain related to fracture) RF: 0 magnesium hydroxide [Milk of Magnesia] 400 mg/5 mL Suspension 30 ml PO PRN PRN (Reason: Constipation) RF: 0 bisacodyl 10 mg Suppository 10 mg CO PRN PRN (Reason: Constipation) RF: 0 sodium phosphates [Fleet Enema] 19-7 gram/118 mL Enema 1 supp CO PRN PRN (Reason: Constipation) RF: 0 docusate sodium 100 mg Capsule 100 mg PO BID PRN (Reason: Constipation) RF: 0 furosemide 20 mg tablet 20 mg PO DAILY RF: 0 ondansetron 4 mg Tablet,Disintegrating 4 mg PO Q6H PRN (Reason: Nausea) RF: 0 bisacodyl 5 mg Tablet 5 - 10 mg PO PRN PRN (Reason: mild to severe constipation) RF: 0 Discontinued atorvastatin 20 mg Tablet 20 mg PO BEDTIME RF: 0 aspirin 325 mg Tablet,Delayed Release (Dr/Ec) 325 mg PO DAILY RF: 0 ferrous sulfate 325 mg (65 mg iron) Tablet 325 mg PO BID RF: 0 glipizide 5 mg Tablet 5 mg PO DAILY RF: 0 insulin aspart U-100 [Novolog Flexpen U-100 Insulin] 100 unit/mL Insulin Pen 1 dose subcut ACHS RF: 0 oxycodone 5 mg tablet 5 mg PO Q6H PRN (Reason: pain) RF: 0 heparin lock flush (porcine) 10 unit/mL Solution 8 ml IV DAILY RF: 0 Follow up/Referrals: Kelton Ross MD [Primary Care Provider] - 1 Week (appt:11/30 @ 12:00 (check in @ 11:45) for appointment with dr hewitt (dr ross is unavailable) [phone]) Provider Discharge Instructions Diet: Diet as Tolerated Visit Report/Discharge Packet Visit Report Forms: Stroke Signs & Symptoms Discharge Data Primary Care Provider: Kelton Ross Attending Provider: Hilary Wilder Admit Date/Time: 11/21/18 18:01 Discharges patient from system. Discharge Date/Time: 11/25/18 10:51 Quality VTE Deep Vein Thrombosis/Pulmonary Embolism Present on Admission: No
[2018-11-25 09:05] VITALS: BP 148/85; PULSE 88; RESP 18; TEMP 36.8; O2SAT 95
--- NOTE | 2018-11-25 10:39 | PC.NURSE ---
Pt ready for discharge home via ambulance. Brief has been changed and belongings packed up. Pt is sleepy but responds appropriately to questions. Pt denies pain. Reviewed d/c instructions with Spouse. Spouse denies questions and states Hospice will be meeting them at the house and they are already set up.
--- NOTE | 2018-11-25 10:50 | PC.NURSE ---
Pt out via ambulance with family and all belongings
--- NOTE | 2018-11-25 15:55 | CM.DPNOTE ---
DC order in place today: home w/family and hospice f/u this morning. BLS arranged by windows server administrator Anthony for 1045 p/u through [facility]. [place] was attempted and no time available until the afternoon. Updated Adriana abernathy/ [facility]; faxed DC summary. Spouse Mimi and son Scott at bedside this morning. All aware and agreeable to plan. P: Home w/family and Hospice today via BLS. KEELY Carranza
== END 2018-11-25 10:51 | disposition hospice, home (50) | DRG 812 ==
LOC: ED 17:41 → AC 18:01
PROVIDERS: Nurse Practitioner Adult Health; Admitting Provider Internal Medicine; Emergency Provider Emergency Medicine; PCP Internal Medicine; Visit Provider Internal Medicine
DX: D50.9 Iron deficiency anemia, unspecified (principal); K92.1 Melena; N18.4 Chronic kidney disease, stage 4 (severe); F03.91 Unspecified dementia, unspecified severity, with behavioral disturbance; D63.1 Anemia in chronic kidney disease; E11.22 Type 2 diabetes mellitus with diabetic chronic kidney disease; E11.40 Type 2 diabetes mellitus with diabetic neuropathy, unspecified; I12.9 Hypertensive chronic kidney disease with stage 1 through stage 4 chronic kidney disease, or unspecified chronic kidney disease; S91.115A Laceration without foreign body of left lesser toe(s) without damage to nail, initial encounter; Z95.0 Presence of cardiac pacemaker; E78.5 Hyperlipidemia, unspecified; I25.10 Atherosclerotic heart disease of native coronary artery without angina pectoris; R29.6 Repeated falls; N40.1 Benign prostatic hyperplasia with lower urinary tract symptoms; R32 Unspecified urinary incontinence; R15.9 Full incontinence of feces; Z95.1 Presence of aortocoronary bypass graft; I48.0 Paroxysmal atrial fibrillation; M10.9 Gout, unspecified; I70.90 Unspecified atherosclerosis; Z51.5 Encounter for palliative care
CPT/HCPCS: 36415; 36430; 36591; 70450; 71046; 73502; 73560; 80048; 80053; 81001; 82306; 82550; 82962; 83540; 83550; 83735; 84484; 85025; 85610; 85730; 86850; 86900; 86901; 87077; 87086; 93005; 97162; 97165; 97530; 99282; 99285; P9016; C9113; J1335; J1940; Q0169